=== PATIENT | male | born 1965 | race Caucasian/White ===

== ENCOUNTER 2017-03-18 15:31 | Emergency (ER) | payer SELFPAY ==
[~2017-03-18] VITALS: Ht 172.7 cm; Wt 121.4 kg
[~2017-03-18 15:31] MED LIST: ANSHCCR PR; ANSHCS PR; LRT5 PO; OXYC1TAB3 PO; PROM25TA PO
[2017-03-18 15:34] VITALS: TEMP 36.7; Ht 172.7 cm; Wt 121.4 kg
[2017-03-18] MEDS ORDERED: ACET-749 PO (16:34)
[2017-03-18] MEDS ORDERED: SULF800T23 PO (16:34)
[2017-03-18] MEDS ORDERED: CEPH500C PO (16:34)
[2017-03-18 16:46] VITALS: BP 161/99; PULSE 91; O2SAT 97
--- NOTE | 2017-03-18 16:59 | EMERGENCY ROOM VISIT NOTE ---
History First contact with patient: 15:39 Chief Complaint: PAIN (GENERALIZED) Stated Complaint: ULCERS, PAIN HARD History of Present Illness The patient is a 51 year old male who presents to the Emergency Room with complaints of a painful draining wound on his left leg. The patient reports that he has had this wound for quite some time. He has been treated at the [facility] as recently as this past summer. The patient reports that he is self-employed and has not been receiving an income since November, and could not have any further follow-ups because he did not have the money to do so. The patient has contacted [facility], and has an appointment with them next Friday. The patient reports that the wound is becoming more painful, and has had no relief with ibuprofen. He also reports chronic redness around the wound that has somewhat worsened over the past few weeks. He has also had increasing drainage from the wound. He has been applying Aquacel and dry dressings as was previously done at the wound clinic. The patient denies any fevers or chills, and rates his discomfort a 6 out of 10 on my exam. Tetanus immunization is up-to-date. Review of Systems 10 system review was performed and was negative except for pertinent positives and negatives as indicated in history of present illness Past Medical/Surgical History Medical Problems: (1) Calculus Of Ureter (2) Hemorrhoids Nos (3) Hyperlipidemia Nec/Nos (4) Nicotine Dependence, Unspecified, Uncomplicated (5) Pneumonia, Organism Nos (6) Venous Insufficiency (Chronic) (Peripheral) Surgical Problems: (1) History of cholecystectomy Family History FH: diabetes mellitus FH: hypertension Social History Smoking Status: Current Every Day Smoker Alcohol Use: occasionally Marital Status: single Housing Status: lives alone Occupation Status: unemployed Current/Historical Medications Scheduled Cephalexin Monohydrate (Keflex), 500 MG PO QID Sulfa/Trimethoprim (Bactrim Ds 800MG/160MG), 1 TAB PO BID Scheduled PRN Acetaminophen/Codeine (Tylenol W/Codeine #3), 1-2 TABS PO q4-6h PRN for Pain Physical Exam Vital Signs Date Time Temp Pulse Resp B/P (MAP) Pulse Ox O2 Delivery O2 Flow Rate FiO2 03/18/17 15:34 36.7 87 18 166/112 96 Room Air Physical Exam CONSTITUTIONAL: Healthy and well nourished. Alert and oriented X 3 with positive affect. Patient does not appear in any acute distress, nor does he appear acutely ill or toxic. HEENT: Normocephalic, atraumatic. Pupils equal, round and reactive. NECK: Full active range of motion without discomfort. RESPIRATORY: Clear to auscultation bilaterally with no wheezing, crackles, rhonchi or stridor. CARDIOVASCULAR: Regular rate and rhythm with no murmurs, rubs or gallops. MUSCULOSKELETAL: Examination of left lower extremity shows an ulcer with peripheral induration and erythema. The patient does have a photo on his phone from a few weeks ago that does show some mildly increasing erythema about the wound. The patient has no tenderness to palpation of the calf or knee region. Pedal pulses are intact. INTEGUMENTARY: No rash or other significant dermatologic conditions noted. NEUROLOGIC: No focal neurologic deficits noted. Medical Decision & Procedures Laboratory Results Wound cultures were collected and are pending. ED Course Patient history and physical exam were performed. Nurse's notes were reviewed. Vital signs were reviewed, showing an elevated blood pressure 166/112. The patient is afebrile, and does not appear in any acute distress on exam. The patient does complain increasing pain and worsening appearance of the wound. I did review prior wound cultures to select appropriate antibiotic therapy. The patient will be treated with amoxicillin 500 mg 3 times a day 10 days, and Bactrim DS twice a day 10 days. The patient was encouraged to continue taking ibuprofen for baseline pain relief, and was also provided a prescription for Tylenol with Codeine as needed for breakthrough pain. Large amount of time was also spent in patient education. I also discussed other issues with the patient, including the importance of follow-up with the wound clinic for further wound management. I also explained the pain management usually is provided by his PCP, or in this case [facility]. In order to facilitate prompt follow-up and continuity of care, I also involved our Deli Associate who called the wound clinic and was advised that they canceled several appointments, therefore would need another referral to the clinic. We did explain to the patient currently does not have insurance. A referral form was completed by me and signed by Dr. Mckoy, attending physician. The Deli Associate also called [facility] who advised us that the patient is currently not an established patient. I initially told the patient that he could take his prescriptions to [facility], however because he is not established at this point, his prescriptions were printed to be taken to another local pharmacy. In addition to discussing culture and sensitivity history with our clinical pharmacist, he also looked up prescription costs for his medications, and suggested [facility] as the lower cost option. Additional discount prescription cards were also provided to the patient. The patient was instructed to return to the emergency department for any significantly worsening pain, swelling, redness or fever. The patient voiced understanding of all discharge instructions at the conclusion of my exam, but actually left the emergency department before his paperwork and prescriptions could be provided to him. His nurse was able to contact him via his cell phone, and returned for his discharge paperwork and prescriptions. During my examination, I also advised the patient that his blood pressure was elevated today in the emergency department, and was instructed to follow-up with a PCP or [facility] for blood pressure recheck. Medical Decision Patient has a long-standing history of venous stasis ulcers. The patient denies history of diabetes. He does report increasing pain, redness and swelling, therefore I feel that empiric antibody treatment is warranted. Wound cultures were collected again. [place] Drug Monitoring Program Search Results: patient reviewed within database, no issues identified Medication Reconcilliation Current Medication List: was personally reviewed by me Blood Pressure Screening Patient's blood pressure: Elevated blood pressure Blood pressure disposition: Referred to PCP Impression Primary Impression: Venous stasis ulcer of left lower extremity Additional Impressions: Left leg cellulitis Elevated blood pressure reading Departure Information Dispostion Home / Self-Care Prescriptions Acetaminophen/Codeine (Tylenol W/Codeine #3) 300 Mg/30 Mg Tab 1-2 TABS PO q4-6h Y for Pain, #30 TAB For Initial Treatment Prov: Pablo Chu PA 03/18/17 Sulfa/Trimethoprim (Bactrim Ds 800MG/160MG) Tab 1 TAB PO BID for 10 Days, #20 TAB Prov: Pablo Chu PA 03/18/17 Cephalexin Monohydrate (Keflex) 500 Mg Cap 500 MG PO QID for 10 Days, #40 CAP Prov: Pablo Chu PA 03/18/17 Referrals [facility] Celso Lutz, DO Forms HOME CARE DOCUMENTATION FORM, IMPORTANT VISIT INFORMATION Patient Instructions My [facility] Additional Instructions Take amoxicillin and Bactrim DS antibiotics as prescribed. Ibuprofen 600 mg every 6 hours as needed for pain. Take Tylenol with Codeine as needed for worse pain. Remember this medication can make you drowsy and constipated. Follow-up with [facility] next Friday as scheduled. Call the [facility] (Dr. Lutz) to schedule an appointment for further wound reevaluation and management. The Emergency Department does not provide wound management services or ongoing prescription management. Problem Qualifiers
== END 2017-03-18 16:40 | disposition home or self-care (01) ==
LOC: C.EDB 15:32 → C.EDC 16:40
DX: I87.8 Other specified disorders of veins (principal); L03.116 Cellulitis of left lower limb; R03.0 Elevated blood-pressure reading, without diagnosis of hypertension; E78.5 Hyperlipidemia, unspecified; F17.200 Nicotine dependence, unspecified, uncomplicated; Z87.442 Personal history of urinary calculi; Z90.49 Acquired absence of other specified parts of digestive tract; Z83.3 Family history of diabetes mellitus; Z82.49 Family history of ischemic heart disease and other diseases of the circulatory system

== ENCOUNTER → 2017-04-11 | Outpatient (CLI) | payer OTHER ==
[~2017-04-11] MED LIST changes: +ACET-749 PO; -ANSHCCR PR; -ANSHCS PR; +ASPI81CH2 PO; +CIPR1TAB11 PO; -LRT5 PO; -OXYC1TAB3 PO; -PROM25TA PO
== END | disposition home or self-care (01) ==
LOC: C.CPL 15:04 → EDSTATUS 05-19 12:29
PROVIDERS: ATTEND Family Medicine
DX: I10 Essential (primary) hypertension (principal)

== ENCOUNTER 2018-04-19 10:11 | Observation (INO) ==
[2018-04-19] MEDS ORDERED: ASPIRIN CHEW 324 MG PO STA (10:28)
--- NOTE | 2018-04-19 10:59 | XRay Report ---
XR chest 1V portable CLINICAL HISTORY: Chest Pain COMPARISON STUDY: No previous studies for comparison. FINDINGS: Lung volumes are normal. There is no pneumothorax or pleural effusion. There is no consolid ation or evidence for pulmonary edema. Cardiac size is at the upper limits of normal. Mediastinal con tours are unremarkable. IMPRESSION: No acute cardiopulmonary findings. Electronically signed by: Sabas Choudhary M.D. 04/19/2018 10:58 AM
[2018-04-19 11:03] LABS: Basophils # (auto) 0.01 K/uL (0-0.2); Basophils % (auto) 0.2 %; Eosinophils # (auto) 0.23 K/uL (0-0.5); Eosinophils % (auto) 4.5 %; Hematocrit (blood only) 43.3 % (42-52); Hemoglobin 15.9 g/dL (14.0-18.0); Immature Granulocytes # (auto) 0.01 K/uL (0.00-0.02); Immature Granulocytes % (auto) 0.2 %; Lymphocytes # (auto) 1.89 K/uL (1.2-3.4); Lymphocytes % (auto) 37.4 %; Mean Corpuscular Hgb Conc 36.7 g/dL (32-36); Mean Corpuscular Volume 91.4 fL (80-100); Mean Platelet Volume 10.8 fL (7.4-10.4); Monocytes # (auto) 0.33 K/uL (0.11-0.59); Monocytes % (auto) 6.5 %; Neutrophils # (auto) 2.59 K/uL (1.4-6.5); Neutrophils % (auto) 51.2 %; Platelet Count 197 K/uL (130-400); RDW Coefficient of Variation 12.7 % (11.5-14.5); RDW Standard Deviation 42.3 fL (36.4-46.3); Red Blood Count 4.74 M/uL (4.7-6.1); White Blood Count 5.06 K/uL (4.8-10.8)
[2018-04-19 11:18] LABS: Partial Thromboplastin Time 26.4 Seconds (21.0-31.0); Prothrombin Time 9.7 Seconds (9.0-12.0)
[2018-04-19 11:22] LABS: Alanine Aminotransferase 82 U/L (12-78); Albumin Level 4.1 gm/dl (3.4-5.0); Aspartate Aminotransferase 38 U/L (15-37); BUN Creatinine Ratio 12.6 (10-20); Blood Urea Nitrogen 12 mg/dl (7-18); Calcium 8.9 mg/dl (8.5-10.1); Carbon Dioxide 26 mmol/L (21-32); Chloride 100 mmol/L (98-107); Creatinine Clr Calc Pharmacy 126.5 ml/min; Est GFR (African American) 111.2; Glucose 279 mg/dl (70-99); Potassium 3.9 mmol/L (3.5-5.1); Sodium 136 mmol/L (136-145)
[2018-04-19 11:26] LABS: Alkaline Phosphatase 122 U/L (45-117); Bilirubin,Total 0.6 mg/dl (0.1-1); Globulin 4.1 gm/dl (2.5-4.0); Total Protein 8.2 gm/dl (6.4-8.2); Troponin I < 0.015 ng/ml (0-0.045)
--- NOTE | 2018-04-19 14:37 | History & Physical Report ---
Date of Service April 19, 2018 Assessment & Plan (1) Chest pain: 52 y/o M Hx PAD, non-healing LLE ulcer, HTN, DVT. Presents with central/ L CP radiating into his neck and accompanied by SOB, nausea and lightheadedness. This has occurred twice in the past 2 days. He also states that this occurred once 4 months ago and was not addressed at the time. The pt was said to be taking Coumadin. Plavix and HTN-related meds, however, he states that he felt he was taking too many medications and had stopped them of his own accord a few months ago. It is unclear if he completed his intended course of Coumadin for a LLE DVT. On review of records, he did have a normal stress echo 04/2017. He had ablation of the L saphenous vein 12/2017 which preceded his DVT. Initial labs are notable for a glucose of 280, although he denies a history of DM. Initial EKG does not support acute ischemia. 1) Chest pain - high risk despite normal stress in 2018. Pt placed on ASA, Plavix, statin. Pending serial troponins, fasting lipid profile, cardiology consult. He may need a cath, however, medical noncompliance should be taken into consideration in terms of potential stent placement should a worthy lesion become evident. 2) recent DVT - may have terminated Coumadin prematurely - we will obtain a LE US - although PE is in the differential, pretest probability is low. Would not work up further unless a DVT is found. 3) LE ulcer - this appears to be clean, although there is no evidence that it is healing and it is at an advanced atage. He had been following in a wound clinic buit stopped doing so. Sirgey eval and wound care should be arranged prior to DC - can likely take place at an outpt setting. 4) Hyperglycemia - as his glucose is 280, it would come to reason that he is diabetic. He is placed on a SS - A1C is pending. 5) HTN - pressure has been at the 165/110 range while in the ER. I will place him on Norvasc and Lisinopril to start now and continue AM. His HR is 60 so he may not tolerate aa B gaston. Full code Heparin prophylaxis Total time for this admit including review of labs, meds, imaging, records - discussion with pt, daughter and ER attending 40 min Present on Admission?: Yes History of Present Illness Chief Complaint: Chest pain Primary Care Provider: NO PCP 52 y/o M Hx PAD, non-healing LLE ulcer, HTN, DVT. Presents with central/L CP radiating into his neck and accompanied by SOB, nausea and lightheadedness. This has occurred twice in the past 2 days. He also states that this occurred once 4 months ago and was not addressed at the time. The pt was said to be taking Coumadin. Plavix and HTN-related meds, however, he states that he felt he was taking too many medications and had stopped them of his own accord a few months ago. It is unclear if he completed his intended course of Coumadin for a LLE DVT. On review of records, he did have a normal stress echo 04/2017. He had ablation of the L saphenous vein 12/2017 which preceded his DVT. Initial labs are notable for a glucose of 280, although he denies a history of DM. PMH: 1) HTN 2) PAD 3) LLE DVT 4) Obese 5) Medical noncompliance 6) Nonhealing LLE ulcer Surgical: 1) Ablation of L saphenous vein due to reflux 12/2017 2) Cholecystectomy Social: Extensive smoking history - quit 3 months ago rarely drink alcohol Croatian speaking - limited Welsh skills 2 daughters are available for translation Family: States both parents are alive - denies history of CAD in family - possible DM Allergies Allergy/AdvReac Type Severity Reaction Status Date / Time No Known Allergies Allergy Unknown Verified 04/19/18 10:41 Home Medications Home Medications Medication Instructions Recorded Confirmed Type Aspirin Childrens 81 mg PO UD PRN 04/19/18 04/19/18 History acetaminophen [Tylenol] 0 mg PO Q6H PRN 04/19/18 04/19/18 History Past Med/Surg History Surgical History History of cholecystectomy (Chronic) Social History Current Living Situation: Alone Other Information That Helps Us Care for You: No Feels Safe at Home: Yes Safety Concerns: Feels Safe At This Time Smoking Status: Former smoker Tobacco Type: cigarettes Do You Dip or Chew Tobacco: No Smoking End Date: on and off quitting smoking, recently quit this year Second Hand Exposure: No Tobacco Cessation Education Requested by Patient: No Hx Alcohol Use: Yes Alcohol type: beer and wine Alcohol Intake Frequency: 0-2 drinks per day Hx Substance Use: No Beliefs That Will Affect Care: None Preferred Language: Croatian Communication Ability: Effective Technology Lab Teacher Required: No Review of Systems General: Denies fevers, night sweats, weight loss, weight gain ENT: Denies throat pain, nasal congestion Eyes: Denies acute visual impairment, eye pain Cardiovascular: CP w/SOB as above Respiratory: Denies SOB, productive cough, wheezing - SOB occured with CP GI: Denies nausea, vomiting, diarrhea, constipation, GI bleeding : Denies dysuria, hesitancy, frequency, hematuria Neuro: Denies headache, lightheadedness, syncope, unilateral weakness, acute loss of balance, memory loss Endocrine: Denies polydypsia, polyuria Heme: Denies unexplained bruising Skin: Denies acute rash or ulcers - there is a chronic ulcer on the anterior distal LLE Physical Exam 2 Vital Signs (Past 24 Hours): Last Vital Signs Temp 36.7 C 04/19/18 10:16 Pulse 68 04/19/18 13:22 Resp 18 04/19/18 13:22 BP 162/116 H 04/19/18 13:22 Pulse Ox 95 04/19/18 13:22 Physical Exam: General: Overweight, middle-aged male, AAO x 3, no distress ENT: No erythema or exudates, no thrush Eyes: DIEGO, EOMI Head and neck: Normocephalic, atraumatic, No JVD, neck is supple. Chest/heart: Nontender, S1,2, RRR, no murmurs, no gallops Lungs: CTAB, no wheezing or crackles Abdomen: Nontender, nondistended, BS+ Neuro: AAO x 3, speech is clear, no unilateral weakness or loss of sensation, coordination intact Musculoskeletal: No joint inflammation, muscle tenderness, FROM Skin: No acute rashes or ulcers Extremities: No clubbing, cyanosis, edema - there is a chronic ulcer on the anterior distal LLE - stage 3-4 - no does not appear acutely infected Results & Data Diagnostic Findings EKG: NSR 60BPM
--- NOTE | 2018-04-19 15:35 | Emergency Department Note ---
Entered by Geo Garrett acting as a scribe for Ramsey Gardner DO History of Present Illness General Chief complaint: Cardiac Assessment Stated complaint: SOB, LEFT ARM PAIN, CHEST TIGHTNESS Source: patient History of Present Illness Onset (ago): day(s) 2 Location: chest (left) Pain Consistency: + other (persistent) Quality: + other (tightness) Exacerbated By: + other (exertion) Associated symptoms: + shortness of breath and + other (nausea, dizziness) The patient is a 52 year old male who presents to the Emergency Room with complaints of persistent left-sided chest tightness beginning 2 days ago. The patient describes the sensation as �squeezing� and reports some radiation to the left arm. He states that today he became nauseated, dizzy and short of breath with his symptoms. He notes that his discomfort is somewhat improved currently. He states that his chest pain and shortness of breath are sometimes worsened with exertion. He notes that he had taken aspirin yesterday that seemed to improve his symptoms, but he did not take any today. He denies trouble walking. He states that 3 months ago he had a procedure for an artery. He denies history of heart attack. Home Medications Home Medications Medication Instructions Recorded Confirmed Type Aspirin Childrens 81 mg PO UD PRN 04/19/18 04/19/18 History acetaminophen [Tylenol] 0 mg PO Q6H PRN 04/19/18 04/19/18 History Allergies Allergy/AdvReac Type Severity Reaction Status Date / Time No Known Allergies Allergy Unknown Verified 04/19/18 10:41 Past Med/Surg History Surgical History History of cholecystectomy (Chronic) Social History Current Living Situation: Alone Other Information That Helps Us Care for You: No Feels Safe at Home: Yes Safety Concerns: Feels Safe At This Time Smoking Status: Former smoker Tobacco Type: cigarettes Do You Dip or Chew Tobacco: No Smoking End Date: on and off quitting smoking, recently quit this year Second Hand Exposure: No Tobacco Cessation Education Requested by Patient: No Hx Alcohol Use: Yes Alcohol type: beer and wine Alcohol Intake Frequency: 0-2 drinks per day Hx Substance Use: No Beliefs That Will Affect Care: None Preferred Language: [place] Islander Communication Ability: Effective Nursing Coordinator Required: No Review of Systems See HPI for pertinent positives & negatives. and A total of 10 systems reviewed and were otherwise negative Physical Exam Vital Signs Vital Signs - 24 hr 04/20/18 00:05 04/20/18 03:59 04/20/18 12:10 Temperature 36.9 C 36.8 C Temperature Source Oral Oral Pulse Rate [Finger] 58 L 60 61 Pulse Rhythm [Finger] Regular Pulse Strength [Finger] Normal Respiratory Rate 17 17 16 Respiratory Effort / Characteristics Non-Labored Respiratory Depth Normal Respiratory Pattern Regular Blood Pressure [Left Arm] 128/85 Blood Pressure [Right Arm] 114/66 128/79 Blood Pressure Mean [Left Arm] 99 Blood Pressure Mean [Right Arm] 82 95 Blood Pressure Position [Left Arm] Lying Blood Pressure Position [Right Arm] Lying Lying Pulse Oximetry 96 98 94 Oxygen Delivery Method Room Air Room Air Room Air 04/20/18 12:40 04/20/18 12:45 04/20/18 12:50 Temperature Temperature Source Pulse Rate [Finger] 66 64 61 Pulse Rhythm [Finger] Regular Regular Regular Pulse Strength [Finger] Normal Normal Normal Respiratory Rate 16 16 16 Respiratory Effort / Characteristics Non-Labored Non-Labored Non-Labored Respiratory Depth Normal Normal Normal Respiratory Pattern Regular Regular Regular Blood Pressure [Left Arm] Blood Pressure [Right Arm] 139/89 134/80 118/80 Blood Pressure Mean [Left Arm] Blood Pressure Mean [Right Arm] 105 98 92 Blood Pressure Position [Left Arm] Lying Lying Lying Blood Pressure Position [Right Arm] Lying Lying Lying Pulse Oximetry 94 94 94 Oxygen Delivery Method Room Air Room Air Room Air 04/20/18 12:55 04/20/18 13:00 04/20/18 13:08 Temperature Temperature Source Pulse Rate [Finger] 59 L 60 59 L Pulse Rhythm [Finger] Regular Regular Regular Pulse Strength [Finger] Normal Normal Respiratory Rate 16 16 16 Respiratory Effort / Characteristics Non-Labored Non-Labored Spontaneous Respiratory Depth Normal Normal Respiratory Pattern Regular Regular Regular Blood Pressure [Left Arm] 122/78 Blood Pressure [Right Arm] 115/76 114/73 Blood Pressure Mean [Left Arm] 92 Blood Pressure Mean [Right Arm] 89 86 Blood Pressure Position [Left Arm] Lying Lying Lying Blood Pressure Position [Right Arm] Lying Lying Pulse Oximetry 94 94 94 Oxygen Delivery Method Room Air Room Air Room Air 04/20/18 13:38 04/20/18 14:38 04/20/18 15:38 Temperature Temperature Source Pulse Rate [Finger] 59 L 68 68 Pulse Rhythm [Finger] Regular Regular Regular Pulse Strength [Finger] Respiratory Rate 16 16 16 Respiratory Effort / Characteristics Non-Labored Spontaneous Non-Labored Spontaneous Non-Labored Spontaneous Respiratory Depth Normal Normal Normal Respiratory Pattern Regular Blood Pressure [Left Arm] 116/82 153/101 H 115/57 L Blood Pressure [Right Arm] Blood Pressure Mean [Left Arm] 93 118 76 Blood Pressure Mean [Right Arm] Blood Pressure Position [Left Arm] Lying Lying Blood Pressure Position [Right Arm] Pulse Oximetry 92 96 95 Oxygen Delivery Method Room Air Room Air Room Air 04/20/18 20:05 Temperature 36.7 C Temperature Source Oral Pulse Rate [Finger] 65 Pulse Rhythm [Finger] Pulse Strength [Finger] Respiratory Rate 18 Respiratory Effort / Characteristics Respiratory Depth Respiratory Pattern Blood Pressure [Left Arm] 122/77 Blood Pressure [Right Arm] Blood Pressure Mean [Left Arm] 92 Blood Pressure Mean [Right Arm] Blood Pressure Position [Left Arm] Lying Blood Pressure Position [Right Arm] Pulse Oximetry 96 Oxygen Delivery Method Room Air GENERAL: Patient is awake, alert, and in no acute distress.Patient is resting comfortably and showing no signs of anxiety EYES: The conjunctivae are clear. The pupils are round and reactive. EARS, NOSE, MOUTH AND THROAT: The nose is without any evidence of any deformity. Mucous membranes are moist.Tongue is midline NECK: The neck is nontender and supple. RESPIRATORY: Normal respiratory effort is noted. There is no evidence of wheezing rhonchi or rales to auscultation. CARDIOVASCULAR: Regular rate and rhythm noted. There no murmurs rubs or gallops normal S1 normal S2 GASTROINTESTINAL: The abdomen is soft. Bowel sounds are present in all quadrants. Abdomen is nontender. MUSCULOSKELETAL/EXTREMITIES: There is no evidence of gross deformity. Full range of motion is noted in the hips and shoulders. SKIN: There is no obvious evidence of any rash. There are no petechiae, pallor or cyanosis noted. NEUROLOGIC: Patient is awake alert and oriented x3. Course 1027: Past medical records reviewed. The patient was evaluated in room C9, and a complete history and physical examination were performed. 1340: I consulted Dr. Overton � [facility] Hospitalist. He will evaluate the patient for hospitalization. Consultations Consultation #1: I consulted Dr. Overton � [facility] Hospitalist. He will evaluate the patient for hospitalization. Time: 13:40 Administered Medications Amlodipine Besylate (Norvasc) 5 mg PO QAM [facility] Stop: 05/20/18 08:59 Last Admin: 04/20/18 10:06 Dose: 5 mg Aspirin (Ecotrin) 81 mg PO DAILY [facility] Stop: 05/20/18 08:59 Last Admin: 04/20/18 10:06 Dose: 81 mg Atorvastatin Calcium (Lipitor) 40 mg PO HS [facility] Stop: 05/19/18 20:59 Last Admin: 04/20/18 20:58 Dose: 40 mg Admin: 04/19/18 20:01 Dose: 40 mg Heparin Sodium (Porcine) (Heparin Sodium (Porcine)) 5,000 units SQ Q8 [facility] Stop: 05/19/18 21:59 Last Admin: 04/20/18 20:58 Dose: 5,000 units Admin: 04/20/18 13:57 Dose: 5,000 units Admin: 04/20/18 05:53 Dose: 5,000 units Admin: 04/19/18 22:45 Dose: 5,000 units Sodium Chloride (Nss 1000ml) 1,000 mls @ 125 mls/hr IV .Q8H [facility] Stop: 05/20/18 12:59 Last Admin: 04/20/18 22:06 Dose: 125 mls/hr Infusion: 04/20/18 21:56 Dose: 125 mls/hr Admin: 04/20/18 13:56 Dose: 125 mls/hr Insulin Aspart (Novolog Flexpen) 0 units SC ACHS [facility] Stop: 05/19/18 17:14 Last Admin: 04/20/18 20:57 Dose: Not Given Admin: 04/20/18 17:48 Dose: 2 units Admin: 04/20/18 13:52 Dose: 2 units Admin: 04/20/18 10:11 Dose: 2 units Admin: 04/19/18 20:07 Dose: 2 units Admin: 04/19/18 18:01 Dose: Not Given Lisinopril (Zestril) 2.5 mg PO QAM [facility] Stop: 05/20/18 08:59 Last Admin: 04/20/18 10:06 Dose: 2.5 mg Admin: 04/19/18 18:20 Dose: 2.5 mg Discontinued Medications Amlodipine Besylate (Norvasc) 5 mg PO NOW ONE Stop: 04/19/18 15:46 Last Admin: 04/19/18 18:21 Dose: 5 mg Aspirin (Aspirin) 324 mg PO NOW STA Stop: 04/19/18 10:29 Last Admin: 04/19/18 10:47 Dose: 324 mg Clopidogrel Bisulfate (Plavix) 300 mg PO NOW STA Stop: 04/19/18 15:46 Last Admin: 04/19/18 18:22 Dose: 300 mg Clopidogrel Bisulfate (Plavix) Confirm Administered Dose 300 mg .ROUTE .STK-MED ONE Stop: 04/19/18 18:19 Last Admin: 04/19/18 18:20 Dose: Not Given Fentanyl Citrate (Fentanyl Citrate) Confirm Administered Dose 100 mcg .ROUTE .STK-MED ONE Stop: 04/20/18 11:08 Last Admin: 04/20/18 11:59 Dose: 50 mcg Heparin Sodium (Porcine) (Heparin Iv Bolus (Collar Closer Lockstitch Use Only)) Confirm Administered Dose 10,000 units .ROUTE .STK-MED ONE Stop: 04/20/18 11:08 Last Admin: 04/20/18 12:00 Dose: 10,000 units Heparin Sodium/Sodium Chloride (Heparin Sod/Nss 2 Units/Ml) Confirm Administered Dose 3,000 units IV .STK-MED ONE Stop: 04/20/18 11:08 Last Admin: 04/20/18 12:01 Dose: 3,000 units Lidocaine HCl (Xylocaine 1% (Local)) Confirm Administered Dose 20 ml .ROUTE .STK -MED ONE Stop: 04/20/18 10:38 Last Admin: 04/20/18 11:56 Dose: 20 ml Midazolam HCl (Versed) Confirm Administered Dose 2 mg .ROUTE .STK-MED ONE Stop: 04/20/18 11:08 Last Admin: 04/20/18 12:01 Dose: 2 mg Nicardipine HCl (Cardene) Confirm Administered Dose 25 mg .ROUTE .STK-MED ONE Stop: 04/20/18 11:08 Last Admin: 04/20/18 11:58 Dose: 25 mg Nitroglycerin/Dextrose (Nitroglycerin/D5w 100 Mcg/Ml 20ml Syringe) Confirm Administered Dose 2,000 mcg .ROUTE .STK-MED ONE Stop: 04/20/18 11:09 Last Admin: 04/20/18 12:01 Dose: 2,000 mcg Medical Decision Making Differential Diagnosis Differential diagnosis: Etiologies such as cardiac ischemia, aortic dissection, pulmonary embolism, pneumonia, pneumothorax, musculoskeletal, infections, pericarditis, myocarditis , esophageal rupture, gastrointestinal, as well as others were entertained. Medical Records Attestation: I reviewed the patient's medical records. Home Medications Current Medication List: was personally reviewed by me Laboratory Data Attestation: I reviewed the patient's lab results. Result diagrams: 04/20/18 05:48 04/20/18 05:48 Lab Results 04/19/18 04/19/18 04/19/18 Range/Units 10:52 10:52 10:52 WBC 5.06 (4.8-10.8) K/uL RBC 4.74 (4.7-6.1) M/uL Hgb 15.9 (14.0-18.0) g/dL Hct 43.3 (42-52) % MCV 91.4 (80-100) fL MCH 33.5 (25-34) pg MCHC 36.7 H (32-36) g/dL RDW Std Deviation 42.3 (36.4-46.3) fL RDW Coeff of Mirella 12.7 (11.5-14.5) % Plt Count 197 (130-400) K/uL MPV 10.8 H (7.4-10.4) fL Immature Gran % (Auto) 0.2 % Neut % (Auto) 51.2 % Lymph % (Auto) 37.4 % [place] % (Auto) 6.5 % Eos % (Auto) 4.5 % Baso % (Auto) 0.2 % Immature Gran # (Auto) 0.01 (0.00-0.02) K/uL Neut # (Auto) 2.59 (1.4-6.5) K/uL Lymph # (Auto) 1.89 (1.2-3.4) K/uL [place] # (Auto) 0.33 (0.11-0.59) K/uL Eos # (Auto) 0.23 (0-0.5) K/uL Baso # (Auto) 0.01 (0-0.2) K/uL PT 9.7 (9.0-12.0) Seconds INR 1.0 (0.9-1.1) APTT 26.4 (21.0-31.0) Seconds PTT Ratio 1.0 Activ Coag Time Kaolin (94-140) SECONDS Sodium 136 (136-145) mmol/L Potassium 3.9 (3.5-5.1) mmol/L Chloride 100 (98-107) mmol/L Carbon Dioxide 26 (21-32) mmol/L Anion Gap 10.0 (3-11) BUN 12 (7-18) mg/dl Creatinine 0.92 (0.6-1.4) mg/dl Est Cr Clr Drug Dosing 126.5 ml/min Est GFR ( Amer) 111.2 Est GFR (Non-Af Amer) 96.0 BUN/Creatinine Ratio 12.6 (10-20) Glucose 279 H (70-99) mg/dl POC Glucose (70-99) Estimat Average Glucose mg/dl Hemoglobin A1c (4.5-5.6) % Calcium 8.9 (8.5-10.1) mg/dl Magnesium (1.8-2.4) mg/dl Total Bilirubin 0.6 (0.1-1) mg/dl AST 38 H (15-37) U/L ALT 82 H (12-78) U/L Alkaline Phosphatase 122 H (45-117) U/L Troponin I < 0.015 (0-0.045) ng/ml Total Protein 8.2 (6.4-8.2) gm/dl Albumin 4.1 (3.4-5.0) gm/dl Globulin 4.1 H (2.5-4.0) gm/dl Albumin/Globulin Ratio 1.0 (0.9-2) Triglycerides (0-150) mg/dl Cholesterol (0-200) mg/dl LDL Cholesterol, Calc mg/dl VLDL Cholesterol, Calc mg/dl HDL Cholesterol mg/dl Cholesterol/HDL Ratio Lipase 325 (73-393) U/L 04/19/18 04/19/18 04/19/18 Range/Units 10:52 16:08 17:03 WBC (4.8-10.8) K/uL RBC (4.7-6.1) M/uL Hgb (14.0-18.0) g/dL Hct (42-52) % MCV (80-100) fL MCH (25-34) pg MCHC (32-36) g/dL RDW Std Deviation (36.4-46.3) fL RDW Coeff of Mirella (11.5-14.5) % Plt Count (130-400) K/uL MPV (7.4-10.4) fL Immature Gran % (Auto) % Neut % (Auto) % Lymph % (Auto) % [place] % (Auto) % Eos % (Auto) % Baso % (Auto) % Immature Gran # (Auto) (0.00-0.02) K/uL Neut # (Auto) (1.4-6.5) K/uL Lymph # (Auto) (1.2-3.4) K/uL [place] # (Auto) (0.11-0.59) K/uL Eos # (Auto) (0-0.5) K/uL Baso # (Auto) (0-0.2) K/uL PT (9.0-12.0) Seconds INR (0.9-1.1) APTT (21.0-31.0) Seconds PTT Ratio Activ Coag Time Kaolin (94-140) SECONDS Sodium (136-145) mmol/L Potassium (3.5-5.1) mmol/L Chloride (98-107) mmol/L Carbon Dioxide (21-32) mmol/L Anion Gap (3-11) BUN (7-18) mg/dl Creatinine (0.6-1.4) mg/dl Est Cr Clr Drug Dosing ml/min Est GFR ( Amer) Est GFR (Non-Af Amer) BUN/Creatinine Ratio (10-20) Glucose (70-99) mg/dl POC Glucose 178 H (70-99) Estimat Average Glucose 249 mg/dl Hemoglobin A1c 10.3 H (4.5-5.6) % Calcium (8.5-10.1) mg/dl Magnesium (1.8-2.4) mg/dl Total Bilirubin (0.1-1) mg/dl AST (15-37) U/L ALT (12-78) U/L Alkaline Phosphatase (45-117) U/L Troponin I < 0.015 (0-0.045) ng/ml Total Protein (6.4-8.2) gm/dl Albumin (3.4-5.0) gm/dl Globulin (2.5-4.0) gm/dl Albumin/Globulin Ratio (0.9-2) Triglycerides (0-150) mg/dl Cholesterol (0-200) mg/dl LDL Cholesterol, Calc mg/dl VLDL Cholesterol, Calc mg/dl HDL Cholesterol mg/dl Cholesterol/HDL Ratio Lipase (73-393) U/L 04/19/18 04/20/18 04/20/18 Range/Units 20:06 05:48 05:48 WBC 5.55 (4.8-10.8) K/uL RBC 4.36 L (4.7-6.1) M/uL Hgb 14.4 (14.0-18.0) g/dL Hct 40.4 L (42-52) % MCV 92.7 (80-100) fL MCH 33.0 (25-34) pg MCHC 35.6 (32-36) g/dL RDW Std Deviation 42.8 (36.4-46.3) fL RDW Coeff of Mirella 12.6 (11.5-14.5) % Plt Count 193 (130-400) K/uL MPV 10.5 H (7.4-10.4) fL Immature Gran % (Auto) 0.2 % Neut % (Auto) 38.9 % Lymph % (Auto) 47.6 % [place] % (Auto) 8.6 % Eos % (Auto) 4.5 % Baso % (Auto) 0.2 % Immature Gran # (Auto) 0.01 (0.00-0.02) K/uL Neut # (Auto) 2.16 (1.4-6.5) K/uL Lymph # (Auto) 2.64 (1.2-3.4) K/uL [place] # (Auto) 0.48 (0.11-0.59) K/uL Eos # (Auto) 0.25 (0-0.5) K/uL Baso # (Auto) 0.01 (0-0.2) K/uL PT (9.0-12.0) Seconds INR (0.9-1.1) APTT (21.0-31.0) Seconds PTT Ratio Activ Coag Time Kaolin (94-140) SECONDS Sodium 136 (136-145) mmol/L Potassium 4.3 (3.5-5.1) mmol/L Chloride 103 (98-107) mmol/L Carbon Dioxide 27 (21-32) mmol/L Anion Gap 5.0 (3-11) BUN 13 (7-18) mg/dl Creatinine 1.06 (0.6-1.4) mg/dl Est Cr Clr Drug Dosing 108.4 ml/min Est GFR ( Amer) 93.7 Est GFR (Non-Af Amer) 80.9 BUN/Creatinine Ratio 12.5 (10-20) Glucose 226 H (70-99) mg/dl POC Glucose 213 H (70-99) Estimat Average Glucose mg/dl Hemoglobin A1c (4.5-5.6) % Calcium 8.6 (8.5-10.1) mg/dl Magnesium 2.2 (1.8-2.4) mg/dl Total Bilirubin (0.1-1) mg/dl AST (15-37) U/L ALT (12-78) U/L Alkaline Phosphatase (45-117) U/L Troponin I (0-0.045) ng/ml Total Protein (6.4-8.2) gm/dl Albumin (3.4-5.0) gm/dl Globulin (2.5-4.0) gm/dl Albumin/Globulin Ratio (0.9-2) Triglycerides 303 H (0-150) mg/dl Cholesterol 230 H (0-200) mg/dl LDL Cholesterol, Calc 137 mg/dl VLDL Cholesterol, Calc 61 mg/dl HDL Cholesterol 32 mg/dl Cholesterol/HDL Ratio 7 Lipase (73-393) U/L 04/20/18 04/20/18 04/20/18 Range/Units 05:48 06:06 10:11 WBC (4.8-10.8) K/uL RBC (4.7-6.1) M/uL Hgb (14.0-18.0) g/dL Hct (42-52) % MCV (80-100) fL MCH (25-34) pg MCHC (32-36) g/dL RDW Std Deviation (36.4-46.3) fL RDW Coeff of Mirella (11.5-14.5) % Plt Count (130-400) K/uL MPV (7.4-10.4) fL Immature Gran % (Auto) % Neut % (Auto) % Lymph % (Auto) % [place] % (Auto) % Eos % (Auto) % Baso % (Auto) % Immature Gran # (Auto) (0.00-0.02) K/uL Neut # (Auto) (1.4-6.5) K/uL Lymph # (Auto) (1.2-3.4) K/uL [place] # (Auto) (0.11-0.59) K/uL Eos # (Auto) (0-0.5) K/uL Baso # (Auto) (0-0.2) K/uL PT (9.0-12.0) Seconds INR (0.9-1.1) APTT (21.0-31.0) Seconds PTT Ratio Activ Coag Time Kaolin (94-140) SECONDS Sodium (136-145) mmol/L Potassium (3.5-5.1) mmol/L Chloride (98-107) mmol/L Carbon Dioxide (21-32) mmol/L Anion Gap (3-11) BUN (7-18) mg/dl Creatinine (0.6-1.4) mg/dl Est Cr Clr Drug Dosing ml/min Est GFR ( Amer) Est GFR (Non-Af Amer) BUN/Creatinine Ratio (10-20) Glucose (70-99) mg/dl POC Glucose 204 H 219 H (70-99) Estimat Average Glucose mg/dl Hemoglobin A1c (4.5-5.6) % Calcium (8.5-10.1) mg/dl Magnesium (1.8-2.4) mg/dl Total Bilirubin (0.1-1) mg/dl AST (15-37) U/L ALT (12-78) U/L Alkaline Phosphatase (45-117) U/L Troponin I < 0.015 (0-0.045) ng/ml Total Protein (6.4-8.2) gm/dl Albumin (3.4-5.0) gm/dl Globulin (2.5-4.0) gm/dl Albumin/Globulin Ratio (0.9-2) Triglycerides (0-150) mg/dl Cholesterol (0-200) mg/dl LDL Cholesterol, Calc mg/dl VLDL Cholesterol, Calc mg/dl HDL Cholesterol mg/dl Cholesterol/HDL Ratio Lipase (73-393) U/L 04/20/18 04/20/18 04/20/18 Range/Units 11:54 12:32 16:34 WBC (4.8-10.8) K/uL RBC (4.7-6.1) M/uL Hgb (14.0-18.0) g/dL Hct (42-52) % MCV (80-100) fL MCH (25-34) pg MCHC (32-36) g/dL RDW Std Deviation (36.4-46.3) fL RDW Coeff of Mirella (11.5-14.5) % Plt Count (130-400) K/uL MPV (7.4-10.4) fL Immature Gran % (Auto) % Neut % (Auto) % Lymph % (Auto) % [place] % (Auto) % Eos % (Auto) % Baso % (Auto) % Immature Gran # (Auto) (0.00-0.02) K/uL Neut # (Auto) (1.4-6.5) K/uL Lymph # (Auto) (1.2-3.4) K/uL [place] # (Auto) (0.11-0.59) K/uL Eos # (Auto) (0-0.5) K/uL Baso # (Auto) (0-0.2) K/uL PT (9.0-12.0) Seconds INR (0.9-1.1) APTT (21.0-31.0) Seconds PTT Ratio Activ Coag Time Kaolin 180 H 158 H (94-140) SECONDS Sodium (136-145) mmol/L Potassium (3.5-5.1) mmol/L Chloride (98-107) mmol/L Carbon Dioxide (21-32) mmol/L Anion Gap (3-11) BUN (7-18) mg/dl Creatinine (0.6-1.4) mg/dl Est Cr Clr Drug Dosing ml/min Est GFR ( Amer) Est GFR (Non-Af Amer) BUN/Creatinine Ratio (10-20) Glucose (70-99) mg/dl POC Glucose 206 H (70-99) Estimat Average Glucose mg/dl Hemoglobin A1c (4.5-5.6) % Calcium (8.5-10.1) mg/dl Magnesium (1.8-2.4) mg/dl Total Bilirubin (0.1-1) mg/dl AST (15-37) U/L ALT (12-78) U/L Alkaline Phosphatase (45-117) U/L Troponin I (0-0.045) ng/ml Total Protein (6.4-8.2) gm/dl Albumin (3.4-5.0) gm/dl Globulin (2.5-4.0) gm/dl Albumin/Globulin Ratio (0.9-2) Triglycerides (0-150) mg/dl Cholesterol (0-200) mg/dl LDL Cholesterol, Calc mg/dl VLDL Cholesterol, Calc mg/dl HDL Cholesterol mg/dl Cholesterol/HDL Ratio Lipase (73-393) U/L 04/20/18 Range/Units 20:36 WBC (4.8-10.8) K/uL RBC (4.7-6.1) M/uL Hgb (14.0-18.0) g/dL Hct (42-52) % MCV (80-100) fL MCH (25-34) pg MCHC (32-36) g/dL RDW Std Deviation (36.4-46.3) fL RDW Coeff of Mirella (11.5-14.5) % Plt Count (130-400) K/uL MPV (7.4-10.4) fL Immature Gran % (Auto) % Neut % (Auto) % Lymph % (Auto) % [place] % (Auto) % Eos % (Auto) % Baso % (Auto) % Immature Gran # (Auto) (0.00-0.02) K/uL Neut # (Auto) (1.4-6.5) K/uL Lymph # (Auto) (1.2-3.4) K/uL [place] # (Auto) (0.11-0.59) K/uL Eos # (Auto) (0-0.5) K/uL Baso # (Auto) (0-0.2) K/uL PT (9.0-12.0) Seconds INR (0.9-1.1) APTT (21.0-31.0) Seconds PTT Ratio Activ Coag Time Kaolin (94-140) SECONDS Sodium (136-145) mmol/L Potassium (3.5-5.1) mmol/L Chloride (98-107) mmol/L Carbon Dioxide (21-32) mmol/L Anion Gap (3-11) BUN (7-18) mg/dl Creatinine (0.6-1.4) mg/dl Est Cr Clr Drug Dosing ml/min Est GFR ( Amer) Est GFR (Non-Af Amer) BUN/Creatinine Ratio (10-20) Glucose (70-99) mg/dl POC Glucose 148 H (70-99) Estimat Average Glucose mg/dl Hemoglobin A1c (4.5-5.6) % Calcium (8.5-10.1) mg/dl Magnesium (1.8-2.4) mg/dl Total Bilirubin (0.1-1) mg/dl AST (15-37) U/L ALT (12-78) U/L Alkaline Phosphatase (45-117) U/L Troponin I (0-0.045) ng/ml Total Protein (6.4-8.2) gm/dl Albumin (3.4-5.0) gm/dl Globulin (2.5-4.0) gm/dl Albumin/Globulin Ratio (0.9-2) Triglycerides (0-150) mg/dl Cholesterol (0-200) mg/dl LDL Cholesterol, Calc mg/dl VLDL Cholesterol, Calc mg/dl HDL Cholesterol mg/dl Cholesterol/HDL Ratio Lipase (73-393) U/L Imaging Data Radiologist's Impression: Radiology results as stated below per my review and the radiologist's interpretation: XR chest 1V portable CLINICAL HISTORY: Chest Pain COMPARISON STUDY: No previous studies for comparison. FINDINGS: Lung volumes are normal. There is no pneumothorax or pleural effusion. There is no consolidation or evidence for pulmonary edema. Cardiac size is at the upper limits of normal. Mediastinal contours are unremarkable. IMPRESSION: No acute cardiopulmonary findings. Electronically signed by: Sabas Choudhary M.D. 04/19/2018 10:58 AM ECG Data Attestation: I personally reviewed and interpreted this ECG as follows: Indication: chest pain Rate (beats per minute): 62 Rhythm: normal sinus Findings: no PAC, no PVC, no ST depression and no ST elevation Comparison ECG Date: from (04/11/17) Change: no significant change Blood Pressure Blood Pressure Findings: Elevated blood pressure Blood Pressure Disposition: further management by hospitalist CORDELIA Govea The patient is a 52-year-old male who presented to the emergency department for an evaluation of chest discomfort. The patient has a history of peripheral vascular disease. He does have significant risk factors for acute coronary syndrome. The patient presented to the emergency department with chest discomfort which he states was radiating to his neck as well as his arm. He states it also was associated with exertion. I discussed the patient's laboratory and radiographic studies with him. I also discussed the limitations of the emergency department workup for chest pain with him. Ultimately I feel the patient is very high risk and given his exertional chest pain I discussed his case with the on-call [facility] hospitalist. They have agreed to evaluate the patient in the emergency department for further management and disposition. Impression & Plan Exertional chest pain Discharge Plan Visit Data *Final* Discharge Date/Time: 04/19/18 14:59 Chief Complaint: Cardiac Assessment Stated Complaint: SOB, LEFT ARM PAIN, CHEST TIGHTNESS ED Provider: Ramsey Gardner Discharge Problem: Exertional chest pain Patient Disposition: Admitted As Inpatient Discharge Instructions Interventions: ED Discharge Assessment Last Done: 04/19/18 14:59 The scribe's documentation has been prepared under my direction and personally reviewed by me in its entirety. I confirm that the note above accurately reflects all work, treatment, procedures, and medical decision making performed by me.
[2018-04-19] MEDS ORDERED: NITROGLYCERIN SL 0.4 MG/TAB TAB SL PRN (15:41)
[2018-04-19] MEDS ORDERED: MoRPHine SULFATE 4 MG/ML 1 ML CARP\\VIAL IV PRN (15:41)
[2018-04-19] MEDS ORDERED: AMLODIPINE BESYLATE 5 MG TAB PO ONE (15:45)
[2018-04-19] MEDS ORDERED: CLOPIDOGREL BISULFATE 300 MG TAB PO STA (15:45)
[2018-04-19] MEDS ORDERED: GLUCOSE 10 TABS/TUBE PO PRN (16:21)
[2018-04-19] MEDS ORDERED: GLUCOSE 40% GEL 15 GM TUBE PO PRN (16:21)
[2018-04-19] MEDS ORDERED: CARBOHYDRATES FOR HYPOGLYCEMIA PO PRN (16:21)
[2018-04-19] MEDS ORDERED: GLUCAGON FOR INJ 1 MG VIAL SQ PRN (16:21)
[2018-04-19] MEDS ORDERED: DEXTROSE 50% 50 ML SYRINGE IV PRN (16:21)
--- NOTE | 2018-04-19 17:00 | Ultrasound Report ---
LEFT LOWER EXTREMITY VENOUS DOPPLER CLINICAL HISTORY: Left leg pain. COMPARISON STUDY: No previous studies for comparison. TECHNIQUE: Sonography of the deep venous system of the left lower extremity was performed. Compressi on and augmentation were evaluated. FINDINGS: The left common femoral, superficial femoral and popliteal veins were compressible. Augmen tation was normal. Flow was shown within the deep calf vessels. The left greater saphenous vein is th rombosed from the groin to distal calf. By report, the patient is status post greater saphenous vein radiofrequency ablation on January 19, 2018. No extension into the deep system is noted. IMPRESSION: 1. No evidence of deep venous thrombus within the left lower extremity. 2. Thrombosis of the left greater saphenous vein from the groin to distal calf. This finding may be r elated to previous venous ablation. No extension into the deep system. Electronically signed by: Sabas Choudhary M.D. 04/19/2018 4:59 PM
[2018-04-19] MEDS: INSULIN ASPART 100 UNITS/ML 3 ML PEN SC SCH ×2 (18:01→20:07)
[2018-04-19] MEDS ORDERED: CLOPIDOGREL BISULFATE 300 MG TAB ONE (18:18)
[2018-04-19] MEDS: LISINOPRIL 2.5 MG TAB PO SCH (18:20)
[2018-04-19] MEDS: ATORVASTATIN 40 MG TAB PO SCH (20:01)
[2018-04-19] MEDS: HEPARIN SOD 5,000 UNIT/0.5 ML VIAL SQ SCH (22:45)
[2018-04-20] MEDS: HEPARIN SOD 5,000 UNIT/0.5 ML VIAL SQ SCH ×3 (05:53→20:58)
[2018-04-20 05:59] LABS: Basophils # (auto) 0.01 K/uL (0-0.2); Basophils % (auto) 0.2 %; Eosinophils # (auto) 0.25 K/uL (0-0.5); Eosinophils % (auto) 4.5 %; Hematocrit (blood only) 40.4 % (42-52); Hemoglobin 14.4 g/dL (14.0-18.0); Immature Granulocytes # (auto) 0.01 K/uL (0.00-0.02); Immature Granulocytes % (auto) 0.2 %; Lymphocytes # (auto) 2.64 K/uL (1.2-3.4); Lymphocytes % (auto) 47.6 %; Mean Corpuscular Hgb Conc 35.6 g/dL (32-36); Mean Corpuscular Volume 92.7 fL (80-100); Mean Platelet Volume 10.5 fL (7.4-10.4); Monocytes # (auto) 0.48 K/uL (0.11-0.59); Monocytes % (auto) 8.6 %; Neutrophils # (auto) 2.16 K/uL (1.4-6.5); Neutrophils % (auto) 38.9 %; Platelet Count 193 K/uL (130-400); RDW Coefficient of Variation 12.6 % (11.5-14.5); RDW Standard Deviation 42.8 fL (36.4-46.3); Red Blood Count 4.36 M/uL (4.7-6.1); White Blood Count 5.55 K/uL (4.8-10.8)
[2018-04-20 06:07] LABS: Estimated Average Glucose 249 mg/dl
[2018-04-20 06:39] LABS: BUN Creatinine Ratio 12.5 (10-20); Calcium 8.6 mg/dl (8.5-10.1); Creatinine Clr Calc Pharmacy 108.4 ml/min; Est GFR (African American) 93.7; Est GFR (Non-African American) 80.9; Magnesium 2.2 mg/dl (1.8-2.4); Potassium 4.3 mmol/L (3.5-5.1)
[2018-04-20] MEDS ORDERED: LISINOPRIL 2.5 MG TAB PO SCH (09:00)
--- NOTE | 2018-04-20 09:30 | Cardiology Consultation ---
Addendum entered and electronically signed by Omar Patel MD 04/20/18 13:41: Addendum (Blank) Addendum April 20, 2018 13:37 Spoke with patient with his daughter at the bedside. Feels well post cath. Clarifies that he has had more severe episodes of shortness of breath the last 2 days. Prior to this has had intermittingly (~weekly) episodes of 5-10 minutes of shortness of breath like a 'weight hanigng on his chest' since January. The shortness of breath resolves completely between episodes. No fevers, chills, rash, headache, syncope, sweats. Original Note: Date of Consultation April 20, 2018 Assessment & Plan (1) Chest pain: Mr. Roman is a 52yo M with a history of former tobacco abuse, hypertension, DVT, and with an HgA1C= 10.3 who presents for evaluation of 2 episodes of chest pain with shortness of breath, lightheadness, and flushing initially suspicious for ACS vs angina vs PE. He is high risk for CAD with risk factors including tobacco use, a A1C consistent with uncontrolled diabetes, HLD, and HTN. His ECG showed no acute changes and troponins x3 were negative greatly decreasing suspicion for ACS but his presentation is still suspicious for angina. He has a history of DVT with ~ 7 week of warfarin treatment before loss to followup, but has an INR of 1.0 today. This increases his risk of PE, although his SpO2 is normal on room air, he is not having persistent shortness of breath/pleuritic pain, is not tachycardic, and he had no S1Q3T3 on ECG. Superficial thrombosis without extension into deep veins of the L leg were noted on ultrasound. Given his known DVT D-Dimer is not helpful here. - Cardiac catheterization today showed no major occlusive disease, no areas that required stenting/intervention. - Discontinue DAPT, recommend continuing ASA 81mg daily. - Recommend continuing blood pressure control. His HTN has improved and is well controlled with lisinopril 2.5mg daily and amlodipine 5mg. Given his new T2DM lisinopril is an excellent choice for him to continue halfway. - Can pursue a PE protocol CT tomorrow if suspicion for PE remains high, would be cautious of dye load and watch Cr which is normal today. - Optimal course for his post ablation thrombosis is ~12 weeks (3 months). Would not continue anticoagulation until after catheterization is complete. Would target therapeutic INR 2-3 after this with followup to Vascular Surgery; if CT-PE is pursued and is positive he would need at least another 3 months of therapy. - INR 1.0 today - ACC/AHA risk is 26.0% if he smokes intermittenly, 12.5% if he remains abstinent from tobacco abuse. Recommend continuing a high potency statin; atorvastatin 40mg daily is reasonable - Will need improved control of his formerly undiagnosed T2DM and close followup as outpt. Glucose 279-226 during admit, insulin naiive with no oral meds at home. Recommend goal 120-160mg/dL. Supervising Physician Co-Signing Physician Notes History of present illness: 52-year-old man with hypertension, dyslipidemia, previous smoker, and uncontrolled diabetes mellitus who presented with chest discomfort radiating to his neck associated with dyspnea occurring several times yesterday. He noted similar symptoms some months ago which subsequently resolved. ECG and cardiac enzymes were negative this admission. He did have a negative stress echocardiogram 11 months ago with no ischemia at good workload. Given his significant risk factors, concerning symptoms, and negative prior stress study, decision was made to proceed to cardiac catheterization to better risk stratify the degree of any underlying coronary artery disease. Fortunately, catheterization showed only nonocclusive coronary artery disease. Patient does have a history of deep vein thrombosis subsequent to saphenous vein graft ablation procedure several months ago.Venous Doppler study this admission showed no DVT, but did show thrombosis of the left greater saphenous vein from the groin to distal calf with no extension into the deep vein system. He did have a period of anticoagulation with warfarin after his DVT was first noted several months ago. At the time of our evaluation today, the patient was resting comfortably and denies any chest pain, dyspnea, palpitations, or other complaints. Past medical history and review of systems as per Dr. Cruz/Dr. Pool. Physical examination: No distress. Vitals: BP 128/85, pulse 68 and regular, normal respiratory rate. Skin: No unusual lesions or ecchymosis. HEENT: Unremarkable. Neck: Jugular venous pulse just above the clavicle at 90�, no carotid bruits. Lungs: Clear and equal breath sounds bilaterally. No wheezing or crackles. Cardiac: Regular rhythm with normal S1 and S 2. No murmur or gallop. Abdomen: Benign. Extremities: Nontender without edema. Intact peripheral pulses. Neurologic: Normal affect, nonfocal. Data: ECG showed sinusRhythm at 62 bpm and was completely unremarkable. Chest x-ray unremarkable. Creatinine 1.06. Troponin negative x3. Hemoglobin A1c 10.3. Cholesterol 230, HDL 32, LDL 137, ratio 7.0, triglycerides 303. Impression: 1. Chest pain - he does have nonocclusive coronary disease, but no evidence of occlusive disease at catheterization today and no evidence of acute coronary syndrome on enzymes or ECG. Since his blood pressure was as high as 183/126 mm Hg, he may have had anginal symptoms secondary to uncontrolled hypertension ( hypertensive urgency). Pulmonary embolism remains a possibility, but fairly unlikely given the episodic nature of his pain. Also, the absence of troponin elevation weighs against a significant pulmonary embolism, while the lack of remaining deep vein thrombosis suggests that he would not require further anticoagulation. 2. Vascular risk factors - certainly aggressive BP control and initiation of an oral hypoglycemic agent for his diabetes as well as a statin for his unfavorable lipid profile (although his LDL is not significantly elevated he has a low HDL and has diabetes). Lifestyle management advice would include weight loss, remaining abstinent of tobacco, and increased aerobic activity. 3. Saphenous vein thrombosis - per Dr. Cruz there is some evidence that aspirin would help prevent propagation of this superficial thrombus. More aggressive anticoagulation may not be warranted given the patient's history of noncompliance and his recent cardiac catheterization (which involved both wrist and groin access). 4. General medical care - the patient was previously followed by Dr. Tran ( who is no longer in the area), would highly recommend the patient re-establish with a local primary care physician. Thank you for the opportunity to participate in care of this patient. History of Present Illness Reason for Consultation: Evaluation of chest pain w/ SoB + lightheadedness in setting of recent DVT and HTN with medication noncompliance Requesting Physician: Jayy Martins Attending Physician: Oscar Pool DO History of Present Illness Mr. Roman is a 52yo M with a PMHx of peripheral artery disease, hypertension, DVT, and L saphenous ablation who presents with two episodes of chest pain radiating into the neck lasting ~15-20 minutes. His chest pain occured at rest, once while at [employer] yesterday morning and the morning before while eating breakfast. The pain is squeezing in quality and extends into his neck. It is associated with flushing, shortness of breath, and nausea. He had one similar episode several months ago. He was hypertensive on admission to 158/106 with a peak BP overnight of 183/126. He was started on aspirin+plaavix, atorvastatin 40mg, amlodipine 5mg PO daily, and lisinopril 2.5mg PO daily. He came in on oxymask with O2Sat>92% and was trasferred to room air and maintained SpO2>92%. Glucose on admission was elevated, A1C 10.3% with hypertriglyceridemia. History of tobacco abuse, reportedly quit this past year. He had radioablation of his L great saphenous vein 2/ vericosity on 01/19/2018. At his 5 day postop ultrasound a clot extending from the great saphenous vein extending into the proximal common femoral vein was appreciated. He was prescribed Eliquis at that time for DVT, but did not fill this prescription due to cost. At 02/02/2018 followup he was written for lovenox + coumadin, began treatment on 02/03 with followup to the anticoagulation clinic. He was followed and treated until 03/27, was subtherpeutic on 04/02, and missed his 04/13 followup. Appears to have completed 7-8 weeks of warfarin therapy. Denies shortness of breath, chest pain, lightheadedness, dizziness today. Last symptoms were yesterday/with medication administration in ED. Has not had anything to eat this morning. Allergies Allergy/AdvReac Type Severity Reaction Status Date / Time No Known Allergies Allergy Unknown Verified 04/19/18 10:41 Home Medications Home Medications Medication Instructions Recorded Confirmed Type Aspirin Childrens 81 mg PO UD PRN 04/19/18 04/19/18 History acetaminophen [Tylenol] 0 mg PO Q6H PRN 04/19/18 04/19/18 History Patient History Surgical History History of cholecystectomy (Chronic) Social History Current Living Situation: Alone Other Information That Helps Us Care for You: No Feels Safe at Home: Yes Safety Concerns: Feels Safe At This Time Smoking Status: Former smoker Tobacco Type: cigarettes Do You Dip or Chew Tobacco: No Smoking End Date: on and off quitting smoking, recently quit this year Second Hand Exposure: No Tobacco Cessation Education Requested by Patient: No Hx Alcohol Use: Yes Alcohol type: beer and wine Alcohol Intake Frequency: 0-2 drinks per day Hx Substance Use: No Beliefs That Will Affect Care: None Preferred Language: Cameroonian Communication Ability: Effective Outreach Analyst Required: No Review of Systems As noted in HPI. Physical Exam 2 Vital Signs (Past 24 Hours): Last Vital Signs Temp 36.8 C 04/20/18 03:59 Pulse 60 04/20/18 03:59 Resp 17 04/20/18 03:59 BP 128/79 04/20/18 03:59 Pulse Ox 98 04/20/18 03:59 Constitutional: well developed and well nourished; no acute distress Neck: trachea midline; no anterior neck swelling Respiratory: normal respiratory effort, lungs clear to auscultation Cardiovascular: RRR, no murmur, no edema Vessels: no JVD Extremities: normal capillary refill; no pedal edema and no edema Transient increase in JVP to below level of the clavicle on hepatojugular reflex testing; JVP/HJR normal. Skin: no rashes, warm and dry Distal LLE ulcer present, well dressed, dressing C/D/I Posterior tibial pulses intact, symmetrical Results & Data Laboratory Results 04/20/18 04/20/18 04/20/18 Range/Units 10:11 06:06 05:48 WBC (4.8-10.8) K/uL RBC (4.7-6.1) M/uL Hgb (14.0-18.0) g/dL Hct (42-52) % MCV (80-100) fL MCH (25-34) pg MCHC (32-36) g/dL RDW Std Deviation (36.4-46.3) fL RDW Coeff of Mirella (11.5-14.5) % Plt Count (130-400) K/uL MPV (7.4-10.4) fL Immature Gran % (Auto) % Neut % (Auto) % Lymph % (Auto) % Nash % (Auto) % Eos % (Auto) % Baso % (Auto) % Immature Gran # (Auto) (0.00-0.02) K/uL Neut # (Auto) (1.4-6.5) K/uL Lymph # (Auto) (1.2-3.4) K/uL Nash # (Auto) (0.11-0.59) K/uL Eos # (Auto) (0-0.5) K/uL Baso # (Auto) (0-0.2) K/uL PT (9.0-12.0) Seconds INR (0.9-1.1) APTT (21.0-31.0) Seconds PTT Ratio Sodium (136-145) mmol/L Potassium (3.5-5.1) mmol/L Chloride (98-107) mmol/L Carbon Dioxide (21-32) mmol/L Anion Gap (3-11) BUN (7-18) mg/dl Creatinine (0.6-1.4) mg/dl Est Cr Clr Drug Dosing ml/min Est GFR ( Amer) Est GFR (Non-Af Amer) BUN/Creatinine Ratio (10-20) Glucose (70-99) mg/dl POC Glucose 219 H 204 H (70-99) Estimat Average Glucose mg/dl Hemoglobin A1c (4.5-5.6) % Calcium (8.5-10.1) mg/dl Magnesium (1.8-2.4) mg/dl Total Bilirubin (0.1-1) mg/dl AST (15-37) U/L ALT (12-78) U/L Alkaline Phosphatase (45-117) U/L Troponin I < 0.015 (0-0.045) ng/ml Total Protein (6.4-8.2) gm/dl Albumin (3.4-5.0) gm/dl Globulin (2.5-4.0) gm/dl Albumin/Globulin Ratio (0.9-2) Triglycerides (0-150) mg/dl Cholesterol (0-200) mg/dl LDL Cholesterol, Calc mg/dl VLDL Cholesterol, Calc mg/dl HDL Cholesterol mg/dl Cholesterol/HDL Ratio Lipase (73-393) U/L 04/20/18 04/20/18 04/19/18 Range/Units 05:48 05:48 20:06 WBC 5.55 (4.8-10.8) K/uL RBC 4.36 L (4.7-6.1) M/uL Hgb 14.4 (14.0-18.0) g/dL Hct 40.4 L (42-52) % MCV 92.7 (80-100) fL MCH 33.0 (25-34) pg MCHC 35.6 (32-36) g/dL RDW Std Deviation 42.8 (36.4-46.3) fL RDW Coeff of Mirella 12.6 (11.5-14.5) % Plt Count 193 (130-400) K/uL MPV 10.5 H (7.4-10.4) fL Immature Gran % (Auto) 0.2 % Neut % (Auto) 38.9 % Lymph % (Auto) 47.6 % Nash % (Auto) 8.6 % Eos % (Auto) 4.5 % Baso % (Auto) 0.2 % Immature Gran # (Auto) 0.01 (0.00-0.02) K/uL Neut # (Auto) 2.16 (1.4-6.5) K/uL Lymph # (Auto) 2.64 (1.2-3.4) K/uL Nash # (Auto) 0.48 (0.11-0.59) K/uL Eos # (Auto) 0.25 (0-0.5) K/uL Baso # (Auto) 0.01 (0-0.2) K/uL PT (9.0-12.0) Seconds INR (0.9-1.1) APTT (21.0-31.0) Seconds PTT Ratio Sodium 136 (136-145) mmol/L Potassium 4.3 (3.5-5.1) mmol/L Chloride 103 (98-107) mmol/L Carbon Dioxide 27 (21-32) mmol/L Anion Gap 5.0 (3-11) BUN 13 (7-18) mg/dl Creatinine 1.06 (0.6-1.4) mg/dl Est Cr Clr Drug Dosing 108.4 ml/min Est GFR ( Amer) 93.7 Est GFR (Non-Af Amer) 80.9 BUN/Creatinine Ratio 12.5 (10-20) Glucose 226 H (70-99) mg/dl POC Glucose 213 H (70-99) Estimat Average Glucose mg/dl Hemoglobin A1c (4.5-5.6) % Calcium 8.6 (8.5-10.1) mg/dl Magnesium 2.2 (1.8-2.4) mg/dl Total Bilirubin (0.1-1) mg/dl AST (15-37) U/L ALT (12-78) U/L Alkaline Phosphatase (45-117) U/L Troponin I (0-0.045) ng/ml Total Protein (6.4-8.2) gm/dl Albumin (3.4-5.0) gm/dl Globulin (2.5-4.0) gm/dl Albumin/Globulin Ratio (0.9-2) Triglycerides 303 H (0-150) mg/dl Cholesterol 230 H (0-200) mg/dl LDL Cholesterol, Calc 137 mg/dl VLDL Cholesterol, Calc 61 mg/dl HDL Cholesterol 32 mg/dl Cholesterol/HDL Ratio 7 Lipase (73-393) U/L 04/19/18 04/19/18 04/19/18 Range/Units 17:03 16:08 10:52 WBC (4.8-10.8) K/uL RBC (4.7-6.1) M/uL Hgb (14.0-18.0) g/dL Hct (42-52) % MCV (80-100) fL MCH (25-34) pg MCHC (32-36) g/dL RDW Std Deviation (36.4-46.3) fL RDW Coeff of Mirella (11.5-14.5) % Plt Count (130-400) K/uL MPV (7.4-10.4) fL Immature Gran % (Auto) % Neut % (Auto) % Lymph % (Auto) % Nash % (Auto) % Eos % (Auto) % Baso % (Auto) % Immature Gran # (Auto) (0.00-0.02) K/uL Neut # (Auto) (1.4-6.5) K/uL Lymph # (Auto) (1.2-3.4) K/uL Nash # (Auto) (0.11-0.59) K/uL Eos # (Auto) (0-0.5) K/uL Baso # (Auto) (0-0.2) K/uL PT (9.0-12.0) Seconds INR (0.9-1.1) APTT (21.0-31.0) Seconds PTT Ratio Sodium (136-145) mmol/L Potassium (3.5-5.1) mmol/L Chloride (98-107) mmol/L Carbon Dioxide (21-32) mmol/L Anion Gap (3-11) BUN (7-18) mg/dl Creatinine (0.6-1.4) mg/dl Est Cr Clr Drug Dosing ml/min Est GFR ( Amer) Est GFR (Non-Af Amer) BUN/Creatinine Ratio (10-20) Glucose (70-99) mg/dl POC Glucose 178 H (70-99) Estimat Average Glucose 249 mg/dl Hemoglobin A1c 10.3 H (4.5-5.6) % Calcium (8.5-10.1) mg/dl Magnesium (1.8-2.4) mg/dl Total Bilirubin (0.1-1) mg/dl AST (15-37) U/L ALT (12-78) U/L Alkaline Phosphatase (45-117) U/L Troponin I < 0.015 (0-0.045) ng/ml Total Protein (6.4-8.2) gm/dl Albumin (3.4-5.0) gm/dl Globulin (2.5-4.0) gm/dl Albumin/Globulin Ratio (0.9-2) Triglycerides (0-150) mg/dl Cholesterol (0-200) mg/dl LDL Cholesterol, Calc mg/dl VLDL Cholesterol, Calc mg/dl HDL Cholesterol mg/dl Cholesterol/HDL Ratio Lipase (73-393) U/L 04/19/18 04/19/18 04/19/18 Range/Units 10:52 10:52 10:52 WBC 5.06 (4.8-10.8) K/uL RBC 4.74 (4.7-6.1) M/uL Hgb 15.9 (14.0-18.0) g/dL Hct 43.3 (42-52) % MCV 91.4 (80-100) fL MCH 33.5 (25-34) pg MCHC 36.7 H (32-36) g/dL RDW Std Deviation 42.3 (36.4-46.3) fL RDW Coeff of Mirella 12.7 (11.5-14.5) % Plt Count 197 (130-400) K/uL MPV 10.8 H (7.4-10.4) fL Immature Gran % (Auto) 0.2 % Neut % (Auto) 51.2 % Lymph % (Auto) 37.4 % Nash % (Auto) 6.5 % Eos % (Auto) 4.5 % Baso % (Auto) 0.2 % Immature Gran # (Auto) 0.01 (0.00-0.02) K/uL Neut # (Auto) 2.59 (1.4-6.5) K/uL Lymph # (Auto) 1.89 (1.2-3.4) K/uL Nash # (Auto) 0.33 (0.11-0.59) K/uL Eos # (Auto) 0.23 (0-0.5) K/uL Baso # (Auto) 0.01 (0-0.2) K/uL PT 9.7 (9.0-12.0) Seconds INR 1.0 (0.9-1.1) APTT 26.4 (21.0-31.0) Seconds PTT Ratio 1.0 Sodium 136 (136-145) mmol/L Potassium 3.9 (3.5-5.1) mmol/L Chloride 100 (98-107) mmol/L Carbon Dioxide 26 (21-32) mmol/L Anion Gap 10.0 (3-11) BUN 12 (7-18) mg/dl Creatinine 0.92 (0.6-1.4) mg/dl Est Cr Clr Drug Dosing 126.5 ml/min Est GFR ( Amer) 111.2 Est GFR (Non-Af Amer) 96.0 BUN/Creatinine Ratio 12.6 (10-20) Glucose 279 H (70-99) mg/dl POC Glucose (70-99) Estimat Average Glucose mg/dl Hemoglobin A1c (4.5-5.6) % Calcium 8.9 (8.5-10.1) mg/dl Magnesium (1.8-2.4) mg/dl Total Bilirubin 0.6 (0.1-1) mg/dl AST 38 H (15-37) U/L ALT 82 H (12-78) U/L Alkaline Phosphatase 122 H (45-117) U/L Troponin I < 0.015 (0-0.045) ng/ml Total Protein 8.2 (6.4-8.2) gm/dl Albumin 4.1 (3.4-5.0) gm/dl Globulin 4.1 H (2.5-4.0) gm/dl Albumin/Globulin Ratio 1.0 (0.9-2) Triglycerides (0-150) mg/dl Cholesterol (0-200) mg/dl LDL Cholesterol, Calc mg/dl VLDL Cholesterol, Calc mg/dl HDL Cholesterol mg/dl Cholesterol/HDL Ratio Lipase 325 (73-393) U/L Diagnostic Findings XR chest 1V portable CLINICAL HISTORY: Chest Pain COMPARISON STUDY: No previous studies for comparison. FINDINGS: Lung volumes are normal. There is no pneumothorax or pleural effusion. There is no consolidation or evidence for pulmonary edema. Cardiac size is at the upper limits of normal. Mediastinal contours are unremarkable. IMPRESSION: No acute cardiopulmonary findings. Electronically signed by: Sabas Choudhary M.D. 04/19/2018 10:58 AM Dictated: 04/19/18 1057 Transcribed: 04/19/18 105 LEFT LOWER EXTREMITY VENOUS DOPPLER CLINICAL HISTORY: Left leg pain. COMPARISON STUDY: No previous studies for comparison. TECHNIQUE: Sonography of the deep venous system of the left lower extremity was performed. Compression and augmentation were evaluated. FINDINGS: The left common femoral, superficial femoral and popliteal veins were compressible. Augmentation was normal. Flow was shown within the deep calf vessels. The left greater saphenous vein is thrombosed from the groin to distal calf. By report, the patient is status post greater saphenous vein radiofrequency ablation on January 19, 2018. No extension into the deep system is noted. IMPRESSION: 1. No evidence of deep venous thrombus within the left lower extremity. 2. Thrombosis of the left greater saphenous vein from the groin to distal calf. This finding may be related to previous venous ablation. No extension into the deep system. Electronically signed by: Sabas Choudhary M.D. 04/19/2018 4:59 PM Medications Administered Current Inpatient Medications Amlodipine Besylate (Norvasc) 5 mg PO QAM [facility] Stop: 05/20/18 08:59 Last Admin: 04/20/18 10:06 Dose: 5 mg Aspirin (Ecotrin) 81 mg PO DAILY [place] Stop: 05/20/18 08:59 Last Admin: 04/20/18 10:06 Dose: 81 mg Atorvastatin Calcium (Lipitor) 40 mg PO HS [facility] Stop: 05/19/18 20:59 Last Admin: 04/19/18 20:01 Dose: 40 mg Dextrose (Dextrose 50%) 25 - 50 ml IV UD PRN; Protocol PRN Reason: Hypoglycemia Protocol Stop: 05/19/18 16:20 Glucagon (Glucagen) 1 mg SQ UD PRN; Protocol PRN Reason: Hypoglycemia Protocol Stop: 05/19/18 16:20 Glucose (Glucose 40%) 15 - 30 gm PO UD PRN; Protocol PRN Reason: Hypoglycemia Protocol Stop: 05/19/18 16:20 Glucose (Dex4 Glucose) 4 - 8 tabs PO UD PRN; Protocol PRN Reason: Hypoglycemia Protocol Stop: 05/19/18 16:20 Heparin Sodium (Porcine) (Heparin Sodium (Porcine)) 5,000 units SQ Q8 [place] Stop: 05/19/18 21:59 Last Admin: 04/20/18 05:53 Dose: 5,000 units Insulin Aspart (Novolog Flexpen) 0 units SC ACHS [facility] Stop: 05/19/18 17:14 Last Admin: 04/20/18 10:11 Dose: 2 units Lisinopril (Zestril) 2.5 mg PO QAM [facility] Stop: 05/20/18 08:59 Last Admin: 04/20/18 10:06 Dose: 2.5 mg Miscellaneous (Carbohydrates For Hypoglycemia) 15 - 30 gm PO UD PRN PRN Reason: Hypoglycemia Treatment Stop: 05/19/18 16:20 Morphine Sulfate (Morphine Sulfate) 4 mg IV Q2H PRN PRN Reason: Chest Pain Stop: 05/03/18 15:40 Nitroglycerin (Nitrostat) 0.4 mg SL PRN PRN PRN Reason: Chest Pain Stop: 05/19/18 15:40 ECG Indication: chest pain Rate (beats per minute): 62 Rhythm: sinus rhythm Findings: no LBBB, no Q waves, no ST depression, no T-wave inversion, no ST elevation and no acute ischemic change Comparison ECG Date: from () Change: the following changes noted (inferior T wave changes in 2017 no longer appreciated)
[2018-04-20] MEDS: AMLODIPINE BESYLATE 5 MG TAB PO SCH (10:06)
[2018-04-20] MEDS: LISINOPRIL 2.5 MG TAB PO SCH (10:06)
[2018-04-20] MEDS: ASPIRIN 81 MG ECTAB PO SCH (10:06)
[2018-04-20] MEDS: INSULIN ASPART 100 UNITS/ML 3 ML PEN SC SCH ×4 (10:11→20:57)
[2018-04-20] MEDS ORDERED: LIDOCAINE HCL 1% 20 ML VIAL ONE (10:37)
--- NOTE | 2018-04-20 10:57 | Pre Anesthesia Assessment ---
Date of Service April 20, 2018 Pre Sedation Assessment Vital Signs Temp Pulse Pulse Resp BP BP BP 04/20/18 03:59 36.8 C 60 17 128/79 04/20/18 00:05 36.9 C 58 L 17 114/66 04/19/18 22:30 74 04/19/18 19:03 36.8 C 68 20 125/80 04/19/18 15:41 36.8 C 64 16 151/100 H 04/19/18 14:59 71 16 04/19/18 14:40 71 16 04/19/18 14:30 71 14 157/119 H 04/19/18 14:20 67 16 04/19/18 14:10 67 13 04/19/18 14:01 67 14 182/124 H 04/19/18 14:00 66 16 04/19/18 13:50 69 13 04/19/18 13:40 67 04/19/18 13:31 71 155/113 H 04/19/18 13:30 66 04/19/18 13:22 75 68 18 162/116 H 162/116 H 04/19/18 13:20 66 04/19/18 13:10 65 7 L 04/19/18 13:01 74 183/126 H 04/19/18 13:00 70 04/19/18 12:50 22 04/19/18 12:40 69 20 04/19/18 12:30 64 17 148/115 H 04/19/18 12:20 64 19 04/19/18 12:10 68 17 04/19/18 12:00 59 L 15 161/111 H 04/19/18 11:50 63 10 L 04/19/18 11:40 66 16 04/19/18 11:38 62 16 146/102 H 04/19/18 11:30 63 15 146/102 H 04/19/18 11:20 63 15 04/19/18 11:10 64 10 L 04/19/18 11:00 68 14 150/106 H Pulse Ox 04/20/18 03:59 98 04/20/18 00:05 96 04/19/18 22:30 04/19/18 19:03 95 04/19/18 15:41 96 04/19/18 14:59 95 04/19/18 14:40 95 04/19/18 14:30 94 04/19/18 14:20 96 04/19/18 14:10 96 04/19/18 14:01 94 04/19/18 14:00 95 04/19/18 13:50 96 04/19/18 13:40 96 04/19/18 13:31 96 04/19/18 13:30 95 04/19/18 13:22 96 04/19/18 13:20 96 04/19/18 13:10 95 04/19/18 13:01 97 04/19/18 13:00 96 04/19/18 12:50 98 04/19/18 12:40 96 04/19/18 12:30 96 04/19/18 12:20 96 04/19/18 12:10 97 04/19/18 12:00 95 04/19/18 11:50 95 04/19/18 11:40 94 04/19/18 11:38 97 04/19/18 11:30 94 04/19/18 11:20 94 04/19/18 11:10 94 04/19/18 11:00 94 Cardiovascular RRR, no murmur, no edema Respiratory normal respiratory effort, lungs clear to auscultation Pre-Sedation Airway Assessment Smoking Status: Former smoker Hx Sleep Apnea: No Mallampati Class: III ASA: ASA3 NPO Status Date of Last Intake of Fluids: 04/19/18 Time of Last Intake of Fluids: 22:00 Date of Last Intake of Solid Food: 04/19/18 Time of Last Intake of Solid Foods: 22:00 Procedure Planning Contraindications for Sedation: none Current Medications Reviewed: Yes Notes The planned sedation has been discussed with the patient. Informed Consent was obtained. I have identified the patient, determined the appropriateness of sedation and have assessed the patient immediately prior to the procedure. All medicine(s) and interventions are by my order.
[2018-04-20] MEDS ORDERED: fentaNYL citrate 100 MCG/2 ML VIAL ONE (11:07)
[2018-04-20] MEDS ORDERED: NiCARDipine HCL INJ 2.5 MG/ML 10 ML AMP ONE (11:07)
[2018-04-20] MEDS ORDERED: MIDAZOLAM HCL 1 MG/ML 2ML VIAL ONE (11:07)
[2018-04-20] MEDS ORDERED: HEPARIN (PORCINE) 1000 UNIT/ML 10 ML (CATH LAB USE ONLY) ONE (11:07)
[2018-04-20] MEDS ORDERED: NITROGLYCERIN/D5W 100MCG/ML 20ML SYR ONE (11:08)
--- NOTE | 2018-04-20 12:13 | Cardiac Catheterization ---
Cardiac Cath Procedure Full Procedure Date April 20, 2018 Pre-Procedure Diagnosis Pre-Procedure Diagnosis: Angina AUC Score AUC Score: 7 Post-Procedure Diagnosis Post-Procedure Diagnosis: Moderate CAD and Normal Intracardiac Pressures Procedure(s) Performed Procedure(s) Performed: Coronary Angiography and Left Heart Cath Schedule Hanger Kenrick Gibson MD Panel Wirer(s) Guerrero Marie Estimated Blood Loss Estimated Blood Loss: < 25 ml Medication(s) Medication(s): Fentanyl, Heparin, Lidocaine 1%, Nicardipine and Versed Summary of Findings Coronary angiography: 1. Left main coronary artery: Calcifications noted within the LMCA. Distal LM CA 20%. 2. Left anterior descending: The LAD is a large caliber vessel that extends to apex. Calcifications noted within the proximal LAD. Early mid LAD 40-50% diffusely, involving bifurcation of large D1. Mid LAD 30%. Apical LAD 40-50%. SHAAN 3 flow throughout the LAD. Large D1 proximal to mid 40% stenosis. 3. Circumflex: The circumflex in is a medium to large caliber vessel. Codominant system with small PDA originating from the circumflex. Luminal irregularities within the circumflex system. There is a small OM1, small OM2, and small circumflex PDA without significant CAD. 4. Right coronary artery: The RCA is large and codominant. There are calcifications noted within the proximal RCA. Proximal RCA 20%. Early mid RCA 40-50%. Mid RCA 30%. Distal RCA luminal irregularities. PL and PDA branches without significant CAD. 5. Ramus intermedius: The ramus vessel is a large caliber vessel with several lateral branches. No significant CAD within the ramus. Left heart catheterization: 1. Left ventriculography was not performed. 2. No aortic stenosis. Peak to peak gradient across the aortic valve was 0. 3. Normal LVEDP; 7mmHg. Sedation start time: 11:15 a.m. Sedation end time: 11:50 a.m. Procedural notes: 1. Coronary angiography was attempted via right radial artery. The right subclavian artery was quite tortuous, including the aortic arch. Catheters were unable to be manipulated within the aortic root given the tortuosity. Six [place] and 5 [place] JL 3.5 diagnostic catheters were attempted. 2. The decision was made to perform the procedure via the rightFemoral artery. 3. 5 [place] sheath with 5 [place] diagnostic JL 4 and JR4 catheters were used to successfully perform coronary angiography. Ultrasound guidance: 1. Ultrasound guidance was used to achieve arterial access of the right femoral artery, without known complication. Impression: 1. Nonobstructive CAD. 2. Normal LVEDP. 3. No aortic stenosis. Plan: 1. Risk factor modification 2. Optimize medical therapy for nonobstructive CAD. Hemodynamics Rest Ao:: 124/76 Final Ao: 120/68 LV: 132/0/7 Recommendations Recommendations: Medical Therapy and/or Counseling Specimens Specimens: None Radiation Exposure (mGy) 2427 mGy. Fluoro time 10.9 min. Contrast (mls) 50 ml Procedural Complication(s) None Disposition Disability Coordinator Holding/Recovery ACC Data: Disability Coordinator Cardiac Status Clinical evaluation leading to the procedure CAD Presenation: Stable angina Anginal Classification: CCS III Heart Failure: No Cardiogenic Shock within 24 Hours: No Cardiac Arrest within 24 Hours: No Imaging Studies Past 6 Months: No Stress Studies Past 6 Months: No Standard Exercise Test: No Stress Echocardiogram: No Stress Testing w/SPECT MPI: No Cardiac CTA: No Coronary Anatomy Dominant: Co-Dominant Left Main (% Stenosis): Distal (20%) LAD (% Stenosis): Mid (early mid LAD 40-50%. Mid LAD 30%.) and Distal (Apical LAD 40-50%) D1 (% Stenosis): Proximal (40%) Circumflex (% Stenosis): Proximal (Luminal irregularities.) RCA (% Stenosis): Proximal (20%), Mid (Early mid RCA 40-50%. Mid RCA 30%.) and Distal (Luminal irregularities.) Ramus (% Stenosis): Proximal (Luminal irregularities.) Left Ventricular Angiography EF (%): n/a Diagnostic Physicians Name: Kenrick Gibson MD Status: Elective Closure Device Percutaneous Entry Location: Femoral Closure Device: None-Manual Hold Recommendations: Medical Therapy and/or Counseling
[2018-04-20] MEDS ORDERED: SODIUM CHLORIDE 0.9% 500 ML IV PRN (12:22)
--- NOTE | 2018-04-20 12:23 | Post Anesthesia Assessment ---
Date of Service April 20, 2018 Post Sedation Assessment Vital Signs Temp Pulse Pulse Resp BP BP BP 04/20/18 12:10 61 16 128/85 04/20/18 03:59 36.8 C 60 17 128/79 04/20/18 00:05 36.9 C 58 L 17 114/66 04/19/18 22:30 74 04/19/18 19:03 36.8 C 68 20 125/80 04/19/18 15:41 36.8 C 64 16 151/100 H 04/19/18 14:59 71 16 04/19/18 14:40 71 16 04/19/18 14:30 71 14 157/119 H 04/19/18 14:20 67 16 04/19/18 14:10 67 13 04/19/18 14:01 67 14 182/124 H 04/19/18 14:00 66 16 04/19/18 13:50 69 13 04/19/18 13:40 67 04/19/18 13:31 71 155/113 H 04/19/18 13:30 66 04/19/18 13:22 75 68 18 162/116 H 162/116 H 04/19/18 13:20 66 04/19/18 13:10 65 7 L 04/19/18 13:01 74 183/126 H 04/19/18 13:00 70 04/19/18 12:50 22 04/19/18 12:40 69 20 04/19/18 12:30 64 17 148/115 H Pulse Ox 04/20/18 12:10 94 04/20/18 03:59 98 04/20/18 00:05 96 04/19/18 22:30 04/19/18 19:03 95 04/19/18 15:41 96 04/19/18 14:59 95 04/19/18 14:40 95 04/19/18 14:30 94 04/19/18 14:20 96 04/19/18 14:10 96 04/19/18 14:01 94 04/19/18 14:00 95 04/19/18 13:50 96 04/19/18 13:40 96 04/19/18 13:31 96 04/19/18 13:30 95 04/19/18 13:22 96 04/19/18 13:20 96 04/19/18 13:10 95 04/19/18 13:01 97 04/19/18 13:00 96 04/19/18 12:50 98 04/19/18 12:40 96 04/19/18 12:30 96 Recovery Score Activity: Moves 4 extremities Respiration: Deep Breath/Cough Circulation: +/-20% PreAnes Value Consciousness: Fully Awake Oxygen Saturation: > 92% On Room Air Post Anesthesia Score: 10 Post Sedation Plan On clinical assessment, the patient appears to have tolerated the sedation without complications. Patient is recovering as anticipated. Patient will continue to be monitored by nursing and may be discharged when sedation discharge criteria are met per below protocol. Upon Completions of procedure and additional 15 minutes continue every 5 minute vital signs and the P.A.R. score; then discharge to a Phase I or Fast Track to Phase II per the following guidelines: * Discharge Patient to appropriate Phase II area if PAR is 8 or greater or return to pre- procedure baseline. The post - procedure orders will be as directed. * If PAR score is less than 8 or not return to pre-procedure baseline then patient will follow Phase I monitoring till PAR is reached for Phase II. The Phase I may be done in procedure room or may call to secure a Phase I area. * �If naloxone or flumazenil are used for reversal, hold in Phase I for continued monitoring from when last reversal dose was given for a minimum of 60 minutes or longer pending the nurse and/or physician discretion of patient condition before discharge to Phase II.� Please call the Sedation Physician to re-evaluate and complete post-note for discharge to Phase II area. Do NOT discharge from procedure sedation or Phase 1 until post- sedation evaluation note is complete by procedure /sedation MD Sedation Discharge Instructions to be given to the patient at discharge to home.
[2018-04-20] MEDS: SODIUM CHLORIDE 0.9% 1000ML 1,000 ML IV SCH ×2 (13:56→22:06)
--- NOTE | 2018-04-20 15:44 | Hospitalist Progress Note ---
Date of Service April 20, 2018 Assessment & Plan (1) Chest pain: 52 y/o M Hx PAD, non-healing LLE ulcer, HTN, DVT. Presents with central/ L CP radiating into his neck and accompanied by SOB, nausea and lightheadedness. This has occurred twice in the past 2 days. He also states that this occurred once 4 months ago and was not addressed at the time. The pt was said to be taking Coumadin. Plavix and HTN-related meds, however, he states that he felt he was taking too many medications and had stopped them of his own accord a few months ago. It is unclear if he completed his intended course of Coumadin for a LLE DVT. On review of records, he did have a normal stress echo 04/2017. He had ablation of the L saphenous vein 12/2017 which preceded his DVT. Initial labs are notable for a glucose of 280, although he denies a history of DM. Initial EKG does not support acute ischemia. - non-occlusive coronary disease on catheterization today, no stents placed treat CAD with aspirin, Lipitor, metoprolol, lisinopril need to control diabetes can go home tomorrow from cardiology perspective (2) History of DVT (deep vein thrombosis): patient has had two separate DVT, one in each leg needs to be on life long anticoagulation he has medical assistance to [facility] probably not affordable would resume Coumadin on discharge, needs to have follow up with coagulation clinic doppler checked, has clot in saphenous vein but no extension into deep system (3) Diabetes type 2, uncontrolled: A1c is >10 patient does not follow with PCP discussed using oral agent such as Metformin and will certainly need additional oral agents discussed using Lantus, he says he would not give himself injection he had diabetes education, provided with glucometer would plan to start him on Metformin after discharge (allow for 2-3 days after IV dye from cath) will need to be established with PCP, work on lifestyle changes, weight loss, low carb diet etc could defer to PCP about what additional agents they would want to use (4) Dyslipidemia: started on Lipitor, continue on discharge has elevated LDL, total cholesterol and has low HDL (5) Hypertension: quite high on admission, was not previously on medications started on Norvasc 5mg and lisinopril 2.5mg daily good response follow up with PCP (6) Obesity: counseled on importance of weight loss with diabetes and dyslipidemia can be discharged to home tomorrow on discharge his new medications will be aspirin, Lipitor, Norvasc, Lisinopril, Metformin resume Coumadin request Kaylan Musa work with him to get established with PCP close follow up in one week Subjective patient feeling fine after heart catheterization no further chest pain long talk about high blood pressure, high cholesterol, diabetes discussed importance of follow up says he stopped his Coumadin 3 weeks ago he is concerned about cost of medications talked with his daughter Barbara, phone number [phone] updated her about going home tomorrow she requested someone call her when he is ready for discharge discussed the case with Dr. Cho with cardiology reviewed labs Review of Systems All systems reviewed & are unremarkable except as noted in HPI & below Physical Exam 2 Vital Signs (Past 24 Hours): Last Vital Signs Temp 36.8 C 04/20/18 03:59 Pulse 60 04/20/18 13:00 Resp 16 04/20/18 13:00 BP 114/73 04/20/18 13:00 Pulse Ox 94 04/20/18 13:00 Constitutional: WD/WN, vitals as above Eyes: PERRL, conjunctivae normal, anicteric sclerae ENMT: external ear and nose normal, oropharynx normal Neck: trachea midline, no thyromegaly Respiratory: normal respiratory effort, lungs clear to auscultation Cardiovascular: RRR, no murmur, no edema Gastrointestinal (Abdomen): normal bowel sounds, soft, nontender, no hepatosplenomegaly Musculoskeletal: no cyanosis or clubbing, extremities motor strength 5/5 Skin: no rashes, warm and dry Neurologic: patellar DTR's 2+ bilat, sensation intact and PERRL, EOMI, accommodation nl, no face palsy, no dysarthria Psychiatric: A+Ox3, euthymic affect Lymphatic: no cervical or axillary lymphadenopathy Results & Data Laboratory Results Laboratory Results - last 24 hr 04/19/18 04/19/18 04/19/18 10:52 16:08 17:03 WBC RBC Hgb Hct MCV MCH MCHC RDW Std Deviation RDW Coeff of Mirella Plt Count MPV Immature Gran % (Auto) Neut % (Auto) Lymph % (Auto) [place] % (Auto) Eos % (Auto) Baso % (Auto) Immature Gran # (Auto) Neut # (Auto) Lymph # (Auto) [place] # (Auto) Eos # (Auto) Baso # (Auto) Activ Coag Time Kaolin Sodium Potassium Chloride Carbon Dioxide Anion Gap BUN Creatinine Est Cr Clr Drug Dosing Est GFR ( Amer) Est GFR (Non-Af Amer) BUN/Creatinine Ratio Glucose POC Glucose 178 H Estimat Average Glucose 249 Hemoglobin A1c 10.3 H Calcium Magnesium Troponin I < 0.015 Triglycerides Cholesterol LDL Cholesterol, Calc VLDL Cholesterol, Calc HDL Cholesterol Cholesterol/HDL Ratio 04/19/18 04/20/18 04/20/18 20:06 05:48 05:48 WBC 5.55 RBC 4.36 L Hgb 14.4 Hct 40.4 L MCV 92.7 MCH 33.0 MCHC 35.6 RDW Std Deviation 42.8 RDW Coeff of Mirella 12.6 Plt Count 193 MPV 10.5 H Immature Gran % (Auto) 0.2 Neut % (Auto) 38.9 Lymph % (Auto) 47.6 [place] % (Auto) 8.6 Eos % (Auto) 4.5 Baso % (Auto) 0.2 Immature Gran # (Auto) 0.01 Neut # (Auto) 2.16 Lymph # (Auto) 2.64 [place] # (Auto) 0.48 Eos # (Auto) 0.25 Baso # (Auto) 0.01 Activ Coag Time Kaolin Sodium 136 Potassium 4.3 Chloride 103 Carbon Dioxide 27 Anion Gap 5.0 BUN 13 Creatinine 1.06 Est Cr Clr Drug Dosing 108.4 Est GFR ( Amer) 93.7 Est GFR (Non-Af Amer) 80.9 BUN/Creatinine Ratio 12.5 Glucose 226 H POC Glucose 213 H Estimat Average Glucose Hemoglobin A1c Calcium 8.6 Magnesium 2.2 Troponin I Triglycerides 303 H Cholesterol 230 H LDL Cholesterol, Calc 137 VLDL Cholesterol, Calc 61 HDL Cholesterol 32 Cholesterol/HDL Ratio 7 04/20/18 04/20/18 04/20/18 05:48 06:06 10:11 WBC RBC Hgb Hct MCV MCH MCHC RDW Std Deviation RDW Coeff of Mirella Plt Count MPV Immature Gran % (Auto) Neut % (Auto) Lymph % (Auto) [place] % (Auto) Eos % (Auto) Baso % (Auto) Immature Gran # (Auto) Neut # (Auto) Lymph # (Auto) [place] # (Auto) Eos # (Auto) Baso # (Auto) Activ Coag Time Kaolin Sodium Potassium Chloride Carbon Dioxide Anion Gap BUN Creatinine Est Cr Clr Drug Dosing Est GFR ( Amer) Est GFR (Non-Af Amer) BUN/Creatinine Ratio Glucose POC Glucose 204 H 219 H Estimat Average Glucose Hemoglobin A1c Calcium Magnesium Troponin I < 0.015 Triglycerides Cholesterol LDL Cholesterol, Calc VLDL Cholesterol, Calc HDL Cholesterol Cholesterol/HDL Ratio 04/20/18 04/20/18 11:54 12:32 WBC RBC Hgb Hct MCV MCH MCHC RDW Std Deviation RDW Coeff of Mirella Plt Count MPV Immature Gran % (Auto) Neut % (Auto) Lymph % (Auto) [place] % (Auto) Eos % (Auto) Baso % (Auto) Immature Gran # (Auto) Neut # (Auto) Lymph # (Auto) [place] # (Auto) Eos # (Auto) Baso # (Auto) Activ Coag Time Kaolin 180 H 158 H Sodium Potassium Chloride Carbon Dioxide Anion Gap BUN Creatinine Est Cr Clr Drug Dosing Est GFR ( Amer) Est GFR (Non-Af Amer) BUN/Creatinine Ratio Glucose POC Glucose Estimat Average Glucose Hemoglobin A1c Calcium Magnesium Troponin I Triglycerides Cholesterol LDL Cholesterol, Calc VLDL Cholesterol, Calc HDL Cholesterol Cholesterol/HDL Ratio Medications Administered Current Inpatient Medications Amlodipine Besylate (Norvasc) 5 mg PO QAM [facility] Stop: 05/20/18 08:59 Last Admin: 04/20/18 10:06 Dose: 5 mg Aspirin (Ecotrin) 81 mg PO DAILY [facility] Stop: 05/20/18 08:59 Last Admin: 04/20/18 10:06 Dose: 81 mg Atorvastatin Calcium (Lipitor) 40 mg PO HS [facility] Stop: 05/19/18 20:59 Last Admin: 04/19/18 20:01 Dose: 40 mg Dextrose (Dextrose 50%) 25 - 50 ml IV UD PRN; Protocol PRN Reason: Hypoglycemia Protocol Stop: 05/19/18 16:20 Glucagon (Glucagen) 1 mg SQ UD PRN; Protocol PRN Reason: Hypoglycemia Protocol Stop: 05/19/18 16:20 Glucose (Glucose 40%) 15 - 30 gm PO UD PRN; Protocol PRN Reason: Hypoglycemia Protocol Stop: 05/19/18 16:20 Glucose (Dex4 Glucose) 4 - 8 tabs PO UD PRN; Protocol PRN Reason: Hypoglycemia Protocol Stop: 05/19/18 16:20 Heparin Sodium (Porcine) (Heparin Sodium (Porcine)) 5,000 units SQ Q8 [facility] Stop: 05/19/18 21:59 Last Admin: 04/20/18 13:57 Dose: 5,000 units Sodium Chloride (Nss 1000ml) 1,000 mls @ 125 mls/hr IV .Q8H [facility] Stop: 05/20/18 12:59 Last Admin: 04/20/18 13:56 Dose: 125 mls/hr Sodium Chloride (Nss) 500 mls @ 999 mls/hr IV .Q31M PRN PRN Reason: IF SYS BP LESS THAN 90 Stop: 05/20/18 12:21 Insulin Aspart (Novolog Flexpen) 0 units SC ACHS [facility] Stop: 05/19/18 17:14 Last Admin: 04/20/18 13:52 Dose: 2 units Lisinopril (Zestril) 2.5 mg PO QAM [facility] Stop: 05/20/18 08:59 Last Admin: 04/20/18 10:06 Dose: 2.5 mg Miscellaneous (Carbohydrates For Hypoglycemia) 15 - 30 gm PO UD PRN PRN Reason: Hypoglycemia Treatment Stop: 05/19/18 16:20 Morphine Sulfate (Morphine Sulfate) 4 mg IV Q2H PRN PRN Reason: Chest Pain Stop: 05/03/18 15:40 Nitroglycerin (Nitrostat) 0.4 mg SL PRN PRN PRN Reason: Chest Pain Stop: 05/19/18 15:40
[2018-04-20] MEDS: ATORVASTATIN 40 MG TAB PO SCH (20:58)
[2018-04-21] MEDS: SODIUM CHLORIDE 0.9% 1000ML 1,000 ML IV SCH (06:04)
[2018-04-21] MEDS: HEPARIN SOD 5,000 UNIT/0.5 ML VIAL SQ SCH (06:16)
[2018-04-21] MEDS: AMLODIPINE BESYLATE 5 MG TAB PO SCH (07:47)
[2018-04-21] MEDS: INSULIN ASPART 100 UNITS/ML 3 ML PEN SC SCH (07:47)
[2018-04-21] MEDS: LISINOPRIL 2.5 MG TAB PO SCH (07:47)
[2018-04-21] MEDS: ASPIRIN 81 MG ECTAB PO SCH (07:48)
--- NOTE | 2018-04-21 10:02 | Discharge Summary ---
Date of Service April 21, 2018 Admission HPI Per Admitting Provider 52 y/o M Hx PAD, non-healing LLE ulcer, HTN, DVT. Presents with central/L CP radiating into his neck and accompanied by SOB, nausea and lightheadedness. This has occurred twice in the past 2 days. He also states that this occurred once 4 months ago and was not addressed at the time. The pt was said to be taking Coumadin. Plavix and HTN-related meds, however, he states that he felt he was taking too many medications and had stopped them of his own accord a few months ago. It is unclear if he completed his intended course of Coumadin for a LLE DVT. On review of records, he did have a normal stress echo 04/2017. He had ablation of the L saphenous vein 12/2017 which preceded his DVT. Initial labs are notable for a glucose of 280, although he denies a history of DM. PMH: 1) HTN 2) PAD 3) LLE DVT 4) Obese 5) Medical noncompliance 6) Nonhealing LLE ulcer Surgical: 1) Ablation of L saphenous vein due to reflux 12/2017 2) Cholecystectomy Social: Extensive smoking history - quit 3 months ago rarely drink alcohol Romanian speaking - limited German skills 2 daughters are available for translation Family: States both parents are alive - denies history of CAD in family - possible DM Principal Diagnosis Chest pain Discharge Exam Constitutional WD/WN, vitals as above Eyes PERRL, conjunctivae normal, anicteric sclerae ENMT external ear and nose normal, oropharynx normal Neck trachea midline, no thyromegaly Respiratory normal respiratory effort, lungs clear to auscultation Cardiovascular RRR, no murmur, no edema Gastrointestinal (Abdomen) normal bowel sounds, soft, nontender, no hepatosplenomegaly Musculoskeletal Extremities: extremities normal to inspection; no cyanosis and no clubbing Skin + wound (left anterior tibia with 1.5 x 1 cm open ulcer with granulation tissue , no surrounding erythema or drainage) and + nail abnormality (left great toe with partial avulsion of nail with scant bloody drainage medially, +TTP over great toe, no significant erythema, no flutuence or drainage) Neurologic moves all extremities and awake; no focal motor deficits Psychiatric A+Ox3, euthymic affect Discharge Data Allergies Allergy/AdvReac Type Severity Reaction Status Date / Time No Known Allergies Allergy Unknown Verified 04/19/18 10:41 Consultations Cardiology Procedures Performed Operation Date: 04/20/18 10:45 Actual Procedures p Cath, Left with Cors and Vent - Kenrick Gibson MD s Ultrasound Vascular Access - Kenrick Gibson MD s Cineradiography w/Routine Exam - Kenrick Gibson MD Ordered Studies 04/19/18 15:41 US venous doppler LE LT Stat 04/20/18 10:27 CL Cath Imgs for PACS use only Routine Chest x-ray Hospital Course (1) Chest pain: 52 y/o M Hx PAD, non-healing LLE ulcer, HTN, DVT. Presents with central/ L CP radiating into his neck and accompanied by SOB, nausea and lightheadedness. This has occurred twice in the past 2 days. He also states that this occurred once 4 months ago and was not addressed at the time. The pt was said to be taking Coumadin. Plavix and HTN-related meds, however, he states that he felt he was taking too many medications and had stopped them of his own accord a few months ago. It is unclear if he completed his intended course of Coumadin for a LLE DVT. On review of records, he did have a normal stress echo 04/2017. He had ablation of the L saphenous vein 12/2017 which preceded his DVT. Initial labs are notable for a glucose of 280, although he denies a history of DM. Initial EKG does not support acute ischemia. Given persistent chest pain and multiple cardiac risk factors, he was recommended to have cardiac catheterization. Troponin was negative x3. - non-occlusive coronary disease on catheterization performed here on 04/20, no stents placed treat CAD with aspirin, Lipitor, metoprolol, lisinopril need to control diabetes as below can go home from cardiology perspective He should have close follow-up with cardiology as an outpatient especially given his history of medical noncompliance for multiple number of social reasons (2) History of DVT (deep vein thrombosis): Patient has had two separate DVT, one in each leg, approximately 10 years apart He needs to be on life long anticoagulation, however he stopped Coumadin about 6 weeks after the last clot due to what sounds like variability in his schedule , his eating habits, and being on antibiotics for his venous ulcer. He got tired of having to get frequent blood work. He has medical assistance so NOAC probably not affordable -Would recommend resuming Coumadin, however after my discussion with hotel assistant manager and the patient today, it is best that he get established with a new primary care physician as he has not had one for several months prior to resuming Coumadin. There is no acute DVT on his venous Dopplers of lower extremities performed during this hospitalization. He does have a clot in saphenous vein but no extension into deep system -Patient recommended to follow-up with PCP and discuss whether he can either go on a NOAC at a cost affordable soriano which would be easier maintenance for him, versus restarting Coumadin with close observation for medical compliance (3) Diabetes type 2, uncontrolled: A1c is >10. This is a new diagnosis for him here patient does not follow with PCP discussed using oral agent such as Metformin and will certainly need additional oral agents discussed using Lantus, he says he would not give himself injection he had diabetes education, provided with glucometer The plan is to start him on Metformin after discharge at 500 mg p.o. twice daily will need to be established with PCP, work on lifestyle changes, weight loss, low carb diet etc could defer to PCP about what additional agents they would want to use moving forward (4) Dyslipidemia: started on Lipitor, continue on discharge has elevated LDL, total cholesterol and has low HDL (5) Hypertension: quite high on admission, was not previously on medications started on Norvasc 5mg and lisinopril 2.5mg daily good response follow up with PCP It is likely that the elevated blood pressures caused him to have some angina given the moderate CAD (6) Saphenous vein clot: As above, as per discussion about Coumadin (7) Non-occlusive coronary artery disease: Starting aspirin, statin, lisinopril, good blood pressure control Needs diabetes control Cardiac catheterization with no need for stent placement (8) Venous stasis ulcer: Continue routine follow-up with wound care center with daily dressing changes Not currently infected (9) Venous stasis: Chronic long-standing issue, now status post venous ablation in the left saphenous vein (10) Obesity: counseled on importance of weight loss with diabetes and dyslipidemia Disposition-can be discharged to home today Placed nurse navigator consultation to work with him to get established with PCP and for follow-up with cardiology after the holiday He will need to have very close follow-up in the outpatient setting and is at high risk for readmission Total Time Total Time Spent Total Time Spent (In Minutes): Greater than 30 minutes Total Time Includes: Examination of the Patient, Discharge Planning, Medication Reconciliation and Communication With Other Providers (Cardiology) Discharge Plan Discharge Items Patient Disposition: Home - Self-Care Reason For Visit: CHEST PAIN Discharge Diagnosis: Chest pain, High blood pressure Condition: Good Discharge Goals: Decrease discomfort, Diagnostic testing, Improve disease control and Therapeutic intervention Activity: Per 'Additional Instructions' section Bathing: Keep incision dry Exercise/Sports: Gradually increase as tolerated Driving/Machine Use: No limitations Non-emergency contact: Primary Care Provider and [facility] Call non-emergency contact if: you have any medication questions, your symptoms worsen, your pain is not controlled, your pain is worsening, your pain is unusual for you and your pain is concerning for you Follow-up/Referrals: Kenrick Gibson MD [[facility]] - (Follow up within 2 weeks. Our Nurse Navigator should be calling you with an appointment date and time.) Diet: Carb Consistent or DM2 and Heart Healthy Addtl Provider Instructions: You were admitted with chest pain and dizziness which may have been related to high blood pressure. You had a cardiac catheterization which showed that you have heart disease, but not severe enough to require any stents to be placed. You need to continue taking all the medications prescribed toyou here to controll your high blood pressure and prevent worsening heart disease. Also, you were diagnosed with diabetes while you were here. You should at least start taking metformin to control your sugar, but will likely need other medications in the future. We understand you are having a hard time with paying for medication and taking your medications. Getting established with a new primary care physician can be beneficiall in helping you get the best medical care that you need. For now, we recommend you NOT take the warfarin (Coumadin) until after you see your new primary care doctor-that doctor will need to follow your blood levels once you start taking warfarin if you decide to restart it to prevent future blood clots. Please follow up with the primary care doctor in 1-2 weeks--> our Nurse should be contacting you in the next 1-2 days to tell you when your appointment date and time will be. ACTIVITY RECOMMENDATIONS: Excess manipulation of the wrist should be avoided for the next 24-48 hours. * No lifting over 2 pounds (approximately a 1/2 gallon of milk) with the utilized arm for 24 hours. * No strenuous activity such as bowling or tennis for 3 days. * Keep the site of the procedure covered with a bandage for 24 hours. *You may shower the day after the procedure. Do not take a tub bath or submerge the puncture site in water for the next 3 days. *Do not operate any motorized equipment for 3 days. SPECIAL CARE INSTRUCTIONS: The site may be slightly bruised and sore following your procedure. Should any of the following occur, contact the Dr. who performed your procedure. 1. Redness/inflammation, swelling, chills, or fever, or colored drainage at procedure site within 3-7 days after your procedure. 2. Coldness, discoloration, ongoing numbness, severe pain, or swelling. Expect mild tingling of hand and tenderness at the puncture site for up to three days. If this persists beyond three days, or other symptoms develop, notify the Dr. who performed your procedure. BLEEDING: If the procedure site on your wrist begins to bleed, do not panic 1. Place 1 or 2 fingers firmly just slightly above the insertion site to stop the bleeding. You may be able to feel your pulse as you hold pressure. 2. Lift your finger after 5 minutes to see if the bleeding has stopped. 3. Once the bleeding has stopped, gently wipe the wrist area clean with a bandage. * If the bleeding from your wrist does not stop after 10 minutes, or if there is a large amount of bleeding or spurting, call 911 (do not drive yourself to the hospital). SKIN IRRITATION: * You may experience some redness and/or swelling in the area where radiation was administered. If any skin irritation occurs, please contact your family physician. FOLLOW UP VISIT: Keep any scheduled doctor appointments. ACTIVITY RECOMMENDATIONS: It is common to feel weak and fatigue for a few days. * Do not drive or operate any motorized equipment for the next three days. * Limit stair usage (2 or 3 trips a day only) for the next three days. * Do not lift anything heavier than 10 pounds for the next three days. * Do not engage in vigorous exercise or any sports for the next five days. * You may shower the day after your procedure, but do not immerse the area for three days. Cleanse the site gently with soap and water. SPECIAL CARE INSTRUCTIONS: * You may replace the pressure dressing or band-aid the morning after the procedure. * After your procedure, it is normal to have a small bruise or small lump at the site. Examine your site daily for any change in the bruise or lump, redness, swelling, drainage or numbness. Notify your doctor if any change. BLEEDING: * If there is a small amount of bleeding at the site, lie down and apply firm pressure with a clean cloth for ten minutes. When the bleeding stops, lie quietly keeping the procedure limb straight for six hours. Notify your doctor as soon as possible. * If the bleeding does not stop after ten minutes or if there is a large amount of bleeding or spurting, call 911 immediately. Continue to lie down and hold firm pressure until help arrives. SKIN IRRITATION: * You may experience some redness and/or swelling in the area where radiation was administered. If any skin irritation occurs, please contact your family physician. FOLLOW UP VISIT: Keep any scheduled doctor appointments. Prescriptions: New atorvastatin 40 mg Tablet 40 mg PO HS Qty: 30 RF: 0 amlodipine [Norvasc] 5 mg Tablet 5 mg PO QAM Qty: 30 RF: 0 nitroglycerin [Nitrostat] 0.4 mg Tablet, Sublingual 0.4 mg Sublingual PRN PRN (Reason: chest pain) Qty: 15 RF: 0 lisinopril 2.5 mg Tablet 2.5 mg PO QAM Qty: 30 RF: 0 aspirin [Ecotrin Low Strength] 81 mg Tablet,Delayed Release (Dr/Ec) 81 mg PO DAILY Qty: 30 RF: 0 metformin 500 mg tablet 500 mg PO BID Qty: 60 RF: 0 Continue acetaminophen [Tylenol] 325 mg Tablet PO Q6H PRN (Reason: Pain) RF: 0 Discontinued Aspirin Childrens 81 mg PO UD PRN (Reason: Pain) RF: 0 Stand-Alone Forms: Replaced By [facility] Discharge Orders: Discharge Order (Routine); Ordered 04/21/18 Ordered By: Danyelle Saha Admission Data Admit Date/Time: 04/19/18 14:15 Attending Provider: Danyelle Saha Admit Provider: Jayy Overton Primary Care Provider: PCP,NO Other Providers: Jayy Overton ; Kenrick Gibson Service: Telemetry Other Interventions: Discharge Summary Assessment (RN) Last Done: 04/21/18 10:26 Pending Studies at Discharge: No DC Date/Time DO NOT enter until pt leaves facility: 04/21/18 11:10
--- NOTE | 2018-04-21 14:43 | Cardiology Progress Note ---
Date of Service April 21, 2018 Assessment & Plan (1) Non-occlusive coronary artery disease: Aggressive management of risk factors including his diabetes, hypertension , dyslipidemia, obesity, and fairly sedentary lifestyle will be important. Discussed all these as well as medication management with the patient. (2) Chest pain: No clear-cut culprit lesion on cardiac catheterization. Suspect uncontrolled hypertension with supply/demand mismatch as etiology for his intermittent chest pain. (3) Hypertension: As noted, uncontrolled hypertension may have contributed to anginal symptoms in the context of extensive but nonocclusive coronary artery disease. Titrate vasoactive regimen as outpatient. (4) Saphenous vein clot: Unclear whether he should be anticoagulated long-term, since his recent DVT was provoked (status post ablation), but he has a history of a more remote DVT (circumstances uncertain). Since he currently has only a superficial thrombus and had a recent arterial puncture, as well as given uncertain compliance (he did not complete a course of anticoagulation earlier), would hold on warfarin until he shows up and establishes with a primary care doctor. Meanwhile, aspirin therapy will help reduce his risk of extending his current superficial thrombus. (5) Healthcare maintenance: Discussed the importance of establishing with a primary care physician, particularly given his newly complex medical regimen and the possibility of anticoagulation therapy. He was once followed by Dr. Omar Spear, would like to reestablish with him. I will speak with Dr. Spear and see if this can be accomplished. Subjective Uneventful night. No chest pain, dyspnea, or other complaints. No bleeding from right radial or right femoral access sites. Physical Exam 2 Vital Signs (Past 24 Hours): Last Vital Signs Temp 36.7 C 04/21/18 10:26 Pulse 65 04/21/18 10:26 Resp 18 04/21/18 10:26 BP 118/51 L 04/21/18 10:26 Pulse Ox 98 04/21/18 10:26 Physical Exam: No distress. Vitals as above. Skin: no ecchymoses or generalized lesions. HEENT: unremarkable. Neck: no JVD or carotid bruits. Lungs clear. Cardiac: regular rhythm and no murmur or gallop. Abdomen benign. Extremities: no edema, pulses brisk. Neurologic: normal affect, nonfocal. Results & Data Diagnostic Findings Cardiac cath results as noted: Calcified coronaries with extensive but nonocclusive stenoses.
== END 2018-04-21 11:10 | disposition home or self-care (01) ==
LOC: ED 10:11 → 2S 10:11 → SUATTDRO 14:15 → 2S 14:59

== ENCOUNTER 2020-10-20 10:39 | Inpatient (IN) ==
[2020-10-20] MEDS ORDERED: ASPIRIN CHEW 324 MG PO STA (12:23)
[2020-10-20] MEDS ORDERED: LABETALOL HCL IV 5 MG/ML 20ML IV STA (12:24)
[2020-10-20 13:04] LABS: Basophils # (auto) 0.02 K/uL (0-0.2); Basophils % (auto) 0.4 %; Eosinophils # (auto) 0.19 K/uL (0-0.5); Eosinophils % (auto) 3.9 %; Hematocrit (blood only) 45.4 % (42-52); Hemoglobin 16.3 g/dL (14.0-18.0); Immature Granulocytes # (auto) 0.01 K/uL (0.00-0.02); Immature Granulocytes % (auto) 0.2 %; Lymphocytes # (auto) 1.92 K/uL (1.2-3.4); Lymphocytes % (auto) 39.4 %; Mean Corpuscular Hemoglobin 33.8 pg (25-34); Mean Corpuscular Hgb Conc 35.9 g/dL (32-36); Mean Corpuscular Volume 94.2 fL (80-100); Monocytes # (auto) 0.39 K/uL (0.11-0.59); Neutrophils # (auto) 2.34 K/uL (1.4-6.5); Neutrophils % (auto) 48.1 %; Platelet Count 189 K/uL (130-400); RDW Coefficient of Variation 12.1 % (11.5-14.5); RDW Standard Deviation 40.8 fL (36.4-46.3); Red Blood Count 4.82 M/uL (4.7-6.1); White Blood Count 4.87 K/uL (4.8-10.8)
--- NOTE | 2020-10-20 13:07 | XRay Report ---
XR chest 1V portable CLINICAL HISTORY: Atypical chest pain COMPARISON STUDY: 04/19/2018 FINDINGS: The heart is the upper limits of normal in size. There is no failure. There is no focal pul monary consolidation. There are no pleural effusions. There is a 13 mm left suprahilar density statis tically representing a summation with the left first costochondral junction. Apical lordotic view cou ld be obtained in follow-up to confirm this impression.[ IMPRESSION: 1. 13 mm left suprahilar density statistically representing a summation with the left first costochon dral junction. Apical lordotic view could be obtained in follow-up to confirm this impression 2. No evidence of focal pulmonary consolidation ACT 112: Negative or not required by law. Electronically signed by: Eze Fam M.D. 10/20/2020 1:05 PM
[2020-10-20 13:13] LABS: Partial Thromboplastin Ratio 0.9; Partial Thromboplastin Time 24.5 Seconds (21.0-31.0)
[2020-10-20 13:26] LABS: Alanine Aminotransferase 88 U/L (12-78); Aspartate Aminotransferase 41 U/L (15-37); BUN Creatinine Ratio 16.4 (10-20); Blood Urea Nitrogen 17 mg/dl (7-18); Calcium 9.5 mg/dl (8.5-10.1); Carbon Dioxide 26 mmol/L (21-32); Chloride 101 mmol/L (98-107); Est GFR (African American) 97.3 ml/min; Est GFR (Non-African American) 83.9 ml/min; Glucose 340 mg/dl (70-99); Lipase 226 U/L (73-393); Potassium 4.2 mmol/L (3.5-5.1); Sodium 133 mmol/L (136-145)
[2020-10-20 13:32] LABS: Alkaline Phosphatase 112 U/L (45-117); Bilirubin,Total 0.6 mg/dl (0.2-1); Globulin 3.9 gm/dl (2.5-4.0); Total Protein 7.9 gm/dl (6.4-8.2); Troponin I < 0.015 ng/ml (0-0.045)
[2020-10-20] MEDS ORDERED: NovoLIN-R INSULIN PER UNIT CHARGE SC STA (14:07)
[2020-10-20] MEDS ORDERED: amLODIPine BESYLATE 5 MG TAB PO ONE (14:39)
--- NOTE | 2020-10-20 14:46 | Electrocardiogram Report ---
Test Reason : Blood Pressure : / mmHG Vent. Rate : 065 BPM Atrial Rate : 065 BPM P-R Int : 176 ms QRS Dur : 100 ms QT Int : 420 ms P-R-T Axes : 039 -09 032 degrees QTc Int : 436 ms Normal sinus rhythm Normal ECG When compared with ECG of 19-APR-2018 10:20, No significant change was found Confirmed by Ramsey Avila ([id number]) on 10/20/2020 2:46:00 PM Referred By: REFERRED SELF Confirmed By:Ramsey Avila
[2020-10-20] MEDS ORDERED: OPTIRAY 320 125ml IV ONE (15:01)
--- NOTE | 2020-10-20 15:18 | CT Scan Report ---
CT ANGIOGRAM OF THE CHEST COMBO CLINICAL HISTORY: Chest and back pain. Hypertension. COMPARISON STUDY: None TECHNIQUE: Before and following the IV administration of cc of Optiray, CT angiogram of the chest was performed from the thoracic inlet to the upper abdomen utilizing the dissection protocol. Images are reviewed in the axial, sagittal, and coronal planes. 3-D MIPS images are created and assessed. IV co ntrast was administered without complication. A dose lowering technique was utilized adhering to the principles of ALARA. CT DOSE: 1793.86 mGy.cm FINDINGS: There is adequate characterization of the pulmonary vasculature. No evidence of pulmonary embolus is seen. Focal area of decreased opacification within left upper lobe pulmonary artery most likely repre senting flow artifact. There is no pulmonary artery dilatation is seen. No right heart strain demonstrated. Heart is normal in size without evidence of pericardial effusion. Severe coronary artery calcifications are seen, too prominent for patient's age group. There is no axillary, supra clavicle or internal mammary lymphadenopathy seen. Mediastinal lymph node s are not enlarged. Thyroid: Imaged portions of the thyroid gland are normal in size and attenuation. Minimal hiatal hernia is seen. Thoracic aorta: The thoracic aorta is normal in caliber and demonstrates standard 3-vessel arch anato my. No dissection is seen. Lungs and pleural spaces: Tracheobronchial tree is patent. No infiltrates or consolidative lesions are seen. Mild atelectasis is seen at dependent portions of b ilateral lower lobes. No pleural effusion demonstrated. -Punctate calcified granuloma is seen adjustment to the right major fissure act () Upper abdomen: Partially visualized upper abdominal viscera is within normal limits. Skeletal structures: Degenerative changes of the spine. IMPRESSION: 1. No acute pulmonary embolus is seen. No right heart strain or main pulmonary artery dilatation see n. 2. No infiltrates or consolidative lesions. 3. Severe coronary calcifications, too prominent for patient's age group. 4. Minimal hiatal hernia. ACT 112: Negative or not required by law. The above report was generated using voice recognition software. It may contain grammatical, syntax o r spelling errors. Electronically signed by: Vale Sung DO 10/20/2020 3:17 PM
[2020-10-20] MEDS ORDERED: ACETAMINOPHEN 500 MG TAB PO STA (15:25)
--- NOTE | 2020-10-20 15:58 | Emergency Department Note ---
History of Present Illness General Chief complaint: Pain (Generalized) Stated complaint: PAIN IN UPPER BACK,CHEST,NECK,HANDS Source: patient and RN notes reviewed Mode of arrival: ambulatory Limitations: language barrier (Thai as a second language) History of Present Illness Provider complaint: Neck, chest and upper back pain for several days intermittently. Maximum Pain Intensity: 5 This patient is a 55-year-old male who presents to the emergency department with complaints of chest, shoulder and neck discomfort intermittently for the last 2 days. 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 The patient needed to leave work due to the severity of symptoms. He did become nauseated. Patient has a history of cardiac catheterization several years ago and was found to have nonocclusive coronary disease. He admits to being diabetic but has been noncompliant with his medications including diabetes treatment. He denies any recent fevers, chills, vomiting, diarrhea, abdominal pain. Home Medications Medication Instructions Recorded Confirmed Type aspirin 81 mg PO QAM #30 tab 10/21/20 Rx lisinopril 20 mg PO QAM #30 tab 10/21/20 Rx atorvastatin 40 mg PO QAM 30 Days #30 tab 10/24/20 Rx blood sugar diagnostic [OneTouch #100 ea 10/24/20 Rx Verio test strips] clopidogrel 75 mg PO QAM 30 Days #30 tab 10/24/20 Rx insulin admin supplies #1 ea 10/24/20 Rx insulin aspart U-100 [Novolog 10 unit SUBCUT TID 30 Days #15 ml 10/24/20 Rx Flexpen U-100 Insulin] insulin glargine [Lantus Solostar 30 unit SUBCUT QAM #15 ml 10/24/20 Rx U-100 Insulin] lancets [OneTouch Delica Lancets] #100 ea 10/24/20 Rx metformin 500 mg PO DAILY #30 tab 10/24/20 Rx metoprolol tartrate 12.5 mg PO QAM 30 Days #15 tab 10/24/20 Rx vitamin M23-[id number] acid 1 tab PO DAILY #30 tab 10/24/20 Rx blood-glucose meter [OneTouch #1 ea 10/25/20 Rx Verio Meter] Allergies Allergy/AdvReac Type Severity Reaction Status Date / Time No Known Allergies Allergy Unknown Verified 10/20/20 14:20 Past Med/Surg History Medical History Diabetes type 2, uncontrolled Dyslipidemia Hypertension Non-occlusive coronary artery disease Venous insufficiency of both lower extremities Venous stasis ulcer Surgical History History of cholecystectomy Family History Father Diabetes Social History Smoking Status: Former smoker Second Hand Exposure: No; Hx Alcohol Use: Yes Alcohol type: hard liquor Hx Substance Use: No Preferred Language: Namibian Communication Ability: Effective Core Rescuer Required: No Beliefs That Will Affect Care: None Current Living Situation: Spouse and Family Feels Safe at Home: Yes Assistive Devices: None Review of Systems See HPI for pertinent positives & negatives. and A total of 10 systems reviewed and were otherwise negative Physical Exam Vital Signs Vital Signs - 24 hr 10/20/20 10:54 10/20/20 12:09 10/20/20 12:51 Temperature 36.6 C Temperature Source Temporal Artery Scan Pulse Rate 82 64 62 Pulse Rate [Apical] Pulse Rate from SpO2 Sensor 63 63 Pulse Rhythm Regular Pulse Rhythm [Apical] Pulse Strength [Apical] Respiratory Rate 18 13 14 Respiratory Effort / Characteristics Non-Labored Spontaneous Respiratory Depth Normal Blood Pressure 187/113 H 182/129 H 161/106 H Blood Pressure Mean 137 146 124 Pulse Oximetry 96 94 94 Oxygen Delivery Method Room Air Sepsis Recent Fever Within 48 Hours No Sepsis New/Unexplained Change in Mental Status No Sepsis Action Taken by Nursing No Action Required 10/20/20 13:00 10/20/20 13:01 10/20/20 13:02 Temperature Temperature Source Pulse Rate 68 75 Pulse Rate [Apical] Pulse Rate from SpO2 Sensor 68 73 Pulse Rhythm Pulse Rhythm [Apical] Pulse Strength [Apical] Respiratory Rate 27 H 13 Respiratory Effort / Characteristics Respiratory Depth Blood Pressure 153/108 H Blood Pressure Mean 123 Pulse Oximetry 95 94 96 Oxygen Delivery Method Room Air Sepsis Recent Fever Within 48 Hours Sepsis New/Unexplained Change in Mental Status Sepsis Action Taken by Nursing 10/20/20 13:30 10/20/20 14:00 10/20/20 14:30 Temperature Temperature Source Pulse Rate 63 65 60 Pulse Rate [Apical] Pulse Rate from SpO2 Sensor 62 66 61 Pulse Rhythm Pulse Rhythm [Apical] Pulse Strength [Apical] Respiratory Rate 16 16 18 Respiratory Effort / Characteristics Respiratory Depth Blood Pressure 135/92 164/104 H 141/100 H Blood Pressure Mean 106 124 113 Pulse Oximetry 94 97 95 Oxygen Delivery Method Sepsis Recent Fever Within 48 Hours Sepsis New/Unexplained Change in Mental Status Sepsis Action Taken by Nursing 10/20/20 15:20 Temperature Temperature Source Pulse Rate Pulse Rate [Apical] 60 Pulse Rate from SpO2 Sensor Pulse Rhythm Pulse Rhythm [Apical] Regular Pulse Strength [Apical] Normal Respiratory Rate 16 Respiratory Effort / Characteristics Non-Labored Spontaneous Respiratory Depth Normal Blood Pressure Blood Pressure Mean Pulse Oximetry 98 Oxygen Delivery Method Room Air Sepsis Recent Fever Within 48 Hours Sepsis New/Unexplained Change in Mental Status Sepsis Action Taken by Nursing Vital signs reviewed. General: Well-appearing 55 yo male, in no significant distress. HEENT: No scleral icterus, PERRLA, neck supple. Atraumatic. Cardiovascular: Regular rate and rhythm, no extra sounds. Pulmonary: Clear to auscultation bilaterally, normal work of breathing. Abdomen: Soft, nontender, nondistended, positive bowel sounds. Musculoskeletal: Atraumatic, no peripheral edema. Neurologic: Patient awake alert and oriented x 3 Skin: Warm, dry, no rash Course Administered Medications Discontinued Medications Acetaminophen (Acetaminophen 500 Mg Tab) 1,000 mg PO NOW STA Stop: 10/20/20 15:26 Last Admin: 10/20/20 15:38 Dose: 1,000 mg Documented by: [id number] Acetaminophen (Acetaminophen 325 Mg Tab) 650 mg PO Q4H PRN PRN Reason: Pain or Fever Stop: 11/19/20 18:58 Last Admin: 10/24/20 20:25 Dose: 650 mg Documented by: [id number] Admin: 10/24/20 11:22 Dose: 650 mg Documented by: [id number] Admin: 10/23/20 16:12 Dose: 650 mg Documented by: [id number] Amlodipine Besylate (Amlodipine Besylate 5 Mg Tab) 5 mg PO NOW ONE Stop: 10/20/20 14:40 Last Admin: 10/20/20 15:18 Dose: 5 mg Documented by: [id number] Aspirin (Aspirin Chew 324 Mg) 324 mg PO NOW STA Stop: 10/20/20 12:24 Last Admin: 10/20/20 12:58 Dose: 324 mg Documented by: [id number] Aspirin (Aspirin 81 Mg Ectab) 81 mg PO [facility] Stop: 11/19/20 19:14 Last Admin: 10/25/20 08:17 Dose: 81 mg Documented by: [id number] Admin: 10/24/20 08:25 Dose: 81 mg Documented by: [id number] Admin: 10/23/20 09:28 Dose: 81 mg Documented by: [id number] Admin: 10/22/20 07:40 Dose: 81 mg Documented by: [id number] Admin: 10/21/20 07:26 Dose: 81 mg Documented by: [id number] Admin: 10/20/20 19:55 Dose: 81 mg Documented by: [id number] Atorvastatin Calcium (Atorvastatin 40 Mg Tab) 40 mg PO [facility] Stop: 11/23/20 08:59 Last Admin: 10/25/20 08:18 Dose: 40 mg Documented by: [id number] Admin: 10/24/20 08:26 Dose: 40 mg Documented by: [id number] Clopidogrel Bisulfate (Clopidogrel Bisulfate 300 Mg Tab) Confirm Administered Dose 600 mg .ROUTE .STK-MED ONE Stop: 10/23/20 14:05 Last Admin: 10/23/20 14:08 Dose: 600 mg Documented by: [id number] Clopidogrel Bisulfate (Clopidogrel Bisulfate 75 Mg Tab) 75 mg PO [facility] Stop: 11/23/20 08:59 Last Admin: 10/25/20 08:17 Dose: 75 mg Documented by: [id number] Admin: 10/24/20 08:26 Dose: 75 mg Documented by: [id number] Fentanyl Citrate (Fentanyl Citrate 100 Mcg/2 Ml Vial) Confirm Administered Dose 100 mcg .ROUTE .STK-MED ONE Stop: 10/23/20 11:34 Last Admin: 10/23/20 14:05 Dose: 100 mcg Documented by: [id number] Fentanyl Citrate (Fentanyl Citrate 100 Mcg/2 Ml Vial) Confirm Administered Dose 100 mcg .ROUTE .STK-MED ONE Stop: 10/23/20 13:30 Last Admin: 10/23/20 14:07 Dose: 50 mcg Documented by: [id number] Heparin Sodium (Porcine) (Heparin Sod 5,000 Unit/0.5 Ml Vial) 5,000 units SQ Q8 [facility] Stop: 11/19/20 21:59 Last Admin: 10/25/20 06:03 Dose: 5,000 units Documented by: [id number] Admin: 10/24/20 20:28 Dose: 5,000 units Documented by: [id number] Admin: 10/24/20 14:12 Dose: 5,000 units Documented by: [id number] Admin: 10/24/20 05:11 Dose: 5,000 units Documented by: [id number] Admin: 10/23/20 21:12 Dose: 5,000 units Documented by: [id number] Admin: 10/23/20 15:09 Dose: Not Given Documented by: [id number] Admin: 10/23/20 05:31 Dose: 5,000 units Documented by: [id number] Admin: 10/22/20 20:41 Dose: 5,000 units Documented by: [id number] Admin: 10/22/20 14:59 Dose: 5,000 units Documented by: [id number] Admin: 10/22/20 06:00 Dose: 5,000 units Documented by: [id number] Admin: 10/21/20 21:18 Dose: 5,000 units Documented by: [id number] Admin: 10/21/20 13:44 Dose: 5,000 units Documented by: [id number] Admin: 10/21/20 06:26 Dose: Not Given Documented by: [id number] Admin: 10/20/20 22:43 Dose: 5,000 units Documented by: [id number] Heparin Sodium (Porcine) (Heparin (Porcine) 1000 Unit/Ml 10 Ml ([employer] Use Only)) Confirm Administered Dose 10,000 units .ROUTE .STK-MED ONE Stop: 10/23/20 11:34 Last Admin: 10/23/20 14:06 Dose: 10,000 units Documented by: [id number] Heparin Sodium (Porcine) (Heparin (Porcine) 1000 Unit/Ml 10 Ml ([employer] Use Only)) Confirm Administered Dose 10,000 units .ROUTE .STK-MED ONE Stop: 10/23/20 13:31 Last Admin: 10/23/20 14:07 Dose: 4,000 units Documented by: [id number] Heparin Sodium/Sodium Chloride (Heparin In Nss Infusion 1000 Unit/500 Ml (2 U/Ml) Bag) Confirm Administered Dose 3,000 units IV .STK-MED ONE Stop: 10/23/20 11:35 Last Admin: 10/23/20 14:08 Dose: 3,000 units Documented by: [id number] Sodium Chloride (Nss 1000ml) 1,000 mls @ 100 mls/hr IV .Q10H [place] Stop: 10/23/20 15:37 Last Infusion: 10/23/20 17:46 Dose: 0 mls/hr Documented by: [id number] Admin: 10/23/20 09:30 Dose: 110 mls/hr Documented by: [id number] Infusion: 10/23/20 09:30 Dose: 110 mls/hr Documented by: [id number] Admin: 10/23/20 00:41 Dose: 110 mls/hr Documented by: [id number] Insulin Aspart (Insulin Aspart 100 Units/Ml 3 Ml Pen) 0 units SC ACHS [place] Stop: 11/19/20 19:29 Last Admin: 10/25/20 12:06 Dose: 7 units Documented by: [id number] Cosigned by: [id number] Admin: 10/25/20 08:16 Dose: 20 units Documented by: [id number] Cosigned by: [id number] Admin: 10/24/20 20:27 Dose: 5 units Documented by: [id number] Cosigned by: [id number] Admin: 10/24/20 16:57 Dose: 11 units Documented by: [id number] Cosigned by: [id number] Admin: 10/24/20 12:22 Dose: 15 units Documented by: [id number] Cosigned by: [id number] Admin: 10/24/20 08:27 Dose: 12 units Documented by: [id number] Cosigned by: [id number] Admin: 10/23/20 21:09 Dose: 16 units Documented by: [id number] Cosigned by: [id number] Admin: 10/23/20 17:25 Dose: 2 units Documented by: [id number] Cosigned by: [id number] Admin: 10/23/20 15:09 Dose: Not Given Documented by: [id number] Admin: 10/23/20 09:23 Dose: 3 units Documented by: [id number] Cosigned by: [id number] Admin: 10/22/20 20:42 Dose: 3 units Documented by: [id number] Cosigned by: [id number] Admin: 10/22/20 16:57 Dose: 13 units Documented by: [id number] Cosigned by: [id number] Admin: 10/22/20 12:01 Dose: 9 units Documented by: [id number] Cosigned by: [id number] Admin: 10/22/20 09:42 Dose: 5 units Documented by: [id number] Cosigned by: [id number] Admin: 10/21/20 21:15 Dose: 2 units Documented by: [id number] Cosigned by: [id number] Admin: 10/21/20 16:39 Dose: 20 units Documented by: [id number] Cosigned by: [id number] Admin: 10/21/20 12:15 Dose: 7 units Documented by: [id number] Cosigned by: [id number] Admin: 10/21/20 08:14 Dose: 3 units Documented by: [id number] Cosigned by: [id number] Admin: 10/20/20 21:13 Dose: Not Given Documented by: [id number] Cosigned by: [id number] Admin: 10/20/20 19:56 Dose: 10 units Documented by: [id number] Cosigned by: [id number] Insulin Aspart (Insulin Aspart 100 Units/Ml 3 Ml Pen) 0 units SC TODAY@0000,0400 [facility] Stop: 10/21/20 04:01 Last Admin: 10/21/20 04:22 Dose: 3 units Documented by: [id number] Cosigned by: [id number] Admin: 10/21/20 00:08 Dose: 6 units Documented by: [id number] Cosigned by: [id number] Insulin Glargine (Insulin Glargine Solostar 100 Units/Ml 3 Ml Pen) 25 units SC NOW ONE Stop: 10/20/20 19:23 Last Admin: 10/20/20 19:55 Dose: 25 units Documented by: [id number] Cosigned by: [id number] Insulin Glargine (Insulin Glargine Solostar 100 Units/Ml 3 Ml Pen) 10 units SC DAILY [facility] Stop: 10/21/20 09:01 Last Admin: 10/21/20 10:08 Dose: 10 units Documented by: [id number] Cosigned by: [id number] Insulin Glargine (Insulin Glargine Solostar 100 Units/Ml 3 Ml Pen) 0 units SC [facility]; Protocol Stop: 11/20/20 20:59 Last Admin: 10/21/20 21:14 Dose: 15 units Documented by: [id number] Cosigned by: [id number] Insulin Glargine (Insulin Glargine Solostar 100 Units/Ml 3 Ml Pen) 15 units SC DAILY [facility] Stop: 10/22/20 09:01 Last Admin: 10/22/20 09:43 Dose: 15 units Documented by: [id number] Cosigned by: [id number] Insulin Glargine (Insulin Glargine Solostar 100 Units/Ml 3 Ml Pen) 15 units SC BID [place]; Protocol Stop: 11/21/20 20:59 Last Admin: 10/23/20 21:10 Dose: 15 units Documented by: [id number] Cosigned by: [id number] Admin: 10/23/20 09:27 Dose: 15 units Documented by: [id number] Cosigned by: [id number] Admin: 10/22/20 20:41 Dose: 15 units Documented by: [id number] Cosigned by: [id number] Insulin Glargine (Insulin Glargine Solostar 100 Units/Ml 3 Ml Pen) 20 units SC BID [place]; Protocol Stop: 11/21/20 20:59 Last Admin: 10/24/20 20:26 Dose: 20 units Documented by: [id number] Cosigned by: [id number] Admin: 10/24/20 08:26 Dose: 20 units Documented by: [id number] Cosigned by: [id number] Insulin Glargine (Insulin Glargine Solostar 100 Units/Ml 3 Ml Pen) 35 units SC DAILY [place]; Protocol Stop: 11/24/20 08:59 Last Admin: 10/25/20 08:17 Dose: 35 units Documented by: [id number] Cosigned by: [id number] Insulin Human Regular (Novolin-R Insulin Per Unit Charge) 10 units SC NOW STA Stop: 10/20/20 14:08 Last Admin: 10/20/20 14:22 Dose: 10 units Documented by: [id number] Cosigned by: [id number] Ioversol (Optiray 320 125ml) 120 ml IV ONCE ONE Stop: 10/20/20 15:02 Last Admin: 10/20/20 15:01 Dose: 120 ml Documented by: [id number] Labetalol HCl (Labetalol Hcl Iv 5 Mg/Ml 20ml) 10 mg IV NOW STA Stop: 10/20/20 12:25 Last Admin: 10/20/20 12:58 Dose: 10 mg Documented by: [id number] Cosigned by: [id number] Lidocaine (Lidocaine 5% 1 Patch) 1 patch TD QAM PRN PRN Reason: Pain Stop: 11/19/20 19:09 Last Admin: 10/21/20 07:29 Dose: 1 patch Documented by: [id number] Lisinopril (Lisinopril 20 Mg Tab) 20 mg PO QAM [place] Stop: 11/20/20 08:59 Last Admin: 10/25/20 08:18 Dose: 20 mg Documented by: [id number] Admin: 10/24/20 08:25 Dose: 20 mg Documented by: [id number] Admin: 10/23/20 09:29 Dose: 20 mg Documented by: [id number] Admin: 10/22/20 07:40 Dose: 20 mg Documented by: [id number] Admin: 10/21/20 07:26 Dose: 20 mg Documented by: [id number] Metoprolol Tartrate (Metoprolol Tartrate 25 Mg Tab) 12.5 mg PO [facility] Stop: 11/20/20 08:59 Last Admin: 10/25/20 08:17 Dose: 12.5 mg Documented by: [id number] Admin: 10/24/20 08:26 Dose: 12.5 mg Documented by: [id number] Admin: 10/23/20 09:28 Dose: 12.5 mg Documented by: [id number] Admin: 10/22/20 07:41 Dose: 12.5 mg Documented by: [id number] Admin: 10/21/20 07:27 Dose: 12.5 mg Documented by: [id number] Midazolam HCl (Midazolam Hcl 1 Mg/Ml 2ml Vial) Confirm Administered Dose 2 mg .ROUTE .STK-MED ONE Stop: 10/23/20 11:34 Last Admin: 10/23/20 14:06 Dose: 2 mg Documented by: [id number] Midazolam HCl (Midazolam Hcl 1 Mg/Ml 2ml Vial) Confirm Administered Dose 2 mg .ROUTE .STK-MED ONE Stop: 10/23/20 13:02 Last Admin: 10/23/20 14:06 Dose: 2 mg Documented by: [id number] Midazolam HCl (Midazolam Hcl 1 Mg/Ml 2ml Vial) Confirm Administered Dose 2 mg .ROUTE .STK-MED ONE Stop: 10/23/20 13:30 Last Admin: 10/23/20 14:07 Dose: 2 mg Documented by: [id number] Miscellaneous (Remove Lidoderm Patch) 1 ea N/A DAILY@2100 [facility] Stop: 11/19/20 20:59 Last Admin: 10/24/20 20:26 Dose: Not Given Documented by: [id number] Admin: 10/23/20 21:15 Dose: Not Given Documented by: [id number] Admin: 10/22/20 20:40 Dose: Not Given Documented by: [id number] Admin: 10/21/20 21:13 Dose: Not Given Documented by: [id number] Admin: 10/20/20 19:57 Dose: Not Given Documented by: [id number] Morphine Sulfate (Morphine Sulfate 2 Mg/Ml Carp) 1 mg IV Q4 PRN PRN Reason: Pain Stop: 11/06/20 16:21 Last Admin: 10/23/20 16:38 Dose: 1 mg Documented by: [id number] Morphine Sulfate (Morphine Sulfate 2 Mg/Ml Carp) 1 mg IV Q8 PRN PRN Reason: Pain Stop: 11/06/20 16:21 Last Admin: 10/24/20 03:32 Dose: 1 mg Documented by: [id number] Nicardipine HCl (Nicardipine Hcl Inj 2.5 Mg/Ml 10 Ml Amp) Confirm Administered Dose 25 mg .ROUTE .STK-MED ONE Stop: 10/23/20 11:34 Last Admin: 10/23/20 14:07 Dose: 25 mg Documented by: [id number] Nitroglycerin (Nitroglycerin 2% Ointment 30gm Tube) 0.5 inch EXT Q6 [place] Stop: 11/23/20 03:59 Last Admin: 10/25/20 12:06 Dose: 0.5 inch Documented by: [id number] Admin: 10/25/20 06:03 Dose: 0.5 inch Documented by: [id number] Admin: 10/24/20 23:42 Dose: 0.5 inch Documented by: [id number] Admin: 10/24/20 17:26 Dose: 0.5 inch Documented by: [id number] Admin: 10/24/20 12:22 Dose: 0.5 inch Documented by: [id number] Admin: 10/24/20 04:02 Dose: 0.5 inch Documented by: [id number] Nitroglycerin/Dextrose (Nitroglycerin/D5w 100mcg/Ml 20ml Syr) Confirm Administered Dose 2,000 mcg .ROUTE .STK-MED ONE Stop: 10/23/20 11:35 Last Admin: 10/23/20 14:08 Dose: 2,000 mcg Documented by: [id number] Oxycodone/Acetaminophen (Oxycodone/Acetaminophen 5mg/325mg Tab) 1 tab PO Q4H PRN PRN Reason: Pain rating 1-5 Stop: 11/06/20 17:34 Last Admin: 10/23/20 19:25 Dose: 1 tab Documented by: [id number] Potassium Chloride (Potassium Chloride Crtab 20 Meq Tabcr) 20 meq PO NOW STA Stop: 10/21/20 11:26 Last Admin: 10/21/20 12:12 Dose: 20 meq Documented by: [id number] Medical Decision Making Differential Diagnosis Cardiac ischemia, aortic dissection, pulmonary embolism, pneumothorax, pneumonia, pericarditis, myocarditis, esophageal rupture, GERD, cholecystitis, pancreatitis, musculoskeletal, as well as other pathologies. Medical Records Attestation: I reviewed the patient's medical records. Home Medications Current Medication List: was personally reviewed by me Laboratory Data Attestation: I reviewed the patient's lab results. Result diagrams: 10/24/20 04:15 10/24/20 04:15 Lab Results 10/20/20 10/20/20 10/20/20 Range/Units 12:50 12:50 12:50 WBC 4.87 (4.8-10.8) K/uL RBC 4.82 (4.7-6.1) M/uL Hgb 16.3 (14.0-18.0) g/dL Hct 45.4 (42-52) % MCV 94.2 (80-100) fL MCH 33.8 (25-34) pg MCHC 35.9 (32-36) g/dL RDW Std Deviation 40.8 (36.4-46.3) fL RDW Coeff of Mirella 12.1 (11.5-14.5) % Plt Count 189 (130-400) K/uL MPV 11.0 H (7.4-10.4) fL Immature Gran % (Auto) 0.2 % Neut % (Auto) 48.1 % Lymph % (Auto) 39.4 % [place] % (Auto) 8.0 % Eos % (Auto) 3.9 % Baso % (Auto) 0.4 % Neut # (Auto) 2.34 (1.4-6.5) K/uL Lymph # (Auto) 1.92 (1.2-3.4) K/uL [place] # (Auto) 0.39 (0.11-0.59) K/uL Eos # (Auto) 0.19 (0-0.5) K/uL Baso # (Auto) 0.02 (0-0.2) K/uL Immature Gran # (Auto) 0.01 (0.00-0.02) K/uL APTT 24.5 (21.0-31.0) Seconds PTT Ratio 0.9 Sodium 133 L (136-145) mmol/L Potassium 4.2 (3.5-5.1) mmol/L Chloride 101 (98-107) mmol/L Carbon Dioxide 26 (21-32) mmol/L Anion Gap 6.0 (3-11) BUN 17 (7-18) mg/dl Creatinine 1.01 (0.6-1.4) mg/dl Est Cr Clr Drug Dosing Not Reportable Est GFR ( Amer) 97.3 ml/min Est GFR (Non-Af Amer) 83.9 ml/min BUN/Creatinine Ratio 16.4 (10-20) Glucose 340 H* (70-99) mg/dl POC Glucose (70-99) mg/dl Estimat Average Glucose mg/dl Hemoglobin A1c (4.5-5.6) % Calcium 9.5 (8.5-10.1) mg/dl Total Bilirubin 0.6 (0.2-1) mg/dl AST 41 H (15-37) U/L ALT 88 H (12-78) U/L Alkaline Phosphatase 112 (45-117) U/L Troponin I < 0.015 (0-0.045) ng/ml Total Protein 7.9 (6.4-8.2) gm/dl Albumin 4.0 (3.4-5.0) gm/dl Globulin 3.9 (2.5-4.0) gm/dl Albumin/Globulin Ratio 1.0 (0.9-2) Triglycerides (0-150) mg/dl Cholesterol (0-200) mg/dl LDL Cholesterol, Calc mg/dl VLDL Cholesterol, Calc mg/dl HDL Cholesterol mg/dl Cholesterol/HDL Ratio Lipase 226 (73-393) U/L Beta-Hydroxybutyric Acd TNP TSH (0.300-4.500) uIu/ml COVID-19 Eval Order SARS-CoV-2 (PCR) (Negative) 10/20/20 10/20/20 10/20/20 Range/Units 12:50 15:18 15:18 WBC (4.8-10.8) K/uL RBC (4.7-6.1) M/uL Hgb (14.0-18.0) g/dL Hct (42-52) % MCV (80-100) fL MCH (25-34) pg MCHC (32-36) g/dL RDW Std Deviation (36.4-46.3) fL RDW Coeff of Mirella (11.5-14.5) % Plt Count (130-400) K/uL MPV (7.4-10.4) fL Immature Gran % (Auto) % Neut % (Auto) % Lymph % (Auto) % [place] % (Auto) % Eos % (Auto) % Baso % (Auto) % Neut # (Auto) (1.4-6.5) K/uL Lymph # (Auto) (1.2-3.4) K/uL [place] # (Auto) (0.11-0.59) K/uL Eos # (Auto) (0-0.5) K/uL Baso # (Auto) (0-0.2) K/uL Immature Gran # (Auto) (0.00-0.02) K/uL APTT (21.0-31.0) Seconds PTT Ratio Sodium (136-145) mmol/L Potassium (3.5-5.1) mmol/L Chloride (98-107) mmol/L Carbon Dioxide (21-32) mmol/L Anion Gap (3-11) BUN (7-18) mg/dl Creatinine (0.6-1.4) mg/dl Est Cr Clr Drug Dosing Est GFR ( Amer) ml/min Est GFR (Non-Af Amer) ml/min BUN/Creatinine Ratio (10-20) Glucose (70-99) mg/dl POC Glucose (70-99) mg/dl Estimat Average Glucose 301 mg/dl Hemoglobin A1c 12.1 H (4.5-5.6) % Calcium (8.5-10.1) mg/dl Total Bilirubin (0.2-1) mg/dl AST (15-37) U/L ALT (12-78) U/L Alkaline Phosphatase (45-117) U/L Troponin I (0-0.045) ng/ml Total Protein (6.4-8.2) gm/dl Albumin (3.4-5.0) gm/dl Globulin (2.5-4.0) gm/dl Albumin/Globulin Ratio (0.9-2) Triglycerides (0-150) mg/dl Cholesterol (0-200) mg/dl LDL Cholesterol, Calc mg/dl VLDL Cholesterol, Calc mg/dl HDL Cholesterol mg/dl Cholesterol/HDL Ratio Lipase (73-393) U/L Beta-Hydroxybutyric Acd TSH (0.300-4.500) uIu/ml COVID-19 Eval Order Covid19 at [facility] SARS-CoV-2 (PCR) NEGATIVE (Negative) 10/20/20 10/20/20 10/20/20 Range/Units 15:37 18:47 19:16 WBC (4.8-10.8) K/uL RBC (4.7-6.1) M/uL Hgb (14.0-18.0) g/dL Hct (42-52) % MCV (80-100) fL MCH (25-34) pg MCHC (32-36) g/dL RDW Std Deviation (36.4-46.3) fL RDW Coeff of Mirella (11.5-14.5) % Plt Count (130-400) K/uL MPV (7.4-10.4) fL Immature Gran % (Auto) % Neut % (Auto) % Lymph % (Auto) % [place] % (Auto) % Eos % (Auto) % Baso % (Auto) % Neut # (Auto) (1.4-6.5) K/uL Lymph # (Auto) (1.2-3.4) K/uL [place] # (Auto) (0.11-0.59) K/uL Eos # (Auto) (0-0.5) K/uL Baso # (Auto) (0-0.2) K/uL Immature Gran # (Auto) (0.00-0.02) K/uL APTT (21.0-31.0) Seconds PTT Ratio Sodium (136-145) mmol/L Potassium (3.5-5.1) mmol/L Chloride (98-107) mmol/L Carbon Dioxide (21-32) mmol/L Anion Gap (3-11) BUN (7-18) mg/dl Creatinine (0.6-1.4) mg/dl Est Cr Clr Drug Dosing Est GFR ( Amer) ml/min Est GFR (Non-Af Amer) ml/min BUN/Creatinine Ratio (10-20) Glucose (70-99) mg/dl POC Glucose 237 H 343 H* (70-99) mg/dl Estimat Average Glucose mg/dl Hemoglobin A1c (4.5-5.6) % Calcium (8.5-10.1) mg/dl Total Bilirubin (0.2-1) mg/dl AST (15-37) U/L ALT (12-78) U/L Alkaline Phosphatase (45-117) U/L Troponin I 0.015 (0-0.045) ng/ml Total Protein (6.4-8.2) gm/dl Albumin (3.4-5.0) gm/dl Globulin (2.5-4.0) gm/dl Albumin/Globulin Ratio (0.9-2) Triglycerides (0-150) mg/dl Cholesterol (0-200) mg/dl LDL Cholesterol, Calc mg/dl VLDL Cholesterol, Calc mg/dl HDL Cholesterol mg/dl Cholesterol/HDL Ratio Lipase (73-393) U/L Beta-Hydroxybutyric Acd TSH 2.600 (0.300-4.500) uIu/ml COVID-19 Eval Order SARS-CoV-2 (PCR) (Negative) 10/20/20 10/21/20 10/21/20 Range/Units 23:46 01:07 03:50 WBC (4.8-10.8) K/uL RBC (4.7-6.1) M/uL Hgb (14.0-18.0) g/dL Hct (42-52) % MCV (80-100) fL MCH (25-34) pg MCHC (32-36) g/dL RDW Std Deviation (36.4-46.3) fL RDW Coeff of Mirella (11.5-14.5) % Plt Count (130-400) K/uL MPV (7.4-10.4) fL Immature Gran % (Auto) % Neut % (Auto) % Lymph % (Auto) % [place] % (Auto) % Eos % (Auto) % Baso % (Auto) % Neut # (Auto) (1.4-6.5) K/uL Lymph # (Auto) (1.2-3.4) K/uL [place] # (Auto) (0.11-0.59) K/uL Eos # (Auto) (0-0.5) K/uL Baso # (Auto) (0-0.2) K/uL Immature Gran # (Auto) (0.00-0.02) K/uL APTT (21.0-31.0) Seconds PTT Ratio Sodium (136-145) mmol/L Potassium (3.5-5.1) mmol/L Chloride (98-107) mmol/L Carbon Dioxide (21-32) mmol/L Anion Gap (3-11) BUN (7-18) mg/dl Creatinine (0.6-1.4) mg/dl Est Cr Clr Drug Dosing Est GFR ( Amer) ml/min Est GFR (Non-Af Amer) ml/min BUN/Creatinine Ratio (10-20) Glucose (70-99) mg/dl POC Glucose 278 H 209 H (70-99) mg/dl Estimat Average Glucose mg/dl Hemoglobin A1c (4.5-5.6) % Calcium (8.5-10.1) mg/dl Total Bilirubin (0.2-1) mg/dl AST (15-37) U/L ALT (12-78) U/L Alkaline Phosphatase (45-117) U/L Troponin I 0.016 (0-0.045) ng/ml Total Protein (6.4-8.2) gm/dl Albumin (3.4-5.0) gm/dl Globulin (2.5-4.0) gm/dl Albumin/Globulin Ratio (0.9-2) Triglycerides (0-150) mg/dl Cholesterol (0-200) mg/dl LDL Cholesterol, Calc mg/dl VLDL Cholesterol, Calc mg/dl HDL Cholesterol mg/dl Cholesterol/HDL Ratio Lipase (73-393) U/L Beta-Hydroxybutyric Acd TSH (0.300-4.500) uIu/ml COVID-19 Eval Order SARS-CoV-2 (PCR) (Negative) 10/21/20 10/21/20 10/21/20 Range/Units 05:45 07:35 11:22 WBC (4.8-10.8) K/uL RBC (4.7-6.1) M/uL Hgb (14.0-18.0) g/dL Hct (42-52) % MCV (80-100) fL MCH (25-34) pg MCHC (32-36) g/dL RDW Std Deviation (36.4-46.3) fL RDW Coeff of Mirella (11.5-14.5) % Plt Count (130-400) K/uL MPV (7.4-10.4) fL Immature Gran % (Auto) % Neut % (Auto) % Lymph % (Auto) % [place] % (Auto) % Eos % (Auto) % Baso % (Auto) % Neut # (Auto) (1.4-6.5) K/uL Lymph # (Auto) (1.2-3.4) K/uL [place] # (Auto) (0.11-0.59) K/uL Eos # (Auto) (0-0.5) K/uL Baso # (Auto) (0-0.2) K/uL Immature Gran # (Auto) (0.00-0.02) K/uL APTT (21.0-31.0) Seconds PTT Ratio Sodium 136 (136-145) mmol/L Potassium 3.4 L D (3.5-5.1) mmol/L Chloride 105 (98-107) mmol/L Carbon Dioxide 28 (21-32) mmol/L Anion Gap 3.0 (3-11) BUN 14 (7-18) mg/dl Creatinine 0.72 (0.6-1.4) mg/dl Est Cr Clr Drug Dosing 152.2 Est GFR ( Amer) 122.6 ml/min Est GFR (Non-Af Amer) 105.8 ml/min BUN/Creatinine Ratio 19.1 (10-20) Glucose 199 H (70-99) mg/dl POC Glucose 214 H 242 H (70-99) mg/dl Estimat Average Glucose mg/dl Hemoglobin A1c (4.5-5.6) % Calcium 8.6 (8.5-10.1) mg/dl Total Bilirubin (0.2-1) mg/dl AST (15-37) U/L ALT (12-78) U/L Alkaline Phosphatase (45-117) U/L Troponin I (0-0.045) ng/ml Total Protein (6.4-8.2) gm/dl Albumin (3.4-5.0) gm/dl Globulin (2.5-4.0) gm/dl Albumin/Globulin Ratio (0.9-2) Triglycerides 394 H (0-150) mg/dl Cholesterol 297 H (0-200) mg/dl LDL Cholesterol, Calc 174 mg/dl VLDL Cholesterol, Calc 79 mg/dl HDL Cholesterol 44 mg/dl Cholesterol/HDL Ratio 7 Lipase (73-393) U/L Beta-Hydroxybutyric Acd TSH (0.300-4.500) uIu/ml COVID-19 Eval Order SARS-CoV-2 (PCR) (Negative) 10/21/20 10/21/20 10/22/20 Range/Units 16:09 20:19 05:40 WBC (4.8-10.8) K/uL RBC (4.7-6.1) M/uL Hgb (14.0-18.0) g/dL Hct (42-52) % MCV (80-100) fL MCH (25-34) pg MCHC (32-36) g/dL RDW Std Deviation (36.4-46.3) fL RDW Coeff of Mirella (11.5-14.5) % Plt Count (130-400) K/uL MPV (7.4-10.4) fL Immature Gran % (Auto) % Neut % (Auto) % Lymph % (Auto) % [place] % (Auto) % Eos % (Auto) % Baso % (Auto) % Neut # (Auto) (1.4-6.5) K/uL Lymph # (Auto) (1.2-3.4) K/uL [place] # (Auto) (0.11-0.59) K/uL Eos # (Auto) (0-0.5) K/uL Baso # (Auto) (0-0.2) K/uL Immature Gran # (Auto) (0.00-0.02) K/uL APTT (21.0-31.0) Seconds PTT Ratio Sodium 134 L (136-145) mmol/L Potassium 3.9 (3.5-5.1) mmol/L Chloride 103 (98-107) mmol/L Carbon Dioxide 29 (21-32) mmol/L Anion Gap 2.0 L (3-11) BUN 14 (7-18) mg/dl Creatinine 0.89 (0.6-1.4) mg/dl Est Cr Clr Drug Dosing 121.6 Est GFR ( Amer) 112.3 ml/min Est GFR (Non-Af Amer) 96.9 ml/min BUN/Creatinine Ratio 15.4 (10-20) Glucose 185 H (70-99) mg/dl POC Glucose 214 H 133 H (70-99) mg/dl Estimat Average Glucose mg/dl Hemoglobin A1c (4.5-5.6) % Calcium 8.7 (8.5-10.1) mg/dl Total Bilirubin 0.7 (0.2-1) mg/dl AST 62 H (15-37) U/L ALT 112 H (12-78) U/L Alkaline Phosphatase 87 (45-117) U/L Troponin I (0-0.045) ng/ml Total Protein 7.1 (6.4-8.2) gm/dl Albumin 3.5 (3.4-5.0) gm/dl Globulin 3.6 (2.5-4.0) gm/dl Albumin/Globulin Ratio 1.0 (0.9-2) Triglycerides (0-150) mg/dl Cholesterol (0-200) mg/dl LDL Cholesterol, Calc mg/dl VLDL Cholesterol, Calc mg/dl HDL Cholesterol mg/dl Cholesterol/HDL Ratio Lipase (73-393) U/L Beta-Hydroxybutyric Acd TSH (0.300-4.500) uIu/ml COVID-19 Eval Order SARS-CoV-2 (PCR) (Negative) 10/22/20 10/22/20 10/22/20 Range/Units 07:26 11:13 16:11 WBC (4.8-10.8) K/uL RBC (4.7-6.1) M/uL Hgb (14.0-18.0) g/dL Hct (42-52) % MCV (80-100) fL MCH (25-34) pg MCHC (32-36) g/dL RDW Std Deviation (36.4-46.3) fL RDW Coeff of Mirella (11.5-14.5) % Plt Count (130-400) K/uL MPV (7.4-10.4) fL Immature Gran % (Auto) % Neut % (Auto) % Lymph % (Auto) % [place] % (Auto) % Eos % (Auto) % Baso % (Auto) % Neut # (Auto) (1.4-6.5) K/uL Lymph # (Auto) (1.2-3.4) K/uL [place] # (Auto) (0.11-0.59) K/uL Eos # (Auto) (0-0.5) K/uL Baso # (Auto) (0-0.2) K/uL Immature Gran # (Auto) (0.00-0.02) K/uL APTT (21.0-31.0) Seconds PTT Ratio Sodium (136-145) mmol/L Potassium (3.5-5.1) mmol/L Chloride (98-107) mmol/L Carbon Dioxide (21-32) mmol/L Anion Gap (3-11) BUN (7-18) mg/dl Creatinine (0.6-1.4) mg/dl Est Cr Clr Drug Dosing Est GFR ( Amer) ml/min Est GFR (Non-Af Amer) ml/min BUN/Creatinine Ratio (10-20) Glucose (70-99) mg/dl POC Glucose 206 H 199 H 199 H (70-99) mg/dl Estimat Average Glucose mg/dl Hemoglobin A1c (4.5-5.6) % Calcium (8.5-10.1) mg/dl Total Bilirubin (0.2-1) mg/dl AST (15-37) U/L ALT (12-78) U/L Alkaline Phosphatase (45-117) U/L Troponin I (0-0.045) ng/ml Total Protein (6.4-8.2) gm/dl Albumin (3.4-5.0) gm/dl Globulin (2.5-4.0) gm/dl Albumin/Globulin Ratio (0.9-2) Triglycerides (0-150) mg/dl Cholesterol (0-200) mg/dl LDL Cholesterol, Calc mg/dl VLDL Cholesterol, Calc mg/dl HDL Cholesterol mg/dl Cholesterol/HDL Ratio Lipase (73-393) U/L Beta-Hydroxybutyric Acd TSH (0.300-4.500) uIu/ml COVID-19 Eval Order SARS-CoV-2 (PCR) (Negative) 10/22/20 Range/Units 20:25 WBC (4.8-10.8) K/uL RBC (4.7-6.1) M/uL Hgb (14.0-18.0) g/dL Hct (42-52) % MCV (80-100) fL MCH (25-34) pg MCHC (32-36) g/dL RDW Std Deviation (36.4-46.3) fL RDW Coeff of Mirella (11.5-14.5) % Plt Count (130-400) K/uL MPV (7.4-10.4) fL Immature Gran % (Auto) % Neut % (Auto) % Lymph % (Auto) % [place] % (Auto) % Eos % (Auto) % Baso % (Auto) % Neut # (Auto) (1.4-6.5) K/uL Lymph # (Auto) (1.2-3.4) K/uL [place] # (Auto) (0.11-0.59) K/uL Eos # (Auto) (0-0.5) K/uL Baso # (Auto) (0-0.2) K/uL Immature Gran # (Auto) (0.00-0.02) K/uL APTT (21.0-31.0) Seconds PTT Ratio Sodium (136-145) mmol/L Potassium (3.5-5.1) mmol/L Chloride (98-107) mmol/L Carbon Dioxide (21-32) mmol/L Anion Gap (3-11) BUN (7-18) mg/dl Creatinine (0.6-1.4) mg/dl Est Cr Clr Drug Dosing Est GFR ( Amer) ml/min Est GFR (Non-Af Amer) ml/min BUN/Creatinine Ratio (10-20) Glucose (70-99) mg/dl POC Glucose 173 H (70-99) mg/dl Estimat Average Glucose mg/dl Hemoglobin A1c (4.5-5.6) % Calcium (8.5-10.1) mg/dl Total Bilirubin (0.2-1) mg/dl AST (15-37) U/L ALT (12-78) U/L Alkaline Phosphatase (45-117) U/L Troponin I (0-0.045) ng/ml Total Protein (6.4-8.2) gm/dl Albumin (3.4-5.0) gm/dl Globulin (2.5-4.0) gm/dl Albumin/Globulin Ratio (0.9-2) Triglycerides (0-150) mg/dl Cholesterol (0-200) mg/dl LDL Cholesterol, Calc mg/dl VLDL Cholesterol, Calc mg/dl HDL Cholesterol mg/dl Cholesterol/HDL Ratio Lipase (73-393) U/L Beta-Hydroxybutyric Acd TSH (0.300-4.500) uIu/ml COVID-19 Eval Order SARS-CoV-2 (PCR) (Negative) Imaging Data Radiologist's Impression: Chest X-Ray 10/20/20 12:23 XR chest 1V portable CLINICAL HISTORY: Atypical chest pain COMPARISON STUDY: 04/19/2018 FINDINGS: The heart is the upper limits of normal in size. There is no failure. There is no focal pulmonary consolidation. There are no pleural effusions. There is a 13 mm left suprahilar density statistically representing a summation with the left first costochondral junction. Apical lordotic view could be obtained in follow-up to confirm this impression.[ IMPRESSION: 1. 13 mm left suprahilar density statistically representing a summation with the left first costochondral junction. Apical lordotic view could be obtained in follow-up to confirm this impression 2. No evidence of focal pulmonary consolidation ACT 112: Negative or not required by law. Electronically signed by: Eze Fam M.D. 10/20/2020 1:05 PM Chest CTA 10/20/20 14:40 CT ANGIOGRAM OF THE CHEST COMBO CLINICAL HISTORY: Chest and back pain. Hypertension. COMPARISON STUDY: None TECHNIQUE: Before and following the IV administration of cc of Optiray, CT angiogram of the chest was performed from the thoracic inlet to the upper abdomen utilizing the dissection protocol. Images are reviewed in the axial, sagittal, and coronal planes. 3-D MIPS images are created and assessed. IV contrast was administered without complication. A dose lowering technique was utilized adhering to the principles of ALARA. CT DOSE: 1793.86 mGy.cm FINDINGS: There is adequate characterization of the pulmonary vasculature. No evidence of pulmonary embolus is seen. Focal area of decreased opacification within left upper lobe pulmonary artery most likely representing flow artifact. There is no pulmonary artery dilatation is seen. No right heart strain demonstrated. Heart is normal in size without evidence of pericardial effusion. Severe coronary artery calcifications are seen, too prominent for patient's age group. There is no axillary, supra clavicle or internal mammary lymphadenopathy seen. Mediastinal lymph nodes are not enlarged. Thyroid: Imaged portions of the thyroid gland are normal in size and attenuation. Minimal hiatal hernia is seen. Thoracic aorta: The thoracic aorta is normal in caliber and demonstrates standard 3-vessel arch anatomy. No dissection is seen. Lungs and pleural spaces: Tracheobronchial tree is patent. No infiltrates or consolidative lesions are seen. Mild atelectasis is seen at dependent portions of bilateral lower lobes. No pleural effusion demonstrated. -Punctate calcified granuloma is seen adjustment to the right major fissure act () Upper abdomen: Partially visualized upper abdominal viscera is within normal limits. Skeletal structures: Degenerative changes of the spine. IMPRESSION: 1. No acute pulmonary embolus is seen. No right heart strain or main pulmonary artery dilatation seen. 2. No infiltrates or consolidative lesions. 3. Severe coronary calcifications, too prominent for patient's age group. 4. Minimal hiatal hernia. ACT 112: Negative or not required by law. The above report was generated using voice recognition software. It may contain grammatical, syntax or spelling errors. Electronically signed by: Vale Sung DO 10/20/2020 3:17 PM ECG Data Attestation: I personally reviewed and interpreted this ECG as follows: Indication: + chest pain Rate (beats per minute): 65 Rhythm: + normal sinus ECG Intervals/blocks: + Normal QRS and + Normal QT-c ECG [place]: + Normal ECG ST segments: + Normal ST segments ECG Findings: + Other (no PVC, no PAC) Blood Pressure Blood Pressure Findings: Elevated blood pressure Blood Pressure Disposition: further management by hospitalist [facility] Narrative This patient was evaluated and appeared to be in no significant distress. IV access was obtained and laboratory work was drawn. An order for cardiac monitoring was placed and the patient is noted to be in a normal sinus rhythm at 62 bpm. Patient was medicated with aspirin 325 mg. His blood sugar is noted to be elevated at 340 and the patient was given 10 units of subcutaneous regular insulin. Patient x-ray was obtained and reveals no evidence of acute abnormality. Given the hypertension, chest and upper back pain, CT angiogram was performed and reveals no acute aortic pathology. There does seem to be advanced atherosclerosis for the patient's age. Laboratory work reveals negative troponin. Patient was given IV labetalol 10 mg, p.o. amlodipine and p.o. Tylenol for CASIANO. Given pt's history and recent lack of medical care/noncompliance, the hospitalist was consulted for further management. Pt was aware of the plan and agreed. Impression & Plan Unstable angina, Diabetes mellitus type II, uncontrolled, Hypertensive urgency Discharge Plan Visit Data Chief Complaint: Pain (Generalized) Stated Complaint: PAIN IN UPPER BACK,CHEST,NECK,HANDS ED Provider: Dana Cordova Discharge Problem: Unstable angina, Diabetes mellitus type II, uncontrolled, Hypertensive urgency Patient Disposition: Admitted As Inpatient Discharge Instructions Interventions: ED Discharge Assessment Last Done: 10/20/20 18:38 Discharge Problem: Diabetes mellitus type II, uncontrolled Qualifiers: Glycemic state: with hyperglycemia Qualified Code(s): E11.65 - Type 2 diabetes mellitus with hyperglycemia
--- NOTE | 2020-10-20 17:11 | History & Physical Report ---
Date of Service October 20, 2020 Assessment & Plan (1) Chest pain: History Nonobstructive CAD seen on cardiac cath in 2018 Pt is 55-year-old male with PMH HTN, DVT, PAD, DM II, nonobstructive CAD seen on 2018 cath, medication noncompliance presented to ER with complaints of chest pain and back pain for past several weeks. Patient is Fijian-speaking and history obtained from patient and patient's daughter acting as event specialist food demonstrator. Denies event specialist food demonstrator service while in ER and wants daughter to translate. Reports intermittent episodes of pain to upper mid back that radiates to chest and up the neck occurs with exertion In ER patient afebrile, P: 82, R: 18, BP 187/113, 96% on room air. Initial troponin negative, EKG without acute ST elevation CTA chest: No acute pulmonary embolus. No infiltrates or consolidative lesions. Severe coronary calcifications, too prominent for patient's age group. In ER given aspirin 324mg R/O ACS. Risk factors: HTN, hyperlipidemia, DM, obesity -Monitor Vitals -Repeat EKG in am -Will trend troponin -Echo -lipid panel in am, anticipate starting statin -aspirin, metoprolol tartrate -Nitro prn CP and repeat EKG for CP -Cardiology consult (2) Neck pain: DDX: spinal stenosis, degenerative disc disease -Obtain CT C-spine -Lidocaine patch. (3) Diabetes type 2, uncontrolled: Known history DM II. Noncompliant with medications. A1c: 10 in 2018 In ER given insulin R 10 units -NovoLog sliding scale, Lantus per protocol -A1c in a.m. (4) Hypertension: Hypertensive in ER. In ER given labetalol 10 mg IV, amlodipine 5 mg p.o. -Start lisinopril, metoprolol tartrate -Hydralazine as needed (5) Dyslipidemia: -Obtain lipid profile in a.m. -Anticipate will need to start statin (6) Venous stasis: Left Lower Leg ulcer -Wound nurse consult DVT Prophylaxis -Heparin SQ Full Code as per discussion with pt Does not follow with PCP for routine care. In past seen by [facility] and [facility], but did not follow up Pt was seen and care coordinated with Dr Barraza. See addendum History of Present Illness Chief Complaint: Chest pain Primary Care Provider: NO PCP Pt is 55-year-old male with PMH HTN, DVT, PAD, DM II, nonobstructive CAD seen on 2017 cath, medication noncompliance presented to ER with complaints of chest pain and back pain for past several weeks. Patient is Fijian-speaking and history obtained from patient and patient's daughter acting as event specialist food demonstrator. Denies event specialist food demonstrator service while in ER and wants daughter to translate. Reports intermittent episodes of pain to upper mid back that radiates to chest and up the neck. Reports these episodes typically occur with exertion. Also complains of tingling sensation to bilateral forearms. 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 Denies recent injury or trauma. Will take aspirin or OTC NSAID which sometimes helps relieve back pain, neck pain and sometimes does not. States will sometimes have associated dizziness with symptoms. Denies associated shortness of breath, palpitations, syncope. Patient states has not follow-up with PCP. In 2019 had seen provider at [facility] however did not follow back up. He has stopped taking all medications as reports he is afraid the medications will hurt him more than underlying disease process. Patient's daughter reports she feels her father's noncompliance is from cultural influences. Denies fever/chills, diaphoresis, N/V/D/C, vision changes, orthopnea, palpitations, cough, sore throat, choking, otalgia, rhinorrhea, abdominal pain, extremity weakness, extremity edema, rashes, urinary symptoms. Allergies Allergy/AdvReac Type Severity Reaction Status Date / Time No Known Allergies Allergy Unknown Verified 10/20/20 14:20 Home Medications Medication Instructions Recorded Confirmed Type aspirin 81 mg PO QAM #30 tab 10/21/20 Rx lisinopril 20 mg PO QAM #30 tab 10/21/20 Rx Past Med/Surg History Medical History Diabetes type 2, uncontrolled Dyslipidemia Hypertension Non-occlusive coronary artery disease Venous insufficiency of both lower extremities Venous stasis ulcer Surgical History History of cholecystectomy Family History Father Diabetes Social History Smoking Status: Former smoker Second Hand Exposure: No; Do You Dip or Chew Tobacco: No; Hx Alcohol Use: Yes Alcohol type: beer, wine and hard liquor Hx Substance Use: No Preferred Language: Fijian Communication Ability: Effective Employment Program Representative Required: No Beliefs That Will Affect Care: None Current Living Situation: Alone Other Information That Helps Us Care for You: No Feels Safe at Home: Yes Safety Concerns: Feels Safe At This Time Assistive Devices: None Review of Systems Review of Systems: All systems reviewed & are unremarkable except as noted in HPI & below Physical Exam Physical Exam: General: no distress, overweight Head: normocephalic, atraumatic Eyes: conjunctiva non-injected, anicteric ENT: normal inspection external ears, nose, mucous membranes moist Neck: supple, trachea midline, non-tender to palpation, ROM intact with tenderness with rotation Lungs: clear, no respiratory distress, no wheezing/rhonchi/rales CV: RRR, no murmur, no pretibial edema Abd: normal BS, soft, non-tender Back: no spinous process tenderness to palpation, +tenderness to palpation left medial scapula, no rashes or discoloration noted Ext: +brown skin discoloration bilateral lower extremities, left lower leg with approx 1 cm wound without surrounding erythema, no calf tenderness; ROM bilateral upper extremities intact, roller bearing inspector strength equal bilaterally Neuro: A&O x 3, no focal deficits noted, normal affect Skin: warm, dry Results & Data Results & Data ([facility]) Vital Signs (Past 12 Hours) Vital Signs Temp Pulse Pulse Resp BP Pulse Ox 10/20/20 15:20 60 16 98 10/20/20 14:30 60 18 141/100 H 95 10/20/20 14:00 65 16 164/104 H 97 10/20/20 13:30 63 16 135/92 94 10/20/20 13:02 96 10/20/20 13:01 75 13 94 10/20/20 13:00 68 27 H 153/108 H 95 10/20/20 12:51 62 14 161/106 H 94 10/20/20 12:09 64 13 182/129 H 94 10/20/20 10:54 36.6 C 82 18 187/113 H 96 Laboratory Results Short CBC 06/25/21 Range/Units 12:50 WBC 4.87 (4.8-10.8) K/uL Hgb 16.3 (14.0-18.0) g/dL Hct 45.4 (42-52) % Plt Count 189 (130-400) K/uL BMP 10/20/20 12:50 Sodium 133 L Potassium 4.2 Chloride 101 Carbon Dioxide 26 BUN 17 Creatinine 1.01 Glucose 340 H* Calcium 9.5 Cardiac Enzymes 10/20/20 10/20/20 Range/Units 12:50 19:16 Troponin I < 0.015 0.015 (0-0.045) ng/ml Liver Function 10/20/20 Range/Units 12:50 Total Bilirubin 0.6 (0.2-1) mg/dl AST 41 H (15-37) U/L ALT 88 H (12-78) U/L Alkaline Phosphatase 112 (45-117) U/L Albumin 4.0 (3.4-5.0) gm/dl Diagnostic Findings Chest X-Ray 10/20/20 12:23 XR chest 1V portable CLINICAL HISTORY: Atypical chest pain COMPARISON STUDY: 04/19/2018 FINDINGS: The heart is the upper limits of normal in size. There is no failure. There is no focal pulmonary consolidation. There are no pleural effusions. There is a 13 mm left suprahilar density statistically representing a summation with the left first costochondral junction. Apical lordotic view could be obtained in follow-up to confirm this impression.[ IMPRESSION: 1. 13 mm left suprahilar density statistically representing a summation with the left first costochondral junction. Apical lordotic view could be obtained in follow-up to confirm this impression 2. No evidence of focal pulmonary consolidation ACT 112: Negative or not required by law. Electronically signed by: Eze Fam M.D. 10/20/2020 1:05 PM Chest CTA 10/20/20 14:40 CT ANGIOGRAM OF THE CHEST COMBO CLINICAL HISTORY: Chest and back pain. Hypertension. COMPARISON STUDY: None TECHNIQUE: Before and following the IV administration of cc of Optiray, CT angiogram of the chest was performed from the thoracic inlet to the upper abdomen utilizing the dissection protocol. Images are reviewed in the axial, sagittal, and coronal planes. 3-D MIPS images are created and assessed. IV contrast was administered without complication. A dose lowering technique was utilized adhering to the principles of ALARA. CT DOSE: 1793.86 mGy.cm FINDINGS: There is adequate characterization of the pulmonary vasculature. No evidence of pulmonary embolus is seen. Focal area of decreased opacification within left upper lobe pulmonary artery most likely representing flow artifact. There is no pulmonary artery dilatation is seen. No right heart strain demonstrated. Heart is normal in size without evidence of pericardial effusion. Severe coronary artery calcifications are seen, too prominent for patient's age group. There is no axillary, supra clavicle or internal mammary lymphadenopathy seen. Mediastinal lymph nodes are not enlarged. Thyroid: Imaged portions of the thyroid gland are normal in size and attenuation. Minimal hiatal hernia is seen. Thoracic aorta: The thoracic aorta is normal in caliber and demonstrates standard 3-vessel arch anatomy. No dissection is seen. Lungs and pleural spaces: Tracheobronchial tree is patent. No infiltrates or consolidative lesions are seen. Mild atelectasis is seen at dependent portions of bilateral lower lobes. No pleural effusion demonstrated. -Punctate calcified granuloma is seen adjustment to the right major fissure act () Upper abdomen: Partially visualized upper abdominal viscera is within normal limits. Skeletal structures: Degenerative changes of the spine. IMPRESSION: 1. No acute pulmonary embolus is seen. No right heart strain or main pulmonary artery dilatation seen. 2. No infiltrates or consolidative lesions. 3. Severe coronary calcifications, too prominent for patient's age group. 4. Minimal hiatal hernia. ACT 112: Negative or not required by law. The above report was generated using voice recognition software. It may contain grammatical, syntax or spelling errors. Electronically signed by: Vale Sung DO 10/20/2020 3:[address] 10/20/20 16:43 CT SCAN OF THE CERVICAL SPINE CLINICAL HISTORY: Neck pain. Radiculopathy. COMPARISON STUDY: No priors. TECHNIQUE: CT scan of the cervical spine is performed from the skull base to the upper thoracic spine. Images are reviewed in the axial, sagittal, and coronal planes. IV contrast was not administered for this examination. A dose lowering technique was utilized adhering to the principles of ALARA. CT DOSE: 303.49 mGy.cm FINDINGS: Skeletal structures: The skeletal structures are well mineralized. There is no evidence of fracture or subluxation involving the cervical spine. Vertebral body height and alignment are maintained. There is mild straightening of the cervical lordosis. Small anterior osteophytes are noted in the lower cervical region. The odontoid process and lateral masses are intact. The atlantoaxial articulation is preserved noting mild productive degenerative change. The spinous processes appear intact. There is minimal facet arthropathy. Intervertebral discs: There is minimal multilevel degenerative disc space narrowing. Central canal: Small posterior disc osteophyte complexes at C4-C5, C5-C6, and C6-C7 may contribute to minimal acquired compromise of the central canal. Soft tissues: The prevertebral and paraspinous soft tissues are within normal limits. There is mild atherosclerotic calcification of the carotid bulbs. Calvarium: The visualized calvarium at the skull base appears intact. Brain parenchyma: Partially visualized brain parenchyma at the skull base is within normal limits. Sinuses and mastoids: Mucosal thickening is noted in the sphenoid sinuses. The mastoid air cells are well pneumatized. Lung apices: Clear as visualized. IMPRESSION: No acute bony abnormality is seen involving the cervical spine. ACT 112: Negative or not required by law. Electronically signed by: Paramjit Ramos M.D. 10/20/2020 6:46 PM Code Status & VTE Plan VTE Prophylaxis Plan VTE Prophylaxis will be ordered: Yes Supervising Physician Co-Signing Physician Notes ATTENDING ADDENDUM : pt seen and examined , care -co ordinated with Keely Gillis PA-C 55 yo M with hx of CAD , type 2 DM , hypertension , does not follow with any family physician has not been taking any medications presents with 2 weeks hx of subternal chest pain ,radiation to both arm pt is chest pain free in ER EKG shows no acute change , ist set of troponin negative Chest pain needs eval for possible angina : given hx of CAD , not taking any meds observation in tele serial troponin resting ECHO [facility] cardiology consulted -was seen by Dr Davis in last admission in 2018 pt started on Aspirin , low dose beta gaston , ACEI ordered for fasting lipid panel in AM Type 2 DM : last hbA1c in 2018 was 10 pt has not been taking any diabetic meds presents with Hyperglycemia , BSG > 300 insulin sliding scale repeat 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
--- NOTE | 2020-10-20 18:47 | CT Scan Report ---
CT SCAN OF THE CERVICAL SPINE CLINICAL HISTORY: Neck pain. Radiculopathy. COMPARISON STUDY: No priors. TECHNIQUE: CT scan of the cervical spine is performed from the skull base to the upper thoracic spine . Images are reviewed in the axial, sagittal, and coronal planes. IV contrast was not administered fo r this examination. A dose lowering technique was utilized adhering to the principles of ALARA. CT DOSE: 303.49 mGy.cm FINDINGS: Skeletal structures: The skeletal structures are well mineralized. There is no evidence of fracture o r subluxation involving the cervical spine. Vertebral body height and alignment are maintained. There is mild straightening of the cervical lordosis. Small anterior osteophytes are noted in the lower ce rvical region. The odontoid process and lateral masses are intact. The atlantoaxial articulation is p reserved noting mild productive degenerative change. The spinous processes appear intact. There is mi nimal facet arthropathy. Intervertebral discs: There is minimal multilevel degenerative disc space narrowing. Central canal: Small posterior disc osteophyte complexes at C4-C5, C5-C6, and C6-C7 may contribute to minimal acquired compromise of the central canal. Soft tissues: The prevertebral and paraspinous soft tissues are within normal limits. There is mild a therosclerotic calcification of the carotid bulbs. Calvarium: The visualized calvarium at the skull base appears intact. Brain parenchyma: Partially visualized brain parenchyma at the skull base is within normal limits. Sinuses and mastoids: Mucosal thickening is noted in the sphenoid sinuses. The mastoid air cells are well pneumatized. Lung apices: Clear as visualized. IMPRESSION: No acute bony abnormality is seen involving the cervical spine. ACT 112: Negative or not required by law. Electronically signed by: Paramjit Ramos M.D. 10/20/2020 6:46 PM
[2020-10-20] MEDS ORDERED: ALUMINUM/MAGNESIUM SUSP 30 ML UDC PO PRN (18:59)
[2020-10-20] MEDS ORDERED: GLUCOSE 40% GEL 15 GM TUBE PO PRN (18:59)
[2020-10-20] MEDS ORDERED: GLUCOSE 10 TABS/TUBE PO PRN (18:59)
[2020-10-20] MEDS ORDERED: DEXTROSE 50% 50 ML SYRINGE IV PRN (18:59)
[2020-10-20] MEDS ORDERED: ONDANSETRON INJ 2 MG/ML 2 ML VIAL IV PRN (18:59)
[2020-10-20] MEDS ORDERED: NITROGLYCERIN SL 0.4 MG/TAB TAB SL PRN (18:59)
[2020-10-20] MEDS ORDERED: POLYETHYLENE (MIRALAX) 17 GM PACK PO PRN (18:59)
[2020-10-20] MEDS ORDERED: GLUCAGON FOR INJ 1 MG VIAL SQ PRN (18:59)
[2020-10-20] MEDS ORDERED: CARBOHYDRATES FOR HYPOGLYCEMIA PO PRN (18:59)
[2020-10-20] MEDS ORDERED: MAGNESIUM HYDROXIDE SUSP 30 ML UDC PO PRN (18:59)
[2020-10-20] MEDS ORDERED: hydrALAZINE HCL 20 MG/ML VIAL IV PRN (18:59)
[2020-10-20] MEDS ORDERED: LIDOCAINE 5% 1 PATCH TD PRN (19:10)
[2020-10-20] MEDS ORDERED: PHARMACY GLYCEMIC MGMT CONSULT PRN (19:16)
[2020-10-20] MEDS ORDERED: INSULIN GLARGINE SOLOSTAR 100 UNITS/ML 3 ML PEN SC ONE (19:22)
--- NOTE | 2020-10-20 19:49 | Pharmacy Report ---
Pharmacy Glycemic Short Note 2 - Date of Service October 20, 2020 - Glycemic Short BSG Results (Last 24 hours): 10/20/20 10/20/20 10/20/20 12:50 15:37 18:47 Glucose 340 H* POC Glucose 237 H 343 H* OUTPATIENT ANTIDIABETIC REGIMEN: * n/A * a1c pending ASSESSMENT: * Patient is admitted with chest pain, hyperglycemic upon presentation trended down with 10 units of IV regular insulin in the ED but rebounded back into the 300s on admission. Patient currently has diet ordered but will be NPO after midnight. * Upon review of chart patient does not have a current diagnosis of diabetes listed and is not currently on any medications, however blood sugars were elevated on a previous admission in 2018. * Will start weight based basal/bolus regimen, with novolog weight based stress of 2 and conservative 1x dose of lantus 25 units (while likely need increased), will add overnight checks for further management PLAN FOR INPATIENT GLYCEMIC CONTROL: * Hold outpatient oral diabetes medications * Basal insulin * Lantus 25 units x1, further doses to be decided * Bolus insulin * NovoLog per scale ACHS or Q6hrs while NPO * Goal Range: Low 120 mg/dL - High 160 mg/dL * Correction Factor: 20 mg/dL/unit * Nutritional / Prandial insulin per carb ratio of 1 unit per 7 grams CHO consumed
[2020-10-20] MEDS: ASPIRIN 81 MG ECTAB PO SCH (19:55)
[2020-10-20] MEDS: INSULIN ASPART 100 UNITS/ML 3 ML PEN SC SCH ×2 (19:56→21:13)
[2020-10-20 20:03] LABS: Thyroid Stimulating Hormone 2.6 uIu/ml (0.300-4.500); Troponin I 0.015 ng/ml (0-0.045)
[2020-10-20] MEDS: HEPARIN SOD 5,000 UNIT/0.5 ML VIAL SQ SCH (22:43)
[2020-10-21] MEDS: INSULIN ASPART 100 UNITS/ML 3 ML PEN SC SCH ×6 (00:08→21:15)
[2020-10-21 05:56] LABS: Estimated Average Glucose 301 mg/dl; Hemoglobin A1C 12.1 % (4.5-5.6)
[2020-10-21] MEDS: HEPARIN SOD 5,000 UNIT/0.5 ML VIAL SQ SCH ×3 (06:26→21:18)
[2020-10-21 06:44] LABS: BUN Creatinine Ratio 19.1 (10-20); Calcium 8.6 mg/dl (8.5-10.1); Creatinine Clr Calc Pharmacy 152.2 ml/min; Est GFR (African American) 122.6 ml/min; Est GFR (Non-African American) 105.8 ml/min; Potassium 3.4 mmol/L (3.5-5.1)
[2020-10-21] MEDS: lisinopril 20 MG TAB PO SCH (07:26)
[2020-10-21] MEDS: ASPIRIN 81 MG ECTAB PO SCH (07:26)
[2020-10-21] MEDS: METOPROLOL TARTRATE 25 MG TAB PO SCH (07:27)
[2020-10-21] MEDS ORDERED: INSULIN GLARGINE SOLOSTAR 100 UNITS/ML 3 ML PEN SC SCH ×2 (09:00→21:00)
--- NOTE | 2020-10-21 10:20 | Cardiology Consultation ---
Date of Consultation October 21, 2020 Assessment & Plan (1) Chest pain: His presentation with chest discomfort is worrisome however 3 years ago he presented with similar symptoms and did not have obstructive disease and this was felt to be noncardiac. Still he has significant risk factors which he has not controlled and he could certainly have progression. It is possible this represents angina. (2) Non-occlusive coronary artery disease: He has known coronary artery disease based on his catheterization 3 years ago, it was nonobstructive then but with multiple risk factors and no treatment for his risk factors he could certainly have progression. Still without anything objective (no electrocardiographic findings and no enzyme abnormalities) I am reluctant to proceed directly to catheterization. I would favor a stress test. I will try to arrange that for her today. (3) Dyslipidemia: He has hyperlipidemia and coronary disease and should certainly be treated. He has been noncompliant with his medications. (4) Hypertension: He has a history of hypertension which should be treated, he has been noncompliant with his medications. History of Present Illness Reason for Consultation: Chest pain Attending Physician: Coretta Cloud MD History of Present Illness This is a 55-year-old male with a history of tobacco abuse, hypertension, DVT, diabetes mellitus who presented with chest discomfort associated with shortness of breath in March 2018. Cardiac catheterization was performed on April 20, 2018 which demonstrated medical grade LAD disease, medical grade right cor onary artery disease and no circumflex disease. He was therefore treated medically with atorvastatin, amlodipine, lisinopril and aspirin. He now presents with chest and back discomfort occurring for several weeks. This patient speaks Cymro and interpretation had been performed by the daughter in the emergency room. I was able to communicate adequately with him however I believe. Initial evaluation includes electrocardiography showing sinus rhythm and is normal. Echocardiography done at 8 AM on October 21, 2020 shows normal left ventricular size and function with no wall motion abnormalities and mild concentric left ventricular hypertrophy. Laboratory studies include troponin x3 which are essentially undetectable. His cholesterol is markedly elevated at 297 with an LDL of 174. He evidently is taking no medications. He evidently does not follow with physicians on a regular basis. 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 He does however tell me that it lasts about half an hour and then resolves when he rests. He is getting it on a daily basis. Allergies Allergy/AdvReac Type Severity Reaction Status Date / Time No Known Allergies Allergy Unknown Verified 10/20/20 14:20 Home Medications Medication Instructions Recorded Confirmed Type No Known Home Medications 10/20/20 10/20/20 History Patient History Medical History Diabetes type 2, uncontrolled Dyslipidemia Hypertension Non-occlusive coronary artery disease Venous insufficiency of both lower extremities Venous stasis ulcer Surgical History History of cholecystectomy Family History Father Diabetes Social History Smoking Status: Former smoker Second Hand Exposure: No; Do You Dip or Chew Tobacco: No; Hx Alcohol Use: Yes Alcohol type: beer, wine and hard liquor Hx Substance Use: No Preferred Language: Cymro Communication Ability: Effective Slag Skimmer Required: No Beliefs That Will Affect Care: None Current Living Situation: Alone Other Information That Helps Us Care for You: No Feels Safe at Home: Yes Safety Concerns: Feels Safe At This Time Assistive Devices: None Review of Systems Review of Systems: All systems reviewed & are unremarkable except as noted in HPI & below There may be some language barrier however he does understand and speak Vietnamese relatively well. Physical Exam Physical Exam: Constitutional: Alert, cooperative and in no distress. HEENT: Unremarkable Neck: No jugular venous distention, carotid pulses are normal and equal bilaterally without bruits. Pulmonary: Clear to auscultation bilaterally. Cardiac: Regular rhythm with no murmur, gallop or rub. Abdomen: Soft, nontender with normal bowel sounds. Extremities: No edema. Distal pulses intact. Neurologic: No focal findings. Gait is steady. Skin: No rash, ecchymoses or petechiae. Results & Data ([facility]) Vital Signs (Past 12 Hours) Vital Signs Temp Pulse Pulse Resp BP Pulse Ox 10/21/20 08:00 68 10/21/20 07:39 36.7 C 58 L 19 134/87 95 10/21/20 03:52 36.5 C 58 L 20 126/82 97 10/20/20 23:49 36.6 C 63 18 138/83 96 Laboratory Results Cardiac Enzymes 10/20/20 10/20/20 10/21/20 Range/Units 12:50 19:16 01:07 AST 41 H (15-37) U/L Troponin I < 0.015 0.015 0.016 (0-0.045) ng/ml Coagulation 10/20/20 Range/Units 12:50 APTT 24.5 (21.0-31.0) Seconds Lipids 10/21/20 Range/Units 05:45 Triglycerides 394 H (0-150) mg/dl Cholesterol 297 H (0-200) mg/dl HDL Cholesterol 44 mg/dl Cholesterol/HDL Ratio 7 CBC 10/20/20 Range/Units 12:50 WBC 4.87 (4.8-10.8) K/uL RBC 4.82 (4.7-6.1) M/uL Hgb 16.3 (14.0-18.0) g/dL Hct 45.4 (42-52) % Plt Count 189 (130-400) K/uL Neut # (Auto) 2.34 (1.4-6.5) K/uL Lymph # (Auto) 1.92 (1.2-3.4) K/uL Cass # (Auto) 0.39 (0.11-0.59) K/uL Eos # (Auto) 0.19 (0-0.5) K/uL Baso # (Auto) 0.02 (0-0.2) K/uL Comprehensive Metabolic Panel 10/20/20 10/21/20 Range/Units 12:50 05:45 Sodium 133 L 136 (136-145) mmol/L Potassium 4.2 3.4 L D (3.5-5.1) mmol/L Chloride 101 105 (98-107) mmol/L Carbon Dioxide 26 28 (21-32) mmol/L BUN 17 14 (7-18) mg/dl Creatinine 1.01 0.72 (0.6-1.4) mg/dl Glucose 340 H* 199 H (70-99) mg/dl Calcium 9.5 8.6 (8.5-10.1) mg/dl AST 41 H (15-37) U/L ALT 88 H (12-78) U/L Alkaline Phosphatase 112 (45-117) U/L Total Protein 7.9 (6.4-8.2) gm/dl Albumin 4.0 (3.4-5.0) gm/dl Intake and Output 10/20/20 10/21/20 10/21/20 22:59 06:59 14:59 Intake Total 200 / 200 Balance 200 / 200 Intake: Oral 200 / 200 Other: Other Intake Source NPO Weight 113 kg 113 kg Weight Measurement Method Built in [facility] Standing Scale Diagnostic Findings Telemetry: Sinus rhythm and sinus bradycardia, no significant arrhythmia PG Care Time/CCT Total # of Minutes Spent Total Time Spent with Patient: Total time spent is greater than 50% in coordination of care (as documented) at patient's floor/unit and/or counseling patient: Coding Level of Care Code 94169 Office/OBS Consult Lvl 4 Diagnoses Chest pain R07.9 Chest pain type: unspecified Non-occlusive coronary artery disease I25.10 Dyslipidemia E78.5 Hypertension I10 Hypertension type: essential hypertension (1) Chest pain Chest pain type: unspecified Qualified Code(s): R07.9 - Chest pain, unspecified (2) Hypertension Hypertension type: essential hypertension Qualified Code(s): I10 - Essential (primary) hypertension
[2020-10-21] MEDS ORDERED: POTASSIUM CHLORIDE CRTAB 20 MEQ TABCR PO STA (11:25)
--- NOTE | 2020-10-21 15:16 | Pharmacy Report ---
Pharmacy Glycemic Short Note 2 - Date of Service October 21, 2020 - Glycemic Short BSG Results (Last 24 hours): 10/20/20 10/20/20 10/20/20 15:37 18:47 23:46 Glucose POC Glucose 237 H 343 H* 278 H 10/21/20 10/21/20 10/21/20 03:50 05:45 07:35 Glucose 199 H POC Glucose 209 H 214 H 10/21/20 11:22 Glucose POC Glucose 242 H OUTPATIENT ANTIDIABETIC REGIMEN: * n/A * a1c pending ASSESSMENT: 10/21 * Patient received total of 45 units of insulin yesterday, of which 25 units were basal insulin * Fasting BSG elevated at 214 mg/dL - patient NPO, will give 10 units Lantus x 1 now and have scale for evening Lantus based upon BSG value * Tighten CF/CR to stress of 3 dosing 10/20 * Patient is admitted with chest pain, hyperglycemic upon presentation trended down with 10 units of IV regular insulin in the ED but rebounded back into the 300s on admission. Patient currently has diet ordered but will be NPO after midnight. * Upon review of chart patient does not have a current diagnosis of diabetes listed and is not currently on any medications, however blood sugars were elevated on a previous admission in 2018. * Will start weight based basal/bolus regimen, with novolog weight based stress of 2 and conservative 1x dose of lantus 25 units (while likely need increased), will add overnight checks for further management PLAN FOR INPATIENT GLYCEMIC CONTROL: * Hold outpatient oral diabetes medications * Basal insulin * Lantus 10 x 1 * Lantus HS 15-25 units based upon BSG value * Bolus insulin * NovoLog per scale ACHS or Q6hrs while NPO * Goal Range: Low 110 mg/dL - High 140 mg/dL * Correction Factor: 15 mg/dL/unit * Nutritional / Prandial insulin per carb ratio of 1 unit per 5 grams CHO consumed
--- NOTE | 2020-10-21 16:38 | Hospitalist Progress Note ---
Date of Service October 21, 2020 Assessment & Plan (1) Chest pain: History Nonobstructive CAD seen on cardiac cath in 2018 Pt is 55-year-old male with PMH HTN, DVT, PAD, DM II, nonobstructive CAD seen on 2018 cath, medication noncompliance presented to ER with complaints of chest pain and back pain for past several weeks. Patient is [place]-speaking and history obtained from patient and patient's daughter acting as chassis wirer. Denies chassis wirer service while in ER and wants daughter to translate. Reports intermittent episodes of pain to upper mid back that radiates to chest and up the neck occurs with exertion CTA chest: No acute pulmonary embolus. No infiltrates or consolidative lesions. Severe coronary calcifications, too prominent for patient's age group. appreciate input from Cardiology resting ECHO shows no wall motion abnormality normal EF serial cardiac makers been negative currently symptom free scheduled for cardiac stress test in AM - (2) Neck pain: CT of cervical spine shows minimal DJD with no significant cervical spinal stenosis PT/OT pain control no intervention needed out patient Ortho eval if symptoms progressively worsens in future (3) Diabetes type 2, uncontrolled: Known history DM II. not on diabetic meds . A1c: 10 in 2018 presented with hyperglycemia BSG > 300 HB A1 c 12 appreciate input from Pharmacy for glycemic management at present on Lantus 25 U daily , insulin sliding scale will need to be on insulin on discharge (4) Hypertension: BP improved after starting on Lisinopril 20 mg and low dose Lopressor ( baseline bradycardia ) - (5) Dyslipidemia: -elevated cholesterol and TG LDL 174 given multiple risk factors goal LDL < 70 mild elevation of LFT 's noted repeat labs in am will need to be started on statin once LFT's are wnl (6) Venous stasis: Left Lower Leg ulcer -Wound nurse consult DVT Prophylaxis -Heparin SQ Full Code Disposition : expected to be discharged to home with medically stable will need to establish care with a family physician /cardiology and diabetic clinic Admission and Anticipated Discharge Date Admission Date: October 20, 2020 Subjective Follow up visit for chest pain /neck pain : no recurrence of chest pain offers no new complain no fever or chills Review of Systems Review of Systems: limited due to language barrier ( pt speaks minimum [place]i ) Physical Exam Physical Exam: Physical exam: General: No acute distress, alert awake oriented x3 HEENT: PERRLA, EOMI, Heart: Regular S1-S2, no carotid bruit, no JVD, no lower extremity edema Lungs: Clear to auscultate, no wheeze or rales Abdomen: Soft nontender, no organomegaly Extremity: No cyanosis, no deformity, normal strength 5 out of 5 with upper and lower Neuro: No focal neurological deficit normal speech, normal visual field, Motor strength : normal both upper and lower extremity, sensation intact Psych: Alert awake oriented x3, normal affect Results & Data Results & [facility] Vital Signs (Past 12 Hours) Vital Signs Temp Pulse Pulse Resp BP Pulse Ox 10/21/20 15:38 36.9 C 69 19 134/78 94 10/21/20 11:23 36.4 C L 59 L 19 130/82 96 10/21/20 08:00 68 10/21/20 07:39 36.7 C 58 L 19 134/87 95 (1) Chest pain Chest pain type: unspecified Qualified Code(s): R07.9 - Chest pain, unspecified (2) Hypertension Hypertension type: essential hypertension Qualified Code(s): I10 - Essential (primary) hypertension
[2020-10-22] MEDS: HEPARIN SOD 5,000 UNIT/0.5 ML VIAL SQ SCH ×3 (06:00→20:41)
[2020-10-22 06:29] LABS: Albumin Level 3.5 gm/dl (3.4-5.0); BUN Creatinine Ratio 15.4 (10-20); Calcium 8.7 mg/dl (8.5-10.1); Creatinine Clr Calc Pharmacy 121.6 ml/min; Est GFR (African American) 112.3 ml/min; Est GFR (Non-African American) 96.9 ml/min; Potassium 3.9 mmol/L (3.5-5.1)
[2020-10-22 06:31] LABS: Bilirubin,Total 0.7 mg/dl (0.2-1); Globulin 3.6 gm/dl (2.5-4.0); Total Protein 7.1 gm/dl (6.4-8.2)
[2020-10-22] MEDS: ASPIRIN 81 MG ECTAB PO SCH (07:40)
[2020-10-22] MEDS: lisinopril 20 MG TAB PO SCH (07:40)
[2020-10-22] MEDS: METOPROLOL TARTRATE 25 MG TAB PO SCH (07:41)
--- NOTE | 2020-10-22 08:42 | Ultrasound Report ---
ULTRASOUND RIGHT UPPER QUADRANT ABDOMEN CLINICAL HISTORY: Elevated hepatic transaminases. COMPARISON STUDY: Abdominal CT dated 05/13/2006. TECHNIQUE: Real-time, grayscale, and color flow sonography of the right upper quadrant of the abdomen was performed. Images are reviewed in the transverse and longitudinal planes. FINDINGS: Liver: The liver is normal in mildly enlarged and demonstrates heterogeneously increased echotexture consistent with hepatic steatosis. Fatty sparing is seen adjacent to the modesto hepatis. There is no i ntrahepatic biliary ductal dilatation. The main portal vein is patent. Gallbladder: The gallbladder is surgically absent. The common bile duct measures up to 0.5 cm in diam eter. Pancreas: Visualized portions of the pancreatic head and body are normal in appearance. Right kidney: Survey images of the right kidney demonstrate normal size and echotexture. There is no hydronephrosis. Ascites: None. IMPRESSION: 1. Hepatomegaly and hepatic steatosis. 2. Status post cholecystectomy ACT 112: Negative or not required by law. Electronically signed by: Paramjit Ramos M.D. 10/22/2020 8:41 AM
[2020-10-22] MEDS ORDERED: INSULIN GLARGINE SOLOSTAR 100 UNITS/ML 3 ML PEN SC SCH (09:00)
[2020-10-22] MEDS: INSULIN ASPART 100 UNITS/ML 3 ML PEN SC SCH ×4 (09:42→20:42)
--- NOTE | 2020-10-22 10:24 | Cardiology Progress Note ---
Date of Service October 22, 2020 Assessment & Plan (1) Chest pain: His presentation with chest discomfort is worrisome however 3 years ago he presented with similar symptoms and did not have obstructive disease and this was felt to be noncardiac. Still he has significant risk factors which he has not controlled and he could certainly have progression. He developed his typical symptoms on a very submaximal stress test today, it is worrisome that this represents ischemia. I think we should move on to catheterization to define his anatomy. He is agreeable to stay for that and I will schedule it for tomorrow. (2) Non-occlusive coronary artery disease: He has known coronary artery disease based on his catheterization 3 years ago, it was nonobstructive then but with multiple risk factors and no treatment for his risk factors he could certainly have progression. Still without anything objective (no electrocardiographic findings and no enzyme abnormalities on initial presentation) I was reluctant to proceed directly to catheterization. I am concerned about the stress test however since it did reproduce his symptoms which then resolved during recovery, he had abnormal ST elevation even though it was a very submaximal stress test. (3) Dyslipidemia: He has hyperlipidemia and coronary disease and should certainly be treated. He has been noncompliant with his medications. (4) Hypertension: He has a history of hypertension which should be treated, he has been noncompliant with his medications. Admission and Anticipated Discharge Date Admission Date: October 20, 2020 Subjective He was feeling well today with no discomfort, however during the treadmill exercise test today he developed his typical chest back and shoulder discomfort. He also had an abnormal ECG response with inferior and lateral ST elevation. He was quite short of breath and his heart rate did not come up very much, despite being only on 12.5 mg of metoprolol tartrate. We kept him for some time in recovery and his chest symptoms resolved. Physical Exam Physical Exam: Constitutional: Alert, cooperative and in no distress. HEENT: Unremarkable Neck: No jugular venous distention, carotid pulses are normal and equal bilaterally without bruits. Pulmonary: Clear to auscultation bilaterally. Cardiac: Regular rhythm with no murmur, gallop or rub. Abdomen: Soft, nontender with normal bowel sounds. Extremities: No edema. Distal pulses intact. Neurologic: No focal findings. Gait is steady. Skin: No rash, ecchymoses or petechiae. Results & Data ([facility]) Vital Signs (Past 12 Hours) Vital Signs Temp Pulse Pulse Resp BP Pulse Ox Pulse Ox 10/22/20 08:10 36.4 C L 58 L 17 116/80 95 10/22/20 08:00 61 95 10/22/20 03:18 36.5 C 59 L 18 121/79 95 10/21/20 23:10 36.7 C 62 18 128/85 95 Laboratory Results Cardiac Enzymes 10/22/20 Range/Units 05:40 AST 62 H (15-37) U/L Comprehensive Metabolic Panel 10/22/20 Range/Units 05:40 Sodium 134 L (136-145) mmol/L Potassium 3.9 (3.5-5.1) mmol/L Chloride 103 (98-107) mmol/L Carbon Dioxide 29 (21-32) mmol/L BUN 14 (7-18) mg/dl Creatinine 0.89 (0.6-1.4) mg/dl Glucose 185 H (70-99) mg/dl Calcium 8.7 (8.5-10.1) mg/dl AST 62 H (15-37) U/L ALT 112 H (12-78) U/L Alkaline Phosphatase 87 (45-117) U/L Total Protein 7.1 (6.4-8.2) gm/dl Albumin 3.5 (3.4-5.0) gm/dl Intake and Output 10/21/20 10/22/20 10/22/20 22:59 06:59 14:59 Intake Total 240 / 440 Balance 240 / 440 Intake: Oral 240 / 440 Other: Other Intake Source NPO # Unmeasured Voids 1 1 Weight 110.1 kg Weight Measurement Method Built in [facility] Diagnostic Findings Stress echo: Very submaximal heart rate despite minimal beta-blockade, ST elevation inferior and lateral leads, reproduction of his chest, arm and back discomfort with resolution during recovery. Probably abnormal echo images with exercise although with minimal heart rate response it is not surprising they were not dramatic. PG Care Time/CCT Total # of Minutes Spent Total Time Spent with Patient: Total time spent is greater than 50% in coordina tion of care (as documented) at patient's floor/unit and/or counseling patient: Coding Level of Care Code 52325 Subseq Hosp Care Lvl 3 Diagnoses Chest pain R07.9 Chest pain type: unspecified Non-occlusive coronary artery disease I25.10 Dyslipidemia E78.5 Hypertension I10 Hypertension type: essential hypertension (1) Chest pain Chest pain type: unspecified Qualified Code(s): R07.9 - Chest pain, unspecified (2) Hypertension Hypertension type: essential hypertension Qualified Code(s): I10 - Essential (primary) hypertension
--- NOTE | 2020-10-22 10:59 | XCELERA ---
[id number]
--- NOTE | 2020-10-22 13:30 | Pharmacy Report ---
Pharmacy Glycemic Short Note 2 - Date of Service October 22, 2020 - Glycemic Short BSG Results (Last 24 hours): 10/21/20 10/21/20 10/22/20 16:09 20:19 05:40 Glucose 185 H POC Glucose 214 H 133 H 10/22/20 10/22/20 07:26 11:13 Glucose POC Glucose 206 H 199 H OUTPATIENT ANTIDIABETIC REGIMEN: * n/A * A1c - 12.1% ASSESSMENT: 10/22 * Patient received total of 60 units of insulin yesterday, of which 25 units were basal insulin * Fasting BSG 185 mg/dL - plan to increase basal today ~20% - continues NPO status this AM for stress test * Continue same CF/CR for now 10/21 * Patient received total of 45 units of insulin yesterday, of which 25 units were basal insulin * Fasting BSG elevated at 214 mg/dL - patient NPO, will give 10 units Lantus x 1 now and have scale for evening Lantus based upon BSG value * Tighten CF/CR to stress of 3 dosing 10/20 * Patient is admitted with chest pain, hyperglycemic upon presentation trended down with 10 units of IV regular insulin in the ED but rebounded back into the 300s on admission. Patient currently has diet ordered but will be NPO after midnight. * Upon review of chart patient does not have a current diagnosis of diabetes listed and is not currently on any medications, however blood sugars were elevated on a previous admission in 2018. * Will start weight based basal/bolus regimen, with novolog weight based stress of 2 and conservative 1x dose of lantus 25 units (while likely need increased), will add overnight checks for further management PLAN FOR INPATIENT GLYCEMIC CONTROL: * Hold outpatient oral diabetes medications * Basal insulin - increase * Lantus 15 units BID * Bolus insulin * NovoLog per scale ACHS or Q6hrs while NPO * Goal Range: Low 110 mg/dL - High 140 mg/dL * Correction Factor: 15 mg/dL/unit * Nutritional / Prandial insulin per carb ratio of 1 unit per 5 grams CHO consumed
--- NOTE | 2020-10-22 16:40 | Hospitalist Progress Note ---
Date of Service October 22, 2020 Assessment & Plan (1) Chest pain: History Nonobstructive CAD seen on cardiac cath in 2018 Pt is 55-year-old male with PMH HTN, DVT, PAD, DM II, nonobstructive CAD seen on 2018 cath, medication noncompliance presented to ER with complaints of chest pain and back pain for past several weeks. Patient is [place] Citizen-speaking and history obtained from patient and patient's daughter acting as park interpreter. Denies park interpreter service while in ER and wants daughter to translate. Reports intermittent episodes of pain to upper mid back that radiates to chest and up the neck occurs with exertion CTA chest: No acute pulmonary embolus. No infiltrates or consolidative lesions. Severe coronary calcifications, too prominent for patient's age group. appreciate input from Cardiology resting ECHO shows no wall motion abnormality normal EF serial cardiac makers been negative currently symptom free Abnormal cardiac stress test today, scheduled for cardiac cath tomorrow - (2) Neck pain: Neck pain has improved CT of cervical spine shows minimal DJD with no significant cervical spinal stenosis (3) Diabetes type 2, uncontrolled: Known history DM II. not on diabetic meds . A1c: 10 in 2018 presented with hyperglycemia BSG > 300 HB A1 c 12 appreciate input from Pharmacy for glycemic management at present on Lantus 25 U daily , insulin sliding scale will need to be on insulin on discharge certified breastfeeding educator consulted (4) Hypertension: BP improved after starting on Lisinopril 20 mg and low dose Lopressor ( baseline bradycardia ) - (5) Dyslipidemia: -elevated cholesterol and TG LDL 174 given multiple risk factors goal LDL < 70 mild elevation of LFT 's noted repeat labs in am will need to be started on statin once LFT's are wnl (6) Venous stasis: Left Lower Leg ulcer -Wound nurse consult DVT Prophylaxis -Heparin SQ Full Code Disposition : expected to be discharged to home with medically stable will need to establish care with a family physician /cardiology and diabetic clinic Admission and Anticipated Discharge Date Admission Date: October 20, 2020 Subjective No complaint of chest pain, shortness of breath Stress test could not be finished as patient developed symptoms after few minutes, scheduled for cardiac cath tomorrow No fever or chills, no cough offers no new complaints Review of Systems Review of Systems: All systems reviewed & are unremarkable except as noted in HPI & below Physical Exam Physical Exam: Physical exam: General: No acute distress, alert awake oriented x3 HEENT: PERRLA, EOMI, Heart: Regular S1-S2, no carotid bruit, no JVD, no lower extremity edema Lungs: Clear to auscultate, no wheeze or rales Abdomen: Soft nontender, no organomegaly Extremity: No cyanosis, no deformity, normal strength 5 out of 5 with upper and lower Neuro: No focal neurological deficit normal speech, normal visual field, Motor strength : normal both upper and lower extremity, sensation intact Psych: Alert awake oriented x3, normal affect Results & Data Results & Data ([facility]) Vital Signs (Past 12 Hours) Vital Signs Temp Pulse Pulse Pulse Resp BP Pulse Ox 10/22/20 15:47 36.6 C 82 16 116/80 95 10/22/20 11:47 36.3 C L 81 17 123/83 95 10/22/20 08:10 36.4 C L 58 L 17 116/80 95 10/22/20 08:00 61 Pulse Ox 10/22/20 15:47 10/22/20 11:47 10/22/20 08:10 10/22/20 08:00 95 (1) Chest pain Chest pain type: unspecified Qualified Code(s): R07.9 - Chest pain, unspecified (2) Hypertension Hypertension type: essential hypertension Qualified Code(s): I10 - Essential (primary) hypertension
[2020-10-22] MEDS: INSULIN GLARGINE SOLOSTAR 100 UNITS/ML 3 ML PEN SC SCH (20:41)
[2020-10-23] MEDS: SODIUM CHLORIDE 0.9% 1000ML 1,000 ML IV SCH ×2 (00:41→09:30)
[2020-10-23] MEDS: HEPARIN SOD 5,000 UNIT/0.5 ML VIAL SQ SCH ×3 (05:31→21:12)
[2020-10-23] MEDS: INSULIN ASPART 100 UNITS/ML 3 ML PEN SC SCH ×4 (09:23→21:09)
[2020-10-23] MEDS: INSULIN GLARGINE SOLOSTAR 100 UNITS/ML 3 ML PEN SC SCH ×2 (09:27→21:10)
[2020-10-23] MEDS: METOPROLOL TARTRATE 25 MG TAB PO SCH (09:28)
[2020-10-23] MEDS: ASPIRIN 81 MG ECTAB PO SCH (09:28)
[2020-10-23] MEDS: lisinopril 20 MG TAB PO SCH (09:29)
[2020-10-23] MEDS ORDERED: niCARdipine HCL INJ 2.5 MG/ML 10 ML AMP ONE (11:33)
[2020-10-23] MEDS ORDERED: HEPARIN (PORCINE) 1000 UNIT/ML 10 ML (CATH LAB USE ONLY) ONE ×2 (11:33→13:30)
[2020-10-23] MEDS ORDERED: fentaNYL citrate 100 MCG/2 ML VIAL ONE ×2 (11:33→13:29)
[2020-10-23] MEDS ORDERED: MIDAZOLAM HCL 1 MG/ML 2ML VIAL ONE ×3 (11:33→13:29)
[2020-10-23] MEDS ORDERED: NITROGLYCERIN/D5W 100MCG/ML 20ML SYR ONE (11:34)
--- NOTE | 2020-10-23 11:56 | Pre Anesthesia Assessment ---
Date of Service October 23, 2020 Pre Sedation Assessment Vital Signs Temp Pulse Pulse Pulse Resp BP Pulse Ox 10/23/20 11:00 62 18 134/86 93 10/23/20 08:00 62 10/23/20 07:40 98.1 F 61 20 126/85 97 10/23/20 03:00 98.1 F 62 20 116/77 94 10/22/20 22:57 97.9 F 62 20 136/85 95 10/22/20 19:00 98.4 F 98 H 20 116/78 98 10/22/20 15:47 97.9 F 82 16 116/80 95 Cardiovascular RRR, no murmur, no edema Respiratory normal respiratory effort, lungs clear to auscultation Pre-Sedation Airway Assessment Smoking Status: Former smoker Hx Sleep Apnea: No Hx Difficult Intubation: No Short, Thick Neck: No Thyromental Distance: > or= 3.5 Finger Breadths Oral Cavity: + WNL Mallampati Class: III ASA: ASA2 NPO Status Date of Last Intake of Fluids: 10/23/20 Time of Last Intake of Fluids: 07:00 Date of Last Intake of Solid Food: 10/22/20 Time of Last Intake of Solid Foods: 22:00 Procedure Planning Contraindications for Sedation: none Current Medications Reviewed: Yes Notes The planned sedation has been discussed with the patient. Informed Consent was obtained. I have identified the patient, determined the appropriateness of sedation and have assessed the patient immediately prior to the procedure. All medicine(s) and interventions are by my order.
--- NOTE | 2020-10-23 13:10 | Electrocardiogram Report ---
Test Reason : Blood Pressure : / mmHG Vent. Rate : 057 BPM Atrial Rate : 057 BPM P-R Int : 192 ms QRS Dur : 106 ms QT Int : 454 ms P-R-T Axes : 046 -01 012 degrees QTc Int : 441 ms Sinus bradycardia Otherwise normal ECG When compared with ECG of 20-OCT-2020 12:13, No significant change was found Confirmed by Nilesh Isbell ([id number]) on 10/23/2020 1:10:23 PM Referred By: REFERRED SELF Confirmed By:Nilesh Isbell
[2020-10-23] MEDS ORDERED: CLOPIDOGREL BISULFATE 300 MG TAB ONE (14:04)
--- NOTE | 2020-10-23 14:06 | Electrocardiogram Report ---
Test Reason : Blood Pressure : / mmHG Vent. Rate : 061 BPM Atrial Rate : 061 BPM P-R Int : 194 ms QRS Dur : 098 ms QT Int : 440 ms P-R-T Axes : 057 002 032 degrees QTc Int : 442 ms Normal sinus rhythm Inferior infarct , age undetermined Abnormal ECG When compared with ECG of 21-OCT-2020 06:23, (unconfirmed) No significant change Confirmed by Nilesh Isbell ([id number]) on 10/23/2020 2:06:28 PM Referred By: REFERRED SELF Confirmed By:Nilesh Isbell
--- NOTE | 2020-10-23 15:34 | Post Anesthesia Assessment ---
Date of Service October 23, 2020 Post Sedation Assessment Vital Signs Temp Pulse Pulse Pulse Pulse Resp BP 10/23/20 14:53 63 166/107 H 10/23/20 14:45 68 171/104 H 10/23/20 14:28 71 15 161/94 H 10/23/20 14:17 72 15 148/107 H 10/23/20 11:00 62 18 10/23/20 08:00 62 10/23/20 07:40 98.1 F 61 20 10/23/20 03:00 98.1 F 62 20 10/22/20 22:57 97.9 F 62 20 10/22/20 19:00 98.4 F 98 H 20 10/22/20 15:47 97.9 F 82 16 BP Pulse Ox 10/23/20 14:53 10/23/20 14:45 10/23/20 14:28 96 10/23/20 14:17 96 10/23/20 11:00 134/86 93 10/23/20 08:00 10/23/20 07:40 126/85 97 10/23/20 03:00 116/77 94 10/22/20 22:57 136/85 95 10/22/20 19:00 116/78 98 10/22/20 15:47 116/80 95 Recovery Score Activity: Moves 4 extremities Respiration: Deep Breath/Cough Circulation: +/-20% PreAnes Value Consciousness: Fully Awake Oxygen Saturation: > 92% On Room Air Post Anesthesia Score: 10 Discharge Sedation Level of Care: Fast Track Phase II Post Sedation Plan On clinical assessment, the patient appears to have tolerated the sedation without complications. Patient is recovering as anticipated. Patient will continue to be monitored by nursing and may be discharged when sedation discharge criteria are met per below protocol. Upon Completions of procedure up to 15 minutes continue every 5 minute vital signs and the P.A.R. score; then discharge to a Phase I or Fast Track to Phase II per the following guidelines: * Discharge Patient to appropriate Phase II area if PAR is 8 or greater or return to pre- procedure baseline. The post - procedure orders will be as directed. * If PAR score is less than 8 or not return to pre-procedure baseline then pa tient will follow Phase I monitoring till PAR is reached for Phase II. The Phase I may be done in procedure room or may call to secure a Phase I area. * If naloxone or flumazenil are used for reversal, hold in Phase I for continued monitoring from when last reversal dose was given for a minimum of 60 minutes or longer pending the nurse and/or physician discretion of patient condition before discharge to Phase II. Please call the Sedation Physician to re-evaluate and complete post-note for discharge to Phase II area. Do NOT discharge from procedure sedation or Phase 1 until post- sedation evaluation note is complete by procedure /sedation MD Sedation Discharge Instructions to be given to the patient at discharge to home.
--- NOTE | 2020-10-23 15:42 | Cardiac Catheterization ---
[facility] Data: Tea Room Manager Cardiac Status Clinical evaluation leading to the procedure CAD Presenation: Positive Stress Test and Unstable angina Anginal Classification: CCS IV Heart Failure: No Cardiogenic Shock within 24 Hours: No Cardiac Arrest within 24 Hours: No Imaging Studies Past 6 Months: Yes Stress Studies Past 6 Months: Yes Stress Echocardiogram: Yes - Positive and Risk/Extent of Ischemia (High) Diagnostic Physicians Name: Clark Henson MD Status: Elective Closure Device Percutaneous Entry Location: Radial Closure Device: Radial Band Recommendations: PCI without planned CABG PCI Indication: + Stress Test and Unstable Angina Lesion Segment Name: Mid RCA Culprit Artery: Yes Stenosis Prior to Rx (%): 90 Chronic Total Occlusion: No IVUS: No FFR: No Pre-Procedure SHAAN Flow: 3 Previously Treated Lesion: No Lesion Complexity: High/C Lesion Length (mm): 40 Thrombus Present: Yes Bifurcation Lesion: No Guidewire Across Lesion: Stenosis Post-Procedure (%): 0 Post-Procedure SHAAN Flow: 3 Devices(s) Deployed: Yes Yes Intraprocedure Events Significant Disection: No Perforation: No Cardiac Cath Procedure Full Procedure Date October 23, 2020 Pre-Procedure Diagnosis Pre-Procedure Diagnosis: Angina and Positive Stress Test AUC Score AUC Score: 7 Post-Procedure Diagnosis Post-Procedure Diagnosis: Moderate CAD and Normal Intracardiac Pressures Procedure(s) Performed Procedure(s) Performed: Coronary Angiography and Left Heart Cath Soa Architect Clark Henson MD Estimated Blood Loss Estimated Blood Loss: 15 Summary of Findings Indication: Unstable angina, abnormal stress test Access: 6Fr right radial artery Catheters: Speer, JL 3.5, JR4 guide Findings: LM -normal caliber, luminal irregularities LAD -medium caliber, calcified, 30 to 40% proximal to mid disease, 40 to 50% latemid stenosis. Apical vessel with luminal regularities and provides epicardial collaterals to PDA. D1 medium caliber with 30% proximal stenosis. Circumflex -medium caliber. Gives off high OM1 without significant disease. Mid circumflex 40% stenosis. RCA -large caliber vessel, dominant, heavily calcified, 40% proximal, 90% mid segment stenosis with questionable thrombus. Small right PDA with 95% ostial stenosis. Right PLB 1 with 80% mid stenosis. Medium caliber right PLB 2 with 95% mid stenosis. Left to right epicardial collaterals from LAD to PDA. LVEDP -8 -- PCI -- Antithrombotic therapy: Heparin, clopidogrel Procedure: RCA cannulated with JR4 guide Whisper wire passed across lesion into distal vessel Mid RCA heavily calcified and difficult to pass balloon across Eventually able to dilate with multiple inflations of 1.5, 2.0, 2.5, 3.0 and 3.25 balloons With the aid of a guide liner support catheter able to deliver 3.5 x 15 mm Comfort GALLO to mid segment Second GALLO (3.5 x 26 mm Comfort) overlapped with proximal aspect of initial stent extending back into proximal segment Stents post-dilated with 4.0 noncompliant balloon IC vasodilators administered for spasm Post procedure SHAAN 3 flow, stent well expanded with minimal residual stenosis and no apparent cardiac complications. Arterial Closure: TR band Summary: 1. Multivessel coronary artery disease -90% heavily calcified mid RCA with thrombus Right PDA 95% ostial, RPLB1 80% mid, RPLB2 95% mid. PDA fills retrograde via bifx-ho-krorr collaterals from LAD. 40 to 50% mid LAD 40% mid circumflex 2. Normal intracardiac filling pressure 3. Successful PCI of proximal to mid RCA with 2 overlapping drug-eluting stents (3.5 x 26, 3.5 x 15 mm [place]j; postdilated with 4.0 NC). Recommendations: To PCU for continued monitoring Loaded with clopidogrel 600 mg in Tea Room Manager Continue dual-antiplatelet therapy for at least 1 year Consult cardiac Rehab Recommend medical management of residual PDA/PLB disease. If recurrent exertional symptoms PCI to PDA/PLB 2 could be considered. Hemodynamics Rest Ao:: 101/67/83 Final Ao: 163/92/126 LV: 99/8 Recommendations Recommendations: PCI without planned CABG Specimens Specimens: None Radiation Exposure (mGy) 7023 Contrast (mls) 110 Drains Drains: None Anesthesia Moderate ([id number]) Procedural Complication(s) None Disposition PCU I attest to the content of the Intraoperative Record and any orders documented therein. Any exceptions are noted below. I and love and youG Card Cath Procedure Codes Cardiac Catheterization Procedure 1: Cardiovascular Cath Procedures: 40460 Coronaries and LHC (+/-LV) Moderate Sedation Procedure 1: Sedation/Anesthesia: 28534 Mod Sedation by the same physician;Init15 Min Child Age 5 & Up Procedure 2: Sedation/Anesthesia: 37194 Mod Sedation by the same physician; Ea [id number] Minutes Stenting Procedure 1: Cardiovascular Stent Procedures: 96989 Perc transcatheter placement of intracoronary stent(s), with ang PG Care Time/CCT Total # of Minutes Spent Total Time Spent with Patient: Total time spent is greater than 50% in coordination of care (as documented) at patient's floor/unit and/or counseling patient:
[2020-10-23] MEDS: ACETAMINOPHEN 325 MG TAB PO PRN (16:12)
[2020-10-23] MEDS ORDERED: MoRPHine SULFATE 2 MG/ML CARP IV PRN ×2 (16:22→17:36)
--- NOTE | 2020-10-23 16:41 | Hospitalist Progress Note ---
Date of Service October 23, 2020 Assessment & Plan (1) Chest pain: History Nonobstructive CAD seen on cardiac cath in 2018 Pt is 55-year-old male with PMH HTN, DVT, PAD, DM II, nonobstructive CAD seen on 2018 cath, medication noncompliance presented to ER with complaints of chest pain and back pain for past several weeks. Patient is [place]er-speaking and history obtained from patient and patient's daughter acting as derrick barge operator. Denies derrick barge operator service while in ER and wants daughter to translate. Reports intermittent episodes of pain to upper mid back that radiates to chest and up the neck occurs with exertion CTA chest: No acute pulmonary embolus. No infiltrates or consolidative lesions. Severe coronary calcifications, too prominent for patient's age group. appreciate input from Cardiology resting ECHO shows no wall motion abnormality normal EF Status post cardiac cath today: 1. Multivessel coronary artery disease -90% heavily calcified mid RCA with thrombus Right PDA 95% ostial, RPLB1 80% mid, RPLB2 95% mid. PDA fills retrograde via hite-dy-lmlpp collaterals from LAD. 40 to 50% mid LAD 40% mid circumflex 2. Normal intracardiac filling pressure 3. Successful PCI of proximal to mid RCA with 2 overlapping drug-eluting stents (3.5 x 26, 3.5 x 15 mm [place]j; postdilated with 4.0 NC). Patient will need dual antiplatelets for at least 12 months uninterrupted Is to follow-up with cardiology in clinic (2) Neck pain: Neck pain has improved CT of cervical spine shows minimal DJD with no significant cervical spinal stenosis (3) Diabetes type 2, uncontrolled: Known history DM II. not on diabetic meds . A1c: 10 in 2018 presented with hyperglycemia BSG > 300 HB A1 c 12 appreciate input from Pharmacy for glycemic management at present on Lantus 25 U daily , insulin sliding scale will need to be on insulin on discharge inclusion paraeducator consulted-appreciate input Patient will need to establish with family physician and follow-up with diabetic clinic (4) Hypertension: BP improved after starting on Lisinopril 20 mg and low dose Lopressor ( baseline bradycardia ) - (5) Dyslipidemia: -elevated cholesterol and TG LDL 174 given multiple risk factors goal LDL < 70 Started on statin. (6) Venous stasis: Left Lower Leg ulcer -Wound nurse consult DVT Prophylaxis -Heparin SQ Full Code Disposition : expected to be discharged to home with medically stable will need to establish care with a family physician /cardiology and diabetic clinic Admission and Anticipated Discharge Date Admission Date: October 23, 2020 Subjective No complaint of chest pain, shortness of breath Patient had cardiac cath earlier today, complains of pain and discomfort on back and neck Mostly musculoskeletal. No complaint of chest pain shortness of breath, Review of Systems Review of Systems: All systems reviewed & are unremarkable except as noted in Subjective Physical Exam Physical Exam: Physical exam: General: No acute distress, alert awake oriented x3 HEENT: PERRLA, EOMI, Heart: Regular S1-S2, no carotid bruit, no JVD, no lower extremity edema Lungs: Clear to auscultate, no wheeze or rales Abdomen: Soft nontender, no organomegaly Extremity: Right wrist catheter site intact, no swelling, Neuro: No focal neurological deficit normal speech, normal visual field, Motor strength : normal both upper and lower extremity, sensation intact Psych: Alert awake oriented x3, normal affect Results & Data Results & Data ([facility]) Vital Signs (Past 12 Hours) Vital Signs Temp Pulse Pulse Pulse Pulse Resp BP 10/23/20 15:51 70 70 144/89 H 10/23/20 15:36 69 158/102 H 10/23/20 14:53 63 166/107 H 10/23/20 14:45 68 171/104 H 10/23/20 14:40 66 10/23/20 14:28 71 15 161/94 H 10/23/20 14:17 72 15 148/107 H 10/23/20 11:00 62 18 10/23/20 08:00 62 10/23/20 07:40 36.7 C 61 20 BP Pulse Ox 10/23/20 15:51 10/23/20 15:36 10/23/20 14:53 10/23/20 14:45 10/23/20 14:40 10/23/20 14:28 96 10/23/20 14:17 96 10/23/20 11:00 134/86 93 10/23/20 08:00 10/23/20 07:40 126/85 97 (1) Chest pain Chest pain type: unspecified Qualified Code(s): R07.9 - Chest pain, unspecified (2) Hypertension Hypertension type: essential hypertension Qualified Code(s): I10 - Essential (primary) hypertension
[2020-10-23] MEDS ORDERED: Nursing to Pharmacy Communication SCH (17:30)
[2020-10-23] MEDS ORDERED: oxyCODONE/ACETAMINOPHEN 5mg/325mg TAB PO PRN ×2 (17:35)
[2020-10-24] MEDS: NITROGLYCERIN 2% OINTMENT 30GM TUBE EXT SCH ×4 (04:02→23:42)
[2020-10-24 04:49] LABS: Basophils # (auto) 0.01 K/uL (0-0.2); Basophils % (auto) 0.2 %; Eosinophils # (auto) 0.16 K/uL (0-0.5); Eosinophils % (auto) 3.3 %; Hematocrit (blood only) 41.7 % (42-52); Hemoglobin 14.6 g/dL (14.0-18.0); Lymphocytes # (auto) 1.84 K/uL (1.2-3.4); Lymphocytes % (auto) 38.4 %; Mean Corpuscular Hemoglobin 33.5 pg (25-34); Mean Corpuscular Volume 95.6 fL (80-100); Mean Platelet Volume 10.8 fL (7.4-10.4); Monocytes # (auto) 0.47 K/uL (0.11-0.59); Monocytes % (auto) 9.8 %; Neutrophils # (auto) 2.31 K/uL (1.4-6.5); Neutrophils % (auto) 48.3 %; Platelet Count 184 K/uL (130-400); RDW Coefficient of Variation 12.3 % (11.5-14.5); RDW Standard Deviation 42.5 fL (36.4-46.3); Red Blood Count 4.36 M/uL (4.7-6.1); White Blood Count 4.79 K/uL (4.8-10.8)
[2020-10-24 05:07] LABS: BUN Creatinine Ratio 15.7 (10-20); Calcium 8.5 mg/dl (8.5-10.1); Creatinine Clr Calc Pharmacy 133.8 ml/min; Est GFR (African American) 116.8 ml/min; Est GFR (Non-African American) 100.8 ml/min; Magnesium 2.2 mg/dl (1.8-2.4); Potassium 3.7 mmol/L (3.5-5.1)
[2020-10-24] MEDS: HEPARIN SOD 5,000 UNIT/0.5 ML VIAL SQ SCH ×3 (05:11→20:28)
[2020-10-24] MEDS: lisinopril 20 MG TAB PO SCH (08:25)
[2020-10-24] MEDS: ASPIRIN 81 MG ECTAB PO SCH (08:25)
[2020-10-24] MEDS: METOPROLOL TARTRATE 25 MG TAB PO SCH (08:26)
[2020-10-24] MEDS: INSULIN GLARGINE SOLOSTAR 100 UNITS/ML 3 ML PEN SC SCH ×2 (08:26→20:26)
[2020-10-24] MEDS: CLOPIDOGREL BISULFATE 75 MG TAB PO SCH (08:26)
[2020-10-24] MEDS: ATORVASTATIN 40 MG TAB PO SCH (08:26)
[2020-10-24] MEDS: INSULIN ASPART 100 UNITS/ML 3 ML PEN SC SCH ×4 (08:27→20:27)
--- NOTE | 2020-10-24 08:34 | Pharmacy Report ---
Pharmacy Glycemic Short Note 2 - Date of Service October 24, 2020 - Glycemic Short BSG Results (Last 24 hours): 10/23/20 10/23/20 10/23/20 09:21 16:04 20:23 Glucose POC Glucose 179 H 161 H 244 H 10/24/20 10/24/20 04:15 07:00 Glucose 139 H POC Glucose 157 H OUTPATIENT ANTIDIABETIC REGIMEN: * n/A * A1c - 12.1% (10/20/20) ASSESSMENT: 10/24 * BSGs yesterday of 179, 161, and 244 mg/dL * Received 51 units of insulin (30 units of which were basal) * Fasting BSG of 152 mg/dL this morning, improved from days prior * Will plan to increase Lantus today * POD #1 cardiac catheterization * Lunch BSG of 204 mg/dL today - will tighten carb ratio 10/22 * Patient received total of 60 units of insulin yesterday, of which 25 units were basal insulin * Fasting BSG 185 mg/dL - plan to increase basal today ~20% - continues NPO status this AM for stress test * Continue same CF/CR for now 10/21 * Patient received total of 45 units of insulin yesterday, of which 25 units were basal insulin * Fasting BSG elevated at 214 mg/dL - patient NPO, will give 10 units Lantus x 1 now and have scale for evening Lantus based upon BSG value * Tighten CF/CR to stress of 3 dosing 10/20 * Patient is admitted with chest pain, hyperglycemic upon presentation trended down with 10 units of IV regular insulin in the ED but rebounded back into the 300s on admission. Patient currently has diet ordered but will be NPO after midnight. * Upon review of chart patient does not have a current diagnosis of diabetes listed and is not currently on any medications, however blood sugars were elevated on a previous admission in 2018. * Will start weight based basal/bolus regimen, with novolog weight based stress of 2 and conservative 1x dose of lantus 25 units (while likely need increased), will add overnight checks for further management PLAN FOR INPATIENT GLYCEMIC CONTROL: * Basal insulin - increase * Lantus 20 units SC BID * Bolus insulin * NovoLog per scale ACHS or Q6hrs while NPO * Goal Range: Low 110 mg/dL - High 140 mg/dL * Correction Factor: 15 mg/dL/unit * Nutritional / Prandial insulin per carb ratio of 1 unit per 4 grams CHO consumed PLAN FOR DISCHARGE: A1c of 12.1% is greater than 10%, consider triple therapy with metformin + basal insulin + (GLP1-RA OR prandial insulin). May need to continue additional antidiabetic agent based on patient specific factors (efficacy, hypo risk, weight gain/loss, side effects, cost) * Metformin XR 500mg PO daily with evening meal. Typically the XR formulation of metformin is better tolerated than the immediate release formulation. Continue to titrate metformin dosing upwards as recommended. Dosage increases should be made in increments of 500 mg weekly, up to 2,000 mg/day PO, given in divided doses. * B12 supplementation may be necessary with prison metformin * Basal insulin: Glargine/Detemir/Degludec 30 units SQ daily is reasonable at this time * Formulation dependent on insurance preference * GPL1RA: This will be based off of insurance coverage and patient preference of weekly vs daily injection * OR * Prandial insulin: Novolog/Humalog/Regular etc insulin 10 units SQ TIDM is reasonable at this time
[2020-10-24] MEDS: ACETAMINOPHEN 325 MG TAB PO PRN ×2 (11:22→20:25)
--- NOTE | 2020-10-24 15:41 | Hospitalist Progress Note ---
Date of Service October 24, 2020 Assessment & Plan (1) Chest pain: History Nonobstructive CAD seen on cardiac cath in 2018 Pt is 55-year-old male with PMH HTN, DVT, PAD, DM II, nonobstructive CAD seen on 2018 cath, medication noncompliance presented to ER with complaints of chest pain and back pain for past several weeks. Patient is [place]-speaking and history obtained from patient and patient's daughter acting as educational interpreter. Denies educational interpreter service while in ER and wants daughter to translate. Reports intermittent episodes of pain to upper mid back that radiates to chest and up the neck occurs with exertion CTA chest: No acute pulmonary embolus. No infiltrates or consolidative lesions. Severe coronary calcifications, too prominent for patient's age group. appreciate input from Cardiology resting ECHO shows no wall motion abnormality normal EF Status post cardiac cath 1. Multivessel coronary artery disease -90% heavily calcified mid RCA with thrombus Right PDA 95% ostial, RPLB1 80% mid, RPLB2 95% mid. PDA fills retrograde via qdyv-za-sywde collaterals from LAD. 40 to 50% mid LAD 40% mid circumflex 2. Normal intracardiac filling pressure 3. Successful PCI of proximal to mid RCA with 2 overlapping drug-eluting stents (3.5 x 26, 3.5 x 15 mm [place]; postdilated with 4.0 NC). Patient will need dual antiplatelets Aspirn and Plavix for at least 12 months uninterrupted follow-up with cardiology in clinic (2) Neck pain: Neck pain has improved CT of cervical spine shows minimal DJD with no significant cervical spinal stenosis (3) Diabetes type 2, uncontrolled: Known history DM II. not on diabetic meds . A1c: 10 in 2018 presented with hyperglycemia BSG > 300 HB A1 c 12 appreciate input from Pharmacy for glycemic management at present on Lantus 25 U daily , insulin sliding scale will need to be on insulin on discharge : discharged on Lantus 30 U daily and pre meal Novolog Metformin XR 500 mg daily , needed to be titrated to 2000mg /daily at divided d ose will need referral to MTM /Diabetic clinic clinical trial educator consulted-appreciate input Hospital follow up scheduled with [facility] clinic (4) Hypertension: BP improved after starting on Lisinopril 20 mg and low dose Lopressor ( baseline bradycardia ) - will be discharged on Lisinopril 20 mg daily and Lopressor 12.5 mg daily (5) Dyslipidemia: -elevated cholesterol and TG LDL 174 given multiple risk factors goal LDL < 70 Started on statin. (6) Venous stasis: Left Lower Leg ulcer -Wound nurse consult DVT Prophylaxis -Heparin SQ Full Code Disposition : plan to discharge home tomorrow will be followed up at [facility] for hospital follow up Cardiology follow up with [facility] Admission and Anticipated Discharge Date Admission Date: October 23, 2020 Subjective doing well , no complain of chest pain , no shortness of breath denies of any neck pain no fever or chills or cough eager to be discharged home today Review of Systems Review of Systems: All systems reviewed & are unremarkable except as noted in Subjective Physical Exam Physical Exam: Physical exam: General: No acute distress, alert awake oriented x3 HEENT: PERRLA, EOMI, Heart: Regular S1-S2, no carotid bruit, no JVD, no lower extremity edema Lungs: Clear to auscultate, no wheeze or rales Abdomen: Soft nontender, no organomegaly Extremity: Right wrist catheter site intact, no swelling, Neuro: No focal neurological deficit normal speech, normal visual field, Motor strength : normal both upper and lower extremity, sensation intact Psych: Alert awake oriented x3, normal affect Results & Data Results & Data ([facility]) Vital Signs (Past 12 Hours) Vital Signs Temp Pulse Pulse Resp BP Pulse Ox 10/24/20 15:20 36.7 C 60 18 120/75 95 10/24/20 11:48 36.6 C 63 19 120/73 95 10/24/20 08:00 71 10/24/20 07:04 36.5 C 66 17 122/74 95 10/24/20 06:03 70 104/52 L 10/24/20 04:30 151/91 H 10/24/20 04:04 61 16 130/82 (1) Chest pain Chest pain type: unspecified Qualified Code(s): R07.9 - Chest pain, unspecified (2) Hypertension Hypertension type: essential hypertension Qualified Code(s): I10 - Essential (primary) hypertension
--- NOTE | 2020-10-24 16:06 | Electrocardiogram Report ---
Test Reason : Blood Pressure : / mmHG Vent. Rate : 059 BPM Atrial Rate : 059 BPM P-R Int : 200 ms QRS Dur : 106 ms QT Int : 424 ms P-R-T Axes : 051 012 050 degrees QTc Int : 419 ms Sinus bradycardia Nonspecific ST elevation Abnormal ECG When compared with ECG of 22-OCT-2020 05:34, ST elevation now present in Inferior leads and Anterorlateral leads Confirmed by Nilesh Isbell ([id number]) on 10/24/2020 4:05:47 PM Referred By: REFERRED SELF Confirmed By:Nilesh Isbell
[2020-10-25] MEDS: HEPARIN SOD 5,000 UNIT/0.5 ML VIAL SQ SCH (06:03)
[2020-10-25] MEDS: NITROGLYCERIN 2% OINTMENT 30GM TUBE EXT SCH ×2 (06:03→12:06)
[2020-10-25] MEDS: INSULIN ASPART 100 UNITS/ML 3 ML PEN SC SCH ×2 (08:16→12:06)
[2020-10-25] MEDS: METOPROLOL TARTRATE 25 MG TAB PO SCH (08:17)
[2020-10-25] MEDS: CLOPIDOGREL BISULFATE 75 MG TAB PO SCH (08:17)
[2020-10-25] MEDS: ASPIRIN 81 MG ECTAB PO SCH (08:17)
[2020-10-25] MEDS: lisinopril 20 MG TAB PO SCH (08:18)
[2020-10-25] MEDS: ATORVASTATIN 40 MG TAB PO SCH (08:18)
[2020-10-25] MEDS ORDERED: INSULIN GLARGINE SOLOSTAR 100 UNITS/ML 3 ML PEN SC SCH (09:00)
--- NOTE | 2020-10-25 12:31 | Electrocardiogram Report ---
Test Reason : Blood Pressure : / mmHG Vent. Rate : 070 BPM Atrial Rate : 070 BPM P-R Int : 188 ms QRS Dur : 102 ms QT Int : 396 ms P-R-T Axes : 056 -04 008 degrees QTc Int : 427 ms Normal sinus rhythm Normal ECG When compared with ECG of 23-OCT-2020 15:02, (unconfirmed) No significant change was found Confirmed by Nilesh Isbell ([id number]) on 10/25/2020 12:31:40 PM Referred By: REFERRED SELF Confirmed By:Nilesh Isbell
--- NOTE | 2020-10-25 12:46 | Electrocardiogram Report ---
Test Reason : Blood Pressure : / mmHG Vent. Rate : 061 BPM Atrial Rate : 061 BPM P-R Int : 192 ms QRS Dur : 104 ms QT Int : 436 ms P-R-T Axes : 058 -05 008 degrees QTc Int : 438 ms Normal sinus rhythm Inferior infarct (cited on or before 24-OCT-2020) Abnormal ECG When compared with ECG of 24-OCT-2020 03:41, (unconfirmed) No significant change was found Confirmed by Nilesh Isbell ([id number]) on 10/25/2020 12:46:10 PM Referred By: REFERRED SELF Confirmed By:Nilesh Isbell
--- NOTE | 2020-10-25 12:46 | Electrocardiogram Report ---
Test Reason : Blood Pressure : / mmHG Vent. Rate : 060 BPM Atrial Rate : 060 BPM P-R Int : 192 ms QRS Dur : 104 ms QT Int : 426 ms P-R-T Axes : 053 -05 024 degrees QTc Int : 426 ms Poor data quality, interpretation may be adversely affected Normal sinus rhythm Inferior infarct , age undetermined Abnormal ECG When compared with ECG of 23-OCT-2020 19:36, (unconfirmed) No significant change was found Confirmed by Nilesh Isbell ([id number]) on 10/25/2020 12:46:04 PM Referred By: REFERRED SELF Confirmed By:Nilesh Isbell
--- NOTE | 2020-10-25 13:44 | Hospitalist Progress Note ---
Date of Service October 25, 2020 Assessment & Plan (1) Chest pain: Unstable angina -CTA chest: No acute pulmonary embolus. No infiltrates or consolidative lesions. Severe coronary calcifications, too prominent for patient's age group. -Abnormal stress test -S/P Cardiac cath: Multivessel coronary artery disease. 90% heavily calcified mid RCA with thrombus. Right PDA 95% ostial, RPLB1 80% mid, RPLB2 95% mid. PDA fills retrograde via jygd-kh-rbjtv collaterals from LAD. 40 to 50% mid LAD. 40% mid circumflex. Normal intracardiac filling pressure. Successful PCI of proximal to mid RCA with 2 overlapping drug-eluting stents (3.5 x 26, 3.5 x 15 mm Iraj; postdilated with 4.0 NC). -ECHO: Mild concentric LVH. Basal septum is thickened and angulated consistent with sigmoid septum. Left ventricle wall motion is normal. EF 50 to 55%. No significant valvular disease. -Appreciate cardiology input Continue aspirin, Plavix, Lipitor, metoprolol, lisinopril Needs follow-up with cardiology upon discharge (2) Neck pain: CT of cervical spine shows minimal DJD with no significant cervical spinal stenosis Resolved (3) Diabetes type 2, uncontrolled: Uncontrolled HbA1c: 12.1 Continue insulin therapy Appreciate Pharmacy for glycemic management life skills educator consulted-appreciate input (4) Hypertension: Continue lisinopril, metoprolol (5) Dyslipidemia: Continue statin (6) Venous stasis: Left Lower Leg ulcer Wound nurse consult Advised to follow up with Wound Clinic upon discharge DVT Px Heparin SQ Code Status Full Code Admission and Anticipated Discharge Date Admission Date: October 23, 2020 Subjective Patient is seen and examined at bedside Doing well today Offers no complaints Denies chest pain, dyspnea, dizziness, nausea, abdominal pain Eager to get discharged Review of Systems Review of Systems: All systems reviewed & are unremarkable except as noted in HPI & below Physical Exam Physical Exam: Physical Exam: Vitals signs as noted above General Appearance:Moderately built and nourished, no apparent distress Head: normocephalic, Atraumatic Eyes: normal inspection, EOMI Neck: supple, Trachea midline Respiratory/Chest: Normal breath sounds, CTA Cardiovascular: S1, S2, No murmur Abdomen/GI:Soft, Non tender, Bowel sounds present Extremities/Musculoskeletal:normal inspection, no edema, RLE wound in dressing Neurologic/Psych:AAOX3, grossly no focal neurological deficits Skin: normal color, warm Results & Data Results & Data ([facility]) Vital Signs (Past 12 Hours) Vital Signs Temp Pulse Resp BP Pulse Ox 10/25/20 11:46 36.7 C 66 18 118/69 93 10/25/20 07:55 36.9 C 68 17 110/66 96 10/25/20 06:02 139/88 10/25/20 04:13 36.9 C 68 18 121/73 96 (1) Chest pain Chest pain type: unspecified Qualified Code(s): R07.9 - Chest pain, unspecified (2) Hypertension Hypertension type: essential hypertension Qualified Code(s): I10 - Essential (primary) hypertension
--- NOTE | 2020-10-25 14:26 | Discharge Summary ---
Date of Service October 25, 2020 Admission HPI Per Admitting Provider Pt is 55-year-old male with PMH HTN, DVT, PAD, DM II, nonobstructive CAD seen on 2017 cath, medication noncompliance presented to ER with complaints of chest pain and back pain for past several weeks. Patient is French-speaking and history obtained from patient and patient's daughter acting as dental manager. Denies dental manager service while in ER and wants daughter to translate. Reports intermittent episodes of pain to upper mid back that radiates to chest and up the neck. Reports these episodes typically occur with exertion. Also complains of tingling sensation to bilateral forearms. 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 Denies recent injury or trauma. Will take aspirin or OTC NSAID which sometimes helps relieve back pain, neck pain and sometimes does not. States will sometimes have associated dizziness with symptoms. Denies associated shortness of breath, palpitations, syncope. Patient states has not follow-up with PCP. In [address] [facility] however did not follow back up. He has stopped taking all medications as reports he is afraid the medications will hurt him more than underlying disease process. Patient's daughter reports she feels her father's noncompliance is from cultural influences. Denies fever/chills, diaphoresis, N/V/D/C, vision changes, orthopnea, palpitations, cough, sore throat, choking, otalgia, rhinorrhea, abdominal pain, extremity weakness, extremity edema, rashes, urinary symptoms. Principal Diagnosis Coronary artery disease status post cardiac stent placement. Type 2 diabetes needs insulin Hyperlipidemia Hypertension Discharge Data Allergies Allergy/AdvReac Type Severity Reaction Status Date / Time No Known Allergies Allergy Unknown Verified 10/20/20 14:20 Consultations 10/20/20 15:30 ED Decision to Admit Stat 10/20/20 18:59 Consult Cardiology Routine 10/23/20 15:37 Consult Cardiac Rehabilitation Routine Procedures Performed Operation Date: 10/23/20 12:30 Actual Procedures p Cath, Left with Cors and Vent - Shashank Henson MD s Drug Eluting Stent SGl Vessel - Shashank Henson MD s Cineradiography w/Routine Exam - Shashank Henson MD -CTA chest: No acute pulmonary embolus. No infiltrates or consolidative lesions. Severe coronary calcifications, too prominent for patient's age group. -S/P Cardiac cath: Multivessel coronary artery disease. 90% heavily calcified mid RCA with thrombus. Right PDA 95% ostial, RPLB1 80% mid, RPLB2 95% mid. PDA fills retrograde via canx-rx-satiy collaterals from LAD. 40 to 50% mid LAD. 40% mid circumflex. Normal intracardiac filling pressure. Successful PCI of proximal to mid RCA with 2 overlapping drug-eluting stents (3.5 x 26, 3.5 x 15 mm Iraj; postdilated with 4.0 NC). -ECHO: Mild concentric LVH. Basal septum is thickened and angulated consistent with sigmoid septum. Left ventricle wall motion is normal. EF 50 to 55%. No significant valvular disease. Ordered Studies 10/20/20 14:40 CT angio chest dissec wo/w con Stat 10/20/20 16:43 CT cervical spine wo con Stat 10/22/20 07:00 US liver Routine 10/23/20 11:52 CL Cath Imgs for PACS use only Routine Diabetes Follow up Diabetes Follow-up Needed for HgbA1c >9% Hospital Course (1) Chest pain: Unstable angina -CTA chest: No acute pulmonary embolus. No infiltrates or consolidative lesions. Severe coronary calcifications, too prominent for patient's age group. -Abnormal stress test -S/P Cardiac cath: Multivessel coronary artery disease. 90% heavily calcified mid RCA with thrombus. Right PDA 95% ostial, RPLB1 80% mid, RPLB2 95% mid. PDA fills retrograde via idat-wk-shugl collaterals from LAD. 40 to 50% mid LAD. 40% mid circumflex. Normal intracardiac filling pressure. Successful PCI of proximal to mid RCA with 2 overlapping drug-eluting stents (3.5 x 26, 3.5 x 15 mm Iraj; postdilated with 4.0 NC). -ECHO: Mild concentric LVH. Basal septum is thickened and angulated consistent with sigmoid septum. Left ventricle wall motion is normal. EF 50 to 55%. No significant valvular disease. -Appreciate cardiology input Continue aspirin, Plavix, Lipitor, metoprolol, lisinopril Needs follow-up with cardiology upon discharge (2) Neck pain: CT of cervical spine shows minimal DJD with no significant cervical spinal stenosis Resolved (3) Diabetes type 2, uncontrolled: Uncontrolled HbA1c: 12.1 Continue insulin therapy Appreciate Pharmacy for glycemic management clinical educator consulted-appreciate input (4) Hypertension: Continue lisinopril, metoprolol (5) Dyslipidemia: Continue statin (6) Venous stasis: Left Lower Leg ulcer Wound nurse consult Advised to follow up with Wound Clinic upon discharge DVT Px Heparin SQ Code Status Full Code Total Time Total Time Spent Total Time Spent (In Minutes): 44 minutes Total Time Includes: Examination of the Patient, Discharge Planning, Medication Reconciliation, Communication With Other Providers and Other Discharge Plan Discharge Items Patient Disposition: Home - Self-Care Reason For Visit: CHEST PAIN, DIZZY SPELL, SOB Discharge Diagnosis: Coronary artery disease status post cardiac stent placement. Type 2 diabetes needs insulin Hyperlipidemia Hypertension Activity: As commented below Activity Comment: as tolerated Exercise/Sports: Wait until after follow-up appointment Non-emergency contact: Primary Care Provider and Staff Midwife Call non-emergency contact if: you have any medication questions, your symptoms worsen, your pain is concerning for you and you have a fever Follow-up/Referrals: [facility] for Wound Care [Other] - 10/30/20 1:00 pm Torsten Cho MD [Physician] - (Cardiology follow up in 2-3 weeks ) Ankit Tavarez DO [Outside Practitioners] - (Date & Time 10/31/2020 12:00 PM Provider Ankit Tavarez DO Department Family [facility] ) Diet: Carb Consistent or DM2 and Heart Healthy Addtl Attending Provider Instructions: Please take all medications as instructed on discharge list below. It is recommended that you follow-up with your primary care physician within 1-2 weeks of hospital discharge to ensure you are still doing well. Please call if you have any questions or problems. You can reach a 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 3.) Lantus Solostar Pen 30 Units SQ daily in the morning before breakfast 4.) Pen Carey 32 gauge x 5/32. 5.) Metformin XR 500mg PO daily with evening meal. Continue to titrate metformin dosing upwards as recommended. Dosage increases should be made in increments of 500 mg weekly, up to 2,000 mg/day PO, given in divided doses. referral for diabetic /MTM clinic 6) B12 supplementation with custodial metformin 7) Novolog insulin 10 units SQ 3 times daily before each meal Pending Studies at Discharge: No Stand-Alone Forms: [facility], Work/School Release, Smoking Cessation Medications and DC Order Prescriptions: New lisinopril 20 mg Tablet 20 mg PO QAM Qty: 30 RF: 3 aspirin 81 mg Tablet,Delayed Release (Dr/Ec) 81 mg PO QAM Qty: 30 RF: 3 atorvastatin 40 mg Tablet 40 mg PO QAM 30 Days Qty: 30 RF: 3 clopidogrel 75 mg Tablet 75 mg PO QAM 30 Days Qty: 30 RF: 3 metoprolol tartrate 25 mg Tablet 12.5 mg PO QAM 30 Days Qty: 15 RF: 3 Lantus Solostar U-100 Insulin 100 unit/mL (3 mL) insulin pen 30 unit subcut QAM Qty: 15 RF: 3 insulin aspart U-100 [Novolog Flexpen U-100 Insulin] 100 unit/mL (3 mL) insulin pen 10 unit subcut TID 30 Days Qty: 15 RF: 3 metformin 500 mg tablet extended release 24 hr 500 mg PO DAILY Qty: 30 RF: 3 vitamin L78-lswdl acid 500-400 mcg tablet 1 tab PO DAILY Qty: 30 RF: 0 (DME) lancets [OneTouch Delica Lancets] [facility] See Rx Instructions .ROUTE .MEDSUPPLY Qty: 100 RF: 3 (DME) OneTouch Verio test strips Strip See Rx Instructions .ROUTE .MEDSUPPLY Qty: 100 RF: 3 (DME) insulin admin supplies Insulin Pen See Rx Instructions .ROUTE .MEDSUPPLY Qty: 1 RF: 3 (DME) blood-glucose meter [OneTouch Verio Meter] [facility] [place] .ROUTE .MEDSUPPLY Qty: 1 RF: 0 Discharge Orders: Discharge Order (Routine); Ordered 10/25/20 Ordered By: Vinnie Lares/Other Patient Handouts: High Blood Sugar (Hyperglycemia), Hypoglycemia (Low Blood Sugar), Managing Type 2 Diabetes, 5 Steps for Eating Healthier, A1C Admission Data Admit Date/Time: 10/23/20 06:58 Attending Provider: Vinnie Callejas Admit Provider: Coretta Cloud Primary Care Provider: PCP,NO Other Providers: Danyelle Saha ; Danny Mcnamara ; Torsten Cho ; Ramsey Avila ; Yuri Gan ; Nilesh Isbell ; Smith Monroy Jr ; Kenrick Gibson ; Mara Infante ; Deepa Nino ; Shashank Henson ; Shashank Lawson ; Miguel Delvalle ; Abel Cody ; Kristy Martinez ; Talib Bella ; Moises Mcelroy ; Von Toney Other Interventions: Discharge Summary Assessment (RN) Last Done: 10/25/20 13:51
--- NOTE | 2020-10-30 17:06 | Electrocardiogram Report ---
Test Reason : Blood Pressure : / mmHG Vent. Rate : 065 BPM Atrial Rate : 065 BPM P-R Int : 194 ms QRS Dur : 100 ms QT Int : 404 ms P-R-T Axes : 033 -23 020 degrees QTc Int : 420 ms Normal sinus rhythm Normal ECG When compared with ECG of 22-OCT-2020 05:34, No significant change was found Confirmed by Kenrick Gibson ([id number]) on 10/30/2020 5:06:46 PM Referred By: REFERRED SELF Confirmed By:Kenrick Gibson
== END 2020-10-25 14:10 | disposition home or self-care (01) | DRG 247 ==
LOC: ED 10:39 → 2S 10:39 → SUATTDRO 10-23 06:58 → 2W 10-24 15:39

== ENCOUNTER 2023-04-08 07:18 | Inpatient (IN) ==
[2023-04-08] MEDS ORDERED: SODIUM CHLORIDE 0.9% 1,000 ML IV ONE (07:37)
--- NOTE | 2023-04-08 07:41 | Emergency Department Note ---
Impression & Plan Non-pressure chronic ulcer of left calf with fat layer exposed, Venous stasis ulcer, Venous insufficiency of both lower extremities, Diabetes type 2, uncontrolled, Hypertension ED Provider Note CHIEF COMPLAINT: Left leg pain HISTORY OF PRESENT ILLNESS: This 57-year-old male patient presents to the emergency department via private vehicle for evaluation of left leg pain. The patient reports he has had ulcers and wounds on the left leg for approximately 30 years. The patient states that for the past 3 months, he has been trying to care for open wounds on the left leg which have been draining yellowish fluid. The patient states he has been using Neosporin and cutting down a brown type of bandage from the wound kit to place into the wound. Over the past 2 nights, he has had increasing pain and difficulty sleeping due to the pain. He denies any fever, chills, nausea, vomiting, body aches, or other systemic symptoms. He states the wounds appear somewhat more red, but the discharge has not changed. Pt. has not been taking any pain medication. He states he is currently uninsured, which is why he has not had professional care sooner. REVIEW OF SYSTEMS: A 10 system review of systems was performed with positives and pertinent negatives listed in the history of present illness. All other systems were reviewed and are negative. ALLERGIES: NKDA PHYSICAL EXAM: VITALS: Vitals are noted on the nurse's note and reviewed by myself. Patient hypertensive, but afebrile. GENERAL: This is a 57 year old male, in no acute distress, nondiaphoretic, well- developed well-nourished. SKIN: Erythema on the anterior middle aspect of the left garza. This is not circumferential. There are 2 ulcerated wounds noted which extend deeper into the tissue within the center of the erythematous area. There is no purulent discharge, but there is discharge of serosanguineous fluid. The skin was otherwise without rashes, erythema, edema, or bruising. There is no tenting of the skin. Capillary refill less than 2 seconds. HEAD: Normocephalic atraumatic. EYES: Conjunctivae without injection, sclerae without icterus. NECK: Supple without nuchal rigidity. No lymphadenopathy. No JVD. HEART: Regular rate and rhythm without murmurs gallops or rubs. LUNGS: Clear to auscultation bilaterally without wheezes, rales or rhonchi. No retractions or accessory muscle use. MUSCULOSKELETAL: No muscle atrophy, erythema, or edema noted. Full range of motion without joint tenderness in all extremities. No tenderness to palpation. Normal gait. Strength 5/5 throughout. NEURO: Patient was alert and oriented to person place and time. Normal sensation to light and sharp touch. No focal neurological deficits. An order was placed for continuous rn cardiac. The monitor showed a normal sinus rhythm at a ventricular rate of 72 bpm, per my interpretation. EMERGENCY DEPARTMENT COURSE: The patient was seen and evaluated as above. Patient presents with chronic wound on the left leg with acute pain and redness over the past 2 to 3 days. The patient has uncontrolled diabetes. He discontinued all of his medications 5 months ago due to lack of insurance coverage. The patient states that the wounds seem to have progressed and worsened over the past day or 2 and he has been unable to sleep due to the pain. IV access was obtained, labs were drawn. Per my interpretation, no leukocytosis, anemia, thrombocytopenia. Renal function and electrolytes without significant abnormality. Blood glucose is elevated at 296. Transaminases elevated with an AST of 94, ALT of 179. Alkaline phosphatase is mildly elevated 107. C-reactive protein elevated 0.67, and ESR mildly elevated at 22. Lactic acid 1.3. I did discuss the case with the working manager. Given the patient's lack of outpatient care, medications, uncontrolled diabetes, chronic wounds, and difficulty with obtaining follow-up and medications, we did agree that admission to the hospital would be the most appropriate way to get the patient established with all of the care that he needs. I discussed the case with Dr. Baxter who did agree to see and evaluate the patient. She was agreeable to admission. The patient will be admitted to the [facility] service. Please see hospitalist dictation regarding ongoing management and care. Differential diagnosis includes Cellulitis, abscess, MRSA infection, DVT, necrotizing fasciitis, dermatitis, drug eruption, allergic reaction, as well as other pathologies. I attest that I have personally reviewed the patient's current medication list. Patient was found to have an elevated blood pressure and was referred to their primary doctor for recheck and further treatment. The chart was completed utilizing [employer] voice recognition software. Grammatical errors, random word insertions, pronoun errors, and incomplete sentences are an occasional consequence of this system due to software limitations, ambient noise, and hardware issues. Any formal questions or concerns about the content, text, or information contained within the body of this dictation should be directly addressed to the provider for clarification. Past Med/Surg History Medical History Non-occlusive coronary artery disease Dyslipidemia Diabetes type 2, uncontrolled Venous stasis ulcer Hypertension Venous insufficiency of both lower extremities Surgical History History of cholecystectomy Family History Father Diabetes Social History Smoking Status: Former smoker Second Hand Exposure: No; Do You Dip or Chew Tobacco: No; Hx Alcohol Use: Yes Alcohol type: wine and hard liquor Alcohol Intake Frequency: 2-3 x/Week Hx Substance Use: No Preferred Language: Singaporean Communication Ability: Effective Communication Ability Comment: Speak slowly Circulation Analyst Required: Yes and Video Beliefs That Will Affect Care: None Current Living Situation: Alone Current Living Situation Comment: patient independent with dressing changes current occupational status: other other: patient entering into SSI Feels Safe at Home: Yes Diet: diabetic Assistive Devices: None Allergies Allergies Allergy/AdvReac Type Severity Reaction Status Date / Time No Known Allergies Allergy Unknown Verified 01/09/22 10:25 Home Meds Home Medications Medication Instructions Recorded Confirmed atorvastatin 40 mg tablet 40 mg PO QAM 02/05/22 02/05/22 empagliflozin 10 mg tablet 10 mg PO DAILY 02/05/22 02/05/22 (Jardiance) Previous Rx's Medication Instructions Recorded aspirin 81 mg tablet,delayed 81 mg PO QAM #30 tabs 10/21/20 release blood sugar diagnostic (The GlassboxTouch #100 ea 10/24/20 Verio test strips) clopidogrel 75 mg tablet 75 mg PO QAM 30 days #30 tabs 10/24/20 insulin admin supplies #1 ea 10/24/20 insulin glargine 100 unit/mL (3 30 unit (0.3 mL) subcut QAM #15 mL 10/24/20 mL) subcutaneous pen (Lantus Solostar U-100 Insulin) lancets 33 gauge (The GlassboxTouch Delica #100 ea 10/24/20 Lancets) metformin 500 mg tablet,extended 500 mg PO DAILY #30 tabs 10/24/20 release 24 hr metoprolol tartrate 25 mg tablet 12.5 mg (1/2 x 25 mg) PO QAM 30 10/24/20 days #15 tabs vitamin B12 500 mcg-folic acid 400 1 tab PO DAILY #30 tabs 10/24/20 mcg tablet blood-glucose meter (MadisonTouch #1 ea 10/25/20 Verio Meter) Results & Data (ED) Vital Signs Vital Signs - 24 hr 04/08/23 07:21 04/08/23 07:44 04/08/23 07:45 Temperature 36.2 C L Temperature Source Temporal Artery Scan Pulse Rate 79 74 Pulse Rate [Apical] 69 Pulse Rate from SpO2 Sensor 74 Respiratory Rate 18 18 Respiratory Effort / Characteristics Non-Labored Spontaneous Respiratory Depth Normal Respiratory Pattern Regular Blood Pressure 183/109 H Blood Pressure [Right Arm] 170/107 H Blood Pressure Mean 133 Blood Pressure Mean [Right Arm] 128 Pulse Oximetry 97 96 96 Oxygen Delivery Method Room Air Room Air Sepsis Recent Fever Within 48 Hours No Sepsis New/Unexplained Change in Mental Status No Sepsis Action Taken by Nursing No Action Required 04/08/23 07:47 04/08/23 08:00 04/08/23 09:03 Temperature Temperature Source Pulse Rate 72 70 70 Pulse Rate [Apical] Pulse Rate from SpO2 Sensor 70 Respiratory Rate 20 Respiratory Effort / Characteristics Respiratory Depth Respiratory Pattern Blood Pressure 170/107 H Blood Pressure [Right Arm] Blood Pressure Mean 128 Blood Pressure Mean [Right Arm] Pulse Oximetry 96 Oxygen Delivery Method Room Air Sepsis Recent Fever Within 48 Hours Sepsis New/Unexplained Change in Mental Status Sepsis Action Taken by Nursing 04/08/23 09:30 04/08/23 09:47 04/08/23 10:00 Temperature Temperature Source Pulse Rate 70 70 72 Pulse Rate [Apical] Pulse Rate from SpO2 Sensor 71 70 67 Respiratory Rate 16 16 16 Respiratory Effort / Characteristics Respiratory Depth Respiratory Pattern Blood Pressure 177/110 H 176/122 H Blood Pressure [Right Arm] Blood Pressure Mean 132 140 Blood Pressure Mean [Right Arm] Pulse Oximetry 98 99 98 Oxygen Delivery Method Room Air Room Air Sepsis Recent Fever Within 48 Hours Sepsis New/Unexplained Change in Mental Status Sepsis Action Taken by Nursing Laboratory Data 04/08/23 07:45 04/08/23 07:45 Lab Results 04/08/23 Range/Units 07:45 WBC 4.28 L (4.8-10.8) K/ul RBC 4.71 (4.70-6.10) M/uL Hgb 16.2 (14.0-18.0) g/dl Hct 45.0 (42.0-52.0) % MCV 95.5 (80.0-100.0) fL MCH 34.4 H (25.0-34.0) pg MCHC 36.0 (32.0-36.0) g/dL RDW Std Deviation 40.6 (36.4-46.3) fL RDW Coeff of Mirella 11.5 (11.5-14.5) % Plt Count 186 (130-400) K/uL MPV 10.8 (9.4-12.4) fL Immature Gran % (Auto) 0.2 % Neut % (Auto) 57.1 % Lymph % (Auto) 28.0 % Barton % (Auto) 9.3 % Eos % (Auto) 4.7 % Baso % (Auto) 0.7 % Neut # (Auto) 2.44 (1.40-6.50) K/uL Lymph # (Auto) 1.20 (1.20-3.40) K/uL Barton # (Auto) 0.40 (0.11-0.59) K/uL Eos # (Auto) 0.20 (0.00-0.50) K/uL Baso # (Auto) 0.03 (0.00-0.20) K/uL Immature Gran # (Auto) 0.01 (0.01-0.20) K/uL ESR 22 H (0-20) mm/hr Sodium 135 L (136-145) mmol/L Potassium 4.1 (3.5-5.1) mmol/L Chloride 103 (98-107) mmol/L Carbon Dioxide 23 (21-32) mmol/L Anion Gap 9 (3-11) BUN 14 (6-23) mg/dl Creatinine 0.70 (0.6-1.4) mg/dl Est Cr Clr Drug Dosing 151.5 ml/min Est GFR ( Amer) 122.3 ml/min Est GFR (Non-Af Amer) 105.5 ml/min BUN/Creatinine Ratio 20.0 (10-20) Glucose 296 H (70-99(Fasting)) mg/dl Lactate 1.3 (0.4-2.0) mmol/L Calcium 9.5 (8.6-10.3) mg/dl Total Bilirubin 0.7 (0.2-1.0) mg/dl AST 94 H (13-39) U/L ALT 179 H (7-52) U/L Alkaline Phosphatase 107 H (34-104) U/L C-Reactive Protein 0.67 H (0-0.5) mg/dl Total Protein 7.5 (6.0-8.3) gm/dl Albumin 4.5 (3.4-5.0) gm/dl Globulin 3.0 (2.5-4.0) gm/dl Albumin/Globulin Ratio 1.5 (0.9-2) Administered Medications Rosuvastatin Calcium (Rosuvastatin Calcium 20 Mg Tab) 40 mg PO QAM [place] Stop: 05/08/23 11:29 Last Admin: 04/08/23 12:00 Dose: 40 mg Documented By: GORDON Discontinued Medications Acetaminophen (Acetaminophen 500 Mg Tab) 1,000 mg PO NOW STA Stop: 04/08/23 09:16 Last Admin: 04/08/23 09:47 Dose: 1,000 mg Documented By: KARTHIK Aspirin (Aspirin 81 Mg Ectab) 81 mg PO NOW STA Stop: 04/08/23 11:02 Last Admin: 04/08/23 11:59 Dose: 81 mg Documented By: GORDON Clopidogrel Bisulfate (Clopidogrel Bisulfate 75 Mg Tab) 75 mg PO NOW ONE Stop: 04/08/23 11:02 Last Admin: 04/08/23 11:59 Dose: 75 mg Documented By: GORDON Sodium Chloride (Nss) 1,000 mls @ 999 mls/hr IV .Q1H1M ONE Stop: 04/08/23 08:37 Last Infusion: 04/08/23 09:10 Dose: Infused Documented By: Admin: 04/08/23 07:53 Dose: 999 mls/hr Documented By: BANG Ceftriaxone Sodium (Rocephin) 2,000 mg in 50 mls @ 100 mls/hr IV NOW STA Stop: 04/08/23 09:45 Last Infusion: 04/08/23 10:19 Dose: Infused Documented By: Admin: 04/08/23 09:47 Dose: 100 mls/hr Documented By: KARTHIK [place]inopril (L[facility]opril 10 Mg Tab) [facility] [place] [facility] [place]: 05/08/23 11:14 Last Admin: 04/08/23 11:59 Dose: 10 mg Documented By: ANG Imaging Data Radiologist's Impression: Venous Doppler Study 04/08/23 07:37 LEFT LOWER EXTREMITY VENOUS DOPPLER HISTORY: Acute pain and swelling of the left lower extremity pain, redness, swelling, open wounds COMPARISON STUDY: 04/19/2018 FINDINGS: There is normal compressibility, flow, and augmentation within the left lower extremity deep venous system. Left inguinal chain lymph nodes measuring up to 3.2 x 2.3 x 1.1 cm are likely reactive. IMPRESSION: No DVT within the left lower extremity. ACT 112: Negative or not required by law. Electronically signed by: Mauricio Bowman M.D. 04/08/2023 8:45 AM Discharge Plan Visit Data Chief Complaint: Wound Stated Complaint: LEFT LEG OPEN WOUND PAIN,CAN'T SLEEP ED Provider: [facility] ED Midlevel Provider: Soumya Gurrola Discharge Problem: Non-pressure chronic ulcer of left calf with fat layer exposed, Venous stasis ulcer, Venous insufficiency of both lower extremities, Diabetes type 2, uncontrolled, Hypertension Patient Disposition: Admitted As Inpatient Discharge Instructions Interventions: ED Discharge Assessment Last Done: 04/08/23 12:53
[2023-04-08 08:17] LABS: Basophils # (auto) 0.03 K/uL (0.00-0.20); Basophils % (auto) 0.7 %; Eosinophils % (auto) 4.7 %; Hemoglobin 16.2 g/dl (14.0-18.0); Immature Granulocytes # (auto) 0.01 K/uL (0.01-0.20); Immature Granulocytes % (auto) 0.2 %; Mean Corpuscular Hemoglobin 34.4 pg (25.0-34.0); Mean Corpuscular Volume 95.5 fL (80.0-100.0); Mean Platelet Volume 10.8 fL (9.4-12.4); Monocytes % (auto) 9.3 %; Neutrophils # (auto) 2.44 K/uL (1.40-6.50); Neutrophils % (auto) 57.1 %; Platelet Count 186 K/uL (130-400); RDW Coefficient of Variation 11.5 % (11.5-14.5); RDW Standard Deviation 40.6 fL (36.4-46.3); Red Blood Count 4.71 M/uL (4.70-6.10); White Blood Count 4.28 K/ul (4.8-10.8)
--- NOTE | 2023-04-08 08:47 | Ultrasound Report ---
LEFT LOWER EXTREMITY VENOUS DOPPLER HISTORY: Acute pain and swelling of the left lower extremity pain, redness, swelling, open wounds COMPARISON STUDY: 04/19/2018 FINDINGS: There is normal compressibility, flow, and augmentation within the left lower extremity rupa p venous system. Left inguinal chain lymph nodes measuring up to 3.2 x 2.3 x 1.1 cm are likely reacti ve. IMPRESSION: No DVT within the left lower extremity. ACT 112: Negative or not required by law. Electronically signed by: Mauricio Bowman M.D. 04/08/2023 8:45 AM
[2023-04-08 08:49] LABS: Albumin Globulin Ratio 1.5 (0.9-2); Albumin Level 4.5 gm/dl (3.4-5.0); Bilirubin,Total 0.7 mg/dl (0.2-1.0); C Reactive Protein 0.67 mg/dl (0-0.5); Calcium 9.5 mg/dl (8.6-10.3); Creatinine Clr Calc Pharmacy 151.5 ml/min; Est GFR (African American) 122.3 ml/min; Est GFR (Non-African American) 105.5 ml/min; Potassium 4.1 mmol/L (3.5-5.1); Total Protein 7.5 gm/dl (6.0-8.3)
[2023-04-08] MEDS ORDERED: ACETAMINOPHEN 500 MG TAB PO STA (09:15)
[2023-04-08] MEDS ORDERED: cefTRIAXone SODIUM 2,000 MG/50 ML BAG IV STA (09:16)
--- NOTE | 2023-04-08 10:34 | History & Physical Report ---
Date of Service April 08, 2023 Assessment & Plan (1) Cellulitis of lower leg: (2) Open leg wound: (3) Diabetes mellitus type II, uncontrolled: (4) Dyslipidemia: (5) CAD, multiple vessel: (6) Hypertension: Plan Pt is a 57yoM with PMhx significant for DMII, Hx of multivessel CAD with stent placement in 2020, HLD, HTN and chronic left lower extremity wound admitted with concerning progression of wound. Pt states that he stopped taking ALL of his medications about 5 months ago after losing his insurance. Cellulitis Left lower extremity wound, open, chronic Pt states that LLE wound has been more painful and red for the past few days Previously followed with wound care but [facility] chart review showed that he missed appointments in August Notes episodes of fevers and chills at home, currently afebrile WBC currently decreased, no signs of sepsis at this time Wound Cx and Blood Cx x2 pending Venous Doppler ordered by the ED with no signs of acute DVT MRI LLE ordered and pending to r/o osteomyelitis Received a dose of Rocephin in the ED Continue with Cefepime (to cover for pseudomonas in a diabetic) and Vanc Narrow abx based on Cx results Wound care consult placed CM consult placed to assist with continuity of care after discharge DMII Glucose level of 296 [facility] chart review notes recent hgba1c of 8.6 in August 2022 Repeat hgba1c with AM labs pending Pt states he has not been taking his medications since August Was previously prescribed Jardiance 25mg and Trulicity Basal/bolus insulin regimen while admitted CM consult to assist with meds/continuity of care after discharge Multivessel CAD s/p stent placement in RCA Atypical chest pain Pt with multivessel CAD s/p stent placement in RCA in 2020 Pt previously prescribed Imdur 30mg, metoprolol succ 50mg qAM, plavix 75mg daily and aspirin 81mg Followed with [facility] cardiology, [facility] chart review notes last appt in Jan 2022 Has not been taking any medications since August 2022 Re-started on plavix 75mg daily and aspirin 81mg given Hx of stent placement Cardiology consult placed for further cardiac med management/recs for alternatives if possible in the setting of no insurance. Appreciate cardiology recs for further cardiac management inpatient and upon discharge CM consult to assist with meds/continuity of care after discharge as well HTN Previously prescribed lisinopril 10mg and metoprolol as noted above Re-started on lisinopril 10mg For further control, consider titrating dose and/or resuming metoprolol as noted above based on cardiology recs HLD Previously prescribed rosuvastatin 40mg Re-started in setting of DMII and known CAD AM Lipid profile pending CODE STATUS: Full code DVT prophylaxis: Lovenox SQ Diet: DMII, HH Dispo: Med/Surg with tele History of Present Illness Chief Complaint: Wound Primary Care Provider: [facility]J PCP Pt is a 57yoM with PMhx significant for DMII, Hx of multivessel CAD with stent placement in 2020, HLD, HTN and chronic left lower extremity wound admitted with concerning progression of wound. Pt states that he stopped taking ALL of his medications about 5 months ago after losing his insurance. Hx obtained from pt and [facility] outpatient records. States that he has had this wound which originally began in the 1980s. Has been receiving care for it since then. Wound has progressed and was following with the wound care clinic but states that he lost his insurance and has not been following there anymore. Has also stopped taking all his medications including his diabetic and cardiac medications. States that for the past 3-5 days has been having chills and sweats, felt feverish but no documented fever. Notes increased pain in the lower extremity. Followed with [facility] last pcp note in Dec 2022 noted that pt had informed office that he no longer had insurance and was referred to [facility] for further care. Allergies Allergy/AdvReac Type Severity Reaction Status Date / Time No Known Allergies Allergy Unknown Verified 01/09/22 10:25 Past Med/Surg History Medical History Non-occlusive coronary artery disease Dyslipidemia Diabetes type 2, uncontrolled Venous stasis ulcer Hypertension Venous insufficiency of both lower extremities Surgical History History of cholecystectomy Family History Father Diabetes Social History Smoking Status: Former smoker Second Hand Exposure: No; Do You Dip or Chew Tobacco: No; Hx Alcohol Use: Yes Alcohol type: wine and hard liquor Alcohol Intake Frequency: 2-3 x/Week Hx Substance Use: No Preferred Language: Panamanian Communication Ability: Effective Communication Ability Comment: Speak slowly Allopathic Doctor Required: Yes and Video Beliefs That Will Affect Care: None Current Living Situation: Alone Current Living Situation Comment: patient independent with dressing changes current occupational status: other other: patient entering into SSI Feels Safe at Home: Yes Diet: diabetic Assistive Devices: None Review of Systems Review of Systems: All systems reviewed & are unremarkable except as noted in HPI & below Physical Exam Physical Exam: General: Alert, oriented. No acute distress Skin: LLE with open wound and surrounding erythema Psych: Appropriate mood and affect Neuro: No gross deficits while laying in bed HEENT: NC/AT Chest: Nontender to palpation. CV: RRR Resp: Breath sounds clear bilaterally, no increased effort of breathing. Abdomen: Soft, nontender, nondistended. Extremities: LLE with open wound and surrounding erythema Results & Data Results & Data Vital Signs (Past 12 Hours) Vital Signs Temp Pulse Pulse Resp BP BP Pulse Ox 04/08/23 10:00 72 16 176/122 H 98 04/08/23 09:47 70 16 177/110 H 99 04/08/23 09:30 70 16 98 04/08/23 09:03 70 04/08/23 08:00 70 20 170/107 H 96 04/08/23 07:47 72 04/08/23 07:45 69 18 170/107 H 96 04/08/23 07:44 74 96 04/08/23 07:21 36.2 C L 79 18 183/109 H 97 O2 Del Method 04/08/23 10:00 Room Air 04/08/23 09:47 Room Air 04/08/23 09:30 04/08/23 09:03 04/08/23 08:00 Room Air 04/08/23 07:47 04/08/23 07:45 Room Air 04/08/23 07:44 04/08/23 07:21 Room Air Diagnostic Findings Venous Doppler Study 04/08/23 07:37 LEFT LOWER EXTREMITY VENOUS DOPPLER HISTORY: Acute pain and swelling of the left lower extremity pain, redness, swelling, open wounds COMPARISON STUDY: 04/19/2018 FINDINGS: There is normal compressibility, flow, and augmentation within the left lower extremity deep venous system. Left inguinal chain lymph nodes measuring up to 3.2 x 2.3 x 1.1 cm are likely reactive. IMPRESSION: No DVT within the left lower extremity. ACT 112: Negative or not required by law. Electronically signed by: Mauricio Bowman M.D. 04/08/2023 8:45 AM (3) Diabetes mellitus type II, uncontrolled Glycemic state: with hyperglycemia Qualified Code(s): E11.65 - Type 2 diabetes mellitus with hyperglycemia (6) Hypertension Hypertension type: essential hypertension Qualified Code(s): I10 - Essential (primary) hypertension
[2023-04-08] MEDS ORDERED: ASPIRIN 81 MG ECTAB PO STA (11:01)
[2023-04-08] MEDS ORDERED: CLOPIDOGREL BISULFATE 75 MG TAB PO ONE (11:01)
[2023-04-08] MEDS ORDERED: lisinopril 10 MG TAB PO SCH (11:15)
[2023-04-08] MEDS: ROSUVASTATIN CALCIUM 20 MG TAB PO SCH (12:00)
[2023-04-08] MEDS ORDERED: CARBOHYDRATES FOR HYPOGLYCEMIA PO PRN (12:53)
[2023-04-08] MEDS ORDERED: VANCOMYCIN HCL 1,750 MG in SODIUM CHLORIDE 0.9% 500 ML IV SCH (12:53)
[2023-04-08] MEDS ORDERED: DEXTROSE 50% 50 ML SYRINGE IV PRN (12:53)
[2023-04-08] MEDS ORDERED: GLUCOSE 40% GEL 15 GM TUBE PO PRN (12:53)
[2023-04-08] MEDS ORDERED: VANCOMYCIN HCL 2,750 MG in SODIUM CHLORIDE 0.9% 500 ML IV ONE (12:53)
[2023-04-08] MEDS ORDERED: GLUCAGON FOR INJ 1 MG VIAL SQ PRN (12:53)
[2023-04-08] MEDS ORDERED: GLUCOSE 10 TAB/TUBE PO PRN (12:53)
[2023-04-08] MEDS ORDERED: VANCOMYCIN CONSULT ACTIVE PRN (12:53)
--- NOTE | 2023-04-08 13:16 | Cardiology Consultation ---
Date of Consultation April 08, 2023 Assessment & Plan (1) Cellulitis of lower leg: (2) CAD, multiple vessel: (3) Hypertensive urgency: Plan IMPRESSION: Medically complex 57-year-old male who initially presented to [facility] emergency department due to left lower extremity cellulitis. Patient markedly hypertensive on presentation likely due to medication noncompliance. Asymptomatic without chest pain or shortness of breath. Occasional headaches--possibly due to hypertension. PLAN: Multivessel CAD: Agree with restarting dual antiplatelet therapy with aspirin 81 mg daily and Plavix 75 mg daily. Echocardiogram pending--assess LV systolic function and valvular status. Hypertension: Elevated blood pressures due to medication noncompliance. Agree with restarting lisinopril, will increase to 20 mg daily Start metoprolol succinate 25 mg daily. Future considerations of adding Imdur pending clinical course. Lower extremity cellulitis/nonhealing wound: Agree with blood cultures and lower extremity MRI to rule out osteomyelitis. Antibiotic treatment per primary team Encourage improved blood blood sugar control. A1c pending a.m. labs. Previously on Jardiance. Consider restarting. Case discussed with Dr. Anne, further recommendations pending his clinical assessment. Supervising Physician Co-Signing Physician Notes Attending Staff: Pt seen and evaluated with [facility] staff. 57 yo man presenting with Left Lower Extremity Ulcer/Wounds Consult - known CAD - off cardiac meds Cardiac hx: * Known Multivessel CAD * S/P GALLO to RCA (2020) * Cath 01/2022 - diffuse, nonobstrutive disease; severe distal LAD disease; RCA occluded at stented site w/ collateral vessels * Cardiometabolic syndrome * Hyperlipidemia * DM - poorly controlled * HTN * ETOH (about 5 drinks per day) Presentation: * Worsening Left LE ulceration * Painful * Question of underlying osteomyelitis * No chest pain * No dyspnea with exertion * Occasional CASIANO * No palpitations * No pre or rommel syncope * No major LE swelling * No PND/Orthopnea * Medication nonadherence Plans: * + CAD * Restart ASA 81 mg po per day * Restart Plavix 75 mg po per day * May consider single antiplatelet agent on discharge given RCA PCI is occluded * EKG - ordered * ECHO - ordered * Significant BP elevation + CASIANO - HTNsive urgency * Creat 0.7, K+ 4 * Restart Lisinopril 20 mg po per day * Restart Toprol XL 25 mg po per day * Current Goal SBP 130-140 mmHg * Not markedly volume overloaded -no diuretics at present * Check UA for Proteinuria * Check HBA1C * Check Fasting Lipid Panel * Goal LDL <55 * Non-Smoker * MVI + thiamine + Folate * Check TSH * Outpatient Study Study * Vascular to evaluate Left Lower Extremity Elder Anne History of Present Illness Reason for Consultation: Hypertensive urgency Requesting Physician: [facility] hospitalist Attending Physician: Vianca Baxter MD History of Present Illness 57-year-old male who presented to [facility] emergency department due to a left lower extremity wound and fever/chills. Lower extremity duplex negative for DVT MRI of the lower extremity ordered and pending. Blood cultures pending Started on IV antibiotics. Has had issues with insurance and stopped all of his medications approximately in September or October--from a cardiac standpoint he was on: Jardiance 25 mg daily Imdur 30 mg daily Metoprolol succinate 50 mg daily Lisinopril 10 mg daily Rosuvastatin 40 mg daily Aspirin 81 mg daily Clopidogrel 75 mg daily Upon entrance into the room patient resting comfortably in bed. Main concern is regarding left leg pain. Ulcer has been present for 2 months. Denies any chest pain or shortness of breath. Has had intermittent headaches recently. No palpitations. No lightheadedness or dizziness. No orthopnea or PND. No lower extremity edema. Primary outpatient animal impersonator: Dr. Melissa Past medical history: 1. Multivessel CAD, history of abnormal stress testing undergoing cardiac [facility].5[facility] 26[facility] and 3.5mm x15mm), 2020. Right radial approach taken. a. Abnormal DANAY 09/2021, medically managed due to financial concerns b. Repeat cath- Diffuse nonobstructive CAD of the LAD and LCx, however, in the very distal portion of the LAD there is an 80 to 90% concentric stenoses. The RCA is occluded at the stented site proximally and fills with a generous flow of left to right collaterals distally, 02/05/2022 at [facility] with Dr. Melissa 2. Cardiometabolic syndrome 3. Type 2 diabetes, uncontrolled. 4. Hyperlipidemia 5. Medication Noncompliance Allergies Allergy/AdvReac Type Severity Reaction Status Date / Time No Known Allergies Allergy Unknown Verified 01/09/22 10:25 Patient History Medical History Non-occlusive coronary artery disease Dyslipidemia Diabetes type 2, uncontrolled Venous stasis ulcer Hypertension Venous insufficiency of both lower extremities Surgical History History of cholecystectomy Family History Father Diabetes Social History Smoking Status: Former smoker Second Hand Exposure: No; Do You Dip or Chew Tobacco: No; Hx Alcohol Use: Yes Alcohol type: wine and hard liquor Alcohol Intake Frequency: 2-3 x/Week Hx Substance Use: No Preferred Language: Serbian Communication Ability: Effective Communication Ability Comment: Speak slowly Nuclear Medicine Technologist Required: Yes and Video Beliefs That Will Affect Care: None Current Living Situation: Alone Current Living Situation Comment: patient independent with dressing changes current occupational status: other other: patient entering into SSI Feels Safe at Home: Yes Diet: diabetic Assistive Devices: None Review of Systems Review of Systems: All systems reviewed & are unremarkable except as noted in HPI & below Physical Exam Physical Exam: Obese No elevation in JVP [id number] Soft 2/6 systolic murmur CTA B + Left LE ulceration -dressed Chronic Venous Changes Constitutional: WD/WN, vitals as above no acute distress Neck: normal visual inspection and trachea midline Respiratory: normal respiratory effort, lungs clear to auscultation Cardiovascular: RRR, no murmur, no edema Heart Sounds: normal S1 and normal S2; no murmur Vessels: no JVD Extremities: no edema Gastrointestinal (Abdomen): normal bowel sounds, soft, nontender, no hepa tosplenomegaly Skin: + ulcer (Left lower extremity ) Psychiatric: Orientation: alert and oriented x 3 Results & Data Vital Signs (Past 12 Hours) Vital Signs Temp Pulse Pulse Resp BP BP Pulse Ox 04/08/23 10:00 72 16 176/122 H 98 04/08/23 09:47 70 16 177/110 H 99 04/08/23 09:30 70 16 98 04/08/23 09:03 70 04/08/23 08:00 70 20 170/107 H 96 04/08/23 07:47 72 04/08/23 07:45 69 18 170/107 H 96 04/08/23 07:44 74 96 04/08/23 07:21 36.2 C L 79 18 183/109 H 97 O2 Del Method 04/08/23 10:00 Room Air 04/08/23 09:47 Room Air 04/08/23 09:30 04/08/23 09:03 04/08/23 08:00 Room Air 04/08/23 07:47 04/08/23 07:45 Room Air 04/08/23 07:44 04/08/23 07:21 Room Air Laboratory Results Cardiac Enzymes 04/08/23 Range/Units 07:45 AST 94 H (13-39) U/L CBC 04/08/23 Range/Units 07:45 WBC 4.28 L (4.8-10.8) K/ul RBC 4.71 (4.70-6.10) M/uL Hgb 16.2 (14.0-18.0) g/dl Hct 45.0 (42.0-52.0) % Plt Count 186 (130-400) K/uL Neut # (Auto) 2.44 (1.40-6.50) K/uL Lymph # (Auto) 1.20 (1.20-3.40) K/uL [place] # (Auto) 0.40 (0.11-0.59) K/uL Eos # (Auto) 0.20 (0.00-0.50) K/uL Baso # (Auto) 0.03 (0.00-0.20) K/uL Comprehensive Metabolic Panel 04/08/23 Range/Units 07:45 Sodium 135 L (136-145) mmol/L Potassium 4.1 (3.5-5.1) mmol/L Chloride 103 (98-107) mmol/L Carbon Dioxide 23 (21-32) mmol/L BUN 14 (6-23) mg/dl Creatinine 0.70 (0.6-1.4) mg/dl Glucose 296 H (70-99(Fasting)) mg/dl Calcium 9.5 (8.6-10.3) mg/dl AST 94 H (13-39) U/L ALT 179 H (7-52) U/L Alkaline Phosphatase 107 H (34-104) U/L Total Protein 7.5 (6.0-8.3) gm/dl Albumin 4.5 (3.4-5.0) gm/dl Intake and Output 04/07/23 04/08/23 04/08/23 22:59 06:59 14:59 Intake Total 1050 / 1050 Balance 1050 / 1050 Intake: IV 1050 / 1050 Sodium Chloride 0.9% 1,000 ml @ 1000 / 1000 999 mls/hr IV .Q1H1M ONE Rx#: [id number] cefTRIAXone SODIUM 2,000 mg In 50 / 50 50 ml @ 100 mls/hr IV NOW STA Rx#:[id number] Other: Weight 110.9 kg Weight Measurement Method Chair Scale Patient Weight 04/09/23 06:59 Weight 110.9 kg
[2023-04-08] MEDS ORDERED: VANCOMYCIN HCL 2,500 MG in SODIUM CHLORIDE 0.9% 500 ML IV ONE (13:30)
[2023-04-08] MEDS ORDERED: lisinopril 10 MG TAB PO STA (13:33)
[2023-04-08] MEDS ORDERED: METOPROLOL SUCC 25MG EXT REL TAB PO SCH (13:45)
[2023-04-08] MEDS: ENOXAPARIN INJ 40 MG/0.4 ML SYR SQ SCH (14:32)
[2023-04-08] MEDS: CEFEPIME 2,000 MG in SYRINGE 0 ML IV SCH (14:32)
--- NOTE | 2023-04-08 14:45 | Pharmacy Report ---
Pharmacy PK ABX Note - Date of Service April 08, 2023 - Assessment and Plan Assessment 57 year old M receiving vancomycin and cefepime for treatment of cellulitis. Blood and surface leg culture pending. Renal function stable. Day #1 of antimicrobial therapy. Plan Vancomycin * Loading dose: 2500 mg IV x 1 * Maintenance dose: 1750 mg IV every 12 hours * Regimen is predicted to achieve target AUC/CURTIS of 400-600 mg/L.hr * Will obtain a level around steady state if vancomycin continued. Pharmacy will continue to follow and will adjust dose/frequency as necessary. Thank you. Pharmacy has transitioned to AUC monitoring for vancomycin. AUC/CURTIS is the preferred PK/PD target and is associated with decreased risk of nephrotoxicity compared to traditional trough targets.
[2023-04-08] MEDS ORDERED: POLYETHYLENE (MIRALAX) 17 GM PACK PO PRN (15:16)
[2023-04-08] MEDS ORDERED: KETOROLAC TROMETHAMINE 15 MG/ML VIAL IV PRN (15:16)
[2023-04-08] MEDS ORDERED: ALUMINUM/MAGNESIUM SUSP 30 ML UDC PO PRN (15:16)
[2023-04-08] MEDS ORDERED: ONDANSETRON INJ 2 MG/ML 2 ML VIAL IV PRN (15:16)
[2023-04-08] MEDS ORDERED: GABAPENTIN 1200MG ALCOHOL WITHDRAWAL LOAD PO STA (15:25)
[2023-04-08] MEDS ORDERED: LORazepam 2 MG in SYRINGE 1 ML IV PRN (15:25)
[2023-04-08] MEDS ORDERED: LORazepam 3 MG in SYRINGE 1.5 ML IV PRN (15:25)
[2023-04-08] MEDS ORDERED: LORazepam 1 MG in SYRINGE 0.5 ML IV PRN (15:25)
[2023-04-08] MEDS ORDERED: Ativan IV Alcohol Withdrawal--Active Protocol IV PRN (15:25)
--- NOTE | 2023-04-08 15:29 | Communication Note ---
Date of Service: April 08, 2023 Pt notes that he drinks about 4 glasses of wine daily. Has done that for some time. Started on AWSS active protocol with gabapentin and IV Ativan. Monitor for signs of active withdrawal.
[2023-04-08] MEDS ORDERED: GABAPENTIN 600 MG TAB PO STA (15:32)
--- NOTE | 2023-04-08 16:36 | Ultrasound Report ---
US liver CLINICAL HISTORY: transaminitis COMPARISON STUDY: CT of the abdomen May 13, 2006. Right upper quadrant ultrasound October 22, 2020. FINDINGS: Hepatic echogenicity is increased. No hepatic lesions are identified. There is no biliary d uctal dilatation status post cholecystectomy. The common bile duct measures 4 mm in caliber. Pancreat ic body is normal. Head and tail are obscured. There is no right hydronephrosis. IMPRESSION: 1. Hepatic steatosis. 2. No biliary ductal dilatation status post cholecystectomy. ACT 112: Negative or not required by law. Electronically signed by: Sabas Choudhary M.D. 04/08/2023 4:35 PM
[2023-04-08] MEDS: INSULIN ASPART PER UNIT CHARGE SC SCH ×3 (16:48→20:40)
[2023-04-08 17:52] LABS: Thyroid Stimulating Hormone 4.627 uIu/ml (0.300-4.500)
[2023-04-08 18:27] LABS: T4 Free Thyroxine 0.7 ng/dl (0.61-1.60)
[2023-04-08] MEDS ORDERED: GADOBUTROL 65ML VIAL IV ONE (19:15)
[2023-04-08] MEDS: LANTUS PER UNIT CHARGE SQ SCH (20:40)
--- NOTE | 2023-04-08 20:41 | Magnetic Resonance Report ---
Exam(s): MRI EXTREMITY W/WO Contrast IV Amt: 11cc gadavist EXAM: MR Left Lower Extremity Without and With Intravenous Contrast, Tibia and Fibula CLINICAL HISTORY: Reason for exam: r/o osteomyelitis. TECHNIQUE: Multiplanar magnetic resonance images of the left tibia and fibula without and with intravenous contrast. CONTRAST: Patient received 11cc gadavist of IV contrast COMPARISON: No relevant prior studies available. FINDINGS: Bones/joints: Unremarkable. No acute fracture. No dislocation. Soft tissues: Unremarkable. No abnormal contrast enhancement. No signal abnormalities suggest osteomyelitis.. Incidentally noted are a number of varices within the medial aspect of the left foot. Soft tissue inflammatory changes present to suggest cellulitis. IMPRESSION: Findings consistent with cellulitis. No evidence of osteomyelitis Electronically signed by: Virgilio Menezes MD 04/08/23 20:41 PM
[2023-04-08] MEDS: GABAPENTIN 600 MG TAB PO SCH (20:42)
[2023-04-08] MEDS: VANCOMYCIN HCL 1,750 MG in SODIUM CHLORIDE 0.9% 500 ML IV SCH (23:52)
[2023-04-09] MEDS: CEFEPIME 2,000 MG in SYRINGE 0 ML IV SCH ×2 (01:37→11:54)
[2023-04-09] MEDS: GABAPENTIN 600 MG TAB PO SCH ×3 (05:34→20:57)
[2023-04-09 05:43] LABS: Appearance Urine Clear (Clear); Bilirubin Urine Negative (Negative); Blood Urine Negative (Negative); Color Urine Yellow; Glucose Urine UA 3+ (Negative); Ketones Urine Negative (Negative); Leukocyte Esterase Urine Negative (Negative); Nitrite Urine Negative (Negative); Protein Urine Negative (Negative); Urobilinogen Urine Negative (Negative)
[2023-04-09 06:32] LABS: Basophils # (auto) 0.03 K/uL (0.00-0.20); Basophils % (auto) 0.7 %; Eosinophils # (auto) 0.21 K/uL (0.00-0.50); Eosinophils % (auto) 4.6 %; Immature Granulocytes # (auto) 0.01 K/uL (0.01-0.20); Immature Granulocytes % (auto) 0.2 %; Lymphocytes # (auto) 1.57 K/uL (1.20-3.40); Lymphocytes % (auto) 34.7 %; Mean Corpuscular Hemoglobin 34.3 pg (25.0-34.0); Mean Corpuscular Hgb Conc 35.7 g/dL (32.0-36.0); Mean Corpuscular Volume 96.1 fL (80.0-100.0); Mean Platelet Volume 10.8 fL (9.4-12.4); Monocytes # (auto) 0.54 K/uL (0.11-0.59); Monocytes % (auto) 11.9 %; Neutrophils # (auto) 2.17 K/uL (1.40-6.50); Neutrophils % (auto) 47.9 %; Platelet Count 163 K/uL (130-400); RDW Coefficient of Variation 11.6 % (11.5-14.5); RDW Standard Deviation 41.3 fL (36.4-46.3); Red Blood Count 4.37 M/uL (4.70-6.10); White Blood Count 4.53 K/ul (4.8-10.8)
[2023-04-09 06:52] LABS: Albumin Globulin Ratio 1.5 (0.9-2); Albumin Level 3.8 gm/dl (3.4-5.0); BUN Creatinine Ratio 21.6 (10-20); Bilirubin,Total 0.6 mg/dl (0.2-1.0); Calcium 8.9 mg/dl (8.6-10.3); Chol HDL Ratio 5.4 (0-5); Creatinine Clr Calc Pharmacy 143.3 ml/min; Est GFR (African American) 119.5 ml/min; Est GFR (Non-African American) 103.1 ml/min; Globulin 2.6 gm/dl (2.5-4.0); Magnesium 1.9 mg/dl (1.7-2.4); Phosphorus 3.5 mg/dl (2.5-4.9); Potassium 3.8 mmol/L (3.5-5.1); Total Protein 6.4 gm/dl (6.0-8.3)
--- NOTE | 2023-04-09 07:13 | Cardiology Progress Note ---
Date of Service April 09, 2023 Assessment & Plan (1) Cellulitis of lower leg: (2) CAD, multiple vessel: (3) Hypertensive urgency: Plan IMPRESSION: Medically complex 57-year-old male who initially presented to [facility] emergency department due to left lower extremity cellulitis. Patient markedly hypertensive on presentation likely due to medication noncompliance. Asymptomatic without chest pain or shortness of breath. Occasional headaches--possibly due to hypertension. PLAN: Multivessel CAD: -Multivessel CAD, history of abnormal stress testing undergoing cardiac catheterization receiving x2 GALLO to the mRCA ([place] 3.5mm x 26mm and 3.5mm x15mm), 2020. Right radial approach taken. -Repeat cath: Diffuse nonobstructive CAD of the LAD and LCx, however, in the very distal portion of the LAD there is an 80 to 90% concentric stenoses. The RCA is occluded at the stented site proximally and fills with a generous flow of left to right collaterals distally, 02/05/2022 at [facility] with Dr. Melissa -Echocardiogram with preserved LV systolic function and no wall motion abnormalities. No valvular disease. -LDL significantly uncontrolled, 149. AST and ALT elevated. Liver ultrasound this admission showing hepatic steatosis. Hypertension: Initially elevated due to medication noncompliance x 6 months. Improvement with lisinopril and metoprolol over the last 24 hours. Lower extremity cellulitis/nonhealing wound: Lower extremity MRI imaging consistent with cellulitis, no evidence of osteomyelitis. Lower extremity venous duplex without evidence of DVT Blood cultures pending. Antibiotic treatment per primary team Encourage improved blood blood sugar control. A1c uncontrolled, 11%. Previously on Jardiance. Consider restarting. Case discussed with Dr. Anne, please see physician attestation for further plan of care. Admission and Anticipated Discharge Date Admission Date: April 08, 2023 Supervising Physician Co-Signing Physician Notes Attending Staff: Pt seen and evaluated with [facility] staff. 57 yo man presenting with Left Lower Extremity Ulcer/Wounds Consult - known CAD - off cardiac meds Cardiac hx: * Known Multivessel CAD * S/P GALLO to RCA (2020) * Cath 01/2022 - diffuse, nonobstrutive disease; severe distal LAD disease; RCA occluded at stented site w/ collateral vessels * Cardiometabolic syndrome * Hyperlipidemia * DM - poorly controlled * HTN * ETOH (about 5 drinks per day) Plans: * + CAD * Continue ASA 81 mg po per day * Continue Plavix 75 mg po per day * May consider single antiplatelet agent on discharge given RCA PCI is occluded * EKG - Pending * ECHO - LVEF F60-65%; no major valvular disease * Significant BP elevation + CASIANO - HTNsive urgency * Creat 0.7, K+ 4 * Increase Lisinopril to 40 mg po per day- (04/09) * Continue Toprol XL 25 mg po per day * Current Goal SBP 130 mmHg * Not markedly volume overloaded -no diuretics at present * UA for Proteinuria - Negative * HBA1C - 11 * LDL 149, AST and ALT are elevated (reviewed literature) * Trial of High potency statin * Start Crestor 40 mg po per day * Start Zetia 10 mg po per day * May need [id number] as an outpt * Goal LDL <55 * Non-Smoker * MVI + thiamine + Folate * TSH - 4.6 * Outpatient Study Study * Left Lower Extremity - ABX [place] Anne Subjective 57-year-old male with past medical history of multivessel coronary disease initially presented to [facility] emergency department yesterday due to worsening left lower extremity pain and a nonhealing ulceration. Blood pressure is markedly hypertensive due to noncompliance with medications over the last 6 months or so. 04/08/2023: Patient was restarted on dual antiplatelet therapy with aspirin and Plavix. Lisinopril was restarted and increased to 20 mg daily. Metoprolol succinate was restarted at 25 mg daily. Echocardiogram revealed a normal LVEF of 60 to 65% without wall motion abnormalities. No significant valvular pathology. Lower extremity MRI imaging consistent with cellulitis, no evidence of osteomyelitis. 04/09/2023: Improvement in blood pressures over the last 24 hours. Systolics averaging in the 140s. Diastolics averaging in the 80-90s. Renal function remained stable on blood work. Electrolytes within normal limits. A1c 11%. LDL uncontrolled, 149. AST and ALT abnormal--56/129, liver ultrasound showing hepatic steatosis Review of Systems Review of Systems: All systems reviewed & are unremarkable except as noted in HPI & below Physical Exam Physical Exam: Obese No elevation in JVP [id number] Soft 2/6 systolic murmur CTA B + Left LE ulceration -dressed Chronic Venous Changes Constitutional: WD/WN, vitals as above no acute distress Neck: normal visual inspection and trachea midline Respiratory: normal respiratory effort, lungs clear to auscultation Cardiovascular: RRR, no murmur, no edema Heart Sounds: normal S1 and normal S2; no murmur Vessels: no JVD Extremities: no edema Gastrointestinal (Abdomen): normal bowel sounds, soft, nontender, no hepatosplenomegaly Skin: + ulcer (Left lower extremity ) Psychiatric: Orientation: alert and oriented x 3 Results & Data Vital Signs (Past 12 Hours) Vital Signs Temp Pulse Pulse Resp BP Pulse Ox O2 Del Method 04/09/23 03:57 36.7 C 63 20 144/89 H 97 Room Air 04/08/23 23:19 36.6 C 77 20 119/73 94 Room Air 04/08/23 22:43 60 04/08/23 19:54 36.8 C 79 20 146/87 H 96 Room Air Laboratory Results Cardiac Enzymes 04/08/23 04/09/23 Range/Units 07:45 05:31 AST 94 H 56 H (13-39) U/L Lipids 04/09/23 Range/Units 05:31 Triglycerides 250 H (0-150) mg/dl Cholesterol 244 H (0-200) mg/dl HDL Cholesterol 45 mg/dl Cholesterol/HDL Ratio 5.4 H (0-5) CBC 04/09/23 Range/Units 05:31 WBC 4.53 L (4.8-10.8) K/ul RBC 4.37 L (4.70-6.10) M/uL Hgb 15.0 (14.0-18.0) g/dl Hct 42.0 (42.0-52.0) % Plt Count 163 (130-400) K/uL Neut # (Auto) 2.17 (1.40-6.50) K/uL Lymph # (Auto) 1.57 (1.20-3.40) K/uL [place] # (Auto) 0.54 (0.11-0.59) K/uL Eos # (Auto) 0.21 (0.00-0.50) K/uL Baso # (Auto) 0.03 (0.00-0.20) K/uL Comprehensive Metabolic Panel 04/08/23 04/09/23 Range/Units 07:45 05:31 Sodium 135 L 136 (136-145) mmol/L Potassium 4.1 3.8 (3.5-5.1) mmol/L Chloride 103 106 (98-107) mmol/L Carbon Dioxide 23 24 (21-32) mmol/L BUN 14 16 (6-23) mg/dl Creatinine 0.70 0.74 (0.6-1.4) mg/dl Glucose 296 H 202 H (70-99(Fasting)) mg/dl Calcium 9.5 8.9 (8.6-10.3) mg/dl AST 94 H 56 H (13-39) U/L ALT 179 H 129 H (7-52) U/L Alkaline Phosphatase 107 H 77 (34-104) U/L Total Protein 7.5 6.4 (6.0-8.3) gm/dl Albumin 4.5 3.8 (3.4-5.0) gm/dl Intake and Output 04/08/23 04/09/23 04/09/23 22:59 06:59 14:59 Intake Total 670 / 2635 915 / 2635 Output Total 450 / 450 Balance 670 / 2185 465 / 2185 Intake: IV 550 / 2135 535 / 2135 Vancomycin HCl 1,750 mg In 550 / 1085 535 / 1085 Sodium Chloride 0.9% 500 ml @ 200 mls/hr IV Q12H [facility] Rx#: [id number] Oral 120 / 500 380 / 500 Output: Urine 450 / 450 Other: Weight 110.9 kg Weight Measurement Method Standing Scale Medications Administered Current Inpatient Medications Al Hydrox/Mg Hydrox/Simethicone (Aluminum/Magnesium Susp 30 Ml Udc) 15 ml PO Q6H PRN PRN Reason: Heartburn Stop: 05/08/23 15:15 Aspirin (Aspirin 81 Mg Ectab) 81 mg PO QAM [facility] Stop: 05/09/23 08:59 Clopidogrel Bisulfate (Clopidogrel Bisulfate 75 Mg Tab) 75 mg PO QAM [facility] Stop: 05/09/23 08:59 Dextrose (Dextrose 50% 50 Ml Syringe) 25 - 50 ml IV UD PRN; Protocol PRN Reason: Hypoglycemia Protocol Stop: 05/08/23 12:52 Enoxaparin Sodium (Enoxaparin Inj 40 Mg/0.4 Ml Syr) 40 mg SQ Q24H [place] Stop: 05/08/23 12:59 Last Admin: 04/08/23 14:32 Dose: 40 mg Folic Acid (Folic Acid 1 Mg Tab) 1 mg PO QAM [facility] Stop: 05/09/23 08:59 Gabapentin (Gabapentin 600 Mg Tab) 600 mg PO Q12H [facility] Stop: 04/11/23 06:01 Gabapentin (Gabapentin 600 Mg Tab) 600 mg PO Q24H [facility] Stop: 04/12/23 06:01 Gabapentin (Gabapentin 600 Mg Tab) 600 mg PO Q8H [facility] Stop: 04/10/23 06:01 Glucagon (Glucagon For Inj 1 Mg Vial) 1 mg SQ UD PRN; Protocol PRN Reason: Hypoglycemia Protocol Stop: 05/08/23 12:52 Glucose (Glucose 10 Tab/Tube) 4 - 8 tab PO UD PRN; Protocol PRN Reason: Hypoglycemia Treatment Stop: 05/08/23 12:52 Glucose (Glucose 40% Gel 15 Gm Tube) 15 - 30 gm PO UD PRN; Protocol PRN Reason: Hypoglycemia Protocol Stop: 05/08/23 12:52 Cefepime HCl 2,000 mg/ Syringe 20 mls @ 5 mls/min IV Q12H [place]; Protocol Stop: 04/15/23 12:59 Last Admin: 04/09/23 01:37 Dose: 5 mls/min Vancomycin HCl 1,750 mg/ (Sodium Chloride) 535 mls @ 200 mls/hr IV Q12H [facility] Stop: 04/16/23 00:00 Last Infusion: 04/09/23 02:36 Dose: Infused Lorazepam 1 mg/ Syringe 1 mls @ 2 mls/min IV UD PRN; Protocol PRN Reason: EtOH Withdrawal AWSS Score 6,7 Stop: 05/08/23 15:24 Lorazepam 2 mg/ Syringe 2 mls @ 2 mls/min IV UD PRN; Protocol PRN Reason: EtOH Withdrawal AWSS Score 8,9 Stop: 05/08/23 15:24 Lorazepam 3 mg/ Syringe 3 mls @ 2 mls/min IV ONCE PRN; Protocol PRN Reason: EtOH Withdrawal AWSS Score 10+ Insulin Aspart (Insulin Aspart Per Unit Charge) 0 units SC ACHS [facility] Stop: 05/08/23 12:52 Last Admin: 04/08/23 20:40 Dose: 6 units Insulin Glargine (Lantus Per Unit Charge) 10 units SQ BID [facility] Stop: 05/08/23 20:59 Last Admin: 04/08/23 20:40 Dose: 10 units Ketorolac Tromethamine (Ketorolac Tromethamine 15 Mg/Ml Vial) 15 mg IV Q6H PRN PRN Reason: Pain Stop: 04/13/23 15:15 Lisinopril (Lisinopril 40 Mg Tab) 40 mg PO [facility] Stop: 05/09/23 08:59 Metoprolol Succinate (Metoprolol Succ 25mg Ext Rel Tab) 25 mg PO [facility] Stop: 05/09/23 08:59 Miscellaneous (Carbohydrates For Hypoglycemia ) 15 - 30 gm PO UD PRN PRN Reason: Hypoglycemia Protocol Stop: 05/08/23 12:52 Miscellaneous Information (Vancomycin Consult Active) 1 each N/A UD PRN PRN Reason: Consult Stop: 05/08/23 12:52 Multivitamins (Multivitamin Tab) 1 tab PO [facility] Stop: 05/09/23 08:59 Ondansetron HCl (Ondansetron Inj 2 Mg/Ml 2 Ml Vial) 4 mg IV Q6H PRN PRN Reason: Nausea And Vomiting Stop: 05/08/23 15:15 Polyethylene Glycol (Polyethylene (Miralax) 17 Gm Pack) 17 gm PO DAILY PRN PRN Reason: Constipation Stop: 05/08/23 15:15 Rosuvastatin Calcium (Rosuvastatin Calcium 20 Mg Tab) 40 mg PO [facility] Stop: 05/08/23 11:29 Last Admin: 04/08/23 12:00 Dose: 40 mg Thiamine HCl (Thiamine Hcl 100 Mg Tab) 100 mg PO [facility] Stop: 05/09/23 08:59
[2023-04-09 07:48] LABS: Estimated Average Glucose 269 mg/dl
[2023-04-09] MEDS ORDERED: lisinopril 20 MG TAB PO SCH (09:00)
[2023-04-09] MEDS: LANTUS PER UNIT CHARGE SQ SCH ×2 (09:19→20:56)
[2023-04-09] MEDS: INSULIN ASPART PER UNIT CHARGE SC SCH ×4 (09:19→20:17)
[2023-04-09] MEDS: CLOPIDOGREL BISULFATE 75 MG TAB PO SCH (09:20)
[2023-04-09] MEDS: METOPROLOL SUCC 25MG EXT REL TAB PO SCH (09:20)
[2023-04-09] MEDS: THIAMINE HCL 100 MG TAB PO SCH (09:20)
[2023-04-09] MEDS: lisinopril 40 MG TAB PO SCH (09:20)
[2023-04-09] MEDS: ROSUVASTATIN CALCIUM 20 MG TAB PO SCH (09:20)
[2023-04-09] MEDS: MULTIVITAMIN TAB PO SCH (09:20)
[2023-04-09] MEDS: FOLIC ACID 1 MG TAB PO SCH (09:20)
[2023-04-09] MEDS: ASPIRIN 81 MG ECTAB PO SCH (09:21)
[2023-04-09] MEDS: VANCOMYCIN HCL 1,750 MG in SODIUM CHLORIDE 0.9% 500 ML IV SCH ×2 (11:54→23:05)
[2023-04-09] MEDS: EZETIMIBE 10 MG TAB PO SCH (11:54)
[2023-04-09] MEDS: EMPAGLIFLOZIN 10 MG TAB PO SCH (11:54)
[2023-04-09] MEDS: ENOXAPARIN INJ 40 MG/0.4 ML SYR SQ SCH (12:50)
--- NOTE | 2023-04-09 15:29 | Hospitalist Progress Note ---
Date of Service April 09, 2023 Assessment & Plan (1) Cellulitis of lower leg: (2) Open leg wound: (3) Diabetes mellitus type II, uncontrolled: (4) Dyslipidemia: (5) CAD, multiple vessel: (6) Hypertension: Plan Pt is a 57yoM with PMhx significant for DMII, Hx of multivessel CAD with stent placement in 2020, HLD, HTN and chronic left lower extremity wound admitted with concerning progression of wound. Pt states that he stopped taking ALL of his medications about 5 months ago after losing his insurance. Cellulitis Left lower extremity wound, open, chronic On admission, pt stated that LLE wound has been more painful and red for the few days prior to admission Previously followed with wound care but EPIC chart review showed that he missed appointments in August Noted episodes of fevers and chills at home, was afebrile on admission WBC was decreased, no signs of sepsis at that time Wound Cx growing Group B strep and Blood Cx x2 with NGTD Venous Doppler ordered by the ED with no signs of acute DVT MRI LLE showing cellulitis and no concerns for osteomyelitis Received a dose of Rocephin in the ED Continue with Cefepime (to cover for pseudomonas in a diabetic) and Vanc Narrow abx based on Cx results- currently awaiting sensitivities Wound care consult placed- appreciate recs CM consult placed to assist with continuity of care after discharge -Pt scheduled to follow up with [facility] in April, appt cannot be moved up per CM -However, once he follows up should be able to get medications from there/covered DMII Glucose level of 296 on admission EPIC chart review notes recent hgba1c of 8.6 in August 2022 Repeat hgba1c this admission of 11 Pt states he has not been taking his medications since August Was previously prescribed Jardiance 25mg and Trulicity -Jardiance re-started by cardiology Basal/bolus insulin regimen as well while admitted CM consult to assist with meds/continuity of care after discharge -Pt scheduled to follow up with [facility] in April, appt cannot be moved up per CM -However, once he follows up should be able to get medications from there/covered Multivessel CAD s/p stent placement in RCA Atypical chest pain Pt with multivessel CAD s/p stent placement in RCA in 2020 Pt previously prescribed Imdur 30mg, metoprolol succ 50mg qAM, plavix 75mg daily and aspirin 81mg Followed with [facility] cardiology, EPIC chart review notes last appt in Jan 2022 Has not been taking any medications since August 2022 Cardiology consult placed for further cardiac med management/recs for alternatives if possible in the setting of no insurance. -Re-started on plavix 75mg daily, aspirin 81mg, metoprolol, lisinopril (dose increased), crestor -Zetia added CM consult to assist with meds/continuity of care after discharge as well Pt scheduled to follow up with [facility] in April, appt cannot be moved up per CM -However, once he follows up should be able to get medications from there/covered HTN Previously prescribed lisinopril 10mg and metoprolol as noted above Currently on increased lisinopril dose and metoprolol per Cardiology Continue to monitor HLD Previously prescribed rosuvastatin 40mg Re-started in setting of DMII and known CAD Elevated lipids on panel Continue crestor, zetia added by cardiology CODE STATUS: Full code DVT prophylaxis: Lovenox SQ Diet: DMII, HH Dispo: Med/Surg with tele Admission and Anticipated Discharge Date Admission Date: April 08, 2023 Subjective Pt had no acute concerns when seen. Stated that he felt better. Stated that presenting symptoms had resolved. Was inquiring about discharge. Review of Systems Review of Systems: All systems reviewed & are unremarkable except as noted in Subjective Physical Exam Physical Exam: General: Alert, oriented. No acute distress Skin: LLE with bandaged wound Psych: Appropriate mood and affect Neuro: No gross deficits while laying in bed HEENT: NC/AT Chest: Nontender to palpation. CV: RRR Resp: Breath sounds clear bilaterally, no increased effort of breathing. Abdomen: Soft, nontender, nondistended. Extremities: LLE with bandaged wound Results & Data Results & Data Vital Signs (Past 12 Hours) Vital Signs Temp Pulse Pulse Resp BP Pulse Ox O2 Del Method 04/09/23 15:21 37.2 C 77 18 154/88 H 95 Room Air 04/09/23 15:00 61 04/09/23 11:21 36.8 C 59 L 18 142/83 H 95 Room Air 04/09/23 09:39 60 04/09/23 07:39 36.5 C 59 L 18 146/83 H 97 Room Air 04/09/23 03:57 36.7 C 63 20 144/89 H 97 Room Air
[2023-04-10] MEDS: CEFEPIME 2,000 MG in SYRINGE 0 ML IV SCH ×2 (01:36→13:14)
[2023-04-10] MEDS: GABAPENTIN 600 MG TAB PO SCH ×2 (05:43→18:04)
[2023-04-10 06:07] LABS: Basophils # (auto) 0.04 K/uL (0.00-0.20); Basophils % (auto) 0.8 %; Eosinophils % (auto) 4.1 %; Hemoglobin 16.3 g/dl (14.0-18.0); Immature Granulocytes # (auto) 0.01 K/uL (0.01-0.20); Immature Granulocytes % (auto) 0.2 %; Lymphocytes # (auto) 1.82 K/uL (1.20-3.40); Lymphocytes % (auto) 37.8 %; Mean Corpuscular Hemoglobin 34.2 pg (25.0-34.0); Mean Corpuscular Hgb Conc 35.4 g/dL (32.0-36.0); Mean Corpuscular Volume 96.6 fL (80.0-100.0); Monocytes # (auto) 0.45 K/uL (0.11-0.59); Monocytes % (auto) 9.3 %; Neutrophils % (auto) 47.8 %; Platelet Count 168 K/uL (130-400); RDW Coefficient of Variation 11.7 % (11.5-14.5); RDW Standard Deviation 41.4 fL (36.4-46.3); Red Blood Count 4.76 M/uL (4.70-6.10); White Blood Count 4.82 K/ul (4.8-10.8)
[2023-04-10 06:13] LABS: Albumin Globulin Ratio 1.4 (0.9-2); Albumin Level 3.9 gm/dl (3.4-5.0); BUN Creatinine Ratio 23.6 (10-20); Bilirubin,Total 0.8 mg/dl (0.2-1.0); Calcium 9.3 mg/dl (8.6-10.3); Creatinine Clr Calc Pharmacy 147.3 ml/min; Est GFR (African American) 120.9 ml/min; Est GFR (Non-African American) 104.3 ml/min; Globulin 2.7 gm/dl (2.5-4.0); Phosphorus 4.7 mg/dl (2.5-4.9); Potassium 4.1 mmol/L (3.5-5.1); Total Protein 6.6 gm/dl (6.0-8.3)
--- NOTE | 2023-04-10 07:10 | Cardiology Progress Note ---
Date of Service April 10, 2023 Assessment & Plan (1) Cellulitis of lower leg: (2) CAD, multiple vessel: (3) Hypertensive urgency: Plan IMPRESSION: Medically complex 57-year-old male who initially presented to [facility] emergency department due to left lower extremity cellulitis. Patient markedly hypertensive on presentation likely due to medication noncompliance. Asymptomatic without chest pain or shortness of breath. Occasional headaches--possibly due to hypertension. PLAN: Multivessel CAD: -Multivessel CAD, history of abnormal stress testing undergoing cardiac catheterization receiving x2 GALLO to the mRCA (Hammond 3.5mm x 26mm and 3.5mm x15mm), 2020. Right radial approach taken. -Repeat cath: Diffuse nonobstructive CAD of the LAD and LCx, however, in the very distal portion of the LAD there is an 80 to 90% concentric stenoses. The RCA is occluded at the stented site proximally and fills with a generous flow of left to right collaterals distally, 02/05/2022 at [facility] with Dr. Melissa -Echocardiogram with preserved LV systolic function and no wall motion abnormalities. No valvular disease. -LDL significantly uncontrolled, 149. AST and ALT elevated. Liver ultrasound this admission showing hepatic steatosis. Hypertension: Initially elevated due to medication noncompliance x 6 months. Improvement with lisinopril and metoprolol over the last 24 hours. Lower extremity cellulitis/nonhealing wound: Lower extremity MRI imaging consistent with cellulitis, no evidence of osteomyelitis. Lower extremity venous duplex without evidence of DVT Blood cultures--preliminary no growth Wound culture growing group B beta strep Antibiotic treatment per primary team Encourage improved blood blood sugar control. A1c uncontrolled, 11%. Previously on Jardiance. Case discussed with Dr. Anne, please see physician attestation for further plan of care. Admission and Anticipated Discharge Date Admission Date: April 08, 2023 Supervising Physician Co-Signing Physician Notes Attending Staff: Pt seen and evaluated with [facility] staff. 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 Single antiplatelet to simplify regimen for enhanced compliance * EKG - No active ischemic changes * ECHO - LVEF 60-65%; no major valvular disease * Significant BP elevation + CASIANO - HTNsive urgency - improved * Creat 0.7, K+ 4.1 * Continue Lisinopril to 40 mg po per day- (04/09) * Continue Toprol XL 25 mg po per day * Current Goal SBP 130 mmHg - at Goal * Not markedly volume overloaded -no diuretics at present * UA for Proteinuria - Negative * HBA1C - 11% - outpatient Endocrine evaluation * LDL 149, AST and ALT are elevated (reviewed literature) * Will recheck LFTs as an outpt to make certain they are not increasing significantly * Trial of High potency statin * Continue Crestor 40 mg po per day * Continue Zetia 10 mg po per day * May need [id number] as an outpt * Goal LDL <55 (known premature CAD) * Non-Smoker * MVI + thiamine + Folate * TSH - 4.6 * Outpatient Sleep Study * Left Lower Extremity - ABX * Will set up with [facility] for outpatient management * Please call back with any additional questions Elder Anne Subjective 57-year-old male with past medical history of multivessel coronary disease initially presented to [facility] emergency department yesterday due to worsening left lower extremity pain and a nonhealing ulceration. Blood pressure is markedly hypertensive due to noncompliance with medications over the last 6 months or so. 04/08/2023: Patient was restarted on dual antiplatelet therapy with aspirin and Plavix. Lisinopril was restarted and increased to 20 mg daily. Metoprolol succinate was restarted at 25 mg daily. Echocardiogram revealed a normal LVEF of 60 to 65% without wall motion abnormalities. No significant valvular pathology. Lower extremity MRI imaging consistent with cellulitis, no evidence of osteomyelitis. 04/09/2023: Lisinopril increased to 40 mg daily Heart rate stable, continue metoprolol succinate 25 mg daily A1c elevated, 11%Jardiance 10 mg daily added LDL uncontrolled, 149. AST and ALT abnormal--56/129, liver ultrasound showing hepatic steatosis. Rosuvastatin and Zetia continue 04/10/2023: Ongoing improvement with blood pressures this a.m. Telemetry - apc's / pvcs Review of Systems Review of Systems: All systems reviewed & are unremarkable except as noted in HPI & below Physical Exam Physical Exam: Obese No elevation in JVP [id number] Soft 2/6 systolic murmur CTA B + Left LE ulceration -dressed Chronic Venous Changes Constitutional: WD/WN, vitals as above no acute distress Neck: normal visual inspection and trachea midline Respiratory: normal respiratory effort, lungs clear to auscultation Cardiovascular: RRR, no murmur, no edema Heart Sounds: normal S1 and normal S2; no murmur Vessels: no JVD Extremities: no edema Gastrointestinal (Abdomen): normal bowel sounds, soft, nontender, no hepatosplenomegaly Skin: + ulcer (Left lower extremity ) Psychiatric: Orientation: alert and oriented x 3 Results & Data Vital Signs (Past 12 Hours) Vital Signs Temp Pulse Pulse Resp BP Pulse Ox O2 Del Method 04/10/23 04:10 36.6 C 66 18 123/78 94 Room Air 04/10/23 00:21 36.4 C L 58 L 18 109/71 95 Room Air 04/09/23 22:00 60 04/09/23 19:52 36.9 C 65 18 155/94 H 95 Room Air Laboratory Results Cardiac Enzymes 04/10/23 Range/Units 05:33 AST 95 H (13-39) U/L CBC 04/10/23 Range/Units 05:33 WBC 4.82 (4.8-10.8) K/ul RBC 4.76 (4.70-6.10) M/uL Hgb 16.3 (14.0-18.0) g/dl Hct 46.0 (42.0-52.0) % Plt Count 168 (130-400) K/uL Neut # (Auto) 2.30 (1.40-6.50) K/uL Lymph # (Auto) 1.82 (1.20-3.40) K/uL [place] # (Auto) 0.45 (0.11-0.59) K/uL Eos # (Auto) 0.20 (0.00-0.50) K/uL Baso # (Auto) 0.04 (0.00-0.20) K/uL Comprehensive Metabolic Panel 04/10/23 Range/Units 05:33 Sodium 138 (136-145) mmol/L Potassium 4.1 (3.5-5.1) mmol/L Chloride 108 H (98-107) mmol/L Carbon Dioxide 20 L (21-32) mmol/L BUN 17 (6-23) mg/dl Creatinine 0.72 (0.6-1.4) mg/dl Glucose 122 H (70-99(Fasting)) mg/dl Calcium 9.3 (8.6-10.3) mg/dl AST 95 H (13-39) U/L ALT 163 H (7-52) U/L Alkaline Phosphatase 69 (34-104) U/L Total Protein 6.6 (6.0-8.3) gm/dl Albumin 3.9 (3.4-5.0) gm/dl Intake and Output 04/09/23 04/10/23 04/10/23 22:59 06:59 14:59 Intake Total 240 / 2090 835 / 2090 Balance 240 / 2090 835 / 2090 Intake: IV 535 / 1070 Vancomycin HCl 1,750 mg In 535 / 1070 Sodium Chloride 0.9% 500 ml @ 200 mls/hr IV Q12H [facility] Rx#: [id number] Oral 240 / 1020 300 / 1020 Other: Weight 109.5 kg Weight Measurement Method Built in [facility] Medications Administered Current Inpatient Medications Al Hydrox/Mg Hydrox/Simethicone (Aluminum/Magnesium Susp 30 Ml Udc) 15 ml PO Q6H PRN PRN Reason: Heartburn Stop: 05/08/23 15:15 Aspirin (Aspirin 81 Mg Ectab) [facility] [place] Stop: 05/09/23 08:59 Last Admin: 04/09/23 09:21 Dose: 81 mg Clopidogrel Bisulfate (Clopidogrel Bisulfate 75 Mg Tab) [facility] [place] Stop: 05/09/23 08:59 Last Admin: 04/09/23 09:20 Dose: 75 mg Dextrose (Dextrose 50% 50 Ml Syringe) 25 - 50 ml IV UD PRN; Protocol PRN Reason: Hypoglycemia Protocol Stop: 05/08/23 12:52 Ezetimibe (Ezetimibe 10 Mg Tab) 10 mg PO [facility] Stop: 05/09/23 08:59 Last Admin: 04/09/23 11:54 Dose: 10 mg Empagliflozin (Empagliflozin 10 Mg Tab) 10 mg PO DAILY [facility] Stop: 05/09/23 08:59 Last Admin: 04/09/23 11:54 Dose: 10 mg Enoxaparin Sodium (Enoxaparin Inj 40 Mg/0.4 Ml Syr) 40 mg SQ Q24H [place] Stop: 05/08/23 12:59 Last Admin: 04/09/23 12:50 Dose: 40 mg Folic Acid (Folic Acid 1 Mg Tab) 1 mg PO QAM [facility] Stop: 05/09/23 08:59 Last Admin: 04/09/23 09:20 Dose: 1 mg Gabapentin (Gabapentin 600 Mg Tab) 600 mg PO Q12H [facility] Stop: 04/11/23 06:01 Gabapentin (Gabapentin 600 Mg Tab) 600 mg PO Q24H [facility] Stop: 04/12/23 06:01 Glucagon (Glucagon For Inj 1 Mg Vial) 1 mg SQ UD PRN; Protocol PRN Reason: Hypoglycemia Protocol Stop: 05/08/23 12:52 Glucose (Glucose 10 Tab/Tube) 4 - 8 tab PO UD PRN; Protocol PRN Reason: Hypoglycemia Treatment Stop: 05/08/23 12:52 Glucose (Glucose 40% Gel 15 Gm Tube) 15 - 30 gm PO UD PRN; Protocol PRN Reason: Hypoglycemia Protocol Stop: 05/08/23 12:52 Cefepime HCl 2,000 mg/ Syringe 20 mls @ 5 mls/min IV Q12H [facility]; Protocol Stop: 04/15/23 12:59 Last Admin: 04/10/23 01:36 Dose: 5 mls/min Vancomycin HCl 1,750 mg/ (Sodium Chloride) 535 mls @ 200 mls/hr IV Q12H [facility] Stop: 04/16/23 00:00 Last Infusion: 04/10/23 01:51 Dose: Infused Lorazepam 1 mg/ Syringe 1 mls @ 2 mls/min IV UD PRN; Protocol PRN Reason: EtOH Withdrawal AWSS Score 6,7 Stop: 05/08/23 15:24 Lorazepam 2 mg/ Syringe 2 mls @ 2 mls/min IV UD PRN; Protocol PRN Reason: EtOH Withdrawal AWSS Score 8,9 Stop: 05/08/23 15:24 Lorazepam 3 mg/ Syringe 3 mls @ 2 mls/min IV ONCE PRN; Protocol PRN Reason: EtOH Withdrawal AWSS Score 10+ Insulin Aspart (Insulin Aspart Per Unit Charge) 0 units SC ACHS [facility] Stop: 05/08/23 12:52 Last Admin: 04/09/23 20:17 Dose: Not Given Insulin Glargine (Lantus Per Unit Charge) 10 units SQ BID [facility] Stop: 05/08/23 20:59 Last Admin: 04/09/23 20:56 Dose: 10 units Ketorolac Tromethamine (Ketorolac Tromethamine 15 Mg/Ml Vial) 15 mg IV Q6H PRN PRN Reason: Pain Stop: 04/13/23 15:15 Lisinopril (Lisinopril 40 Mg Tab) 40 mg PO [facility] Stop: 05/09/23 08:59 Last Admin: 04/09/23 09:20 Dose: 40 mg Metoprolol Succinate (Metoprolol Succ 25mg Ext Rel Tab) 25 mg PO [facility] Stop: 05/09/23 08:59 Last Admin: 04/09/23 09:20 Dose: 25 mg Miscellaneous (Carbohydrates For Hypoglycemia ) 15 - 30 gm PO UD PRN PRN Reason: Hypoglycemia Protocol Stop: 05/08/23 12:52 Miscellaneous Information (Vancomycin Consult Active) 1 each N/A UD PRN PRN Reason: Consult Stop: 05/08/23 12:52 Multivitamins (Multivitamin Tab) 1 tab PO [facility] Stop: 05/09/23 08:59 Last Admin: 04/09/23 09:20 Dose: 1 tab Ondansetron HCl (Ondansetron Inj 2 Mg/Ml 2 Ml Vial) 4 mg IV Q6H PRN PRN Reason: Nausea And Vomiting Stop: 05/08/23 15:15 Polyethylene Glycol (Polyethylene (Miralax) 17 Gm Pack) 17 gm PO DAILY PRN PRN Reason: Constipation Stop: 05/08/23 15:15 Rosuvastatin Calcium (Rosuvastatin Calcium 20 Mg Tab) 40 mg PO [facility] Stop: 05/08/23 11:29 Last Admin: 04/09/23 09:20 Dose: 40 mg Thiamine HCl (Thiamine Hcl 100 Mg Tab) 100 mg PO [facility] Stop: 05/09/23 08:59 Last Admin: 04/09/23 09:20 Dose: 100 mg
--- NOTE | 2023-04-10 08:22 | Electrocardiogram Report ---
Test Reason : Blood Pressure : / mmHG Vent. Rate : 065 BPM Atrial Rate : 065 BPM P-R Int : 200 ms QRS Dur : 094 ms QT Int : 402 ms P-R-T Axes : 045 -25 056 degrees QTc Int : 418 ms Normal sinus rhythm Poor R wave progression, consider anterior MD vs. lead placement vs. LVH Nonspecific T wave abnormality Lateral leads Abnormal ECG When compared with ECG of 24-OCT-2020 04:41, Criteria for Inferior infarct are no longer Present Confirmed by Torsten Cho ([id number] on 04/10/2023 8:21:42 AM Referred By: REFERRED SELF Confirmed By:Torsten Cho
[2023-04-10] MEDS: METOPROLOL SUCC 25MG EXT REL TAB PO SCH (08:43)
[2023-04-10] MEDS: EMPAGLIFLOZIN 10 MG TAB PO SCH (08:44)
[2023-04-10] MEDS: MULTIVITAMIN TAB PO SCH (08:44)
[2023-04-10] MEDS: THIAMINE HCL 100 MG TAB PO SCH (08:44)
[2023-04-10] MEDS: lisinopril 40 MG TAB PO SCH (08:44)
[2023-04-10] MEDS: EZETIMIBE 10 MG TAB PO SCH (08:44)
[2023-04-10] MEDS: FOLIC ACID 1 MG TAB PO SCH (08:45)
[2023-04-10] MEDS: ROSUVASTATIN CALCIUM 20 MG TAB PO SCH (08:45)
[2023-04-10] MEDS: LANTUS PER UNIT CHARGE SQ SCH ×2 (08:45→21:00)
[2023-04-10] MEDS: ASPIRIN 81 MG ECTAB PO SCH (08:45)
[2023-04-10] MEDS: CLOPIDOGREL BISULFATE 75 MG TAB PO SCH (08:45)
[2023-04-10] MEDS: INSULIN ASPART PER UNIT CHARGE SC SCH ×4 (08:46→21:00)
[2023-04-10 10:39] LABS: Creatinine Clr Calc Pharmacy 131.8 ml/min; Est GFR (African American) 115.7 ml/min; Est GFR (Non-African American) 99.9 ml/min
--- NOTE | 2023-04-10 12:31 | Hospitalist Progress Note ---
Date of Service April 10, 2023 Assessment & Plan (1) Cellulitis of lower leg: (2) Open leg wound: (3) Diabetes mellitus type II, uncontrolled: (4) Dyslipidemia: (5) CAD, multiple vessel: (6) Hypertension: Plan Pt is a 57yoM with PMhx significant for DMII, Hx of multivessel CAD with stent placement in 2020, HLD, HTN and chronic left lower extremity wound admitted with concerning progression of wound. Pt states that he stopped taking ALL of his medications about 5 months ago after losing his insurance. Cellulitis Left lower extremity wound, open, chronic On admission, pt stated that LLE wound has been more painful and red for the few days prior to admission Previously followed with wound care but EPIC chart review showed that he missed appointments in August Noted episodes of fevers and chills at home, was afebrile on admission WBC was decreased, no signs of sepsis at that time Wound Cx growing Group B strep, staph and fabiola at this time and Blood Cx x2 with NGTD Venous Doppler ordered by the ED with no signs of acute DVT MRI LLE showing cellulitis and no concerns for osteomyelitis Received a dose of Rocephin in the ED Continue with Cefepime (to cover for pseudomonas in a diabetic) and Vanc Narrow abx based on Cx results- currently awaiting sensitivities for po meds and d/c Wound care consult placed- appreciate recs CM consult placed to assist with continuity of care after discharge -Pt scheduled to follow up with [facility] in April, appt cannot be moved up per CM -However, once he follows up should be able to get medications from there/covered -Pt concerned about cost of stay- CM to help with medicaid application DMII Glucose level of 296 on admission EPIC chart review notes recent hgba1c of 8.6 in August 2022 Repeat hgba1c this admission of 11 Pt states he has not been taking his medications since August Was previously prescribed Jardiance 25mg and Trulicity -Jardiance re-started by cardiology Basal/bolus insulin regimen as well while admitted CM consult to assist with meds/continuity of care after discharge -Pt scheduled to follow up with [facility] in April, appt cannot be moved up per CM -However, once he follows up should be able to get medications from there/covered -Pt concerned about cost of stay- CM to help with medicaid application Multivessel CAD s/p stent placement in RCA Atypical chest pain Pt with multivessel CAD s/p stent placement in RCA in 2020 Pt previously prescribed Imdur 30mg, metoprolol succ 50mg qAM, plavix 75mg daily and aspirin 81mg Followed with [facility] cardiology, EPIC chart review notes last appt in Jan 2022 Has not been taking any medications since August 2022 Cardiology consult placed for further cardiac med management/recs for alternatives if possible in the setting of no insurance. -Re-started on plavix 75mg daily, aspirin 81mg, metoprolol, lisinopril (dose increased), crestor -Zetia added CM consult to assist with meds/continuity of care after discharge as well -Pt scheduled to follow up with [facility] in April, appt cannot be moved up per CM -However, once he follows up should be able to get medications from there/covered -Pt concerned about cost of stay- CM to help with medicaid application HTN Previously prescribed lisinopril 10mg and metoprolol as noted above Currently on increased lisinopril dose and metoprolol per Cardiology Continue to monitor HLD Previously prescribed rosuvastatin 40mg Re-started in setting of DMII and known CAD Elevated lipids on panel Continue crestor, zetia added by cardiology CODE STATUS: Full code DVT prophylaxis: Lovenox SQ Diet: DMII, HH Dispo: Med/Surg with tele Admission and Anticipated Discharge Date Admission Date: April 08, 2023 Subjective Stated that he felt better. Stated that presenting symptoms had resolved. Concerned today about the increasing cost of his stay as he does not have insurance. Asking about being discharged. Review of Systems Review of Systems: All systems reviewed & are unremarkable except as noted in Subjective Physical Exam Physical Exam: General: Alert, oriented. No acute distress Skin: LLE with bandaged wound Psych: Appropriate mood and affect Neuro: No gross deficits while laying in bed HEENT: NC/AT Chest: Nontender to palpation. CV: RRR Resp: Breath sounds clear bilaterally, no increased effort of breathing. Abdomen: Soft, nontender, nondistended. Extremities: LLE with bandaged wound Results & Data Results & Data Vital Signs (Past 12 Hours) Vital Signs Temp Pulse Pulse Pulse Resp BP Pulse Ox 04/10/23 12:06 36.6 C 67 18 116/74 95 04/10/23 08:08 36.6 C 56 L 18 111/74 96 04/10/23 07:25 63 04/10/23 04:10 36.6 C 66 18 123/78 94 O2 Del Method 04/10/23 12:06 Room Air 04/10/23 08:08 Room Air 04/10/23 07:25 04/10/23 04:10 Room Air
[2023-04-10] MEDS: ENOXAPARIN INJ 40 MG/0.4 ML SYR SQ SCH (13:14)
[2023-04-10] MEDS ORDERED: VANCOMYCIN CONSULT ACTIVE PRN (17:11)
--- NOTE | 2023-04-10 17:59 | Pharmacy Report ---
Pharmacy PK ABX Note - Date of Service April 10, 2023 - Assessment and Plan Assessment 57 year old M receiving vancomycin and cefepime for treatment of cellulitis. Blood culture NGTD. Leg culture with Group B Beta Strep and staph species. Renal function stable. Day #3 of antimicrobial therapy. Plan Vancomycin * Patient previous on vancomycin 1750 mg IV q12 (@00,12) with random level indicating this could provide subtherapeutic levels. Vancomycin d/c today but then restarted later today. Patient missed noon dose. * Loading dose: 2000 mg IV x 1 (~20 mg/kg) * Maintenance dose: 1250 mg IV every 8 hours * Regimen is predicted to achieve target AUC/CURTIS of 400-600 mg/L.hr * Will obtain a level around steady state if vancomycin continued. Pharmacy will continue to follow and will adjust dose/frequency as necessary. Thank you. Pharmacy has transitioned to AUC monitoring for vancomycin. AUC/CURTIS is the preferred PK/PD target and is associated with decreased risk of nephrotoxicity compared to traditional trough targets.
[2023-04-10] MEDS ORDERED: VANCOMYCIN HCL 2,000 MG in SODIUM CHLORIDE 0.9% 500 ML IV ONE (18:00)
[2023-04-11] MEDS: CEFEPIME 2,000 MG in SYRINGE 0 ML IV SCH ×2 (02:12→13:35)
[2023-04-11] MEDS: VANCOMYCIN HCL 1,250 MG in SODIUM CHLORIDE 0.9% 250 ML IV SCH ×2 (02:13→09:52)
[2023-04-11] MEDS: GABAPENTIN 600 MG TAB PO SCH (05:27)
[2023-04-11 06:21] LABS: Basophils # (auto) 0.04 K/uL (0.00-0.20); Basophils % (auto) 0.8 %; Eosinophils # (auto) 0.22 K/uL (0.00-0.50); Eosinophils % (auto) 4.6 %; Hematocrit (blood only) 43.3 % (42.0-52.0); Hemoglobin 15.5 g/dl (14.0-18.0); Lymphocytes % (auto) 39.7 %; Mean Corpuscular Hemoglobin 34.6 pg (25.0-34.0); Mean Corpuscular Hgb Conc 35.8 g/dL (32.0-36.0); Mean Corpuscular Volume 96.7 fL (80.0-100.0); Mean Platelet Volume 10.9 fL (9.4-12.4); Monocytes # (auto) 0.54 K/uL (0.11-0.59); Monocytes % (auto) 11.3 %; Neutrophils # (auto) 2.09 K/uL (1.40-6.50); Neutrophils % (auto) 43.6 %; Platelet Count 182 K/uL (130-400); RDW Coefficient of Variation 11.6 % (11.5-14.5); RDW Standard Deviation 41.6 fL (36.4-46.3); Red Blood Count 4.48 M/uL (4.70-6.10); White Blood Count 4.79 K/ul (4.8-10.8)
[2023-04-11 06:42] LABS: Albumin Globulin Ratio 1.5 (0.9-2); Albumin Level 3.8 gm/dl (3.4-5.0); BUN Creatinine Ratio 21.3 (10-20); Bilirubin,Total 0.7 mg/dl (0.2-1.0); Creatinine Clr Calc Pharmacy 116.9 ml/min; Est GFR (African American) 110.8 ml/min; Est GFR (Non-African American) 95.6 ml/min; Globulin 2.5 gm/dl (2.5-4.0); Phosphorus 4.2 mg/dl (2.5-4.9); Potassium 3.9 mmol/L (3.5-5.1); Total Protein 6.3 gm/dl (6.0-8.3)
[2023-04-11] MEDS: EZETIMIBE 10 MG TAB PO SCH (09:43)
[2023-04-11] MEDS: MULTIVITAMIN TAB PO SCH (09:43)
[2023-04-11] MEDS: ASPIRIN 81 MG ECTAB PO SCH (09:44)
[2023-04-11] MEDS: CLOPIDOGREL BISULFATE 75 MG TAB PO SCH (09:44)
[2023-04-11] MEDS: ROSUVASTATIN CALCIUM 20 MG TAB PO SCH (09:44)
[2023-04-11] MEDS: METOPROLOL SUCC 25MG EXT REL TAB PO SCH (09:44)
[2023-04-11] MEDS: THIAMINE HCL 100 MG TAB PO SCH (09:44)
[2023-04-11] MEDS: lisinopril 40 MG TAB PO SCH (09:44)
[2023-04-11] MEDS: EMPAGLIFLOZIN 10 MG TAB PO SCH (09:44)
[2023-04-11] MEDS: FOLIC ACID 1 MG TAB PO SCH (09:44)
[2023-04-11] MEDS: INSULIN ASPART PER UNIT CHARGE SC SCH ×2 (09:45→13:35)
[2023-04-11] MEDS: LANTUS PER UNIT CHARGE SQ SCH (09:45)
--- NOTE | 2023-04-11 10:22 | Hospitalist Progress Note ---
Date of Service April 11, 2023 Assessment & Plan (1) Cellulitis of lower leg: (2) Open leg wound: (3) Diabetes mellitus type II, uncontrolled: (4) Dyslipidemia: (5) CAD, multiple vessel: (6) Hypertension: Plan Pt is a 57yoM with PMhx significant for DMII, Hx of multivessel CAD with stent placement in 2020, HLD, HTN and chronic left lower extremity wound admitted with concerning progression of wound. Pt states that he stopped taking ALL of his medications about 5 months ago after losing his insurance. Cellulitis Left lower extremity wound, open, chronic On admission, pt stated that LLE wound has been more painful and red for the few days prior to admission Previously followed with wound care but EPIC chart review showed that he missed appointments in August Noted episodes of fevers and chills at home, was afebrile on admission WBC was decreased, no signs of sepsis at that time Wound Cx growing Group B strep, staph and fabiola at this time and Blood Cx x2 with NGTD Venous Doppler ordered by the ED with no signs of acute DVT MRI LLE showing cellulitis and no concerns for osteomyelitis Received a dose of Rocephin in the ED Continue with Cefepime (to cover for pseudomonas in a diabetic) and Vanc Narrow abx based on Cx results- currently awaiting sensitivities for po meds and d/c Wound care consult placed- appreciate recs CM consult placed to assist with continuity of care after discharge -Pt scheduled to follow up with [facility] in April, appt cannot be moved up per CM -However, once he follows up should be able to get medications from there/covered -Pt concerned about cost of stay- CM to help with medicaid application DMII Glucose level of 296 on admission EPIC chart review notes recent hgba1c of 8.6 in August 2022 Repeat hgba1c this admission of 11 Pt states he has not been taking his medications since August Was previously prescribed Jardiance 25mg and Trulicity -Jardiance re-started by cardiology Basal/bolus insulin regimen as well while admitted CM consult to assist with meds/continuity of care after discharge -Pt scheduled to follow up with [facility] in April, appt cannot be moved up per CM -However, once he follows up should be able to get medications from there/covered -Pt concerned about cost of stay- CM to help with medicaid application Multivessel CAD s/p stent placement in RCA Atypical chest pain Pt with multivessel CAD s/p stent placement in RCA in 2020 Pt previously prescribed Imdur 30mg, metoprolol succ 50mg qAM, plavix 75mg daily and aspirin 81mg Followed with [facility] cardiology, EPIC chart review notes last appt in Jan 2022 Has not been taking any medications since August 2022 Cardiology consult placed for further cardiac med management/recs for alternatives if possible in the setting of no insurance. -Re-started on plavix 75mg daily, aspirin 81mg, metoprolol, lisinopril (dose increased), crestor -Zetia added CM consult to assist with meds/continuity of care after discharge as well -Pt scheduled to follow up with [facility] in April, appt cannot be moved up per CM -However, once he follows up should be able to get medications from there/covered -Pt concerned about cost of stay- CM to help with medicaid application HTN Previously prescribed lisinopril 10mg and metoprolol as noted above Currently on increased lisinopril dose and metoprolol per Cardiology Continue to monitor HLD Previously prescribed rosuvastatin 40mg Re-started in setting of DMII and known CAD Elevated lipids on panel Continue crestor, zetia added by cardiology CODE STATUS: Full code DVT prophylaxis: Lovenox SQ Diet: DMII, HH Dispo: Med/Surg with tele Admission and Anticipated Discharge Date Admission Date: April 08, 2023 Physical Exam Physical Exam: General: Alert, oriented. No acute distress Skin: LLE with bandaged wound Psych: Appropriate mood and affect Neuro: No gross deficits while laying in bed HEENT: NC/AT Chest: Nontender to palpation. CV: RRR Resp: Breath sounds clear bilaterally, no increased effort of breathing. Abdomen: Soft, nontender, nondistended. Extremities: LLE with bandaged wound Results & Data Results & Data Vital Signs (Past 12 Hours) Vital Signs Temp Pulse Pulse Pulse Resp BP Pulse Ox 04/11/23 07:42 36.6 C 65 13 128/74 95 04/11/23 07:19 56 L 04/11/23 02:59 36.6 C 59 L 16 114/74 97 04/10/23 22:49 36.3 C L 57 L 18 113/70 98 O2 Del Method 04/11/23 07:42 Room Air 04/11/23 07:19 04/11/23 02:59 Room Air 04/10/23 22:49 Room Air
--- NOTE | 2023-04-11 13:21 | Discharge Summary ---
Discharge Summary Date of Service April 11, 2023 Notes For Next Care Provider Please assist with ensuring medication compliance, pt lost medical insurance. Please encourage consistent wound care follow up. Please encourage abstinence from alcohol use especially while on metformin Medication Changes From Visit Started on the following once more: Crestor 40mg daily Aspirin 81mg daily Plavix 75mg daily Metoprolol succinate 25mg daily Lisinopril 40mg daily Jardiance 10mg daily Newly started on: Zetia 10mg daily Metformin 1000mg BID (titration up to that dose) Prescribed for cellulitis/LLE wound, total 14 day treatment Cefdinir 300mg BID x 10 more days Admission HPI Per Admitting Provider Pt is a 57yoM with PMhx significant for DMII, Hx of multivessel CAD with stent placement in 2020, HLD, HTN and chronic left lower extremity wound admitted with concerning progression of wound. Pt states that he stopped taking ALL of his medications about 5 months ago after losing his insurance. Hx obtained from pt and [facility] outpatient records. States that he has had this wound which originally began in the 1980s. Has been receiving care for it since then. Wound has progressed and was following with the wound care clinic but states that he lost his insurance and has not been following there anymore. Has also stopped taking all his medications including his diabetic and cardiac medications. States that for the past 3-5 days has been having chills and sweats, felt feverish but no documented fever. Notes increased pain in the lower extremity. Followed with [facility], last pcp note in Dec 2022 noted that pt had informed office that he no longer had insurance and was referred to [facility] for further care. Admission Exam Per Admitting Provider General: Alert, oriented. No acute distress Skin: LLE with open wound and surrounding erythema Psych: Appropriate mood and affect Neuro: No gross deficits while laying in bed HEENT: NC/AT Chest: Nontender to palpation. CV: RRR Resp: Breath sounds clear bilaterally, no increased effort of breathing. Abdomen: Soft, nontender, nondistended. Extremities: LLE with open wound and surrounding erythema Principal Dx & Hospital Course #1 = Principal Diagnosis (1) Cellulitis of lower leg: (2) Open leg wound: (3) Diabetes mellitus type II, uncontrolled: (4) Dyslipidemia: (5) CAD, multiple vessel: (6) Hypertension: Plan Pt is a 57yoM with PMhx significant for DMII, Hx of multivessel CAD with stent placement in 2020, HLD, HTN and chronic left lower extremity wound admitted with concerning progression of wound. Pt states that he stopped taking ALL of his medications about 5 months ago after losing his insurance. Cellulitis Left lower extremity wound, open, chronic On admission, pt stated that LLE wound has been more painful and red for the few days prior to admission Previously followed with wound care but EPIC chart review showed that he missed appointments in August Noted episodes of fevers and chills at home, was afebrile on admission WBC was decreased, no signs of sepsis at that time Wound Cx growing Group B strep, MSSA and fabiola at this time and Blood Cx x2 with no growth to date Venous Doppler ordered by the ED with no signs of acute DVT MRI LLE showing cellulitis and no concerns for osteomyelitis Received a dose of Rocephin in the ED Treated with empiric Cefepime and Vancomycin for about 4 days and discharged with an additional 10 days of PO cefdinir. Fabiola thought to be a contaminant. Pt was seen by wound care and has scheduled wound care followup on 04/16/23 after discharge. Case Management consult was placed to assist with continuity of care after discharge -Pt scheduled to follow up with [facility] in April, appt cannot be moved up per -However, once he follows up with [facility] should be able to get medications from there/covered -Pt concerned about cost of stay- to help with medicaid application [facility] and wound care follow up after discharge for continued care/assistance with medications DMII Glucose level of 296 on admission EPIC chart review notes recent hgba1c of 8.6 in August 2022 Repeat hgba1c this admission of 11 Pt states he has not been taking his medications since August Was previously prescribed Jardiance 25mg and Trulicity -Jardiance 25mg daily re-started by cardiology, continue Basal/bolus insulin regimen while admitted Also re-started his statin, rosuvastatin 40mg Discharged on Jardiance 25mg and metformin 1000mg BID with titration up to that dose as tolerated. Anticipate significant decrease in glucose levels/hgba1c over 3 months with above regimen. However, if glucose levels still elevated at that time, consider addition of insulin regimen based on cost and affordability. [facility] follow up after discharge. Multivessel CAD s/p stent placement in RCA Atypical chest pain Pt with multivessel CAD s/p stent placement in RCA in 2020 Pt previously prescribed Imdur 30mg, metoprolol succ 50mg qAM, plavix 75mg daily and aspirin 81mg Followed with [facility] cardiology, [facility] chart review notes last appt in Jan 2022 Has not been taking any medications since August 2022 Cardiology consult placed for further cardiac med management/recs for alternatives if possible in the setting of no insurance. -Re-started on plavix 75mg daily, aspirin 81mg, metoprolol succinate 25mg, lisinopril 40mg and crestor 40mg -Zetia added for further cholesterol control [facility] and [facility]ology follow up after discharge. HTN Previously prescribed lisinopril and metoprolol as noted above Discharged on lisinopril 40mg and metoprolol succinate 40mg BP controlled on d/c, continue [facility] and cardiology follow up after discharge. HLD Previously prescribed rosuvastatin 40mg Re-started in setting of DMII and known CAD Elevated lipids on panel Continue crestor 40mg and zetia 10mg [facility] and cardiology follow up after discharge. Chronic Alcohol Use Pt notes that he drinks about 4 glasses of wine daily. States that he has done that for some time. Was on AWSS active protocol with gabapentin and IV Ativan while hospitalized Thiamine and folate while hospitalized, consider continuing after discharge Did not have active withdrawal while hospitalized Please encourage abstinence from alcohol use especially while on metformin [facility] follow up Discharge Exam General: Alert, oriented. No acute distress Skin: LLE with bandaged wound Psych: Appropriate mood and affect Neuro: No gross deficits while laying in bed HEENT: NC/AT Chest: Nontender to palpation. CV: RRR Resp: Breath sounds clear bilaterally, no increased effort of breathing. Abdomen: Soft, nontender, nondistended. Extremities: LLE with bandaged wound Updated Medication List Medication Instructions Recorded Confirmed Type aspirin 81 mg tablet,delayed 81 mg PO QAM #30 tabs 04/11/23 Rx release cefdinir 300 mg capsule 300 mg PO BID #20 caps 04/11/23 Rx clopidogrel 75 mg tablet 75 mg PO QAM #30 tabs 04/11/23 Rx empagliflozin 10 mg tablet 10 mg PO DAILY #30 tabs 04/11/23 Rx (Jardiance) ezetimibe 10 mg tablet 10 mg PO QAM #30 tabs 04/11/23 Rx lisinopril 40 mg tablet (Zestril) 40 mg PO QAM #30 tabs 04/11/23 Rx metformin 500 mg tablet 1,000 mg (2 x 500 mg) PO BID #120 04/11/23 Rx tabs metoprolol succinate 25 mg 25 mg PO QAM #30 tabs 04/11/23 Rx tablet,extended release 24 hr rosuvastatin 40 mg tablet 40 mg PO DAILY #30 tabs 04/11/23 Rx Hospital Stay Data Consultations 04/08/23 10:18 ED Decision to Admit Stat 04/08/23 12:53 Consult Cardiology Routine Diagnostic Imagining Performed 04/08/23 07:37 US venous doppler LE LT Stat 04/08/23 10:56 MRI Lower Leg [MR lower leg LT wo/w con] Urgent 04/08/23 15:15 US RUQ [US liver] Urgent Venous Doppler Study 04/08/23 07:37 LEFT LOWER EXTREMITY VENOUS DOPPLER HISTORY: Acute pain and swelling of the left lower extremity pain, redness, swelling, open wounds COMPARISON STUDY: 04/19/2018 FINDINGS: There is normal compressibility, flow, and augmentation within the left lower extremity deep venous system. Left inguinal chain lymph nodes measuring up to 3.2 x 2.3 x 1.1 cm are likely reactive. IMPRESSION: No DVT within the left lower extremity. ACT 112: Negative or not required by law. Electronically signed by: Mauricio Bowman M.D. 04/08/2023 8:45 AM Lower Extremity MRI 04/08/23 10:56 Exam(s): MRI EXTREMITY W/WO Contrast IV Amt: 11cc gadavist EXAM: MR Left Lower Extremity Without and With Intravenous Contrast, Tibia and Fibula CLINICAL HISTORY: Reason for exam: r/o osteomyelitis. TECHNIQUE: Multiplanar magnetic resonance images of the left tibia and fibula without and with intravenous contrast. CONTRAST: Patient received 11cc gadavist of IV contrast COMPARISON: No relevant prior studies available. FINDINGS: Bones/joints: Unremarkable. No acute fracture. No dislocation. Soft tissues: Unremarkable. No abnormal contrast enhancement. No signal abnormalities suggest osteomyelitis.. Incidentally noted are a number of varices within the medial aspect of the left foot. Soft tissue inflammatory changes present to suggest cellulitis. IMPRESSION: Findings consistent with cellulitis. No evidence of osteomyelitis Electronically signed by: Virgilio Menezes MD 04/08/23 20:41 PM Liver Ultrasound 04/08/23 15:15 US liver CLINICAL HISTORY: transaminitis COMPARISON STUDY: CT of the abdomen May 13, 2006. Right upper quadrant ultrasound October 22, 2020. FINDINGS: Hepatic echogenicity is increased. No hepatic lesions are identified. There is no biliary ductal dilatation status post cholecystectomy. The common bile duct measures 4 mm in caliber. Pancreatic body is normal. Head and tail are obscured. There is no right hydronephrosis. IMPRESSION: 1. Hepatic steatosis. 2. No biliary ductal dilatation status post cholecystectomy. ACT 112: Negative or not required by law. Electronically signed by: Sabas Choudhary M.D. 04/08/2023 4:35 PM Discharge Instructions Given to Patient (Per Discharging Provider) Mr. Roman, We admitted you with an infected wound and we are discharging you with 10 more days of antibiotics to treat it. We also re-started your heart, cholesterol and diabetes medications. Those are listed below. Please take them as prescribed as best you can. It is very important that you stay on your medications. You will be following up with [facility] in a few weeks. Please keep that appointment as they will help you with getting or refilling your medications as needed. We wish you the best. It was truly a pleasure taking care of you while you were here. Total Time Total Time Spent Total Time Spent (In Minutes): > 30 minutes
[2023-04-11] MEDS: ENOXAPARIN INJ 40 MG/0.4 ML SYR SQ SCH (13:36)
[2023-04-12] MEDS ORDERED: GABAPENTIN 600 MG TAB PO SCH (06:00)
--- NOTE | 2023-04-15 17:33 | Coding Query ---
CODING QUERY To promote full compliance with coding requirements relating to patient care, provider participation is requested in all cases of bank teller uncertainty. Please assist us with the question(s) below: Coding Question(s): Pt admitted with left leg cellulitis Group B strep, nonhealing leg ulcer. The Emergency Room record documented Venous Insufficiency leg ulcer. Please document, if known or suspected the etiology of the nonhealing leg ulcer. Patient stated that the wound(s) have been present since . Thanks for your help. Jd Baker [facility] Physician's Response(s): Unknown Principal Diagnosis: "that condition established after study, to be chiefly responsible for occasioning the admission of the patient to the hospital for care." Co-Existing Principal Diagnosis: "when two or more diagnoses equally meet the criteria for principal diagnosis as determined by the circumstances of admission, diagnostic work up, and/or therapy provided, and the Alphabetic Index, Tabular List, or another coding guideline does not provide sequencing direction, any one of the diagnoses may be sequenced first." "When the physician has documented what appears to be a current diagnosis in the body of the record, but has not included the diagnosis in the final diagnostic statement, the physician should be asked whether the diagnosis should be added." (Source Coding Clinic 2 QTR90. p3-4) DAVIDD
== END 2023-04-11 15:12 | disposition home or self-care (01) | DRG 603 ==
LOC: ED 07:18 → EDINP 10:26 → 2N 12:53

== ENCOUNTER 2023-11-14 16:19 | Inpatient (IN) ==
[2023-11-14] MEDS ORDERED: NITROGLYCERIN SL 0.4 MG/TAB TAB SL PRN (16:49)
--- NOTE | 2023-11-14 17:05 | Emergency Department Note ---
Impression & Plan Chest pain, Elevated troponin ED Provider Note NAME: GLADIS CARRANZA AGE: 58 SEX: M : 1965 ARRIVES VIA: Ambulance INFORMANT: Patient ED PROVIDER(S): Virgilio Macario DO CHIEF COMPLAINT: chest pain HPI: Patient is a 58-year-old male with a past medical history of CAD with multivessel disease, previous stents, diabetes, venous ulcers, hyperlipidemia and hypertension who presents to the ER for chest pain. 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 This lasted until he received nitro via EMS and has completely resolved. He denies any arm or jaw pain. No belly pain, nausea, vomiting, or diarrhea. No dysuria, urgency, or frequency. No other exacerbating or remitting factors. Received aspirin and nitro prior to arrival. ADDITIONAL HISTORY OBTAINED: Per HPI Chronic Medical/Social Conditions Affecting Care: Per HPI PAST MEDICAL HISTORY:See Below PAST SURGICAL HISTORY:See Below FAMILY HISTORY:See Below SOCIAL HISTORY:See Below HOME MEDICATIONS:See Below ALLERGIES:See Below VITALS:See Below PHYSICAL EXAMINATION: GENERAL: Sitting up in bed, alert, well appearing, well nourished, no distress, non-toxic EYE EXAM: normal conjunctiva. PERRL and EOM's grossly intact. OROPHARYNX:mucous membranes are moist NECK: supple, no nuchal rigidity, no adenopathy, non-tender LUNGS: Clear to auscultation. Normal chest wall mechanics HEART: no murmurs, S1 normal and S2 normal ABDOMEN: abdomen soft, non-tender, normo-active bowel sounds, no masses, no rebound or guarding. BACK: Back is symmetrical on inspection and there is no deformity, no midline tenderness, no CVA tenderness. SKIN: no rashes and no bruising UPPER EXTREMITIES: upper extremities are grossly normal. LOWER EXTREMITIES: Venous stasis ulcer/chronic wounds left garza NEURO EXAM: Normal sensorium, cranial nerves II-XII grossly intact, normal speech, no gross weakness of arms, no gross weakness of legs. MEDICAL DECISION MAKING: Patient is a 58-year-old male who presents ER for the above-stated complaint. IV was established blood work is obtained. Extensive history of multivessel disease/CAD with stents. Labs show no significant leukocytosis or anemia. BMP is fairly unremarkable. T. bili was normal. Mild transaminitis. Troponin was slightly up at 24. Lipase is unremarkable. EKG was nondiagnostic. Currently pain-free following nitro and he was given aspirin. Chest x-ray was unremarkable. Patient was updated bedside and discussed with the hospitalist for further evaluation management treatment. Consults/Care Managements Discussions: Per [facility] Triage Nursing notes reviewed. Limited review of prior medical records performed Vital Signs: reviewed and remarkable for no significant abnormalities Differential diagnosis: Cardiac ischemia, aortic dissection, pulmonary embolism, pneumothorax, pneumonia, pericarditis, myocarditis, esophageal rupture, GERD, cholecystitis, pancreatitis, musculoskeletal, as well as other pathologies. ER treatment provided: See below Diagnostics interpreted by me include EKG and cardiac monitoring as listed below: -Cardiac Monitoring: An order was placed for continuous cardiac monitoring. The monitor shows a rate of 70 with sinus rhythm. -ECG: Sinus tachycardia rate of 68 Normal axis T wave flattening in the inferior leads QTc 444 -Laboratory studies:Interpreted by me as stated above in MDM and shown below. Imaging studies: Xrays: As interpreted by me: Portable AP upright 1 view of the chest shows no focal infiltrate CTs show: none Procedures:none Critical Care: None Past Med/Surg History Problem List (Updated 11/14/23 @ 22:31 by Virgilio Macario DO) Elevated troponin (Acute) Elevated LFTs Ulcer of left lower leg CAD, multiple vessel Cellulitis of lower leg Open leg wound Abnormal ankle brachial index Unstable angina (Acute) Diabetes mellitus type II, uncontrolled (Acute) Hypertensive urgency (Acute) Neck pain Chest pain (Acute) Venous insufficiency of both lower extremities (Chronic) Non-occlusive coronary artery disease Dyslipidemia Diabetes type 2, uncontrolled Saphenous vein clot Obesity Venous stasis ulcer (Acute) Venous stasis (Chronic) 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) Hypertension (Acute) Medical History Venous stasis ulcer Surgical History History of cholecystectomy Family History Father Diabetes Social History Smoking Status: Former smoker Tobacco Type: Cigarettes Second Hand Exposure: No; Do You Dip or Chew Tobacco: No; Hx Alcohol Use: Yes Alcohol type: beer, wine and hard liquor Alcohol Intake Frequency: 2-3 x/Week Hx Substance Use: No Preferred Language: [place] Communication Ability: Effective Communication Ability Comment: Speak slowly Carpentry Specialist Required: No Beliefs That Will Affect Care: None Current Living Situation: Alone Current Living Situation Comment: patient independent with dressing changes current occupational status: other other: patient entering into SSI Feels Safe at Home: Yes Diet: diabetic Assistive Devices: None Allergies Allergies Allergy/AdvReac Type Severity Reaction Status Date / Time No Known Allergies Allergy Unknown Verified 01/09/22 10:25 Home Meds Previous Rx's Medication Instructions Recorded aspirin 81 mg tablet,delayed 81 mg PO QAM #30 tabs 04/11/23 release clopidogrel 75 mg tablet 75 mg PO QAM #30 tabs 04/11/23 empagliflozin 10 mg tablet 10 mg PO DAILY #30 tabs 04/11/23 (Jardiance) lisinopril 40 mg tablet (Zestril) 40 mg PO QAM #30 tabs 04/11/23 metoprolol succinate 25 mg 25 mg PO QAM #30 tabs 04/11/23 tablet,extended release 24 hr rosuvastatin 40 mg tablet 40 mg PO DAILY #30 tabs 04/11/23 Results & Data (ED) Vital Signs Vital Signs - 24 hr 11/14/23 16:35 11/14/23 16:35 11/14/23 16:36 Temperature 36.6 C Temperature Source Oral Pulse Rate 67 69 Pulse Rate from SpO2 Sensor Respiratory Rate 18 Blood Pressure 161/100 H Blood Pressure Mean 120 Pulse Oximetry 95 Oxygen Delivery Method Room Air Room Air Sepsis Recent Fever Within 48 Hours No Sepsis New/Unexplained Change in Mental Status No Sepsis Action Taken by Nursing No Action Required 11/14/23 16:45 11/14/23 17:00 11/14/23 17:05 Temperature Temperature Source Pulse Rate 70 75 Pulse Rate from SpO2 Sensor 69 75 Respiratory Rate 19 16 Blood Pressure 143/90 H Blood Pressure Mean 107 Pulse Oximetry 94 96 Oxygen Delivery Method Room Air Room Air Room Air Sepsis Recent Fever Within 48 Hours Sepsis New/Unexplained Change in Mental Status Sepsis Action Taken by Nursing 11/14/23 17:27 11/14/23 17:31 11/14/23 17:31 Temperature Temperature Source Pulse Rate 69 Pulse Rate from SpO2 Sensor 69 Respiratory Rate 19 Blood Pressure 155/108 H 155/108 H Blood Pressure Mean 122 122 Pulse Oximetry 97 Oxygen Delivery Method Sepsis Recent Fever Within 48 Hours Sepsis New/Unexplained Change in Mental Status Sepsis Action Taken by Nursing 11/14/23 17:33 11/14/23 18:00 11/14/23 18:00 Temperature Temperature Source Pulse Rate 71 68 Pulse Rate from SpO2 Sensor 71 68 Respiratory Rate 12 19 Blood Pressure 156/92 H Blood Pressure Mean 116 Pulse Oximetry 96 95 Oxygen Delivery Method Room Air Room Air Sepsis Recent Fever Within 48 Hours Sepsis New/Unexplained Change in Mental Status Sepsis Action Taken by Nursing 11/14/23 18:30 11/14/23 18:36 Temperature Temperature Source Pulse Rate 71 Pulse Rate from SpO2 Sensor Respiratory Rate 18 Blood Pressure 150/89 H Blood Pressure Mean 114 Pulse Oximetry 96 Oxygen Delivery Method Room Air Sepsis Recent Fever Within 48 Hours Sepsis New/Unexplained Change in Mental Status Sepsis Action Taken by Nursing Laboratory Data 11/14/23 16:49 11/14/23 18:38 Lab Results 11/14/23 11/14/23 Range/Units 16:49 18:38 WBC 4.27 L (4.8-10.8) K/ul RBC 4.48 L (4.70-6.10) M/uL Hgb 15.3 (14.0-18.0) g/dl Hct 43.1 (42.0-52.0) % MCV 96.2 (80.0-100.0) fL MCH 34.2 H (25.0-34.0) pg MCHC 35.5 (32.0-36.0) g/dL RDW Std Deviation 41.2 (36.4-46.3) fL RDW Coeff of Mirella 11.7 (11.5-14.5) % Plt Count 173 (130-400) K/uL MPV 10.6 (9.4-12.4) fL Immature Gran % (Auto) 0.2 % Neut % (Auto) 56.3 % Lymph % (Auto) 30.4 % [place] % (Auto) 8.9 % Eos % (Auto) 3.7 % Baso % (Auto) 0.5 % Neut # (Auto) 2.40 (1.40-6.50) K/uL Lymph # (Auto) 1.30 (1.20-3.40) K/uL [place] # (Auto) 0.38 (0.11-0.59) K/uL Eos # (Auto) 0.16 (0.00-0.50) K/uL Baso # (Auto) 0.02 (0.00-0.20) K/uL Immature Gran # (Auto) 0.01 (0.01-0.20) K/uL Sodium 136 (136-145) mmol/L Potassium TNP 4.6 Chloride 103 (98-107) mmol/L Carbon Dioxide 25 (21-32) mmol/L Anion Gap 8 (3-11) BUN 15 (6-23) mg/dl Creatinine 0.71 (0.6-1.4) mg/dl Est Cr Clr Drug Dosing 147.9 ml/min Est GFR ( Amer) 120.7 ml/min Est GFR (Non-Af Amer) 104.2 ml/min BUN/Creatinine Ratio 21.1 H (10-20) Glucose 262 H (70-99(Fasting)) mg/dl Calcium 8.9 (8.6-10.3) mg/dl Total Bilirubin 0.5 (0.2-1.0) mg/dl AST TNP 104 H ALT 217 H (7-52) U/L Alkaline Phosphatase 91 (34-104) U/L Troponin I High Sens 23.3 H 26.6 H (0-20) pg/ml Total Protein 7.5 (6.0-8.3) gm/dl Albumin 4.2 (3.4-5.0) gm/dl Globulin 3.3 (2.5-4.0) gm/dl Albumin/Globulin Ratio 1.3 (0.9-2) Lipase 44 (11-82) U/L Administered Medications Enoxaparin Sodium (Enoxaparin Inj 40 Mg/0.4 Ml Syr) 40 mg SQ Q24H [place] Stop: 12/14/23 21:59 Last Admin: 11/14/23 22:05 Dose: 40 mg Documented By: SRW Multivitamins 10 ml/ Thiamine HCl 100 mg/ Folic Acid 1 mg/Sodium Chloride 1,011.2 mls @ 500 mls/hr IV .Q2H2M ONE Stop: 11/15/23 00:01 Last Admin: 11/14/23 22:21 Dose: 500 mls/hr Documented By: IRVIN Insulin Aspart (Insulin Aspart Per Unit Charge) 0 units SC ACHS [place] Stop: 12/14/23 21:19 Last Admin: 11/14/23 21:37 Dose: Not Given Documented By: IRVIN Discontinued Medications Aspirin (Aspirin Chew 324 Mg) 324 mg PO NOW STA Stop: 11/14/23 16:50 Last Admin: 11/14/23 17:24 Dose: Not Given Documented By: MOJGAN Gabapentin (Gabapentin 600 Mg Tab) 1,200 mg PO NOW ONE Stop: 11/14/23 21:53 Last Admin: 11/14/23 22:21 Dose: 1,200 mg Documented By: IRVIN Cefepime HCl (Maxipime) 20 mls @ 5 mls/min IV ONE STA Stop: 11/14/23 19:51 Last Admin: 11/14/23 20:48 Dose: 5 mls/min Documented By: WILMAN Labetalol HCl (Labetalol Hcl Iv 5 Mg/Ml 20ml) 10 mg IV NOW STA Stop: 11/14/23 21:51 Last Admin: 11/14/23 22:05 Dose: 10 mg Documented By: IRVIN Co-signed By: COREEN Imaging Data Radiologist's Impression: Chest X-Ray 11/14/23 16:49 XR chest 1V portable CLINICAL HISTORY: Chest pain, nonspecific TECHNIQUE: Single frontal radiograph of the chest was obtained. Comparison: Comparison is made to chest radiograph 10/20/2020 FINDINGS: No lines and tubes are seen. The cardiomediastinal silhouette is normal. The lungs are clear. No evidence of pleural effusion or pneumothorax. IMPRESSION: No acute chest disease. ACT 112: Negative or not required by law. Electronically signed by: Oscar Fagan M.D. 11/14/2023 5:25 PM Discharge Plan Visit Data Chief Complaint: Chest Pain Stated Complaint: CHEST PAIN ED Provider: Virgilio Macario Discharge Problem: Chest pain, Elevated troponin Patient Disposition: Admitted As Inpatient Discharge Instructions Interventions: ED Discharge Assessment Last Done: 11/14/23 21:00 Discharge Problem: Chest pain Qualifiers: Chest pain type: unspecified Qualified Code(s): R07.9 - Chest pain, unspecified
[2023-11-14 17:11] LABS: Basophils # (auto) 0.02 K/uL (0.00-0.20); Basophils % (auto) 0.5 %; Eosinophils # (auto) 0.16 K/uL (0.00-0.50); Eosinophils % (auto) 3.7 %; Hematocrit (blood only) 43.1 % (42.0-52.0); Hemoglobin 15.3 g/dl (14.0-18.0); Immature Granulocytes # (auto) 0.01 K/uL (0.01-0.20); Immature Granulocytes % (auto) 0.2 %; Lymphocytes % (auto) 30.4 %; Mean Corpuscular Hemoglobin 34.2 pg (25.0-34.0); Mean Corpuscular Hgb Conc 35.5 g/dL (32.0-36.0); Mean Corpuscular Volume 96.2 fL (80.0-100.0); Mean Platelet Volume 10.6 fL (9.4-12.4); Monocytes # (auto) 0.38 K/uL (0.11-0.59); Monocytes % (auto) 8.9 %; Neutrophils % (auto) 56.3 %; Platelet Count 173 K/uL (130-400); RDW Coefficient of Variation 11.7 % (11.5-14.5); RDW Standard Deviation 41.2 fL (36.4-46.3); Red Blood Count 4.48 M/uL (4.70-6.10); White Blood Count 4.27 K/ul (4.8-10.8)
[2023-11-14] MEDS: ASPIRIN CHEW 324 MG PO STA (17:24)
--- NOTE | 2023-11-14 17:27 | XRay Report ---
XR chest 1V portable CLINICAL HISTORY: Chest pain, nonspecific TECHNIQUE: Single frontal radiograph of the chest was obtained. Comparison: Comparison is made to chest radiograph 10/20/2020 FINDINGS: No lines and tubes are seen. The cardiomediastinal silhouette is normal. The lungs are clear. No evid ence of pleural effusion or pneumothorax. IMPRESSION: No acute chest disease. ACT 112: Negative or not required by law. Electronically signed by: Oscar Fagan M.D. 11/14/2023 5:25 PM
[2023-11-14 18:13] LABS: Alanine Aminotransferase 217 U/L (7-52); Albumin Globulin Ratio 1.3 (0.9-2); Albumin Level 4.2 gm/dl (3.4-5.0); Alkaline Phosphatase 91 U/L (34-104); Anion Gap 8 (3-11); BUN Creatinine Ratio 21.1 (10-20); Bilirubin,Total 0.5 mg/dl (0.2-1.0); Blood Urea Nitrogen 15 mg/dl (6-23); Calcium 8.9 mg/dl (8.6-10.3); Carbon Dioxide 25 mmol/L (21-32); Chloride 103 mmol/L (98-107); Creatinine Clr Calc Pharmacy 147.9 ml/min; Est GFR (African American) 120.7 ml/min; Est GFR (Non-African American) 104.2 ml/min; Globulin 3.3 gm/dl (2.5-4.0); Glucose 262 mg/dl (70-99(Fasting)); Lipase 44 U/L (11-82); Sodium 136 mmol/L (136-145); Total Protein 7.5 gm/dl (6.0-8.3); Troponin I High Sensitivity 23.3 pg/ml (0-20)
--- NOTE | 2023-11-14 18:33 | History & Physical Report ---
<Statement entered by Robel Coombs DO - 11/14/23 20:26> I have seen and examined the patient and have discussed the case with the provider above. I have reviewed the advanced practitioner's documentation, and I agree with, and take responsibility for that plan of care. Patient seen and examined while still in the ED. Patient reports chest pain is gone. Patient reports that he had chronic ulcerations of his lower extremities but did have some trauma to his ulcers about a week ago deafly states it is more red and tender than usual. Patient does have significant history of coronary disease possible unstable angina. Plan of care as outlined below Date of Service November 14, 2023 Assessment & Plan (1) Chest pain: (2) CAD, multiple vessel: Plan: Patient is 58-year-old male with PMH multivessel CAD, HTN, HLD, DM II, chronic skin ulcers presented to ER with complaint of left squeezing chest pain, nausea, flushing today. Had 1SL nitro pre-hospital without reported relief. Was given 324mg aspirin by EMS with reported resolution of symptoms. In ER afebrile, P: 67, R: 18, initial BP 161/100, 95% on room air BP downtrended to 150/89. Denies any chest pain or shortness of breath during ER course EKG with sinus rhythm, T wave changes Troponin 23 --> 26 R/O ACS. Risk factors: CAD, HTN, hyperlipidemia, DM Repeat EKG in am Will trend troponin Echo Lipid panel in am, will continue statin for now Continue aspirin, metoprolol, Plavix Cardiology consult (3) Ulcer of left lower leg: (4) Cellulitis of lower leg: Plan: Chronic ulcers LLE with possible secondary cellulitis Doppler LLE pending Wound culture Blood cultures Cefepime for now Wound nurse consult (5) Hypertension: Plan: BP 161/100 In ER and downtrended to 150/89 Monitor BP Continue lisinopril, metoprolol (6) Dyslipidemia: Plan: Lipid panel in am Continue rosuvastatin for now, monitor LFTs. May need to consider alternate agent (7) Diabetes type 2, uncontrolled: Plan: A1c: 9.7 on 10/16/23 Hold Jardiance Novolog sliding scale (8) Elevated LFTs: Plan: AST: 104 (was 154 on 10/16/23). ALT: 217 (was 241 on 10/20/23) Repeat CMP in am May need to consider holding statin, further workup. Max 2000mg acetaminphen DVT Prophylaxis Lovenox SQ Admit med/tele Full Code as per discussion with pt Follows with Dr Knox for routine care Pt was seen and care coordinated with Dr Coombs. See addendum I spent a total of 79 minutes reviewing notes, outpatient records, labs, medication, coordinating, documenting and providing care for this patient excluding time spent in the performance of separately billed services. History of Present Illness Chief Complaint: CP Primary Care Provider: Dr Holly Knox Patient is 58-year-old male with PMH multivessel CAD, HTN, HLD, DM II, chronic skin ulcers presented to ER with complaint of chest pain today. History obtained from patient and inpatient and outpatient chart review. Patiens states had squeezing sensation to left chest with dizziness and body felt shaky and was feeling hot and nauseated around 3:00PM today. 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 Denies any SOB or syncope. Reported nurse took his BSG was 318 and reported BP 155/108. States he took one SL nitro prior to EMS arrival and didn't feel any improvement. Patient states applied cold cloth and drank cold water and felt like that helped some. Was given 4 baby aspirin by EMS and he feels he was improved and chest pain free since that time. Has chronic LLE ulcers to lower leg and states had followed with wound clinic in past but hasn't seen recently. States past several weeks worsening ulcers with redness after bumping his left garza. States past week having increased discomfort to area. States intermittent yellow/bloody drainage from area. Unaware of any fevers. Denies V/D/C, CASIANO, vision changes, neck pain, orthopnea, palpitations, cough, sore throat, rhinorrhea, abdominal pain, paresthesias, weakness, extremity edema, other rashes, urinary symptoms. Outpatient chart review: 04/08/2023 echo: EF: 60-65%, normal LV wall motion, normal right ventricular systolic function, normal left and right atrial size Allergies Allergy/AdvReac Type Severity Reaction Status Date / Time No Known Allergies Allergy Unknown Verified 01/09/22 10:25 Home Medications Medication Instructions Recorded Confirmed Type aspirin 81 mg tablet,delayed 81 mg PO QAM #30 tabs 04/11/23 11/14/23 Rx release clopidogrel 75 mg tablet 75 mg PO QAM #30 tabs 04/11/23 11/14/23 Rx empagliflozin 10 mg tablet 10 mg PO DAILY #30 tabs 04/11/23 11/14/23 Rx (Jardiance) lisinopril 40 mg tablet (Zestril) 40 mg PO QAM #30 tabs 04/11/23 11/14/23 Rx metoprolol succinate 25 mg 25 mg PO QAM #30 tabs 04/11/23 11/14/23 Rx tablet,extended release 24 hr rosuvastatin 40 mg tablet 40 mg PO DAILY #30 tabs 04/11/23 11/14/23 Rx Past Med/Surg History Problem List (Updated 11/14/23 @ 20:02 by Keely Tolbert PA-C) Elevated LFTs Ulcer of left lower leg CAD, multiple vessel Cellulitis of lower leg Open leg wound Abnormal ankle brachial index Unstable angina (Acute) Diabetes mellitus type II, uncontrolled (Acute) Hypertensive urgency (Acute) Neck pain Chest pain Venous insufficiency of both lower extremities (Chronic) Non-occlusive coronary artery disease Dyslipidemia Diabetes type 2, uncontrolled Saphenous vein clot Obesity Venous stasis ulcer (Acute) Venous stasis (Chronic) 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) Hypertension (Acute) Medical History Venous stasis ulcer Surgical History History of cholecystectomy Family History Father Diabetes Social History Smoking Status: Former smoker Second Hand Exposure: No; Do You Dip or Chew Tobacco: No; Hx Alcohol Use: Yes Alcohol type: beer Alcohol Intake Frequency: 2-3 x/Week Hx Substance Use: No Preferred Language: Pashto Communication Ability: Effective Communication Ability Comment: Speak slowly Inspector Brake Lining Required: No Beliefs That Will Affect Care: None Current Living Situation: Family Current Living Situation Comment: patient independent with dressing changes current occupational status: other other: patient entering into SSI Feels Safe at Home: Yes Diet: diabetic Assistive Devices: None Review of Systems Review of Systems: All systems reviewed & are unremarkable except as noted in HPI & below Physical Exam Physical Exam: General: no distress, overweight Head: normocephalic, atraumatic Eyes: conjunctiva non-injected, anicteric ENT: normal inspection external ears, nose, mucous membranes moist Neck: supple, trachea midline Lungs: clear, no respiratory distress, no wheezing/rhonchi/rales CV: RRR, no murmur, no pretibial edema Abd: normal BS, soft, non-tender Ext: no cyanosis, no calf tenderness; LLE+3 ulcers with surrounding erythema with tenderness to palpation, no discharge noted, no red streaking noted Neuro: A&O x 3, no focal deficits noted, normal affect Skin: warm, dry Results & Data Results & Data Vital Signs (Past 12 Hours) Vital Signs Temp Pulse Resp BP Pulse Ox O2 Del Method 11/14/23 18:00 156/92 H 11/14/23 18:00 68 19 95 Room Air 11/14/23 17:33 71 12 96 Room Air 11/14/23 17:31 155/108 H 11/14/23 17:31 155/108 H 11/14/23 17:27 69 19 97 11/14/23 17:05 Room Air 11/14/23 17:00 75 16 143/90 H 96 Room Air 11/14/23 16:45 70 19 94 Room Air 11/14/23 16:36 69 11/14/23 16:35 Room Air 11/14/23 16:35 36.6 C 67 18 161/100 H 95 Room Air Laboratory Results Short CBC 11/14/23 Range/Units 16:49 WBC 4.27 L (4.8-10.8) K/ul Hgb 15.3 (14.0-18.0) g/dl Hct 43.1 (42.0-52.0) % Plt Count 173 (130-400) K/uL BMP 11/14/23 11/14/23 16:49 18:38 Sodium 136 Potassium TNP 4.6 Chloride 103 Carbon Dioxide 25 BUN 15 Creatinine 0.71 Glucose 262 H Calcium 8.9 Liver Function 11/14/23 11/14/23 Range/Units 16:49 18:38 Total Bilirubin 0.5 (0.2-1.0) mg/dl AST TNP 104 H ALT 217 H (7-52) U/L Alkaline Phosphatase 91 (34-104) U/L Albumin 4.2 (3.4-5.0) gm/dl Diagnostic Findings Chest X-Ray 11/14/23 16:49 XR chest 1V portable CLINICAL HISTORY: Chest pain, nonspecific TECHNIQUE: Single frontal radiograph of the chest was obtained. Comparison: Comparison is made to chest radiograph 10/20/2020 FINDINGS: No lines and tubes are seen. The cardiomediastinal silhouette is normal. The lungs are clear. No evidence of pleural effusion or pneumothorax. IMPRESSION: No acute chest disease. ACT 112: Negative or not required by law. Electronically signed by: Oscar Fagan M.D. 11/14/2023 5:25 PM ECG Additional Comments: EKG sinus rhythm, rate 68 T wave flattening inferior, lateral leads (1) Chest pain Chest pain type: unspecified Qualified Code(s): R07.9 - Chest pain, unspecified
[2023-11-14 19:08] LABS: Potassium 4.6 mmol/L (3.5-5.1)
[2023-11-14 19:15] LABS: Troponin I High Sensitivity 26.6 pg/ml (0-20)
[2023-11-14] MEDS ORDERED: CEFEPIME 2,000 MG in SYRINGE 0 ML IV STA (19:39)
[2023-11-14] MEDS: CEFEPIME 20 ML IV STA (20:48)
[2023-11-14] MEDS ORDERED: CARBOHYDRATES FOR HYPOGLYCEMIA PO PRN (21:20)
[2023-11-14] MEDS ORDERED: GLUCOSE 10 TAB/TUBE PO PRN (21:20)
[2023-11-14] MEDS ORDERED: GLUCOSE 40% GEL 15 GM TUBE PO PRN (21:20)
[2023-11-14] MEDS ORDERED: ONDANSETRON INJ 2 MG/ML 2 ML VIAL IV PRN (21:20)
[2023-11-14] MEDS ORDERED: GLUCAGON FOR INJ 1 MG VIAL SQ PRN (21:20)
[2023-11-14] MEDS ORDERED: ACETAMINOPHEN 325 MG TAB PO PRN (21:20)
[2023-11-14] MEDS ORDERED: DEXTROSE 50% 50 ML SYRINGE IV PRN (21:20)
[2023-11-14] MEDS ORDERED: POLYETHYLENE (MIRALAX) 17 GM PACK PO PRN (21:20)
[2023-11-14] MEDS: INSULIN ASPART PER UNIT CHARGE SC SCH (21:37)
--- OUTSIDE RECORDS SUMMARY | 2023-11-14 21:49 | External Medical Summary | Summary of Care ---
Author Name Unknown Organization [facility] Address [address] [place] [address] Phone [phone] Care Team Providers Care Swimming Coach Or Instructor Name Role Phone Holly Knox MD Primary Care Provider Reason for Visit * Reason Onset Date Comments Test Results 10/23/2023 Encounter Details Date Type Department Care Team (Late st Contact Info) Description 10/23/2023 Telephone Family Practice [facility] [address] [place] [address] [place] [address] Clau Shine PA-C [address] [facility] [place] [address] Test Results Allergies Active Allergy Reactions Criticality Noted Date Comments Nsaids Rash 07/17/2006 Possible alergic reaction; discuss with patient documented as of this encounter (statuses as of 10/23/2023) Medications Medication Sig Dispensed Refills Start Date End Date Status aspirin enteric coated 81 MG TBEC Take 1 Tablet by mouth in the morning. Active Vitamin Y80-Rzabt Acid 500-400 MCG Oral Tablet Take by mouth. Active BD Pen Needle Ayse 2nd Gen 32G X 4 MM 03/16/2021 Active Fluocinonide 0.05 % External SolutionIndications :Seborrheic dermatitis Apply to scalp nightly as needed for itching 60 mL 1 07/10/2021 Active Additional Information Patient not taking.Reported on 10/16/2023 OneTouch Verio In Vitro StripIndications:Ty pe 2 diabetes mellitus with diabetic peripheral angiopathy without gangrene, with long-term current use of insulin (HCC) use 1 TEST STRIP to TEST BLOOD SUGAR three times a day 90 Strip 11 12/07/2021 Active Aquacel Ag Foam 10"X12" External PadIndications:Skin ulcer of left lower leg with fat layer exposed (HCC) Apply topically to affected area 1 Units daily . 30 Each 2 12/07/2021 Active Lisinopril 40 MG Oral TabletIndications:H TN, goal below 130/80 Take 1 Tablet by mouth in the morning. 90 Tablet 3 10/16/2023 Active Metoprolol Succinate ER 25 MG Oral Tablet Extended Release 24 Hour (toPROL XL)Indications:Exer tional chest pain Take 1 Tablet by mouth in the morning. 90 Tablet 3 10/16/2023 Active Nitroglycerin 0.4 MG Sublingual Tablet Sublingual (Nitrostat)Indicati ons:Chest pain, unspecified type,Atherosclerosi s of [place] coronary artery of [place] heart without angina pectoris Place 1 Tablet under the tongue as needed for Pain, Chest. May repeat 3 times. If chest pain continues, call 911. 25 Tablet 11 10/16/2023 Active Rosuvastatin Calcium 40 MG Oral Tablet (Crestor)Indication s:Dyslipidemia Take 1 Tablet by mouth in the morning. 90 Tablet 3 10/16/2023 Active Clopidogrel Bisulfate 75 MG Oral Tablet (pLAVix) Take 1 Tablet by mouth in the morning. 90 Tablet 3 10/16/2023 Active Empagliflozin 10 MG Oral Tablet (Jardiance)Indicati ons:Type 2 diabetes mellitus with diabetic peripheral angiopathy without gangrene, without long-term current use of insulin (HCC) Take 1 Tablet by mouth in the morning. 90 Tablet 3 10/16/2023 Active Ketoconazole 2 % External Shampoo (Nizoral)Indication s:Seborrheic dermatitis Apply to scalp, [place] and chest daily for one week and then use 2-3 times per week after; leave on 3-5 minutes before rinsing 120 mL 2 10/16/2023 Active Clobetasol Propionate 0.05 % External SolutionIndications :Scalp psoriasis Apply topically to scalp twice daily as needed 50 mL 1 10/16/2023 Active documented as of this encounter (statuses as of 10/23/2023) Active Problems Problem Noted Date Diagnosed Date Venous stasis dermatitis 10/16/2023 H/O heart artery stent 10/16/2023 Coronary artery disease invo lving [place] coronary artery of [place] heart without angina pectoris 10/16/2023 Atherosclerosis of [place] co ronary artery with angina pectoris 06/03/2022 Type 2 diabetes mellitus without complication Skin ulcer of left lower leg with fat layer expo sed 06/03/2022 Constipation 06/03/2022 Type 2 diabetes mellitus wit h skin complication, without long-term current use of insulin 01/31/2020 Dyslipidemia 01/31/2020 HTN, goal below 130/80 01/31/2020 ADVANCE DIRECTIVE INFORMATION 07/17/2006 Overview: No, Advance Directive brochure offered , patient declined. Ulcer of calf 09/08/2003 documented as of this encounter (statuses as of 10/23/2023) Immunizations Name Administration Dates Next Due TDAP (age 10 and older)(Boostrix) 10/31/2020 documented as of this encounter Social History Tobacco Use Types Packs/Day Years Used Date Smoking Tobacco: Former Cigarettes 1 6 0 04/28/1996 - 04/28/2002 Smokeless Tobacco: Never Alcohol Use Standard Drinks/Week Comments Yes 0 (1 standard drink = 0.6 oz pur e alcohol) occ AUDIT-C Answer Date Recorded Frequency of Alcohol Consumption 4 or more times a week 12/01/2019 Average Number of Drinks 1 or 2 020 Frequency of Binge Drinking Less than monthly PHQ-2 Answer Date Recorded PHQ Adult Total Score 0 12/07/2021 Utilities Answer Date Recorded Do you have trouble paying y our heating, water, or electric bill? (Adult - for ages 18 years and over) Not on file 10/14/2023 Is your family able to pay t he heat, water, or electric bill? (Household - for ages 0-17 years) Not on file 10/14/2023 Does your family have access to good internet? (Household - for ages 0-17 years) Not on file 10/14/2023 Social Connections Answer Date Recorded How often do you feel lonely or isolated from those around you? (Adult - for ages 18 years and over) Not on file 10/14/2023 Sex and Gender Information Value Date Recorded Sex Assigned at Not on file Gender Identity Not on file Sexual Orientation Not on file Job Start Date Occupation Industry Not on file Not on file Not on file documented as of this encounter Miscellaneous Notes * Telephone Encounter - Aline Pool MED ASSIST - 10/23/2023 8:09 AM EDT Myg sent * Telephone Encounter - Aline Pool MED ASSIST - 10/23/2023 8:08 AM EDT ----- Message from Clau Soo Shine sent at 10/22/2023 6:43 PM EDT ----- Please send a lab letter stating xray results normal. documented in this encounter Plan of Treatment Upcoming Encounters Date Type Department Care Team (Late st Contact Info) Description 04/08/2024 9:30 AM EST Office Visit Cardiology, [facility] [address] [address] Russel Medellin MD [address] [address] 04/19/2024 8:40 AM EST Office Visit Family Practice [facility] [address] [facility] [address] Clau Shine PA-C [address] [facility] [place] [address] Health Maintenance Due Date Last Done Comments Pneumococcal Vaccine: Pediatrics (0 to 5 Years) and At-Risk Patients (6 to 64 Years) (1 of 2 - PCV) 1972 HIV Screening 1981 Hepatitis C Screening 1984 Hepatitis B (1 of 3 - 19+ 3-dose series) 1985 Fecal Occult Blood Test 07/04/2011 Sigmoidoscopy 07/04/2011 Zoster Vaccines (1 of 2) 2016 Colonoscopy 08/15/2016 08/15/2006 Depression Screening 12/07/2022 12/07/2021 COVID-19 Vaccine (1 - 2022- season) 2022 Albumin/Creatinine Ratio 09/03/2023 023, 09/06/2021, 10/31/2020 Influenza Vaccine (FLU shot) (Season Ended) 2023 HbA1c 04/16/2024 10/16/2023, 03/28, 09/02/2022, Additional history exists Cologuard 06/13/2024 06/13/2021, 11/2021, 06/05/2021 Colorectal Cancer Screening 06/13/2024 Diabetic Eye Exam 10/15/2024 10/16/2023, , 10/31/2020 Diabetic Foot Exam 10/15/2024 10/16/2023, 09/06/2021 GFR 10/15/2024 10/16/2023, 03/28, 09/02/2022, Additional history exists DTaP,Tdap,and Td Vaccines (2 - Td or Tdap) 10/31/2030 10/31/2020 GARDASIL-HPV IMMUNIZATION SERIES Aged Out No longer eligible based on patient's age to complete this topic MENINGOCOCCAL (MENACTRA/MENVEO) Aged Out No longer eligible based on patient's age to complete this topic documented as of this encounter Medical Devices Not on filedocumented as of this encounter Care Teams Swimming Coach Or Instructor Relationship Specialty Start Date End Date Holly Knox MD [address] [place] [address] PCP - General Family Medicine 09/19/23 documented as of this encounter
--- OUTSIDE RECORDS SUMMARY | 2023-11-14 21:50 | External Medical Summary | Summary of Care ---
Author Name Unknown Organization [facility] Address [address] [place] [address] Phone [phone] Care Team Providers Care Fuel Management Handler Name Role Phone Holly Knox MD Primary Care Provider [phone] Reason for Visit * Reason Comments Outpatient Testing Encounter Details Date Type Department Care Team (Late st Contact Info) Description 10/16/2023 9:50 AM EDT Laboratory Laboratory [facility] [place] [address] [place] [address] [place], [address] [place] [address] Hyperlipemia, mixed; Type 2 diabetes mellitus with other skin ulcer, without long-term current use of insulin ([facility]); HTN, goal below 130/80 Allergies Active Allergy Reactions Criticality Noted Date Comments Nsaids Rash 07/17/2006 Possible alergic reaction; discuss with patient documented as of this encounter (statuses as of 10/16/2023) Medications Medication Sig Dispensed Refills Start Date End Date Status aspirin enteric coated 81 MG TBEC Take 1 Tablet by mouth in the morning. Active Vitamin Z41-Atmvg Acid 500-400 MCG Oral Tablet Take by [...] (Nitrostat)Indicati ons:Chest pain, unspecified type,Atherosclerosi s of [place] coronary artery of [place] heart without angina pectoris Place 1 Tablet [...] by mouth in the morning. 90 Tablet 10/16/2023 Active Empagliflozin 10 MG Oral Tablet [...] as of this encounter (statuses as of 10/16/2023) Active Problems Problem Noted Date Diagnosed Date Venous stasis dermatitis 10/16/2023 H/O heart artery stent 10/16/2023 Coronary artery disease invo lving [place] coronary artery of [place] heart without angina pectoris 10/16/2023 Atherosclerosis of [place] co ronary artery with angina pectoris 06/03/2022 [...] as of this encounter (statuses as of 10/16/2023) Immunizations Name Administration Dates Next Due TDAP [...] on file documented as of this encounter Plan of Treatment Upcoming Encounters Date Type Department Care Team (Late st Contact Info) Description 10/22/2023 3:20 PM EDT Office Visit Wound Care, [facility] [address] [place] [address] Chiqui Stokes DPM [address] [place] [address] 04/08/2024 9:30 AM EST Office Visit Cardiology, [facility] [address] [place] [address] Russel Medellin MD [address] [place] [address] 04/19/2024 8:40 AM EST Office Visit Family Practice [facility] [address] [facility] [place] [address] Clau Shine PA-C [address] [facility] [place] [address] Pending Results Name Type Priority Associated Diagnoses Date /Time LIPID PANEL WITH DIRECT LDL IF TG IS HIGH Lab Routine Hyperlipemia, mixed 10/16/2023 9:38 AM EDT HEMOGLOBIN A1C Lab Routine Type 2 diabetes mellitus with other skin ulcer, without long-term current use of insulin (HCC) 10/16/2023 9:38 AM EDT COMPREHENSIVE METABOLIC PANEL Lab Routine Type 2 diabetes mellitus with other skin ulcer, without long-term current use of insulin (HCC) HTN, goal below 130/80 10/16/2023 9:38 AM EDT BILIRUBIN, DIRECT Lab Routine Hyperlipemia, mixed 10/16/2023 9:38 AM EDT Health Maintenance Due Date Last Done Comments [...] 08/15/2006 Depression Screening 12/07/2022 12/07/2021 COVID-19 Vaccine ( - season) 2022 Albumin/Creatinine Ratio 09/03/2023 023, 09/06/2021, 10/31/2020 HbA1c 10/11/2023 04/11/2023, 050 11/2022, 06/03/2022, Additional history exists Influenza Vaccine (FLU shot) (Season Ended) 2023 GFR 04/11/2024 04/11/2023, 05/0 11/2022, 06/03/2022, Additional history exists Cologuard 06/13/2024 06/13/2021, 0 11/2021, 06/05/2021 Colorectal Cancer Screening 06/13/2024 Diabetic Eye Exam 10/15/2024 10/16/2023, , 10/31/2020 Diabetic Foot Exam 10/15/2024 10/16/2023, 09/06/2021 DTaP,Tdap,and Td Vaccines (2 - Td or Tdap) 10/31/2030 10/31/2020 GARDASIL-HPV IMMUNIZATION SERIES Aged Out No longer eligible based on patient's age to complete this topic MENINGOCOCCAL (MENACTRA/MENVEO) Aged Out No longer eligible based on patient's age to complete this topic documented as of this encounter Medical Devices Not on filedocumented as of this encounter Visit Diagnoses Diagnosis Hyperlipemia, mixed Mixed hyperlipidemia Type 2 diabetes mellitus with other skin ulcer, without long-term current use of insulin (HCC) HTN, goal below 130/80 Unspecified essential hypertension documented in this encounter Care Teams Fuel Management Handler Relationship Specialty Start Date End Date Holly Knox MD [address] [place] [address] PCP - General Family Medicine 09/19/23 documented as of this encounter
--- OUTSIDE RECORDS SUMMARY | 2023-11-14 21:50 | External Medical Summary ---
Author Name Unknown Address Unknown Organization [id number]:LABORATORY [facility] - [address] [facility] [address] Laboratory Report Ordering Provider Test Date Status ILDEFONSO LARES 10/16/2023 09:38:31 Final Observation Date Value Abnormality Reference (Units ) Status Triglyceride 10/16/2023 09:38:31 267 Above high normal <=174 (mg/dL) Final Triglyceride Reference Range s (mg/dL):
<150 Acceptable
150-174 Borderline high
175-499 High
>=500 Very high Cholesterol 10/16/2023 09:38:31 300 Above high normal <200 (mg/dL) Final Total Cholesterol Reference Ranges (mg/dL):
<200 Desirable
200-239 Borderline high
>=240 High HDL 10/16/2023 09:38:31 68 >39 (mg/dL ) Final HDL Cholesterol Reference Ra nges (mg/dL):
>=60 High (Desirable)
<50 Low (Undesirable) For Females
<40 Low (Undesirable) For Males NON-HDL CHOLESTEROL 10/16/2023 09:38:31 232 Above high normal <=159 (mg/dL) Final Non-HDL Cholesterol Referenc e Range (mg/dL):
<100 Target level for high risk ASCVD patient
<130 Optimal for general population
130-159 Near optimal for general population
160-189 Borderline High
190-219 High
>=220 Very High LDL, (calculated) 10/16/2023 09:38:31 179 Above high n ormal <=129 (mg/dL) Final LDL Cholesterol Reference Ra nges (mg/dL):
<70 Target level for high risk ASCVD patient
<100 Optimal for general population
100-129 Near optimal for general population
130-159 Borderline high
160-189 High
>=190 Very high Performing Location LAB[facility]ORY [facility] - [address] [facility] [address]
--- OUTSIDE RECORDS SUMMARY | 2023-11-14 21:50 | External Medical Summary | Summary of Care ---
Author Name Unknown Organization [facility] Address [address] [place] [address] Phone [phone] Care Team Providers Care Examination Grader Name Role Phone Holly Knox MD Primary Care Provider [phone] Reason for Visit * Reason Onset Date Comments Test Results 10/16/2023 Encounter Details Date Type Department Care Team (Late st Contact Info) Description 10/16/2023 Telephone Cardiology, [facility] [address] [facility] [place] [address] JanayShanelle andrew CRNP [address] [facility] [id number] Test Results Allergies Active Allergy Reactions Criticality Noted Date Comments Nsaids Rash 07/17/2006 Possible alergic reaction; discuss with patient documented as of this encounter (statuses as of 10/16/2023) Medications Medication Sig Dispensed Refills Start Date End Date Status aspirin enteric coated 81 MG TBEC Take 1 Tablet by mouth in the morning. Active Vitamin D72-Jscbb Acid 500-400 MCG Oral Tablet Take by mouth. Active BD Pen Needle Ayse 2nd Gen 32G X 4 MM 03/16/2021 Active Fluocinonide 0.05 % External SolutionIndications :Seborrheic dermatitis Apply to scalp nightly as needed for itching 60 mL 1 07/10/2021 Active Additional Information Patient not taking.Reported on 10/16/2023 OneSimona Charles In Vitro StripIndications:Ty pe 2 diabetes mellitus [...] (Nitrostat)Indicati ons:Chest pain, unspecified type,Atherosclerosi s of [place] coronary artery of [place] heart without angina pectoris Place 1 Tablet [...] stent 10/16/2023 Coronary artery disease invo lving [place] coronary artery of [place] heart without angina pectoris 10/16/2023 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 Please follow-up with the patient and see if he is taking his rosuvastatin. Please make sure he is not drinking alcohol and is avoiding NSAIDs. Further recommendations pending patient response. documented in this encounter Plan of Treatment Upcoming Encounters Date Type Department Care Team (Late st Contact Info) Description 10/22/2023 3:20 PM EDT Office Visit Wound Care, [facility] [address] [facility] [place] [address] Chiqui Stokes DPM [address] [place] [address] 04/08/2024 9:30 AM EST Office Visit Cardiology, [facility] [address] [place] [address] Russel Medellin MD [address] [place] [address] 04/19/2024 8:40 AM EST Office Visit Family Practice [facility] [address] [place] [address] Clau Shine PA-C [address] [facility] [place] [address] Health Maintenance Due Date Last Done Comments [...] 09/03/2023 023, 09/06/2021, 10/31/2020 HbA1c 10/11/2023 04/11/2023, 11/2022, 06/03/2022, Additional history exists Influenza Vaccine (FLU shot) (Season Ended) 2023 Cologuard 06/13/2024 06/13/2021, 11/2021, 06/05/2021 Colorectal Cancer [...] filedocumented as of this encounter Care Teams Examination Grader Relationship Specialty Start Date End Date Holly Knox MD [address] [place] [address] PCP - General Family Medicine 09/19/23 documented as of this encounter
--- OUTSIDE RECORDS SUMMARY | 2023-11-14 21:50 | External Medical Summary ---
Author Name Unknown Address Unknown Organization [id number]:[facility] - [address] [facility] [place] [address] Laboratory Report Ordering Provider Test Date Status 10/16/2023 09:38:31 Final Observation Date Value Abnormality Reference (Units ) Status HbA1C 10/16/2023 09:38:31 9.7 Above high normal 4. 0-5.6 (%) Final The use of HbA1c to monitor glycemic status is based on normal hemoglobin and HbA composition. This test should not be used in patients with abnormal hemoglobin that affects the half life of the red blood cell or the in vivo glycation rates. Glucose, estimated average 10/16/2023 09:38:31 232 Above high normal <126 (mg/dL) Dimas hurtado Performing Location [facility] - [address] [place] [address]
--- OUTSIDE RECORDS SUMMARY | 2023-11-14 21:50 | External Medical Summary | Summary of Care ---
Author Name Unknown Organization [facility] Address [address] [place] [address] Phone [phone] Care Team Providers Care Migratory Game Bird Biologist Name Role Phone Holly Knox MD Primary Care Provider [phone] Reason for Visit * Reason Onset Date Comments Test Results 10/16/2023 Encounter Details Date Type Department Care Team (Late st Contact Info) Description 10/16/2023 Telephone Family Practice [facility] [place] [address] [place] [address] Clau Shine PA-C [address] [facility] [place] [address] Test Results Allergies Active Allergy Reactions Criticality Noted Date Comments Nsaids Rash 07/17/2006 Possible alergic reaction; discuss with patient documented as of this encounter (statuses as of 10/16/2023) Medications Medication Sig Dispensed Refills Start Date End Date Status aspirin enteric coated 81 MG TBEC Take 1 Tablet by mouth in the morning. 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 Are you taking your cholesterol meds. Alcohol consumption? documented in this encounter Plan of Treatment Upcoming Encounters Date Type Department Care Team (Late st Contact Info) Description 10/22/2023 3:20 PM EDT Office Visit Wound Care, [facility] [address] [place] [address] Chiqui Stokes DPM [address] [place] [address] 04/08/2024 9:30 AM EST Office Visit Cardiology, [facility] [address] [place] [address] Russel Medeliln MD [address] [place] [address] 04/19/2024 8:40 AM EST Office Visit Family Practice [facility] [address] [facility] [place] [address] Clau Shine PA-C [address] [facility] [place] [address] Health Maintenance Due Date Last Done Comments [...] Screening 12/07/2022 12/07/2021 COVID-19 Vaccine ( - 2022- season) 2022 Albumin/Creatinine Ratio 09/03/2023 [...] filedocumented as of this encounter Care Teams Migratory Game Bird Biologist Relationship Specialty Start Date End Date Holly Knox MD [address] [place] [address] PCP - General Family Medicine 09/19/23 documented as of this encounter
--- OUTSIDE RECORDS SUMMARY | 2023-11-14 21:50 | External Medical Summary | Summary of Care ---
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 Name Role Phone Holly Knox MD Primary Care Provider [phone] Reason for Referral * Evaluate & Treat - Unlimited Visits (Within 10 days (routine)) - Authorized Specialty Diagnoses / Procedures Referred By Contac t Referred To Contact Wound Care Diagnoses Skin ulcer of left lower leg with fat layer exposed (HCC) Diabetes with skin ulcer (HCC) Clau Shine PA-C [address] [place] [address] Referral ID Status Reason Start Date Expiration Date Visits Requested Visits Authorized [id number] Authorized Specialty Services Required 10/16/2023 999 [id number] Question Answer Referral Priority Within 10 days (routine) Where should this appointment be scheduled? External Comments Assess for: Present over 30 days * Evaluate & Treat - Unlimited Visits (Within 30 days (routine)) - Authorized Specialty Diagnoses / Procedures Referred By Contact Referred To Contact Cardiovascular Medicine / Cardiology Diagnoses EKG abnormalities Clau Shine PA-C [address] [place] [address] Referral ID Status Reason Start Date Expiration Date Visits Requested Visits Authorized [id number] Authorized Specialty Services Required 10/16/[phone] Question Answer Referral Priority Within 30 days (routine) Where should this appointment be scheduled? [facility] To which of the following clinics are you referring your patient? General Cardiology Clinic Reason for Visit * Reason Comments NEW PATIENT Patient would like t o establish care. Wound Care Patient has a wound on his left leg that is concerned about. Patient states that it has been there for 36 years. Patient states that bleeding does occur sometimes. Patient changing his bandages every 3-4 days. Numbness Patient states that he has numbness in bilat toes. Patient states that this has occurred for about 2-3 years. Encounter Details Date Type Department Care Team (Late st Contact Info) Description 10/16/2023 8:00 AM EDT Office Visit [facility] [address] [facility] [place] [address] [address] Clau LAZARO Vann [address] [facility] [place] [address] Type 2 diabetes mellitus with other skin ulcer, without long-term current use of insulin (HCC)*; Skin ulcer of left lower leg with fat layer exposed (HCC); DM type 2 nursing care encounter (HCC); HTN, goal below 130/80; EKG abnormalities; Chest pain, unspecified type; Diabetes with skin ulcer ([facility]); Exertional chest pain; Atherosclerosis of [place] coronary artery of [place] heart without angina pectoris; Dyslipidemia; Type 2 diabetes mellitus with diabetic peripheral angiopathy without gangrene, without long-term current use of insulin ([facility]); Seborrheic dermatitis; Scalp psoriasis; Coronary artery disease involving [place] coronary artery of [place] heart without angina pectoris; Type 2 diabetes mellitus without complication, unspecified whether detention insulin use ([facility]) Allergies Active Allergy Reactions Criticality Noted Date Comments Nsaids Rash 07/17/2006 Possible alergic reaction; discuss with patient documented as of this encounter (statuses as of 10/16/2023) Medications Medication Sig Dispensed Refills Start Date End Date Status aspirin enteric coated 81 MG TBEC Take 1 Tablet by mouth in the morning. Active Vitamin A18-Kpcmp Acid 500-400 MCG Oral Tablet Take by mouth. Active BD Pen Needle Ayse 2nd Gen 32G X 4 MM 03/16/2021 Active Fluocinonide 0.05 % External SolutionIndication s:Seborrheic dermatitis Apply to scalp nightly as needed for itching 60 mL 1 07/10/2021 Active Additional Information Patient not taking.Reported on 10/16/2023 Josi Charles In Vitro StripIndications:T ype 2 diabetes mellitus with diabetic peripheral angiopathy without gangrene, with long-term current use of insulin ([facility]) use 1 TEST STRIP to TEST BLOOD SUGAR three times a day 90 Strip 11 12/07/2021 Active Aquacel Ag Foam 10"X12" External PadIndications:Ski n ulcer of left lower leg with fat layer exposed (HCC) Apply topically to affected area 1 Units daily . 30 Each 2 12/07/2021 Active Lisinopril 40 MG Oral TabletIndications: HTN, goal below 130/80 Take 1 Tablet by mouth in the morning. 90 Tablet 10/16/2023 Active Metoprolol Succinate ER 25 MG Oral Tablet Extended Release 24 Hour (toPROL XL)Indications:Exe rtional chest pain Take 1 Tablet by mouth in the morning. 90 Tablet 10/16/2023 Active Nitroglycerin 0.4 MG Sublingual Tablet Sublingual (Nitrostat)Indicat ions:Chest pain, unspecified type,Atheroscleros is of [place] coronary artery of [place] heart without angina pectoris Place 1 Tablet under the tongue as needed for Pain, Chest. May repeat 3 times. If chest pain continues, call 911. 25 Tablet 11 10/16/2023 Active Rosuvastatin Calcium 40 MG Oral Tablet (Crestor)Indicatio ns:Dyslipidemia Take 1 Tablet by mouth in the morning. 90 Tablet 10/16/2023 Active Clopidogrel Bisulfate 75 MG Oral Tablet (pLAVix) Take 1 Tablet by mouth in the morning. 90 Tablet 10/16/2023 Active Empagliflozin 10 MG Oral Tablet (Jardiance)Indicat ions:Type 2 diabetes mellitus with diabetic peripheral angiopathy without gangrene, without long-term current use of insulin ([facility]) Take 1 Tablet by mouth in the morning. 90 Tablet 10/16/2023 Active Ketoconazole 2 % External Shampoo (Nizoral)Indicatio ns:Seborrheic dermatitis Apply to scalp, [place] and chest daily for one week and then use 2-3 times per week after; leave on 3-5 minutes before rinsing 120 mL 2 10/16/2023 Active Clobetasol Propionate 0.05 % External SolutionIndication s:Scalp psoriasis Apply topically to scalp twice daily as needed 50 mL 1 10/16/2023 Active Clobetasol Propionate 0.05 % External SolutionIndication s:Scalp psoriasis Apply topically to scalp twice daily as needed 50 mL 1 11/08/2020 4 Discontinue d(Refill) Ketoconazole 2 % External Shampoo (Nizoral)Indicatio ns:Seborrheic dermatitis Apply to scalp, [place] and chest daily for one week and then use 2-3 times per week after; leave on 3-5 minutes before rinsing 120 mL 2 07/10/2021 4 Discontinue d(Refill) Nitroglycerin 0.4 MG Sublingual Tablet Sublingual (Nitrostat)Indicat ions:Atheroscleros is of [place] coronary artery of [place] heart without angina pectoris,Chest pain, unspecified type Place under the tongue 1 Tablet as needed for Pain, Chest. May repeat 3 times. If chest pain continues, call 911. 25 Tablet 11 09/28/2021 4 Discontinue d(Refill) Rosuvastatin Calcium 40 MG Oral Tablet (Crestor)Indicatio ns:Dyslipidemia Take by mouth 1 Tablet in the morning. 90 Tablet 3 01/21/2022 4 Discontinue d(Refill) Dulaglutide 0.75 MG/0.5ML Subcutaneous Solution Pen-injector (Trulicity) Inject 0.75 mg under the skin once a week. 2 mL 11 05/20/2022 4 Discontinue d(Medicatio n List Clean Up) Lisinopril 40 MG Oral TabletIndications: HTN, goal below 130/80 Take 1 Tablet by mouth in the morning. 04/10/2023 4 Discontinue d(Refill) Empagliflozin 10 MG Oral Tablet (Jardiance)Indicat ions:Type 2 diabetes mellitus with diabetic peripheral angiopathy without gangrene, without long-term current use of insulin (HCC) Take 1 Tablet by mouth in the morning. 04/10/2023 4 Discontinue d(Refill) Metoprolol Succinate ER 25 MG Oral Tablet Extended Release 24 Hour (toPROL XL)Indications:Exe rtional chest pain Take 1 Tablet by mouth in the morning. 04/10/2023 4 Discontinue d(Refill) Ezetimibe 10 MG Oral Tablet (Zetia) Take 1 Tablet by mouth in the morning. 04/10/2023 4 Discontinue d(Medicatio n List Clean Up) Clopidogrel Bisulfate 75 MG Oral Tablet (pLAVix) 10/16/2023 4 Discontinue d(Refill) documented as of this encounter (statuses as of 10/16/2023) Active Problems Problem Noted Date Diagnosed Date Venous stasis dermatitis 10/16/2023 H/O heart artery stent 10/16/2023 Coronary artery disease invo lving [place] coronary artery of [place] heart without angina pectoris 10/16/2023 Atherosclerosis of [place] co ronary artery with angina pectoris 06/03/2022 [...] on file documented as of this encounter Last Filed Vital Signs Vital Sign Reading Time Taken Comments Blood Pressure 148/96 10/16/2023 8:06 AM EDT Pulse 70 10/16/2023 8:06 AM EDT Temperature 36.5 C (97.7 F) 10/16/2023 8:06 AM ED T Respiratory Rate 16 10/16/2023 8:06 AM EDT Oxygen Saturation 95% 10/16/2023 8:06 AM EDT Inhaled Oxygen Concentration - - Weight 110.7 kg (244 lb 1.9 oz) 10/16/2023 8:06 AM EDT Height 183.1 cm (6' 0.09") 10/16/2023 8:06 AM ED T Body Mass Index 33.03 10/16/2023 8:06 AM EDT documented in this encounter Patient Instructions * Patient Instructions* Jack Amin, MED ASSIST - 10/16/2023 8:09 AM EDT Diabetes: Keeping Feet Healthy Inspect your feet every day for signs of a problem. Diabetes can damage nerves in your feet and cause neuropathy. This condition makes it hard for you to feel injuries or sore spots. Diabetes can also change blood flow, making it harder for small problems, like a blister, to heal properly. In fact, minor injuries can quickly become serious infections that send you to the hospital. Practice self-care to protect your feet and keep them healthy. Take Special Care Inspect your feet daily for problems such as redness, blisters, cracks, dry skin, or numbness. Use a mirror to see the bottoms of your feet. Or, ask for help. Manage your diabetes. Monitor and control your blood sugar. Take all your medications as prescribed. Avoid walking barefoot, even indoors. Wash your feet with warm water and mild soap. Dry well, especially between toes. Dont treat corns or calluses yourself. Talk to your doctor or powder guard (a doctor who specializes in foot care) if you need assistance trimming your toenails. Use moisturizing cream or lotion if you have dry skin, but dont use it between toes. Dont use heating pads on your feet. If you have neuropathy, you could get a burn and not feel it. Stop smoking. Smoking restricts blood flow and can make it harder for wounds to heal. Have Regular Checkups Foot problems can develop quickly. So be sure to follow your healthcare teams schedule for regular checkups. During office visits, take off your shoes and socks as soon as you get in the exam room. Ask your healthcare provider to examine your feet for problems. This will make it easier to find and treat small skin irritations before they get worse. Regular checkups can also help keep track of the blood flow and feeling in your feet. If you have neuropathy, you may need to have checkups more often. Wear Proper Footwear Wearing proper footwear is very important. If areas of your feet have been damaged by too much pressure, your healthcare provider may recommend changing your footwear. In some cases, avoiding high heels or tight work boots may be all thats needed. Or, your healthcare provider may recommend special shoes or custom inserts. These help protect your feet and keep existing irritations from getting worse. If you need special footwear, ask your healthcare provider if you qualify for [employer] diabetic shoe program. Make Sure Shoes and Socks Fit Any pair of shoes--new or old--should feel comfortable as soon as you put them on. There shouldnt be any rubbing when you walk. Wear the right shoe for any activity. For instance, a running shoe is designed to keep your feet injury-free while jogging. Buy shoes at the end of the day, when your feet are larger. Make sure they provide support without feeling too loose. Make sure your socks fit, t oo. Wear soft, seamless, well-padded socks for activity. Cotton or microfiber socks are best to help to absorb sweat. To protect your feet, avoid shoes that are open-toed or open-heeled. If you have questions about what kinds of shoes and socks are best, talk to your healthcare team. Get Regular Exercise Regular exercise improves blood flow in your feet. It also increases foot strength and flexibility.Gentle exercises, like walking or riding a stationary bicycle, are best. You can also do special foot exercises. Just be sure to talk with your healthcare provider before starting any exercise program. Also mention if any exercise causes pain, redness, or other signs of foot problems. Note: If you have any kind of break in the skin of your foot or ankle, keep the area clean. Then call your doctor--especially if the area doesnt appear to be healing. [id number] [employer], [address] [place] [address], [place] [address]. All rights reserved. This information is not intended as a substitute for professional medical care. Always follow your healthcare professional's instructions. documented in this encounter Progress Notes * Clau Shine PA-C - 10/16/2023 8:22 AM EDT Images from the original note were not included. History of Present Illness Von Roman is a 58 year old male that presents for NEW PATIENT (Patient would like to establish care.), Wound Care (Patient has a wound on his left leg that is concerned about. Patient states that it has been there for 36 years. Patient states that bleeding does occur sometimes. Patient changing his bandages every 3-4 days. ), and Numbness (Patient states that he has numbness in bilat toes. Patient states that this has occurred for about 2-3 years. ) Patient is a 58 year old male who presents to establish in our office. He is feeling alright. He notes some issues with his legs. Cramps and pain He is a diabetic. Doesn't always check blood sugars. Follows a diabetic diet. Denies sob,palpitations, edema, headaches, dizzy Some chest pain On left leg ; lower leg lesion that will not heal. Discharge and bleeding. Has been using some antibiotic cream on the leg. Appetite good Sleep normal Urination/ bowel movements some frequency. 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 [id number] Physical Exam Vitals: 10/16/23 0806 Temp: 36.5 C (97.7 F) Pulse: 70 Resp: 16 SpO2: 95% BP: 148/96 BMI: 33.03 BP Readings from Last 3 Encounters: 10/16/23 148/96 09/02/22 150/90 06/03/22 124/80 Wt Readings from Last 3 Encounters: 10/16/23 110.7 kg (244 lb 1.9 oz) 09/02/22 113.8 kg (250 lb 12.8 oz) 06/03/22 115.7 kg (255 lb) General: alert, healthy, no distress, well nourished, well developed, comfortable, and cooperative Head: Normocephalic, No masses, lesions, tenderness or abnormalities Eye Exam: PERRLA, extraocular movements intact, conjunctiva are pink and non- injected, sclera clear Neck: supple, no adenopathy, no bruits, thyroid normal size, non-tender, without nodularity Heart: regular rate & rhythm, no murmur, and no gallops Lungs: chest symmetric with normal AP diameter, no chest deformities noted, normal respiratory rateand rhythm, no chest wall tenderness, diaphragmatic excursion normal, lungs clear to auscultation Extremities: less than 2 second capillary refill, no joint deformities, effusion, or inflammation, no edema, no clubbing, Pronounced venous stasis present. Skin: skin color, texture, turgor are normal, Three full-thickness thickness skin ulcerations notedon left medial calf I have reviewed the following results: None Assessment and Plan Type 2 diabetes mellitus with other skin ulcer, without long-term current use of insulin ([facility]) (Primary) - HEMOGLOBIN A1C; Future; Expected date: 10/16/2023 - ALBUMIN / CREATININE RATIO, URINE; Future; Expected date: 10/16/2023 - DIABETIC EYE EXAM - COMPREHENSIVE METABOLIC PANEL; Future; Expected date: 10/16/2023 Skin ulcer of left lower leg with fat layer exposed ([facility]) - WOUND CARE REFERRAL OP - XR TIB/FIB 2 VIEWS; Future; Expected date: 10/16/2023 DM type 2 nursing care encounter ([facility]) - DIABETES FOOT EXAM HTN, goal below 130/80 - LIPID PANEL WITH DIRECT LDL IF TG IS HIGH; Future; Expected date: 10/16/2023 - COMPREHENSIVE METABOLIC PANEL; Future; Expected date: 10/16/2023 - Lisinopril 40 MG Oral Tablet; Take 1 Tablet by mouth in the morning. EKG abnormalities - CARDIOLOGY REFERRAL OP Chest pain, unspecified type - EKG; Future; Expected date: 10/16/2023 - Nitroglycerin 0.4 MG Sublingual Tablet Sublingual (Nitrostat); Place 1 Tablet under the tongue asneeded for Pain, Chest. May repeat 3 times. If chest pain continues, call 911. - EKG Diabetes with skin ulcer (HCC) - WOUND CARE REFERRAL OP Exertional chest pain - Metoprolol Succinate ER 25 MG Oral Tablet Extended Release 24 Hour (toPROL XL); Take 1 Tablet by mouth in the morning. Atherosclerosis of [place] coronary artery of [place] heart without angina pectoris - Nitroglycerin 0.4 MG Sublingual Tablet Sublingual (Nitrostat); Place 1 Tablet under the tongue asneeded for Pain, Chest. May repeat 3 times. If chest pain continues, call 911. Dyslipidemia - Rosuvastatin Calcium 40 MG Oral Tablet (Crestor); Take 1 Tablet by mouth in the morning. Type 2 diabetes mellitus with diabetic peripheral angiopathy without gangrene, without long-term current use of insulin ([facility]) - Empagliflozin 10 MG Oral Tablet (Jardiance); Take 1 Tablet by mouth in the morning. Seborrheic dermatitis - Ketoconazole 2 % External Shampoo (Nizoral); Apply to scalp, [place] and chest daily for one week and then use 2-3 times per week after; leave on 3-5 minutes before rinsing Scalp psoriasis - Clobetasol Propionate 0.05 % External Solution; Apply topically to scalp twice daily as needed Coronary artery disease involving [place] coronary artery of [place] heart without angina pectoris Type 2 diabetes mellitus without complication, unspecified whether detention insulin use ([facility]) Other orders - Clopidogrel Bisulfate 75 MG Oral Tablet (pLAVix); Take 1 Tablet by mouth in the morning. Follow Up: Return in about 6 months (around 04/16/2024) for Clinic Visit/ for 40 mins. 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 | For: Clinic Visit/ for 40 mins. 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 * Jack Amin MED ASSIST - 10/16/2023 8:09 AM EDT Socks and Shoes Removed for Annual Diabetic Foot Screening RIGHT FOOT: No Reddened, Cracking, Or Open Areas Noted. RIGHT Dorsalis Pedis Pulse: Palpable RIGHT Posterior Tibial Pulse: Palpable RIGHT Monofilament:Patient reports feeling monofilament pressure on plantar surface of foot LEFT FOOT: No Reddened, Cracking or Open Areas Noted. LEFT Dorsalis Pedis Pulse: Palpable LEFT Posterior Tibial Pulse: Palpable LEFT Monofilament:Patient reports feeling monofilament pressure on plantar surface of foot Do you need diabetic shoes: No DM Foot Exam completed today. Provider aware. MARYLIN Issa documented in this encounter Nursing Notes * Jack Amin MED ASSIST - 10/16/2023 8:06 AM EDT Chief Complaint Patient presents with NEW PATIENT Patient would like to establish care. Wound Care Patient has a wound on his left leg that is concerned about. Patient states that it has been there for 36 years. Patient states that bleeding does occur sometimes. Patient changing his bandages every3-4 days. Numbness Patient states that he has numbness in bilat toes. Patient states that this has occurred for about 2-3 years. documented in this encounter Plan of Treatment Scheduled Orders Name Type Priority Associated Diagnoses Orde r Schedule HEMOGLOBIN A1C Lab Routine Type 2 diabetes mellitus with other skin ulcer, without long-term current use of insulin (HCC) Expected: 10/16/2023 (Approximate), Expires: 10/15/2024 ALBUMIN / CREATININE RATIO, URINE Lab Routine Type 2 diabetes mellitus with other skin ulcer, without long-term current use of insulin (HCC) Expected: 10/16/2023 (Approximate), Expires: 10/15/2024 EKG EKG Routine Chest pain, unspecified type Expected: 10/16/2023 (Approximate), Expires: 11/14/2024 LIPID PANEL WITH DIRECT LDL IF TG IS HIGH Lab Routine HTN, goal below 130/80 Expected: 10/16/2023, Expires: 10/15/2024 COMPREHENSIVE METABOLIC PANEL Lab Routine Type 2 diabetes mellitus with other skin ulcer, without long-term current use of insulin (HCC) HTN, goal below 130/80 Expected: 10/16/2023 (Approximate), Expires: 10/15/2024 XR TIB/FIB 2 VIEWS Medical Imaging Routine Skin ulcer of left lower leg with fat layer exposed (HCC) Expected: 10/16/2023, Expires: 11/14/2024 Scheduled Referrals Name Type Priority Associated Diagnoses Orde r Schedule CARDIOLOGY REFERRAL OP Referral Within 30 days (routine) EKG abnormalities Ordered: 10/16/2023 WOUND CARE REFERRAL OP Referral Within 10 days (routine) Skin ulcer of left lower leg with fat layer exposed (HCC) Diabetes with skin ulcer (HCC) Ordered: 10/16/2023 Health Maintenance Due Date Last Done Comments [...] COVID-19 Vaccine (1 - 2022- season) 2022 Diabetic Eye Exam 06/03/2023 06/03/2022, 10/31/2020 Albumin/Creatinine Ratio 09/03/2023 023, 09/06/2021, 10/31/2020 HbA1c 10/11/2023 04/11/2023, 05/0 11/2022, 06/03/2022, Additional history exists Influenza Vaccine (FLU shot) (Season Ended) 2023 GFR 04/11/2024 04/11/2023, 050 11/2022, 06/03/2022, Additional history exists Cologuard 06/13/2024 06/13/2021, 0 11/2021, 06/05/2021 Colorectal Cancer Screening 06/13/2024 Diabetic Foot Exam 10/15/2024 10/16/2023, 09/06/2021 DTaP,Tdap,and [...] as of this encounter Visit Diagnoses Diagnosis Type 2 diabetes mellitus with other skin ulcer, without long-term current use of insulin (HCC)- Primary Skin ulcer of left lower leg with fat layer exposed (HCC) DM type 2 nursing care encounter (HCC) Type II or unspecified type diabetes mellitus without mention of complication, not stated as uncontrolled HTN, goal below 130/80 Unspecified essential hypertension EKG abnormalities Nonspecific abnormal electrocardiogram (ECG) (EKG) Chest pain, unspecified type Diabetes with skin ulcer (HCC) Type II or unspecified type diabetes mellitus with other specified manifestations, not stated as uncontrolled Exertional chest pain Chest pain, unspecified Atherosclerosis of [place] coronary artery of [place] heart without angina pectoris Dyslipidemia Other and unspecified hyperlipidemia Type 2 diabetes mellitus with diabetic peripheral angiopathy without gangrene, without long-term current use of insulin (HCC) Seborrheic dermatitis Seborrheic dermatitis, unspecified Scalp psoriasis Other psoriasis Coronary artery disease involving [place] coronary artery of [place] heart without angina pectoris Type 2 diabetes mellitus without complication, unspecified whether buttermaker insulin use (HCC) documented in this encounter Care Teams 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
--- OUTSIDE RECORDS SUMMARY | 2023-11-14 21:50 | External Medical Summary | Summary of Care ---
Author Name Unknown Organization [facility] Address [address] [facility] [place] [address] Phone [phone] Care Team Providers Care Gravure Press Operator Name Role Phone Holly Knox MD Primary Care Provider [phone] Encounter Details Date Type Department Care Team (Late st Contact Info) Description 10/18/2023 Orders Only PATIENT PORTAL DO NOT DELETE THIS DEPT USED BY [place] [id number] Allergies Active Allergy Reactions Criticality Noted Date Comments Nsaids Rash 07/17/2006 Possible alergic reaction; discuss with patient documented as of this encounter (statuses as of 10/18/2023) Medications Medication Sig Dispensed Refills Start Date End Date Status aspirin enteric coated 81 MG TBEC Take 1 Tablet by mouth in the morning. Active Vitamin E50-Wwtrb Acid 500-400 MCG Oral Tablet Take by mouth. Active BD Pen Needle Ayse 2nd Gen 32G X 4 MM 03/16/2021 Active Fluocinonide 0.05 % External SolutionIndications :Seborrheic dermatitis Apply to scalp nightly as needed for itching 60 mL 1 07/10/2021 Active Additional Information Patient not taking.Reported on 10/16/2023 Smash Bucket[employer]rum Devices Verio In Vitro StripIndications:Ty pe 2 diabetes [...] (Nitrostat)Indicati ons:Chest pain, unspecified type,Atherosclerosi s of [place] coronary artery of [place] heart without angina pectoris Place 1 Tablet [...] as of this encounter (statuses as of 10/18/2023) Active Problems Problem Noted Date Diagnosed Date Venous stasis dermatitis 10/16/2023 H/O heart artery stent 10/16/2023 Coronary artery disease invo lving [place] coronary artery of [place] heart without angina pectoris 10/16/2023 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 06/03/2022 [...] as of this encounter (statuses as of 10/18/2023) Immunizations Name Administration Dates Next Due TDAP [...] 3:20 PM EDT Office Visit Wound Care, [address] [place] [address] Chiqui Stokes DPM [address] [place] [address] 04/08/2024 9:30 AM EST Office Visit Cardiology, [facility] [address] [place] [address] Russel Medellin MD [address] [place] [address] 04/19/2024 8:40 AM EST Office Visit Family Practice [facility] [address] [facility] [place] [address] Clau Shine PA-C [address] [facility] [place] [address] Health Maintenance Due Date Last Done Comments [...] filedocumented as of this encounter Care Teams Gravure Press Operator Relationship Specialty Start Date End Date Holly Knox MD [address] [facility] [place] [address] PCP - General Family Medicine 09/19/23 documented as of this encounter
--- OUTSIDE RECORDS SUMMARY | 2023-11-14 21:50 | External Medical Summary ---
Author Name Unknown Address Unknown Organization K09:[facility] [place] [address] Laboratory Report Ordering Provider Test Date Status ILDEFONSO LARES 10/16/2023 09:38:31 Final Observation Date Value Abnormality Reference (Units ) Status Bilirubin, Direct 10/16/2023 09:38:31 0.2 0. 0-0.3 (mg/dL) Final Performing Location [facility] [place] [address]
--- OUTSIDE RECORDS SUMMARY | 2023-11-14 21:50 | External Medical Summary | Summary of Care ---
Author Name Unknown Organization [facility] Address [address] [place] [address] Phone [phone] Care Team Providers Care Client Director Name Role Phone Holly Knox MD Primary Care Provider [phone] Reason for Visit * Reason Comments NEW PATIENT * Evaluate & Treat - Unlimited Visits (Within 10 days (routine)) - Authorized Specialty Diagnoses / Procedures Referred By Alfonso chambers Referred To Contact Wound Care Diagnoses Skin ulcer of left lower leg with fat layer exposed (HCC) Diabetes with skin ulcer (HCC) Rl July Soo, PA-C [address] [place] [address] Referral ID Status Reason Start Date Expiration Date Visits Requested Visits Authorized [id number] Authorized Specialty Services Required 10/16/2023 999 999 Encounter Details Date Type Department Care Team (Late st Contact Info) Description 10/22/2023 3:20 PM EDT Office Visit Wound Care, [facility] [address] [place] [address] Chiqui Stokes DPM [address] [place] [address] Patient left without being seen* Allergies Active Allergy Reactions Criticality Noted Date Comments Nsaids Rash 07/17/2006 Possible alergic reaction; discuss with patient documented as of this encounter (statuses as of 10/22/2023) Medications Medication Sig Dispensed Refills Start Date End Date Status aspirin enteric coated 81 MG TBEC Take 1 Tablet by mouth in the morning. Active Vitamin D73-Lxjad Acid 500-400 MCG Oral Tablet Take by mouth. Active BD Pen Needle Ayse 2nd Gen 32G X 4 MM 03/16/2021 Active Fluocinonide 0.05 % External SolutionIndications :Seborrheic dermatitis Apply to scalp nightly as needed for itching 60 mL 1 07/10/2021 Active Additional Information Patient not taking.Reported on 10/16/2023 Josi Shelliegeorge In Vitro StripIndications:Ty pe 2 diabetes mellitus [...] (Nitrostat)Indicati ons:Chest pain, unspecified type,Atherosclerosi s of [place] coronary artery of [place] heart without angina pectoris Place 1 Tablet [...] as of this encounter (statuses as of 10/22/2023) Active Problems Problem Noted Date Diagnosed Date Venous stasis dermatitis 10/16/2023 H/O heart artery stent 10/16/2023 Coronary artery disease invo lving [place] coronary artery of [place] heart without angina pectoris 10/16/2023 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 documented in this encounter Plan of Treatment Upcoming Encounters Date Type Department Care Team (Late st Contact Info) Description 04/08/2024 9:30 AM EST Office Visit Cardiology, [facility] [address] [place] [address] Russel Medellin MD [address] [place] [address] 04/19/2024 8:40 AM EST Office Visit Family Practice [facility] [address] [facility] [place] [address] Clau Shine PA-C [address] [facility] [place] [address] Scheduled Referrals Name Type Priority Associated Diagnoses Orde r Schedule WOUND CARE REFERRAL OP Referral Within 10 [...] Screening 12/07/2022 12/07/2021 COVID-19 Vaccine (1 - season) 2022 Albumin/Creatinine Ratio 09/03/2023 023, [...] as of this encounter Visit Diagnoses Diagnosis Patient left without being seen- Primary Surgical or other procedure not carried out because of patient's decision documented in this encounter Care Teams Client Director Relationship Specialty Start Date End Date Holly Knox MD [address] [facility] [address] PCP - General Family Medicine 09/19/23 documented as of this encounter
--- OUTSIDE RECORDS SUMMARY | 2023-11-14 21:50 | External Medical Summary | Summary of Care ---
Author Name Unknown Organization [facility] Address [address] [place] [address] Phone [phone] Care Team Providers Care Health And Social Care Teacher Name Role Phone Holly Knox MD Primary Care Provider [phone] Reason for Referral * Evaluate & Treat - Unlimited Visits (Within 10 days (routine)) - Authorized Specialty Diagnoses / Procedures Referred By Contac t Referred To Contact Wound Care Diagnoses Skin ulcer of left lower leg with fat layer exposed (HCC) Diabetes with skin ulcer (HCC) Clau Shine PA-C [address] [place] [address] Referral ID Status Reason Start Date Expiration Date Visits Requested Visits Authorized [id number] Authorized Specialty Services Required 10/16/2023 999 999 [...] abnormalities Clau Shine PA-C [address] [place] [address] Referral ID Status Reason Start Date Expiration Date Visits Requested Visits Authorized [id number] Authorized Specialty Services Required 10/16/2023 999 999 [...] Description 10/16/2023 8:00 AM EDT Office Visit [facility] [place] [address] [facility] [place] [address] Rl Clau LAZARO Vann [address] [facility] [place] [address] Type 2 diabetes mellitus with other skin ulcer, without long-term current use of insulin (HCC)*; Skin ulcer of left lower leg with fat layer exposed (HCC); DM type 2 nursing care encounter (HCC); HTN, goal below 130/80; EKG abnormalities; Chest pain, unspecified type; Diabetes with skin ulcer ([facility]); Exertional chest pain; Atherosclerosis of [place] coronary artery of [place] heart without angina pectoris; Dyslipidemia; Type 2 diabetes mellitus with diabetic peripheral angiopathy without gangrene, without long-term current use of insulin ([facility]); Seborrheic dermatitis; Scalp psoriasis; Coronary artery disease involving [place] coronary artery of [place] heart without angina pectoris; Type 2 diabetes mellitus without complication, unspecified whether assisted insulin use ([facility]) Allergies Active Allergy Reactions Criticality Noted Date Comments Nsaids Rash 07/17/2006 Possible alergic reaction; discuss with patient documented as of this encounter (statuses as of 10/16/2023) Medications Medication Sig Dispensed Refills Start Date End Date Status aspirin enteric coated 81 MG TBEC Take 1 Tablet by mouth in the morning. Active Vitamin W79-Aaved Acid 500-400 MCG Oral Tablet Take by [...] gangrene, with long-term current use of insulin ([facility]) use 1 TEST STRIP to TEST BLOOD [...] (Nitrostat)Indicat ions:Chest pain, unspecified type,Atheroscleros is of [place] coronary artery of [place] heart without angina pectoris Place 1 Tablet [...] gangrene, without long-term current use of insulin ([facility]) Take 1 Tablet by mouth in the [...] Sublingual Tablet Sublingual (Nitrostat)Indicat ions:Atheroscleros is of [place] coronary artery of [place] heart without angina pectoris,Chest pain, unspecified type [...] stent 10/16/2023 Coronary artery disease invo lving [place] coronary artery of [place] heart without angina pectoris 10/16/2023 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 Talk to your doctor or learning disabilities specialist (a doctor who specializes in foot care) [...] the area doesnt appear to be healing. [id number] [employer], [address] [place] [address], [place] [address]. All rights reserved. This information is not [...] normal Urination/ bowel movements some frequency. Benitez senior nurse manager L[place] [id number] Physical Exam Vitals: 10/16/23 0806 Temp: 36.5 [...] ulcer, without long-term current use of insulin ([facility]) (Primary) - HEMOGLOBIN A1C; Future; Expected date: 10/16/2023 - ALBUMIN / CREATININE RATIO, URINE; Future; Expected date: 10/16/2023 - DIABETIC EYE EXAM - COMPREHENSIVE METABOLIC PANEL; Future; Expected date: 10/16/2023 Skin ulcer of left lower leg with fat layer exposed ([facility]) - WOUND CARE REFERRAL OP - XR TIB/FIB 2 VIEWS; Future; Expected date: 10/16/2023 DM type 2 nursing care encounter ([facility]) - DIABETES FOOT EXAM HTN, goal below [...] by mouth in the morning. Atherosclerosis of [place] coronary artery of [place] heart without angina pectoris - Nitroglycerin 0.4 [...] gangrene, without long-term current use of insulin ([facility]) - Empagliflozin 10 MG Oral Tablet (Jardiance); [...] daily as needed Coronary artery disease involving [place] coronary artery of [place] heart without angina pectoris Type 2 diabetes mellitus without complication, unspecified whether assisted insulin use ([facility]) Other orders - Clopidogrel Bisulfate 75 MG Oral Tablet (pLAVix); Take 1 Tablet by mouth in the morning. Follow Up: Return in about 6 months (around 04/16/2024) for Clinic Visit/ for 40 mins. needs senior nurse manager. | For: Clinic Visit/ for 40 mins. needs senior nurse manager | Check-out note: Schedule cardiology/wound clinic Wrap-Up [...] about 2-3 years. documented in this encounter Miscellaneous Notes * Addendum Note - Zeinab White LPN - 10/16/2023 9:34 AM EDTAddended by: ZEINAB WHITE on: 10/16/2023 09:34 AM Modules accepted: Orders documented in this encounter Plan of Treatment Upcoming Encounters Date Type Department Care Team (Late st Contact Info) Description 04/08/2024 9:30 AM EST Office Visit Cardiology, [facility] [address] [place] [address] Russel Medellin MD [address] [place] [address] 04/19/2024 8:40 AM EST Office Visit Family Practice [facility] [address] [facility] [place] [address] Clau Shine PA-C [address] [facility] [place] [address] Scheduled Orders Name Type Priority Associated Diagnoses [...] Depression Screening 12/07/2022 12/07/2021 COVID-19 Vaccine ( season) 2022 Diabetic Eye Exam 06/03/2023 06/03/2022, 10/31/2020 Albumin/Creatinine Ratio 09/03/2023 023, 09/06/2021, 10/31/2020 HbA1c 10/11/2023 04/11/2023, 05/0 11/2022, 06/03/2022, Additional history exists Influenza Vaccine (FLU shot) (Season Ended) 2023 GFR 04/11/2024 04/11/2023, 05/0 11/2022, 06/03/2022, Additional history exists Cologuard 06/13/2024 06/13/2021, 02/0 11/2021, 06/05/2021 Colorectal Cancer Screening 06/13/2024 Diabetic [...] chest pain Chest pain, unspecified Atherosclerosis of [place] coronary artery of [place] heart without angina pectoris Dyslipidemia Other and unspecified hyperlipidemia Type 2 diabetes mellitus with diabetic peripheral angiopathy without gangrene, without long-term current use of insulin (HCC) Seborrheic dermatitis Seborrheic dermatitis, unspecified Scalp psoriasis Other psoriasis Coronary artery disease involving [place] coronary artery of [place] heart without angina pectoris Type 2 diabetes mellitus without complication, 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 exterminator insulin use (HCC) documented in this encounter Care Teams Health And Social Care Teacher Relationship Specialty Start Date End Date Holly Knox MD [address] [place] [address] PCP - General Family Medicine 09/19/23 documented as of this encounter
--- OUTSIDE RECORDS SUMMARY | 2023-11-14 21:50 | External Medical Summary | Summary of Care ---
Author Name Unknown Organization [facility] Address [address] [place] [address] Phone [phone] Care Team Providers Care Site Engineer Name Role Phone Holly Knox MD Primary Care Provider [phone] Reason for Referral * Evaluate & Treat - Unlimited Visits (Within 10 days (routine)) - Authorized Specialty Diagnoses / Procedures Referred By Contac t Referred To Contact Wound Care Diagnoses Skin ulcer of left lower leg with fat layer exposed (HCC) Diabetes with skin ulcer (HCC) Clau Shine PA-C [address] [place] [address] Referral ID Status Reason Start Date Expiration Date Visits Requested Visits Authorized [id number] Authorized Specialty Services Required 10/16/2023 999 999 [...] abnormalities Clau Shine PA-C [address] [place] [address] Referral ID Status Reason Start Date Expiration Date Visits Requested Visits Authorized [id number] Authorized Specialty Services Required 10/16/2023 999 999 [...] Description 10/16/2023 8:00 AM EDT Office Visit [facility] [place] [facility] [place] [address] R[address] Clau LAZARO Vann [address] [facility] [place] [address] Type 2 diabetes mellitus with other skin ulcer, without long-term current use of insulin (HCC)*; Skin ulcer of left lower leg with fat layer exposed (HCC); DM type 2 nursing care encounter (HCC); HTN, goal below 130/80; EKG abnormalities; Chest pain, unspecified type; Diabetes with skin ulcer ([facility]); Exertional chest pain; Atherosclerosis of [place] coronary artery of [place] heart without angina pectoris; Dyslipidemia; Type 2 diabetes mellitus with diabetic peripheral angiopathy without gangrene, without long-term current use of insulin ([facility]); Seborrheic dermatitis; Scalp psoriasis; Coronary artery disease involving [place] coronary artery of [place] heart without angina pectoris; Type 2 diabetes mellitus without complication, unspecified whether skilled nursing insulin use ([facility]) Allergies Active Allergy Reactions Criticality Noted Date Comments Nsaids Rash 07/17/2006 Possible alergic reaction; discuss with patient documented as of this encounter (statuses as of 10/16/2023) Medications Medication Sig Dispensed Refills Start Date End Date Status aspirin enteric coated 81 MG TBEC Take 1 Tablet by mouth in the morning. Active Vitamin C24-Ntnsq Acid 500-400 MCG Oral Tablet Take by [...] gangrene, with long-term current use of insulin ([facility]) use 1 TEST STRIP to TEST BLOOD [...] (Nitrostat)Indicat ions:Chest pain, unspecified type,Atheroscleros is of [place] coronary artery of [place] heart without angina pectoris Place 1 Tablet [...] gangrene, without long-term current use of insulin ([facility]) Take 1 Tablet by mouth in the [...] Sublingual Tablet Sublingual (Nitrostat)Indicat ions:Atheroscleros is of [place] coronary artery of [place] heart without angina pectoris,Chest pain, unspecified type [...] stent 10/16/2023 Coronary artery disease invo lving [place] coronary artery of [place] heart without angina pectoris 10/16/2023 Atherosclerosis 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 Talk to your doctor or supervisor heavy equipment (a doctor who specializes in foot care) [...] the area doesnt appear to be healing. [phone] [employer], [address] [place] [address], [place] [address]. All rights reserved. This information is not [...] normal Urination/ bowel movements some frequency. Benitez interpreter and translator Lavinia [id number] Physical Exam Vitals: 10/16/23 0806 Temp: 36.5 [...] ulcer, without long-term current use of insulin ([facility]) (Primary) - HEMOGLOBIN A1C; Future; Expected date: 10/16/2023 - ALBUMIN / CREATININE RATIO, URINE; Future; Expected date: 10/16/2023 - DIABETIC EYE EXAM - COMPREHENSIVE METABOLIC PANEL; Future; Expected date: 10/16/2023 Skin ulcer of left lower leg with fat layer exposed ([facility]) - WOUND CARE REFERRAL OP - XR TIB/FIB 2 VIEWS; Future; Expected date: 10/16/2023 DM type 2 nursing care encounter ([facility]) - DIABETES FOOT EXAM HTN, goal below [...] by mouth in the morning. Atherosclerosis of [place] coronary artery of [place] heart without angina pectoris - Nitroglycerin 0.4 [...] gangrene, without long-term current use of insulin ([facility]) - Empagliflozin 10 MG Oral Tablet (Jardiance); [...] daily as needed Coronary artery disease involving [place] coronary artery of [place] heart without angina pectoris Type 2 diabetes mellitus without complication, unspecified whether skilled nursing insulin use ([facility]) Other orders - Clopidogrel Bisulfate 75 MG Oral Tablet (pLAVix); Take 1 Tablet by mouth in the morning. Follow Up: Return in about 6 months (around 04/16/2024) for Clinic Visit/ for 40 mins. needs interpreter and translator. | For: Clinic Visit/ for 40 mins. needs interpreter and translator | Check-out note: Schedule cardiology/wound clinic Wrap-Up [...] Miscellaneous Notes * Addendum Note - Zeinab Campbell LPN - 10/16/2023 9:34 AM EDTAddended by: ZEINAB CAMPBELL on: 10/16/2023 09:34 AM Modules accepted: Orders documented in this encounter Plan of Treatment Upcoming Encounters Date Type Department Care Team (Late st Contact Info) Description 10/16/2023 9:40 AM EDT Imaging Radiology [facility] [address] [place] [address] Skin ulcer of left lower leg with fat layer exposed (HCC) 10/16/2023 9:50 AM EDT Laboratory Laboratory [facility] [place] [address] [place] [id number] [place] [facility] [address] [place] [address] Arrived 10/22/2023 3:20 PM EDT Office Visit [facility], [facility] [address] [place] [facility] [place] [address] Chiqui Stokes DPM [address] [place] [address] 04/08/2024 9:30 AM EST Office Visit Cardiology, [facility] [address] [place] [address] Russel Medellin MD [address] [place] [address] 04/19/2024 8:40 AM EST Office Visit Family Practice [facility] [address] [place] [address] Clau Shine PA-C [address] [place] [address] Scheduled Orders Name Type Priority Associated Diagnoses [...] Not on filedocumented as of this encounter Procedures Procedure Name Priority Date/Time Associated Diagnosis Comments TELEMEDICINE DIABETIC EYE Routine 10/16/2023 Type 2 diabetes mellitus with other skin ulcer, without long-term current use of insulin (HCC) documented in this encounter Results * TELEMEDICINE DIABETIC EYE (10/16/2023) 10/16/2023 Clau Shine PA-C DIGITAL PHOTOGRAPHY documented in this encounter Visit Diagnoses Diagnosis Type 2 [...] chest pain Chest pain, unspecified Atherosclerosis of [place] coronary artery of [place] heart without angina pectoris Dyslipidemia Other and unspecified hyperlipidemia Type 2 diabetes mellitus with diabetic peripheral angiopathy without gangrene, without long-term current use of insulin (HCC) Seborrheic dermatitis Seborrheic dermatitis, unspecified Scalp psoriasis Other psoriasis Coronary artery disease involving [place] coronary artery of [place] heart without angina pectoris Type 2 diabetes mellitus without complication, 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
--- OUTSIDE RECORDS SUMMARY | 2023-11-14 21:50 | External Medical Summary | Summary of Care ---
Author Name Unknown Organization [facility] Address [address] [place] [address] Phone [phone] Care Team Providers Care Tool Filer Hand Name Role Phone Holly Knox MD Primary Care Provider [phone] Reason for Referral * Evaluate & Treat - Unlimited Visits (Within 10 days (routine)) - Authorized Specialty Diagnoses / Procedures Referred By Contac t Referred To Contact Wound Care Diagnoses Skin ulcer of left lower leg with fat layer exposed (HCC) Diabetes with skin ulcer (HCC) Clau Shine PA-C [address] [place] [address] Referral ID Status Reason Start Date Expiration Date Visits Requested Visits Authorized [id number] Authorized Specialty Services Required 10/16/2023 999 999 [...] abnormalities Clau Shine PA-C [address] [place] [address] Referral ID Status Reason Start Date Expiration Date Visits Requested Visits Authorized [id number] Authorized Specialty Services Required 10/16/2023 999 999 [...] Description 10/16/2023 8:00 AM EDT Office Visit [facility] [place] [address] [facility] [place] [address] [address] Clau LAZARO V[place] [address] [facility] [place] [address] Type 2 diabetes mellitus with other skin ulcer, without long-term current use of insulin (HCC)*; Skin ulcer of left lower leg with fat layer exposed (HCC); DM type 2 nursing care encounter (HCC); HTN, goal below 130/80; EKG abnormalities; Chest pain, unspecified type; Diabetes with skin ulcer ([facility]); Exertional chest pain; Atherosclerosis of [place] coronary artery of [place] heart without angina pectoris; Dyslipidemia; Type 2 diabetes mellitus with diabetic peripheral angiopathy without gangrene, without long-term current use of insulin ([facility]); Seborrheic dermatitis; Scalp psoriasis; Coronary artery disease involving [place] coronary artery of [place] heart without angina pectoris; Type 2 diabetes mellitus without complication, unspecified whether intermediate insulin use ([facility]) Allergies Active Allergy Reactions Criticality Noted Date Comments Nsaids Rash 07/17/2006 Possible alergic reaction; discuss with patient documented as of this encounter (statuses as of 10/16/2023) Medications Medication Sig Dispensed Refills Start Date End Date Status aspirin enteric coated 81 MG TBEC Take 1 Tablet by mouth in the morning. Active Vitamin K30-Qnpit Acid 500-400 MCG Oral Tablet Take by [...] gangrene, with long-term current use of insulin ([facility]) use 1 TEST STRIP to TEST [...] (Nitrostat)Indicat ions:Chest pain, unspecified type,Atheroscleros is of [place] coronary artery of [place] heart without angina pectoris Place 1 Tablet [...] gangrene, without long-term current use of insulin ([facility]) Take 1 Tablet by mouth in [...] Sublingual Tablet Sublingual (Nitrostat)Indicat ions:Atheroscleros is of [place] coronary artery of [place] heart without angina pectoris,Chest pain, unspecified type [...] stent 10/16/2023 Coronary artery disease invo lving [place] coronary artery of [place] heart without angina pectoris 10/16/2023 Atherosclerosis of [place] co ronary artery with angina pectoris 06/03/2022 [...] calluses yourself. Talk to your doctor or aviation technician aircraft (a doctor who specializes in foot care) [...] the area doesnt appear to be healing. [id number] [employer], [address] [place] [address], [place] [address]. All rights reserved. This information is not [...] normal Urination/ bowel movements some frequency. Benitez vegetable cook Lavin[place] [id number] Physical Exam Vitals: 10/16/23 0806 Temp: 36.5 [...] ulcer, without long-term current use of insulin ([facility]) (Primary) - HEMOGLOBIN A1C; Future; Expected date: 10/16/2023 - ALBUMIN / CREATININE RATIO, URINE; Future; Expected date: 10/16/2023 - DIABETIC EYE EXAM - COMPREHENSIVE METABOLIC PANEL; Future; Expected date: 10/16/2023 Skin ulcer of left lower leg with fat layer exposed ([facility]) - WOUND CARE REFERRAL OP - XR TIB/FIB 2 VIEWS; Future; Expected date: 10/16/2023 DM type 2 nursing care encounter ([facility]) - DIABETES FOOT EXAM HTN, goal [...] by mouth in the morning. Atherosclerosis of [place] coronary artery of [place] heart without angina pectoris - Nitroglycerin 0.4 [...] gangrene, without long-term current use of insulin ([facility]) - Empagliflozin 10 MG Oral Tablet [...] daily as needed Coronary artery disease involving [place] coronary artery of [place] heart without angina pectoris Type 2 diabetes mellitus without complication, unspecified whether intermediate insulin use ([facility]) Other orders - Clopidogrel Bisulfate 75 MG Oral Tablet (pLAVix); Take 1 Tablet by mouth in the morning. Follow Up: Return in about 6 months (around 04/16/2024) for Clinic Visit/ for 40 mins. needs vegetable cook. | For: Clinic Visit/ for 40 mins. needs vegetable cook | Check-out note: Schedule cardiology/wound clinic Wrap-Up [...] Description 10/16/2023 9:50 AM EDT Laboratory Laboratory [facility] [place] [address] [place] [id number] Pranay Hallman [place] [address] [place] [address] Hyperlipemia, mixed; Type 2 diabetes mellitus with other skin ulcer, without long-term current use of insulin (HCC); HTN, goal below 130/80 10/22/2023 3:20 PM EDT Office [facility] [address] [facility] [place] [id number] Chiqui Stokes DPM [address] [place] [address] 04/08/2024 9:30 AM EST Office Visit [facility], [facility] [place] [address] Russel Medellin MD [address] [place] [address] 04/19/2024 8:40 AM EST Office Visit Family Practice [facility] [place] [address] [place] [address] [address] Clau Shine PA-C [address] [place] [address] [id number] Pending Results Name Type Priority Associated Diagnoses Date/Time HEMOGLOBIN A1C Lab Routine Type 2 diabetes mellitus with other skin ulcer, without long-term current use of insulin (HCC) 10/16/2023 9:38 AM EDT COMPREHENSIVE METABOLIC PANEL Lab Routine Type 2 diabetes mellitus with other skin ulcer, without long-term current use of insulin (HCC) HTN, goal below 130/80 10/16/2023 9:38 AM EDT XR TIB/FIB 2 VIEWS Medical Imaging Routine Skin ulcer of left lower leg with fat layer exposed (HCC) 10/16/2023 9:39 AM EDT Scheduled Orders Name Type Priority Associated Diagnoses [...] unspecified type Expected: 10/16/2023 (Approximate), Expires: 11/14/2024 COMPREHENSIVE METABOLIC PANEL Lab Routine Type 2 [...] 12/07/2022 12/07/2021 COVID-19 Vaccine ( season) 2022 Albumin/Creatinine Ratio 09/03/2023 023, 09/06/2021, [...] * TELEMEDICINE DIABETIC EYE (10/16/2023) 10/16/2023 Clau Soo Shine PA-C DIGITAL PHOTOGRAPHY documented in this [...] chest pain Chest pain, unspecified Atherosclerosis of [place] coronary artery of [place] heart without angina pectoris Dyslipidemia Other and unspecified hyperlipidemia Type 2 diabetes mellitus with diabetic peripheral angiopathy without gangrene, without long-term current use of insulin (HCC) Seborrheic dermatitis Seborrheic dermatitis, unspecified Scalp psoriasis Other psoriasis Coronary artery disease involving [place] coronary artery of [place] heart without angina pectoris Type 2 diabetes mellitus without complication, unspecified whether intermediate insulin use (HCC) Hyperlipemia, mixed Mixed hyperlipidemia Type 2 diabetes mellitus with other skin ulcer, without long-term current use of insulin (HCC) HTN, goal below 130/80 Unspecified essential hypertension documented in this encounter Care Teams Tool Filer Hand Relationship Specialty Start Date End Date Holly Knox MD [address] [facility] [place] [address] PCP - General Family Medicine 09/19/23 documented as of this encounter
--- OUTSIDE RECORDS SUMMARY | 2023-11-14 21:50 | External Medical Summary | Summary of Care ---
Author Name Unknown Organization [facility] Address [address] [place] [address] Phone [phone] Care Team Providers Care System Configuration Specialist Name Role Phone Holly Knox MD Primary Care Provider [phone] Reason for Visit * Reason Onset Date Comments Test Results 10/17/2023 Encounter Details Date Type Department Care Team (Late st Contact Info) Description 10/17/2023 Telephone Cardiology, [facility] [address] [facility] [place] [address] JanayShanelle andrew CRNP [address] [facility] [id number] Test Results Allergies Active Allergy Reactions Criticality Noted Date Comments Nsaids Rash 07/17/2006 Possible alergic reaction; discuss with patient documented as of this encounter (statuses as of 10/17/2023) Medications Medication Sig Dispensed Refills Start Date End Date Status aspirin enteric coated 81 MG TBEC Take 1 Tablet by mouth in the morning. Active Vitamin G86-Gmxkb Acid 500-400 MCG Oral Tablet Take by [...] (Nitrostat)Indicati ons:Chest pain, unspecified type,Atherosclerosi s of [place] coronary artery of [place] heart without angina pectoris Place 1 Tablet [...] as of this encounter (statuses as of 10/17/2023) Active Problems Problem Noted Date Diagnosed Date Venous stasis dermatitis 10/16/2023 H/O heart artery stent 10/16/2023 Coronary artery disease invo lving [place] coronary artery of [place] heart without angina pectoris 10/16/2023 Atherosclerosis of [place] co ronary artery with angina pectoris 06/03/2022 [...] as of this encounter (statuses as of 10/17/2023) Immunizations Name Administration Dates Next Due TDAP [...] Telephone Encounter - Leonardo Morales RN - 10/17/2023 10:08 AM EDT Called and left message on phone for the patient to call the clinic regards to his lab results fromShanelle VANCE * Telephone Encounter - Leonardo Morales RN - 10/17/2023 10:08 AM EDT ----- Message from Shanelle Gustafson sent at 10/17/2023 8:15 AM EDT ----- LDL significantly uncontrolled. Patient has been known to be noncompliant with his medications. Please see previous result note for LFTs. documented in this encounter Plan of Treatment Upcoming Encounters Date Type Department Care Team (Late st Contact Info) Description 10/22/2023 3:20 PM EDT Office Visit Wound Care, [facility] [address] [facility] [place] [address] Chiqui Stokes DPM [address] [place] [address] 04/08/2024 9:30 AM EST Office Visit Cardiology, [facility] [address] [place] [address] Russel Medellin MD [address] [place] [address] 04/19/2024 8:40 AM EST Office Visit Family [facility] [address] [place] [address] Clau Shine PA-C [address] [place] [address] Health Maintenance Due Date Last Done Comments [...] filedocumented as of this encounter Care Teams System Configuration Specialist Relationship Specialty Start Date End Date Holly Knox MD 200 [facility] [place] [address] PCP - General Family Medicine 09/19/23 documented as of this encounter
[2023-11-14] MEDS ORDERED: GABAPENTIN 1200MG ALCOHOL WITHDRAWAL LOAD PO STA (21:52)
[2023-11-14] MEDS ORDERED: LORazepam 3 MG in SYRINGE 1.5 ML IV PRN (21:52)
[2023-11-14] MEDS ORDERED: Ativan IV Alcohol Withdrawal--Active Protocol IV PRN (21:52)
[2023-11-14] MEDS ORDERED: LORazepam 1 MG in SYRINGE 0.5 ML IV PRN (21:52)
[2023-11-14] MEDS ORDERED: LORazepam 2 MG in SYRINGE 1 ML IV PRN (21:52)
[2023-11-14] MEDS: LABETALOL HCL IV 5 MG/ML 20ML IV STA (22:05)
[2023-11-14] MEDS: ENOXAPARIN INJ 40 MG/0.4 ML SYR SQ SCH (22:05)
[2023-11-14] MEDS: MULTI-VITAMIN INFUSION 10 ML, THIAMINE HCL 100 MG, FOLIC ACID 1 MG in SODIUM CHLORIDE 0... IV ONE (22:21)
[2023-11-14] MEDS: GABAPENTIN 600 MG TAB PO ONE (22:21)
--- NOTE | 2023-11-14 23:21 | Ultrasound Report ---
ULTRASOUND LEFT LOWER EXTREMITY VENOUS CLINICAL HISTORY: Left calf pain and erythema. COMPARISON STUDY: Left lower extremity venous ultrasound dated 04/08/2023. TECHNIQUE: Real-time, grayscale, and color Doppler sonography of the deep veins of the left lower ext remity was performed from the inguinal crease to the calf. Compression and augmentation were utilized . FINDINGS: There is no sonographic evidence of deep venous thrombosis identified in the left lower ext remity. The common femoral, superficial femoral, and popliteal veins are patent and normally compress ible. The greater saphenous vein and the profunda femoris vein at the junction with the common femora l vein are clear. The visualized calf veins are patent. IMPRESSION: There is no sonographic evidence of deep venous thrombosis identified in the left lower e xtremity. ACT 112: Negative or not required by law. Electronically signed by: Paramjit Ramos M.D. 11/14/2023 11:19 PM
[2023-11-15] MEDS: GABAPENTIN 600 MG TAB PO SCH ×2 (04:13→17:37)
[2023-11-15] MEDS: CEFEPIME 2,000 MG in SYRINGE 0 ML IV SCH (04:14)
[2023-11-15] MEDS: INSULIN ASPART PER UNIT CHARGE SC SCH ×2 (06:38→17:35)
[2023-11-15] MEDS ORDERED: Nursing to Pharmacy Communication SCH (06:45)
[2023-11-15 06:53] LABS: Basophils # (auto) 0.04 K/uL (0.00-0.20); Eosinophils # (auto) 0.17 K/uL (0.00-0.50); Eosinophils % (auto) 4.1 %; Hemoglobin 15.1 g/dl (14.0-18.0); Immature Granulocytes # (auto) 0.01 K/uL (0.01-0.20); Immature Granulocytes % (auto) 0.2 %; Lymphocytes # (auto) 1.49 K/uL (1.20-3.40); Mean Corpuscular Hemoglobin 34.2 pg (25.0-34.0); Mean Corpuscular Hgb Conc 35.1 g/dL (32.0-36.0); Mean Corpuscular Volume 97.3 fL (80.0-100.0); Mean Platelet Volume 10.5 fL (9.4-12.4); Monocytes % (auto) 9.7 %; Neutrophils # (auto) 2.03 K/uL (1.40-6.50); Platelet Count 147 K/uL (130-400); RDW Coefficient of Variation 11.6 % (11.5-14.5); RDW Standard Deviation 41.6 fL (36.4-46.3); Red Blood Count 4.42 M/uL (4.70-6.10); White Blood Count 4.14 K/ul (4.8-10.8)
[2023-11-15 07:12] LABS: Alanine Aminotransferase 164 U/L (7-52); Albumin Level 3.9 gm/dl (3.4-5.0); Alkaline Phosphatase 74 U/L (34-104); Anion Gap 8 (3-11); Aspartate Aminotransferase 68 U/L (13-39); BUN Creatinine Ratio 25.8 (10-20); Bilirubin Direct 0.1 mg/dl (0-0.2); Bilirubin,Total 0.6 mg/dl (0.2-1.0); Blood Urea Nitrogen 16 mg/dl (6-23); Calcium 8.7 mg/dl (8.6-10.3); Carbon Dioxide 24 mmol/L (21-32); Chloride 106 mmol/L (98-107); Cholesterol 268 mg/dl (0-200); Creatinine Clr Calc Pharmacy 168.2 ml/min; Est GFR (African American) 127.6 ml/min; Est GFR (Non-African American) 110.1 ml/min; Glucose 145 mg/dl (70-99(Fasting)); HDL Cholesterol 57 mg/dl; Magnesium 2.2 mg/dl (1.7-2.4); Sodium 138 mmol/L (136-145); Total Protein 6.6 gm/dl (6.0-8.3); Triglycerides 418 mg/dl (0-150)
[2023-11-15 07:17] LABS: Albumin Globulin Ratio 1.4 (0.9-2); Chol HDL Ratio 4.7 (0-5); Globulin 2.7 gm/dl (2.5-4.0)
[2023-11-15 07:19] LABS: Troponin I High Sensitivity 37.5 pg/ml (0-20)
[2023-11-15 07:33] LABS: Folate (Folic Acid),Ser orPlas > 22.30 ng/ml (>5.38)
[2023-11-15 07:34] LABS: Vitamin B12 374 pg/ml (180-914)
[2023-11-15] MEDS: METOPROLOL SUCC 25MG EXT REL TAB PO SCH (08:15)
[2023-11-15] MEDS: THIAMINE HCL 100 MG in SYRINGE 9 ML IV SCH (08:16)
[2023-11-15] MEDS: FOLIC ACID 1 MG in SYRINGE 9.8 ML IV SCH (08:16)
[2023-11-15] MEDS: ASPIRIN 81 MG ECTAB PO SCH (08:16)
[2023-11-15] MEDS: lisinopril 40 MG TAB PO SCH (08:16)
[2023-11-15] MEDS: CLOPIDOGREL BISULFATE 75 MG TAB PO SCH (08:16)
[2023-11-15] MEDS: ROSUVASTATIN CALCIUM 20 MG TAB PO SCH (08:16)
--- NOTE | 2023-11-15 09:12 | Cardiology Consultation ---
Date of Consultation November 15, 2023 Assessment & Plan (1) Unstable angina: (2) Elevated LFTs: (3) Ulcer of left lower leg: (4) CAD, multiple vessel: (5) Diabetes mellitus type II, uncontrolled: (6) Dyslipidemia: Plan Impression/Plan: 1.Chest Pain -Known history of CAD s/p GALLO RCA. RCA stent occluded with L-R collaterals. 2.Hypertension 3.Hyperlipidemia 4.Elevated LFTs 5.Chronic LLE Wounds 6.DM 2, A1C 9.9 11/15/23: -Denies any further chest pain. Has topical nitro paste applied to the left side of the chest. -Troponin's are elevated. EKG shows no specific T wave changes. -Patient has a history of CAD with many risk factors such has uncontrolled diabe rene with chronic wounds, hypertension, and hyperlipidemia. Unclear if he is compliant with medications or not. -Recommend cardiac catheterization. Plan to discuss with patient -Continue DAPT. -BP elevated. Start Amlodipine 5 mg daily. Continue Lisinopril 40 mg daily. -Continue Metoprolol Succinate 25 mg daily. Case discussed with Dr. Snyder I spent a total of 60 minutes on the date of service in preparation, delivery, and documentation of the care provided to this patient, excluding any time spent in the performance of separately billed services. PINKY Gomez Department of Cardiology, [facility] This chart was completed in part utilizing Speech Voice Recognition Software. Grammatical errors, random word insertions, pronoun errors, and incomplete sentences are an occasional consequence of this system due to software limitations, ambient noise, and hardware issues. Any formal questions or concerns about the content, text, or information contained within the body of this dictation should be directly addressed to the provider for clarification. Supervising Physician Co-Signing Physician Notes Attending attestation: Case reviewed with the advanced practitioner. I have personally performed a history and physical examination on the patient. I have reviewed the advanced practitioner's documentation on the date of service referenced in note, and I agree with, and take responsibility for the plan of care. Subjective: Patient speaks Kittitian primarily and a little bit of Eritrean. 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 No chest discomfort at present. Comfortable. Blood pressure noted to still be above goal. Telemetry reveals sinus rhythm in the 60s to 70s. Exam: Cardiovascular: Regular rhythm, no murmurs, no edema EKG performed x 3 thus far this admission reviewed and interpreted independently revealing sinus rhythm with nonspecific diffuse T wave flattening. Unchanged compared to March,. Data: Mild elevation in high-sensitivity troponin, peaking at 37.5 (upper limit of normal 20 PG per mL) and has trended down to 25.4 PG per mL Impression/ Plan: Patient with chest discomfort, mild troponin elevation, symptoms concerning for unstable angina. Describes being adherent to medications. Blood pressure is above goal. Cardiac catheterization films from 2021 reviewed/interpreted independently. Patient with chronic occlusion of the right coronary artery with robust [id number] collaterals.There was hemodynamically significant stenosis at the distal LAD but this was a small portion of the vessel and medical management pursued at that time. Stress testing performed 5 months prior to that cardiac catheterization was abnormal, and I do not think that additional stress testing would add much at this point. Discussed options with patient such as trial of more intensified antianginal therapy with neck step to add amlodipine 5 mg daily for blood pressure and anginal benefit. Currently he is on topical nitroglycerin and adding isosorbide mononitrate would be a good neck step. Proceed with trial of medical therapy, depend upon his course, may warrant invasive coronary angiography next week. I spent a total of 20 minutes coordinating, documenting, and providing care for this patient excluding time spent in the performance of separately billed services or time spent by another provider. Yuri Snyder, DO History of Present Illness Reason for Consultation: Chest Pain Requesting Physician: Katty Rose MD Attending Physician: Dr. Snyder History of Present Illness PMH: 1.CAD -Cardiac catheterization February, Nonobstructive CAD of the LAD and LCx, however, in the very distal portion of the LAD there is an 80 to 90% concentric stenoses. RCA occluded with L-R collaterals. 02/05/2022 -Abnormal DANAY 09/2021 -GALLO x1 mRCA 2020 2.Cardiometabolic Syndrome 3.DM 2 4.Hyperlipidemia 5.Medication Noncompliance 6. Hypertension 7.Chronic LE Wounds Patient is a 58 year old male that presented to [facility] on 11/14/2023 for evaluation of chest pain. 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 States that he developed chest discomfort described as "squeezing" after doing dishes. He felt nauseous and sweaty at that time. physician assistant surgery checked his blood sugar which was 318. He applied a cool wash cloth to his face for relief. BP at that time was elevated. He took 1 SL nitro without relief. He did feel relief after taking 4 baby aspirin. Patient saw PCP on 10/16/2023 and reported chest pain. Referral placed for Cardiology. Patient has not seen Cardiology since 2021. He also has chronic lower extremity ulcers. Denies fevers/chills. Used to follow with the wound clinic, but has not in quite some time. LE are very tender touch. Denies tobacco use, alcohol use, and illicit drug use. Allergies Allergy/AdvReac Type Severity Reaction Status Date / Time No Known Allergies Allergy Unknown Verified 01/09/22 10:25 Home Medications Medication Instructions Recorded Confirmed Type aspirin 81 mg tablet,delayed 81 mg PO QAM #30 tabs 04/11/23 11/14/23 Rx release clopidogrel 75 mg tablet 75 mg PO QAM #30 tabs 04/11/23 11/14/23 Rx empagliflozin 10 mg tablet 10 mg PO DAILY #30 tabs 04/11/23 11/14/23 Rx (Jardiance) lisinopril 40 mg tablet (Zestril) 40 mg PO QAM #30 tabs 04/11/23 11/14/23 Rx metoprolol succinate 25 mg 25 mg PO QAM #30 tabs 04/11/23 11/14/23 Rx tablet,extended release 24 hr rosuvastatin 40 mg tablet 40 mg PO DAILY #30 tabs 04/11/23 11/14/23 Rx Patient History Medical History Venous stasis ulcer Surgical History History of cholecystectomy Family History Father Diabetes Social History Smoking Status: Former smoker Tobacco Type: Cigarettes Second Hand Exposure: No; Do You Dip or Chew Tobacco: No; Hx Alcohol Use: Yes Alcohol type: beer, wine and hard liquor Alcohol Intake Frequency: 2-3 x/Week Hx Substance Use: No Preferred Language: [place] Communication Ability: Effective Communication Ability Comment: Speak slowly Tourism Radio Presenter Required: No Beliefs That Will Affect Care: None Current Living Situation: Alone Current Living Situation Comment: patient independent with dressing changes current occupational status: other other: patient entering into SSI Feels Safe at Home: Yes Diet: diabetic Assistive Devices: None Review of Systems Review of Systems: All systems reviewed & are unremarkable except as noted in HPI & below Physical Exam Constitutional: WD/WN, vitals as above Eyes: PERRL, conjunctivae normal, anicteric sclerae Respiratory: normal respiratory effort, lungs clear to auscultation normal respiratory effort; no respiratory distress Cardiovascular: RRR, no murmur, no edema Rate/Rhythm: regular rate and regular rhythm Extremities: no edema Musculoskeletal: LLE ulcers x3 Venous stasis Neurologic: PERRL, EOMI, accommodation nl, no face palsy, no dysarthria Psychiatric: A+Ox3, euthymic affect Results & Data Vital Signs (Past 12 Hours) Vital Signs Temp Pulse Pulse Pulse Resp BP BP 11/15/23 07:51 60 11/15/23 07:46 36.5 C 60 18 169/92 H 11/15/23 02:52 36.5 C 64 18 169/94 H 11/14/23 23:48 70 11/14/23 22:25 36.7 C 16 11/14/23 22:24 68 169/95 H 11/14/23 22:05 69 184/103 H 11/14/23 21:54 69 11/14/23 21:22 36.8 C 72 16 184/103 H Pulse Ox O2 Del Method 11/15/23 07:51 11/15/23 07:46 96 Room Air 11/15/23 02:52 95 Room Air 11/14/23 23:48 11/14/23 22:25 94 Room Air 11/14/23 22:24 11/14/23 22:05 11/14/23 21:54 11/14/23 21:22 97 Room Air Laboratory Results Cardiac Enzymes 11/14/23 11/14/23 11/15/23 Range/Units 16:49 18:38 00:18 AST TNP 104 H Troponin I High Sens 23.3 H 26.6 H 34.8 H (0-20) pg/ml 11/15/23 Range/Units 06:15 AST 68 H Troponin I High Sens 37.5 H (0-20) pg/ml Lipids 11/15/23 Range/Units 06:15 Triglycerides 418 H (0-150) mg/dl Cholesterol 268 H (0-200) mg/dl HDL Cholesterol 57 mg/dl Cholesterol/HDL Ratio 4.7 (0-5) CBC 11/14/23 11/15/23 Range/Units 16:49 06:15 WBC 4.27 L 4.14 L (4.8-10.8) K/ul RBC 4.48 L 4.42 L (4.70-6.10) M/uL Hgb 15.3 15.1 (14.0-18.0) g/dl Hct 43.1 43.0 (42.0-52.0) % Plt Count 173 147 (130-400) K/uL Neut # (Auto) 2.40 2.03 (1.40-6.50) K/uL Lymph # (Auto) 1.30 1.49 (1.20-3.40) K/uL Overton # (Auto) 0.38 0.40 (0.11-0.59) K/uL Eos # (Auto) 0.16 0.17 (0.00-0.50) K/uL Baso # (Auto) 0.02 0.04 (0.00-0.20) K/uL Comprehensive Metabolic Panel 11/14/23 11/14/23 11/15/23 Range/Units 16:49 18:38 06:15 Sodium 136 138 (136-145) mmol/L Potassium TNP 4.6 4.0 Chloride 103 106 (98-107) mmol/L Carbon Dioxide 25 24 (21-32) mmol/L BUN 15 16 (6-23) mg/dl Creatinine 0.71 0.62 (0.6-1.4) mg/dl Glucose 262 H 145 H (70-99(Fasting)) mg/dl Calcium 8.9 8.7 (8.6-10.3) mg/dl Direct Bilirubin 0.1 (0-0.2) mg/dl AST TNP 104 H 68 H ALT 217 H 164 H (7-52) U/L Alkaline Phosphatase 91 74 (34-104) U/L Total Protein 7.5 6.6 (6.0-8.3) gm/dl Albumin 4.2 3.9 (3.4-5.0) gm/dl Intake and Output 11/14/23 11/15/23 11/15/23 22:59 06:59 14:59 Intake Total 1161.2 / 1161.2 Balance 1161.2 / 1161.2 Intake: IV 1011.2 / 1011.2 Multi-Vitamin Infusion 10 ml 1011.2 / 1011.2 Thiamine HCl 100 mg Folic Acid 1 mg In Sodium Chloride 0.9% 1, 000 ml @ 500 mls/hr IV .Q2H2M ONE Rx#:[id number] Oral 150 / 150 Other: Other Intake Source sips Npo Weight 109.7 kg 109.7 kg Weight Measurement Method Standing Scale Standing Scale Diagnostic Findings EKG 11/15/2023 NSR 63 bpm Nonspecifc T wave abnormality EKG 11/14/2023 NSR 68 bpm Nonspecifc T wave abnormality EKG 10/16/2023 NSR 1 AV Block 68 bpm Echo 04/08/2023 No significant valvular pathology left ventricle is normal in size. Left ventricular systolic function is normal. The left ventricular wall motion is normal. Ejection fraction equal 60 to 65%. The right ventricle systolic function is normal. Left atrial size is normal. Right atrial size is normal Cardiac cath at [facility] with Dr Melissa 02/05/2022 The patient has diffuse nonobstructive coronary artery disease of the LAD and left circumflex systems however, in the very distal portion of the LAD there is an 80 to 90% concentric stenoses. The right coronary artery is occluded at the stented site proximally and fills with a generous flow of left to right collaterals distally. Exercise stress echocardiogram August 2021: The primary indication after review was deemed appropriate and the examination was performed. The exercise echocardiographic examination is uninterpretable due to low work load Clinical findings suggest coronary artery disease with ischemia even though the stress echo failed to identify segmental wall motion abnormalities. The low heart rate response and or low workload achieved reduces the sensitivity of this test for the detection of coronary artery disease or ischemia. Symptoms noted during stress are similar to the patient's referral symptoms. The stress test was terminated due to chest pain. Normal blood pressure response to exercise. At rest, normal LV chamber size with mild concentric LVH. Normal LV systolic function without regional wall motion abnormalities. EF 55 to 60%. Grade 1 diastolic dysfunction. No significant valvular pathology
[2023-11-15] MEDS: NITROGLYCERIN 2% OINTMENT 30GM TUBE EXT ONE (10:47)
[2023-11-15 11:34] LABS: Estimated Average Glucose 237 mg/dl; Hemoglobin A1C 9.9 % (4.5-5.6)
[2023-11-15] MEDS ORDERED: INSULIN ASPART PER UNIT CHARGE SC SCH ×2 (12:00→21:00)
--- NOTE | 2023-11-15 13:24 | Hospitalist Progress Note ---
Date of Service November 15, 2023 Assessment & Plan (1) Chest pain: (2) CAD, multiple vessel: (3) Ulcer of left lower leg: (4) Cellulitis of lower leg: (5) Hypertension: (6) Dyslipidemia: (7) Diabetes type 2, uncontrolled: (8) Elevated LFTs: Plan Mr. Roman is a 58-year-old male with PMH multivessel CAD, HTN, HLD, DM II, chronic skin ulcers admitted for ACS r/o. Patient Martiniquais speaking but declined unit assembler. Patient reports chest pain resolved in ED, however, this am reports left sided recurrence. Troponin remains elevated at baseline and EKG with TWI in V1, V2 otherwise NSR #Typical Chest pain: substernal pressure, ?provoked by exertion/stress? resolved with nitro #Multivessel CAD CAD, multiple vessel: Abnormal admission EGK, repeat with improvement, TWI present Troponin with baseline elevation iso known CAD R/O ACS. Risk factors: CAD, HTN, hyperlipidemia, DM ECHO pending read Lipid panel grossly abnormal: repeat lipid panel 2/2 interference with TG on level Continue Statin Continue aspirin, metoprolol, Plavix Cardiology consult Nitro topical q6h #Ulcer of left lower leg: #Cellulitis of lower leg: Chronic ulcers LLE with possible secondary cellulitis Doppler LLE negative Wound culture pending Blood cultures pending Cefepime for now for pseudomonal coverage Wound nurse consult #Hypertension: BP 161/100 In ER and downtrended to 150/89 Monitor BP Continue lisinopril, metoprolol #Transaminitis #Hepatic steatosis elevated US abd/liver in 2022 with hepatic steatosis, no RUQ concerns this am improved from admission repeat CMP Max 2000mg acetaminophen #Dyslipidemia: Continue rosuvastatin for now, monitor LFTs. May need to consider alternate agent #Diabetes type 2, uncontrolled: A1c: 9.9% Hold Jardiance Novolog sliding scale Concern for noncompliance DVT Prophylaxis Lovenox SQ Admit med/tele Full Code Follows with Dr Knox for routine care Admission and Anticipated Discharge Date Admission Date: November 14, 2023 Subjective NAEO however this am patient reports recurrence of left chest pain, substernal based on patient gesturing and wrapping under left axilla. Denies diaphoresis or radiation to jaw, reports relief with nitro EKG seemingly improved from day prior, trop downtrending Patient states chest pain isnt reproducible to palpation, he endorses compliance on exam with reported home regimen States this morning occurred at rest but sometimes provoked by exertion Patient declines any unit assembler service and verbalizes understanding of discussion held at bedside . Results & Data Results & Data Vital Signs (Past 12 Hours) Vital Signs Temp Pulse Pulse Resp BP Pulse Ox O2 Del Method 11/15/23 11:37 36.8 C 62 18 158/94 H 95 Room Air 11/15/23 07:51 60 11/15/23 07:46 36.5 C 60 18 169/92 H 96 Room Air 11/15/23 02:52 36.5 C 64 18 169/94 H 95 Room Air Laboratory Results Short CBC 11/14/23 11/15/23 Range/Units 16:49 06:15 WBC 4.27 L 4.14 L (4.8-10.8) K/ul Hgb 15.3 15.1 (14.0-18.0) g/dl Hct 43.1 43.0 (42.0-52.0) % Plt Count 173 147 (130-400) K/uL BMP 11/14/23 11/14/23 11/15/23 16:49 18:38 06:15 Sodium 136 138 Potassium TNP 4.6 4.0 Chloride 103 106 Carbon Dioxide 25 24 BUN 15 16 Creatinine 0.71 0.62 Glucose 262 H 145 H Calcium 8.9 8.7 Liver Function 11/14/23 11/14/23 11/15/23 Range/Units 16:49 18:38 06:15 Total Bilirubin 0.5 0.6 (0.2-1.0) mg/dl Direct Bilirubin 0.1 (0-0.2) mg/dl AST TNP 104 H 68 H ALT 217 H 164 H (7-52) U/L Alkaline Phosphatase 91 74 (34-104) U/L Albumin 4.2 3.9 (3.4-5.0) gm/dl Medications Administered Home Medications Medication Instructions Recorded Confirmed Last Taken aspirin 81 mg tablet,delayed 81 mg PO QAM #30 tabs 04/11/23 11/14/23 11/14/23 release clopidogrel 75 mg tablet 75 mg PO QAM #30 tabs 04/11/23 11/14/23 11/14/23 empagliflozin 10 mg tablet 10 mg PO DAILY #30 tabs 04/11/23 11/14/23 11/14/23 (Jardiance) lisinopril 40 mg tablet (Zestril) 40 mg PO QAM #30 tabs 04/11/23 11/14/23 11/14/23 metoprolol succinate 25 mg 25 mg PO QAM #30 tabs 04/11/23 11/14/23 11/14/23 tablet,extended release 24 hr rosuvastatin 40 mg tablet 40 mg PO DAILY #30 tabs 04/11/23 11/14/23 Unknown Active Medications Generic Name Dose Route Start Last Admin Trade Name Freq PRN Reason Stop Dose Admin Aspirin 81 mg 11/15/23 09:00 11/15/23 08:16 Aspirin 81 Mg Ectab PO 12/15/23 08:59 81 mg QAM AZ Administration Clopidogrel Bisulfate 75 mg 11/15/23 09:00 11/15/23 08:16 Clopidogrel Bisulfate 75 Mg Tab PO 12/15/23 08:59 75 mg QAM AZ Administration Enoxaparin Sodium 40 mg 11/14/23 22:00 11/14/23 22:05 Enoxaparin Inj 40 Mg/0.4 Ml Syr SQ 12/14/23 21:59 40 mg Q24H AZ Administration Cefepime HCl 2,000 mg/ Syringe 20 mls @ 5 mls/min 11/15/23 05:00 11/15/23 13:22 IV 11/22/23 04:59 5 mls/min Q8H AZ Administration Protocol Thiamine HCl 100 mg/ Syringe 10 mls @ 2 mls/min 11/15/23 09:00 11/15/23 08:16 IV 12/15/23 08:59 2 mls/min QAM AZ Administration Folic Acid 1 mg/ Syringe 10 mls @ 5 mls/min 11/15/23 09:00 11/15/23 08:16 IV 12/15/23 08:59 5 mls/min QAM AZ Administration Insulin Aspart 0 units 11/15/23 06:45 11/15/23 13:21 Insulin Aspart Per Unit Charge SC 12/15/23 06:44 1 units Q6 AZ Administration Lisinopril 40 mg 11/15/23 09:00 11/15/23 08:16 Lisinopril 40 Mg Tab PO 08/19/24 08:59 40 mg QAM AZ Administration Metoprolol Succinate 25 mg 11/15/23 09:00 11/15/23 08:15 Metoprolol Succ 25mg Ext Rel Tab PO 12/15/23 08:59 25 mg QAM AZ Administration Rosuvastatin Calcium 40 mg 11/15/23 09:00 11/15/23 08:16 Rosuvastatin Calcium 20 Mg Tab PO 12/15/23 08:59 40 mg DAILY [place] Administration (1) Chest pain Chest pain type: unspecified Qualified Code(s): R07.9 - Chest pain, unspecified
[2023-11-15] MEDS: amLODIPine BESYLATE 5 MG TAB PO ONE (15:39)
[2023-11-15] MEDS: NITROGLYCERIN 2% OINTMENT 30GM TUBE EXT SCH (17:36)
[2023-11-15] MEDS: LANTUS PER UNIT CHARGE SQ SCH (21:28)
[2023-11-16 07:13] LABS: Hematocrit (blood only) 42.3 % (42.0-52.0); Hemoglobin 14.7 g/dl (14.0-18.0); Mean Corpuscular Hemoglobin 34.3 pg (25.0-34.0); Mean Corpuscular Hgb Conc 34.8 g/dL (32.0-36.0); Mean Corpuscular Volume 98.6 fL (80.0-100.0); Mean Platelet Volume 10.6 fL (9.4-12.4); Platelet Count 153 K/uL (130-400); RDW Coefficient of Variation 11.7 % (11.5-14.5); RDW Standard Deviation 42.4 fL (36.4-46.3); Red Blood Count 4.29 M/uL (4.70-6.10); White Blood Count 5.32 K/ul (4.8-10.8)
[2023-11-16] MEDS: amLODIPine BESYLATE 5 MG TAB PO SCH (07:23)
[2023-11-16 07:34] LABS: BUN Creatinine Ratio 22.7 (10-20); Calcium 8.9 mg/dl (8.6-10.3); Est GFR (Non-African American) 101.8 ml/min; Potassium 4.1 mmol/L (3.5-5.1)
[2023-11-16 07:40] LABS: Albumin Globulin Ratio 1.4 (0.9-2); Albumin Level 3.9 gm/dl (3.4-5.0); Bilirubin,Total 0.6 mg/dl (0.2-1.0); Chol HDL Ratio 5.4 (0-5); Globulin 2.8 gm/dl (2.5-4.0); Magnesium 2.2 mg/dl (1.7-2.4); Phosphorus 3.1 mg/dl (2.5-4.9); Total Protein 6.7 gm/dl (6.0-8.3)
[2023-11-16] MEDS: GABAPENTIN 600 MG TAB PO SCH (09:10)
--- NOTE | 2023-11-16 10:37 | Cardiology Progress Note ---
Date of Service November 16, 2023 Assessment & Plan (1) Unstable angina: (2) Elevated LFTs: (3) Ulcer of left lower leg: (4) CAD, multiple vessel: (5) Diabetes mellitus type II, uncontrolled: (6) Dyslipidemia: Plan Impression/Plan: 1.Chest Pain -Known history of CAD s/p GALLO RCA. RCA stent occluded with L-R collaterals. 2.Hypertension 3.Hyperlipidemia 4.Elevated LFTs 5.Chronic LLE Wounds 6.DM 2, A1C 9.9 11/15/23: -Denies any further chest pain. Has topical nitro paste applied to the left side of the chest. -Troponin's are elevated. EKG shows no specific T wave changes. -Patient has a history of CAD with many risk factors such has uncontrolled diabetes with chronic wounds, hypertension, and hyperlipidemia. Unclear if he is compliant with medications or not. -Recommend cardiac catheterization. Plan to discuss with patient -Continue DAPT. -BP elevated. Start Amlodipine 5 mg daily. Continue Lisinopril 40 mg daily. -Continue Metoprolol Succinate 25 mg daily. 11/16/23: -Denies any further chest pain. Instructed nursing to remove Topical Nitro Past e. Order was previously discontinued. Continue Isordil 10 mg TID for now. -BP in R arm 129/81, BP in L arm 150/83. Continue Amlodipine 5 mg daily and Lisinopril 40 mg daily. -Will discuss cardiac catheterization vs medical management with Dr. Belle tomorrow. -Continue DAPT and Crestor 40 mg daily -Continue Metoprolol Succinate 25 mg daily Case discussed with Dr. Snyder I spent a total of 30 minutes on the date of service in preparation, delivery, and documentation of the care provided to this patient, excluding any time spent in the performance of separately billed services. PINKY Gomez Department of Cardiology, [facility] This chart was completed in part utilizing Speech Voice Recognition Software. Grammatical errors, random word insertions, pronoun errors, and incomplete sentences are an occasional consequence of this system due to software limitations, ambient noise, and hardware issues. Any formal questions or concerns about the content, text, or information contained within the body of this dictation should be directly addressed to the provider for clarification. Admission and Anticipated Discharge Date Admission Date: November 14, 2023 Supervising Physician Co-Signing Physician Notes Attending attestation: Case reviewed with the advanced practitioner. I have personally performed a history and physical examination on the patient. I have reviewed the advanced practitioner's documentation on the date of service referenced in note, and I agree with, and take responsibility for the plan of care. Subjective: Declined use of Puerto [place]ican language line speck dyer. Denies chest pain Telemetry reveals sinus rhythm in the 60s to 70s. Exam: Cardiovascular: Regular rhythm, no murmurs, no edema EKG performed x 3 thus far this admission reviewed and interpreted independently revealing sinus rhythm with nonspecific diffuse T wave flattening. Unchanged compared to March,. Data: Mild elevation in high-sensitivity troponin, peaking at 37.5 (upper limit of normal 20 PG per mL) and has trended down to 25.4 PG per mL Echocardiogram performed 11/15/2023 revealed mild concentric left ventricular hypertrophy, no regional wall motion abnormalities, LVEF in the range of 55 to 60%, mild aortic root enlargement Impression/ Plan: Patient with chest discomfort, mild troponin elevation. Symptoms improved. Ambulated in the hallway without any symptoms. Cardiac catheterization films from 2021 reviewed/interpreted independently. Patient with chronic occlusion of the right coronary artery with robust [id number] collaterals.There was hemodynamically significant stenosis at the distal LAD but this was a small portion of the vessel and medical management pursued at that time. Stress testing performed 5 months prior to that cardiac catheterization was abnormal, and I do not think that additional stress testing would add much at this point. Discussed options with patient such as trial of more intensified antianginal therapy versus cardiac catheterization. Patient feeling improved. Proceed with trial of medical therapy. Amlodipine added for blood pressure lowering and antianginal effect. Patient also tolerated trial of topical nitroglycerin and then Isordil. Will transition him to isosorbide mononitrate extended release 30 mg daily at time of discharge. This medication is available at a low cost. The patient's direct LDL level of 183 mg/dL raises concerns of possible nonad herence. Resume rosuvastatin. Add ezetimibe if affordable. Outpatient clinical pharmacy consultation may be helpful in order to make sure patient is benefiting from any programs that could help him afford his medications. Proceed with discharge. Case discussed with Dr. Rose for the purspose of coordination of care. Will arrange outpatient follow-up with [facility] cardiology. I spent a total of 250 minutes coordinating, documenting, and providing care for this patient excluding time spent in the performance of separately billed services or time spent by another provider. Yuri Snyder, Subjective No acute events noted overnight. Patient is resting in bed without concerns. No chest pain. Review of Systems Review of Systems: All systems reviewed & are unremarkable except as noted in HPI & below Physical Exam Respiratory: normal respiratory effort, lungs clear to auscultation normal respiratory effort; no respiratory distress Cardiovascular: RRR, no murmur, no edema Rate/Rhythm: regular rate and regular rhythm Extremities: no edema Neurologic: PERRL, EOMI, accommodation nl, no face palsy, no dysarthria Psychiatric: A+Ox3, euthymic affect Results & Data Vital Signs (Past 12 Hours) Vital Signs Temp Pulse Resp BP Pulse Ox O2 Del Method 11/16/23 07:39 36.7 C 60 18 143/78 H 96 Room Air 11/16/23 02:56 36.6 C 66 16 121/73 97 Room Air 11/15/23 23:25 36.8 C 74 18 125/80 95 Room Air Laboratory Results Cardiac Enzymes 11/15/23 11/15/23 11/15/23 Range/Units 10:41 12:19 18:58 AST (13-39) U/L Troponin I High Sens 32.2 H 25.4 H 21.7 H (0-20) pg/ml 11/16/23 Range/Units 06:13 AST 61 H (13-39) U/L Troponin I High Sens (0-20) pg/ml Lipids 11/16/23 Range/Units 06:13 Triglycerides 293 H (0-150) mg/dl Cholesterol 258 H (0-200) mg/dl HDL Cholesterol 48 mg/dl Cholesterol/HDL Ratio 5.4 H (0-5) LDL cholesterol direct: 183 mg/dl CBC 11/16/23 Range/Units 06:13 WBC 5.32 (4.8-10.8) K/ul RBC 4.29 L (4.70-6.10) M/uL Hgb 14.7 (14.0-18.0) g/dl Hct 42.3 (42.0-52.0) % Plt Count 153 (130-400) K/uL Comprehensive Metabolic Panel 11/16/23 Range/Units 06:13 Sodium 135 L (136-145) mmol/L Potassium 4.1 (3.5-5.1) mmol/L Chloride 103 (98-107) mmol/L Carbon Dioxide 24 (21-32) mmol/L BUN 17 (6-23) mg/dl Creatinine 0.75 (0.6-1.4) mg/dl Glucose 156 H (70-99(Fasting)) mg/dl Calcium 8.9 (8.6-10.3) mg/dl AST 61 H (13-39) U/L ALT 141 H (7-52) U/L Alkaline Phosphatase 73 (34-104) U/L Total Protein 6.7 (6.0-8.3) gm/dl Albumin 3.9 (3.4-5.0) gm/dl Intake and Output 11/15/23 11/16/23 11/16/23 22:59 06:59 14:59 Intake Total 880 / 895 Output Total Balance - 880 / 894 Intake: Oral 880 / 895 Output: # Bowel Movements Other: Other Intake Source NPO # Unmeasured Voids 2 Weight 109.7 kg Diagnostic Findings EKG 11/15/2023 NSR 63 bpm Nonspecifc T wave abnormality EKG 11/14/2023 NSR 68 bpm Nonspecifc T wave abnormality EKG 10/16/2023 NSR 1 AV Block 68 bpm Echo 04/08/2023 No significant valvular pathology left ventricle is normal in size. Left ventricular systolic function is normal. The left ventricular wall motion is normal. Ejection fraction equal 60 to 65%. The right ventricle systolic function is normal. Left atrial size is normal. Right atrial size is normal Cardiac cath at [facility] with Dr Melissa 02/05/2022 The patient has diffuse nonobstructive coronary artery disease of the LAD and left circumflex systems however, in the very distal portion of the LAD there is an 80 to 90% concentric stenoses. The right coronary artery is occluded at the stented site proximally and fills with a generous flow of left to right collaterals distally. Exercise stress echocardiogram August 2021: The primary indication after review was deemed appropriate and the examination was performed. The exercise echocardiographic examination is uninterpretable due to low work load Clinical findings suggest coronary artery disease with ischemia even though the stress echo failed to identify segmental wall motion abnormalities. The low heart rate response and or low workload achieved reduces the sensitivity of this test for the detection of coronary artery disease or ischemia. Symptoms noted during stress are similar to the patient's referral symptoms. The stress test was terminated due to chest pain. Normal blood pressure response to exercise. At rest, normal LV chamber size with mild concentric LVH. Normal LV systolic function without regional wall motion abnormalities. EF 55 to 60%. Grade 1 diastolic dysfunction. No significant valvular pathology
--- NOTE | 2023-11-16 12:09 | Hospitalist Progress Note ---
Date of Service November 16, 2023 Assessment & Plan (1) Chest pain: (2) CAD, multiple vessel: (3) Ulcer of left lower leg: (4) Cellulitis of lower leg: (5) Hypertension: (6) Dyslipidemia: (7) Diabetes type 2, uncontrolled: (8) Elevated LFTs: Plan Mr. Roman is a 58-year-old male with PMH multivessel CAD, HTN, HLD, DM II, chronic skin ulcers admitted for ACS r/o. Patient Central African speaking but declined wrapper sizer. Patient reports chest pain resolved in ED, however with recurrence on 11/14. Pain resolved with topical nitro which is no transitioned to Isordil. Plan for continued discussion of med management v cath tomorrow. #Typical Chest pain: substernal pressure, ?provoked by exertion/stress? resolved with nitro #Multivessel CAD CAD, multiple vessel: Abnormal admission EGK, repeat with improvement, TWI present Troponin with baseline elevation iso known CAD R/O ACS. Risk factors: CAD, HTN, hyperlipidemia, DM ECHO 55-60% mild LVH Lipid panel grossly abnormal: repeat lipid panel 2/2 interference with TG on level -LDL 151, reports compliance Add Zetia Continue Statin Continue aspirin, metoprolol, Plavix Cardiology consult Nitro topical q6h discontinued and transitioned to isoduril 10mg TID, if tolerated and no recurrence, will transition to imdur #Ulcer of left lower leg: #Cellulitis of lower leg: Chronic ulcers LLE with possible secondary cellulitis Doppler LLE negative Wound culture NGTD, Blood cultures NGTD Cefepime for now for pseudomonal coverage Wound nurse consult #Hypertension: BP 161/100 In ER and downtrended to 150/89 Monitor BP Continue lisinopril, metoprolol #Transaminitis *improving #Hepatic steatosis elevated US abd/liver in 2022 with hepatic steatosis, no RUQ concerns this am improved from admission repeat CMP Max 2000mg acetaminophen #Dyslipidemia: Continue rosuvastatin for now, monitor LFTs. May need to consider alternate agent add zetia, ldl goal < 70 (183 this admission) #Diabetes type 2, uncontrolled: A1c: 9.9% Hold Jardiance Novolog sliding scale DVT Prophylaxis Lovenox SQ Admit med/tele Full Code Follows with Dr Knox for routine care Admission and Anticipated Discharge Date Admission Date: November 14, 2023 Subjective NAEO Denies any chest pain on exam today Reports concern for undergoing LHC because he worries about "the purpose" as "they find something" every time. He agrees to continue on medication management and verbalizes understanding of medication adjustments Physical Exam Constitutional: WD/WN, vitals as above Respiratory: normal respiratory effort, lungs clear to auscultation Cardiovascular: RRR, no murmur, no edema Gastrointestinal (Abdomen): normal bowel sounds, soft, nontender, no hepatosplenomegaly Results & Data Results & Data Vital Signs (Past 12 Hours) Vital Signs Temp Pulse Resp BP Pulse Ox O2 Del Method 11/16/23 11:19 36.5 C 66 18 129/81 95 Room Air 11/16/23 07:39 36.7 C 60 18 143/78 H 96 Room Air 11/16/23 02:56 36.6 C 66 16 121/73 97 Room Air Laboratory Results Short CBC 11/16/23 Range/Units 06:13 WBC 5.32 (4.8-10.8) K/ul Hgb 14.7 (14.0-18.0) g/dl Hct 42.3 (42.0-52.0) % Plt Count 153 (130-400) K/uL BMP 11/16/23 06:13 Sodium 135 L Potassium 4.1 Chloride 103 Carbon Dioxide 24 BUN 17 Creatinine 0.75 Glucose 156 H Calcium 8.9 Liver Function 11/16/23 Range/Units 06:13 Total Bilirubin 0.6 (0.2-1.0) mg/dl AST 61 H (13-39) U/L ALT 141 H (7-52) U/L Alkaline Phosphatase 73 (34-104) U/L Albumin 3.9 (3.4-5.0) gm/dl Medications Administered Home Medications Medication Instructions Recorded Confirmed Last Taken aspirin 81 mg tablet,delayed 81 mg PO QAM #30 tabs 04/11/23 11/14/23 11/14/23 release clopidogrel 75 mg tablet 75 mg PO QAM #30 tabs 04/11/23 11/14/23 11/14/23 empagliflozin 10 mg tablet 10 mg PO DAILY #30 tabs 04/11/23 11/14/23 11/14/23 (Jardiance) lisinopril 40 mg tablet (Zestril) 40 mg PO QAM #30 tabs 04/11/23 11/14/23 11/14/23 metoprolol succinate 25 mg 25 mg PO QAM #30 tabs 04/11/23 11/14/23 11/14/23 tablet,extended release 24 hr rosuvastatin 40 mg tablet 40 mg PO DAILY #30 tabs 04/11/23 11/14/23 Unknown Active Medications Generic Name Dose Route Start Last Admin Trade Name Jose Luisq PRN Reason Stop Dose Admin Amlodipine Besylate 5 mg 11/16/23 09:00 11/16/23 07:23 Amlodipine Besylate 5 Mg Tab PO 12/16/23 08:59 5 mg QAM AZ Administration Aspirin 81 mg 11/15/23 09:00 11/16/23 07:24 Aspirin 81 Mg Ectab PO 12/15/23 08:59 81 mg QAM AZ Administration Clopidogrel Bisulfate 75 mg 11/15/23 09:00 11/16/23 07:24 Clopidogrel Bisulfate 75 Mg Tab PO 12/15/23 08:59 75 mg QAM AZ Administration Enoxaparin Sodium 40 mg 11/14/23 22:00 11/15/23 21:26 Enoxaparin Inj 40 Mg/0.4 Ml Syr SQ 12/14/23 21:59 40 mg Q24H AZ Administration Gabapentin 600 mg 11/18/23 10:00 11/16/23 09:10 Gabapentin 600 Mg Tab PO 11/18/23 10:01 600 mg Q24H AZ Administration Cefepime HCl 2,000 mg/ Syringe 20 mls @ 5 mls/min 11/15/23 05:00 11/16/23 13:23 IV 11/22/23 04:59 5 mls/min Q8H AZ Administration Protocol Thiamine HCl 100 mg/ Syringe 10 mls @ 2 mls/min 11/15/23 09:00 11/16/23 07:25 IV 12/15/23 08:59 2 mls/min QAM AZ Administration Folic Acid 1 mg/ Syringe 10 mls @ 5 mls/min 11/15/23 09:00 11/16/23 07:25 IV 12/15/23 08:59 5 mls/min QAM AZ Administration Insulin Aspart 0 units 11/15/23 16:45 11/16/23 13:00 Insulin Aspart Per Unit Charge SC 12/15/23 16:44 7 units ACHS AZ Administration Insulin Glargine 5 units 11/15/23 21:00 11/16/23 09:10 Lantus Per Unit Charge SQ 12/15/23 20:59 5 units BID AZ Administration Isosorbide Dinitrate 10 mg 11/16/23 12:00 11/16/23 13:22 Isosorbide Dinitrate 20 Mg Tab PO 12/16/23 11:59 10 mg TID@0700,1200,1700 AZ Administration Lisinopril 40 mg 11/15/23 09:00 11/16/23 07:24 Lisinopril 40 Mg Tab PO 12/15/23 08:59 40 mg QAM AZ Administration Metoprolol Succinate 25 mg 11/15/23 09:00 11/16/23 07:24 Metoprolol Succ 25mg Ext Rel Tab PO 12/15/23 08:59 25 mg QAM AZ Administration Rosuvastatin Calcium 40 mg 11/15/23 09:00 11/16/23 07:24 Rosuvastatin Calcium 20 Mg Tab PO 12/15/23 08:59 40 mg DAILY AZ Administration (1) Chest pain Chest pain type: unspecified Qualified Code(s): R07.9 - Chest pain, unspecified
[2023-11-16] MEDS: ISOSORBIDE DINITRATE 20 MG TAB PO SCH (13:22)
[2023-11-16] MEDS ORDERED: EZETIMIBE 10 MG TAB PO SCH (14:30)
--- NOTE | 2023-11-16 16:53 | Discharge Summary ---
Discharge Summary Date of Service November 16, 2023 Principal Dx & Hospital Course #1 = Principal Diagnosis (1) Chest pain: (2) CAD, multiple vessel: (3) Ulcer of left lower leg: (4) Cellulitis of lower leg: (5) Hypertension: (6) Dyslipidemia: (7) Diabetes type 2, uncontrolled: (8) Elevated LFTs: Plan Mr. Roman is a 58-year-old male with PMH multivessel CAD, HTN, HLD, DM II, chronic skin ulcers admitted for ACS r/o. 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 Patient reports chest pain resolved in ED, however with recurrence on 11/14. Pain resolved with topical nitro which was transitioned to Isordil. Further discussion with patient and Cardiology revealed patient is adament for medical management trial and wishes to go home. Plan to discharge with Imdur and amlodipine for angina management. Additionally, cefepime transitioned to oral doxy for cellulitis. On day of discharge, patient denied any chest pain or other acute concerns. Patient ambulating without difficult and exertional symptoms. #Typical Chest pain: substernal pressure, ?provoked by exertion/stress? resolved with nitro #Multivessel CAD CAD, multiple vessel: Abnormal admission EGK, repeat with improvement, TWI present Troponin with baseline elevation iso known CAD R/O ACS. Risk factors: CAD, HTN, hyperlipidemia, DM ECHO 55-60% mild LVH Lipid panel grossly abnormal: repeat lipid panel 2/2 interference with TG on level -LDL 151, reports compliance Add Zetia Continue Statin Continue aspirin, metoprolol, Plavix Cardiology consult Discharged with Imdur 30mg qam #Ulcer of left lower leg: #Cellulitis of lower leg: Chronic ulcers LLE with possible secondary cellulitis Doppler LLE negative Wound culture NGTD, Blood cultures NGTD Discharge with 5 more days doxy PCP follow up #Hypertension: BP 161/100 In ER and downtrended to 150/89 Monitor BP Continue lisinopril, metoprolol #Chronic Transaminitis *improving #Hepatic steatosis elevated US abd/liver in 2022 with hepatic steatosis, no RUQ concerns this am improved from admission repeat CMP Max 2000mg acetaminophen #Dyslipidemia: Continue rosuvastatin for now, monitor LFTs. May need to consider alternate agent add zetia, ldl goal < 70 (183 this admission) #Diabetes type 2, uncontrolled: A1c: 9.9% Resume jardiance DC with metformin 500mg bid Notes For Next Care Provider Medication Changes From Visit Start Imdur 30mg qam Start Amlodipine 5mg qam Start Zetia 10mg qam Start Metformin 500mg BID Doxycycline 100mg bid x 5 days Admission HPI Per Admitting Provider Patient is 58-year-old male with PMH multivessel CAD, HTN, HLD, DM II, chronic skin ulcers presented to ER with complaint of chest pain today. History obtained from patient and inpatient and outpatient chart review. Patiens states had squeezing sensation to left chest with dizziness and body felt shaky and was feeling hot and nauseated around 3:00PM today. 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 Denies any SOB or syncope. Reported nurse took his BSG was 318 and reported BP 155/108. States he took one SL nitro prior to EMS arrival and didn't feel any improvement. Patient states applied cold cloth and drank cold water and felt like that helped some. Was given 4 baby aspirin by EMS and he feels he was improved and chest pain free since that time. Has chronic LLE ulcers to lower leg and states had followed with wound clinic in past but hasn't seen recently. States past several weeks worsening ulcers with redness after bumping his left garza. States past week having increased discomfort to area. States intermittent yellow/bloody drainage from area. Unaware of any fevers. Denies V/D/C, CASIANO, vision changes, neck pain, orthopnea, palpitations, cough, sore throat, rhinorrhea, abdominal pain, paresthesias, weakness, extremity edema, other rashes, urinary symptoms. Outpatient chart review: 04/08/2023 echo: EF: 60-65%, normal LV wall motion, normal right ventricular systolic function, normal left and right atrial size Admission Exam Per Admitting Provider General: no distress, overweight Head: normocephalic, atraumatic Eyes: conjunctiva non-injected, anicteric ENT: normal inspection external ears, nose, mucous membranes moist Neck: supple, trachea midline Lungs: clear, no respiratory distress, no wheezing/rhonchi/rales CV: RRR, no murmur, no pretibial edema Abd: normal BS, soft, non-tender Ext: no cyanosis, no calf tenderness; LLE+3 ulcers with surrounding erythema with tenderness to palpation, no discharge noted, no red streaking noted Neuro: A&O x 3, no focal deficits noted, normal affect Skin: warm, dry Discharge Exam Constitutional WD/WN, vitals as above Respiratory normal respiratory effort, lungs clear to auscultation Cardiovascular RRR, no murmur, no edema Gastrointestinal (Abdomen) normal bowel sounds, soft, nontender, no hepatosplenomegaly Updated Medication List Medication Instructions Recorded Confirmed Type aspirin 81 mg tablet,delayed 81 mg PO QAM #30 tabs 04/11/23 11/14/23 Rx release clopidogrel 75 mg tablet 75 mg PO QAM #30 tabs 04/11/23 11/14/23 Rx empagliflozin 10 mg tablet 10 mg PO DAILY #30 tabs 04/11/23 11/14/23 Rx (Jardiance) amlodipine 5 mg tablet (Norvasc) 5 mg PO QAM #30 tabs 11/16/23 Rx doxycycline hyclate 100 mg tablet 100 mg PO Q12H 5 days #10 tabs 11/16/23 Rx ezetimibe 10 mg tablet 10 mg PO QAM #30 tabs 11/16/23 Rx isosorbide mononitrate 30 mg 30 mg PO DAILY #30 tabs 11/16/23 Rx tablet,extended release 24 hr lisinopril 40 mg tablet (Zestril) 40 mg PO QAM #30 tabs 11/16/23 Rx metformin 500 mg tablet 500 mg PO BIDWMEAL #60 tabs 11/16/23 Rx metoprolol succinate 25 mg 25 mg PO QAM #30 tabs 11/16/23 Rx tablet,extended release 24 hr rosuvastatin 40 mg tablet 40 mg PO DAILY #30 tabs 11/16/23 Rx Hospital Stay Data Consultations 11/14/23 18:22 ED Decision to Admit Stat 11/14/23 21:20 Consult Cardiology Routine Diagnostic Imagining Performed 11/14/23 19:06 US venous doppler LE LT Urgent Pending Results Patient Have Any Pending Studies at Discharge: No Discharge Instructions Given to Patient (Per Discharging Provider) You were experiencing chest pain and you were monitored in the hospital. There were multiple medication changes to help with your symptoms. For chest pain, the following medications were added: Amlodipine 5mg daily Imdur 30mg daily For additionally cholesterol control: Start Zetia 10mg daily Continue Rosuvastatin 40mg daily For better diabetes control: Start Metformin 500mg two times a day For concern of superimposed infection on lower extremities: Continue Doxycyline 100mg two times a day until course complete Please continue plavix and aspirin daily Please continue all medications as prescribed including the above additions Total Time Total Time Spent Total Time Spent (In Minutes): 35
[2023-11-16] MEDS ORDERED: GABAPENTIN 600 MG TAB PO SCH (22:00)
--- NOTE | 2023-11-17 10:56 | Electrocardiogram Report ---
Test Reason : Blood Pressure : / mmHG Vent. Rate : 068 BPM Atrial Rate : 068 BPM P-R Int : 192 ms QRS Dur : 098 ms QT Int : 418 ms P-R-T Axes : 035 -20 009 degrees QTc Int : 444 ms Normal sinus rhythm Nonspecific T wave abnormality Abnormal ECG When compared with ECG of 09-APR-2023 08:49, No significant change was found Confirmed by Nilesh Isbell ([id number]) on 11/17/2023 10:55:58 AM Referred By: REFERRED SELF Confirmed By:Nilesh Isbell
--- NOTE | 2023-11-17 11:54 | Electrocardiogram Report ---
Test Reason : Blood Pressure : / mmHG Vent. Rate : 063 BPM Atrial Rate : 063 BPM P-R Int : 202 ms QRS Dur : 098 ms QT Int : 436 ms P-R-T Axes : 057 -06 025 degrees QTc Int : 446 ms Poor data quality, interpretation may be adversely affected Normal sinus rhythm Normal ECG When compared with ECG of 14-NOV-2023 16:31, (unconfirmed) Nonspecific T wave abnormality, improved in Lateral leads Confirmed by Nilesh Isbell ([id number]) on 11/17/2023 11:53:48 AM Referred By: REFERRED SELF Confirmed By:Nilesh Isbell
--- NOTE | 2023-11-17 12:11 | Electrocardiogram Report ---
Test Reason : Blood Pressure : / mmHG Vent. Rate : 062 BPM Atrial Rate : 062 BPM P-R Int : 208 ms QRS Dur : 094 ms QT Int : 420 ms P-R-T Axes : 048 -10 013 degrees QTc Int : 426 ms Normal sinus rhythm Normal ECG When compared with ECG of 15-NOV-2023 04:33, (unconfirmed) No significant change Confirmed by Nilesh Isbell ([id number]) on 11/17/2023 12:11:26 PM Referred By: REFERRED SELF Confirmed By:Nilesh Isbell
== END 2023-11-16 17:13 | disposition home or self-care (01) | DRG 313 ==
LOC: ED 16:19 → SUATTDRO 18:41 → 2N 18:41

== ENCOUNTER 2024-05-25 17:53 | Inpatient (IN) ==
--- NOTE | 2024-05-25 18:31 | XRay Report ---
INDICATION: Chest pain. TECHNIQUE: Frontal radiograph of the chest. COMPARISON: Radiograph from 11/14/2023. FINDINGS: The cardiomediastinal silhouette and pulmonary vasculature appear within normal limits. No infiltrate, pleural effusion or pneumothorax. No acute osseous abnormality evident. IMPRESSION: No acute cardiopulmonary process. Electronically signed by Ray Urena 05-25-2024 6:30 PM
[2024-05-25 19:10] LABS: Basophils # (auto) 0.02 K/uL (0.00-0.20); Basophils % (auto) 0.4 %; Hematocrit (blood only) 43.8 % (42.0-52.0); Hemoglobin 16.2 g/dl (14.0-18.0); Immature Granulocytes # (auto) 0.01 K/uL (0.01-0.20); Immature Granulocytes % (auto) 0.2 %; Mean Corpuscular Hemoglobin 34.5 pg (25.0-34.0); Mean Corpuscular Volume 93.2 fL (80.0-100.0); Mean Platelet Volume 10.6 fL (9.4-12.4); Monocytes # (auto) 0.42 K/uL (0.11-0.59); Monocytes % (auto) 8.4 %; Neutrophils # (auto) 2.45 K/uL (1.40-6.50); Platelet Count 188 K/uL (130-400); RDW Coefficient of Variation 11.2 % (11.5-14.5); RDW Standard Deviation 38.4 fL (36.4-46.3)
[2024-05-25 19:26] LABS: Albumin Globulin Ratio 1.7 (0.9-2); Albumin Level 4.7 gm/dl (3.4-5.0); BUN Creatinine Ratio 15.5 (10-20); Bilirubin,Total 0.8 mg/dl (0.2-1.0); Calcium 9.7 mg/dl (8.6-10.3); Creatinine Clr Calc Pharmacy 116.4 ml/min; Globulin 2.8 gm/dl (2.5-4.0); Potassium 4.1 mmol/L (3.5-5.1); Total Protein 7.5 gm/dl (6.0-8.3)
[2024-05-25 19:32] LABS: Troponin I High Sensitivity 44.7 pg/ml (0-20)
--- NOTE | 2024-05-25 19:53 | Emergency Department Note ---
Impression & Plan Chest pain, Hypertensive urgency, Elevated troponin ED Provider Note NAME: GLADIS CARRANZA AGE: 58 SEX: M : 1965 ARRIVES VIA: Walk-In INFORMANT: Patient, ED PROVIDER(S): Darrion Smith MD CHIEF COMPLAINT: chest pain, headache HPI: This is a 58-year-old male presenting for chest pain and headache. Patient states over the past 1 week he has had intermittent symptoms of chest pain and headache. He also has chest pain and left arm pain are more intense than his headache. He notes he felt somewhat dizzy throughout the course of the week. He reports he had a heart attack in 2020 had stents placed. Otherwise he had his blood pressure checked by his sister who notes that his blood pressure was over 190 systolic. ROS: See above HPI for pertinent positives & negatives. A total of 10 systems reviewed and were otherwise negative. PAST MEDICAL HISTORY: See Below PAST SURGICAL HISTORY: See Below FAMILY HISTORY: See Below SOCIAL HISTORY: See Below HOME MEDICATIONS: See Below ALLERGIES: See Below VITALS: See Below PHYSICAL EXAMINATION: General: resting comfortably in no acute distress Head: Normocephalic and atraumatic Eyes: Normal inspection, extraocular muscles intact Ear, nose, throat: Normal external exam Neck: Normal range of motion Respiratory: lungs clear to auscultation bilaterally Cardiovascular: Regular rate/rhythm, no murmur GI: soft, nontender, no guarding or rebound Extremities: nontender, moves all extremities Neuro: The patient awake and alert, appropriately conversive, no focal deficits, symmetric faces, no dysmetria, no nystagmus Skin: Warm, dry, and intact MEDICAL DECISION MAKING: This is a 58-year-old male presenting for chest pain/headache. Patient complains mostly of chest and arm pain at this time. No neck radiation. Previous history of stenting and CAD. -ECG independently interpreted by me with normal sinus rhythm, rate of 67, normal [place], normal QRS, prolonged QTc, no ST segment elevations consistent with STEMI criteria -The patient is moderately hypertensive here. -Chest Xray independently interpreted by me showing no pneumothorax, focal opacity, or pleural effusions. -CT head ordered due to the hypertension, headache. This reveals no acute intracranial process -Patient blood does return showing no leukocytosis or anemia. Electrolytes are within the limits. His glucose is elevated without signs of DKA. Otherwise his troponin is elevated higher than his baseline in the 40s. -With his history of hypertension, CAD patient is fairly moderate high risk heart score. Will admit for further cardiac workup. Differential diagnosis: Hypertensive emergency, CAD, NSTEMI, STEMI, PE Diagnostics interpreted by me: ECG: See above Cardiac Monitoring: An order was placed for continuous cardiac monitoring. The monitor shows a rate 61 with sinus rhythm Past Med/Surg History Problem List (Updated 05/26/24 @ 12:04 by Darrion Smith MD) Elevated troponin (Acute) Hypertensive urgency (Acute) Chest pain (Acute) Noncompliance w/medication treatment due to intermit use of medication Hypertensive crisis Ulcer of left lower leg CAD, multiple vessel Cellulitis of lower leg Open leg wound Abnormal ankle brachial index Unstable angina (Acute) Diabetes mellitus type II, uncontrolled (Acute) Hypertensive urgency (Acute) Neck pain Chest pain (Acute) Venous insufficiency of both lower extremities (Chronic) Non-occlusive coronary artery disease Dyslipidemia Diabetes type 2, uncontrolled Saphenous vein clot Obesity Venous stasis ulcer (Acute) Venous stasis (Chronic) 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) Hypertension (Acute) Medical History Elevated troponin Elevated LFTs Venous stasis ulcer Surgical History History of cholecystectomy Family History Father Diabetes Social History Smoking Status: Former smoker Tobacco Type: Cigarettes Second Hand Exposure: No; Do You Dip or Chew Tobacco: No; Hx Alcohol Use: Yes Alcohol type: beer, wine and hard liquor Alcohol Intake Frequency: 2-3 x/Week Hx Substance Use: No Preferred Language: Kyrgyz Communication Ability: Effective Communication Ability Comment: Speak slowly [employer] Required: No Beliefs That Will Affect Care: None Current Living Situation: Alone Current Living Situation Comment: patient independent with dressing changes current occupational status: other other: patient entering into SSI Feels Safe at Home: Yes Safety Concerns: Feels Safe At This Time Diet: diabetic Assistive Devices: None Allergies Allergies Allergy/AdvReac Type Severity Reaction Status Date / Time NSAIDS (Non-Steroidal Allergy Rash Verified 05/25/24 19:13 Anti-Inflamma Home Meds Home Medications Medication Instructions Recorded Confirmed empagliflozin 10 mg tablet 10 mg PO QAM 05/25/24 05/25/24 (Jardiance) glipizide 10 mg tablet, extended 10 mg PO QAM 05/25/24 05/25/24 release 24 hr ketoconazole 2 % shampoo 1 applic topical .2-3 TIMES PER 05/25/24 05/25/24 WEEK nitroglycerin 0.4 mg sublingual 0.4 mg sublingual UD PRN Chest Pain 05/25/24 05/25/24 tablet Previous Rx's Medication Instructions Recorded aspirin 81 mg tablet,delayed 81 mg PO QAM #30 tabs 04/11/23 release clopidogrel 75 mg tablet 75 mg PO QAM #30 tabs 04/11/23 amlodipine 5 mg tablet (Norvasc) 5 mg PO QAM #30 tabs 11/16/23 lisinopril 40 mg tablet (Zestril) 40 mg PO QAM #30 tabs 11/16/23 metoprolol succinate 25 mg 25 mg PO QAM #30 tabs 11/16/23 tablet,extended release 24 hr rosuvastatin 40 mg tablet 40 mg PO DAILY #30 tabs 11/16/23 Results & Data (ED) Vital Signs Vital Signs - 24 hr 05/25/24 17:54 05/25/24 18:23 05/25/24 18:23 Temperature 36.6 C Temperature Source Temporal Artery Scan Pulse Rate 76 72 Pulse Rate [Apical] 72 Pulse Rate from SpO2 Sensor Pulse Rhythm [Apical] Pulse Strength [Apical] Respiratory Rate 18 20 18 Respiratory Effort / Characteristics Non-Labored Spontaneous Respiratory Depth Normal Respiratory Pattern Regular Blood Pressure 173/105 H Blood Pressure [Right Arm] 191/111 H Blood Pressure Mean 127 Blood Pressure Mean [Right Arm] 137 Blood Pressure Position [Right Arm] Semi-fowlers Pulse Oximetry 99 95 93 Oxygen Delivery Method Room Air Room Air Sepsis Recent Fever Within 48 Hours No Sepsis New/Unexplained Change in Mental Status N/A Sepsis Action Taken by Nursing No Action Required 05/25/24 18:30 05/25/24 18:37 05/25/24 18:51 Temperature Temperature Source Pulse Rate 73 71 72 Pulse Rate [Apical] Pulse Rate from SpO2 Sensor 72 Pulse Rhythm [Apical] Pulse Strength [Apical] Respiratory Rate 16 17 Respiratory Effort / Characteristics Respiratory Depth Respiratory Pattern Blood Pressure 213/126 H 202/128 H Blood Pressure [Right Arm] Blood Pressure Mean 167 152 Blood Pressure Mean [Right Arm] Blood Pressure Position [Right Arm] Pulse Oximetry 97 97 Oxygen Delivery Method Sepsis Recent Fever Within 48 Hours Sepsis New/Unexplained Change in Mental Status Sepsis Action Taken by Nursing 05/25/24 18:55 05/25/24 19:00 05/25/24 20:00 Temperature Temperature Source Pulse Rate 70 Pulse Rate [Apical] 68 63 Pulse Rate from SpO2 Sensor Pulse Rhythm [Apical] Regular Pulse Strength [Apical] Normal Respiratory Rate 19 17 22 Respiratory Effort / Characteristics Non-Labored Spontaneous Non-Labored Spontaneous Respiratory Depth Normal Normal Respiratory Pattern Regular Blood Pressure 166/107 H Blood Pressure [Right Arm] 202/128 H 174/116 H Blood Pressure Mean 135 Blood Pressure Mean [Right Arm] 152 135 Blood Pressure Position [Right Arm] Lying Pulse Oximetry 95 98 96 Oxygen Delivery Method Room Air Room Air Sepsis Recent Fever Within 48 Hours Sepsis New/Unexplained Change in Mental Status Sepsis Action Taken by Nursing Laboratory Data 05/26/24 07:52 05/26/24 07:52 Lab Results 05/25/24 05/25/24 05/25/24 Range/Units 18:49 20:05 20:35 WBC 5.00 (4.8-10.8) K/ul RBC 4.70 (4.70-6.10) M/uL Hgb 16.2 (14.0-18.0) g/dl Hct 43.8 (42.0-52.0) % MCV 93.2 (80.0-100.0) fL MCH 34.5 H (25.0-34.0) pg MCHC 37.0 H (32.0-36.0) g/dL RDW Std Deviation 38.4 (36.4-46.3) fL RDW Coeff of [place]ire[place] 11.2 L (11.5-14.5) % Plt Count 188 (130-400) K/uL MPV 10.6 (9.4-12.4) fL Immature Gran % (Auto) 0.2 % Neut % (Auto) 49.0 % Lymph % (Auto) 40.0 % [place] % (Auto) 8.4 % Eos % (Auto) 2.0 % Baso % (Auto) 0.4 % Neut # (Auto) 2.45 (1.40-6.50) K/uL Lymph # (Auto) 2.00 (1.20-3.40) K/uL [place] # (Auto) 0.42 (0.11-0.59) K/uL Eos # (Auto) 0.10 (0.00-0.50) K/uL Baso # (Auto) 0.02 (0.00-0.20) K/uL Immature Gran # (Auto) 0.01 (0.01-0.20) K/uL Sodium 134 L (136-145) mmol/L Potassium 4.1 (3.5-5.1) mmol/L Chloride 99 (98-107) mmol/L Carbon Dioxide 25 (21-32) mmol/L Anion Gap 10 (3-11) BUN 13 (6-23) mg/dl Creatinine 0.84 (0.6-1.4) mg/dl Est Cr Clr Drug Dosing 116.4 ml/min eGFR 101.71 BUN/Creatinine Ratio 15.5 (10-20) Glucose 309 H* (70-99(Fasting)) mg/dl Estimat Average Glucose 289 mg/dl Hemoglobin A1c 11.7 H (4.5-5.6) % Calcium 9.7 (8.6-10.3) mg/dl Magnesium 2.0 (1.7-2.4) mg/dl Total Bilirubin 0.8 (0.2-1.0) mg/dl AST 59 H (13-39) U/L ALT 133 H (7-52) U/L Alkaline Phosphatase 105 H (34-104) U/L Troponin I High Sens 44.7 H 41.9 H (0-20) pg/ml Total Protein 7.5 (6.0-8.3) gm/dl Albumin 4.7 (3.4-5.0) gm/dl Globulin 2.8 (2.5-4.0) gm/dl Albumin/Globulin Ratio 1.7 (0.9-2) Lipase 49 (11-82) U/L TSH 5.399 H (0.300-4.500) uIu/ml Free T4 0.93 (0.61-1.60) ng/dl Urine Color Yellow Urine Appearance Clear (Clear) Urine pH 5.0 (4.5-7.5) Ur Specific [place] 1.039 H (1.000-1.030) Urine Protein Trace H (Negative) Urine Glucose (UA) 3+ H (Negative) Urine Ketones Trace H (Negative) Urine Blood Negative (Negative) Urine Nitrite Negative (Negative) Urine Bilirubin Negative (Negative) Urine Urobilinogen Negative (Negative) Ur Leukocyte Esterase Negative (Negative) Urine WBC (Auto) 0-5 (0-5) /hpf Urine RBC (Auto) 0-2 (0-2) /hpf U Hyaline Cast (Auto) 0-2 (0-2) /lpf U Epithel Cells (Auto) 0-2 (0-2) /hpf Urine Bacteria (Auto) None Seen (None Seen) Adenovirus (PCR) Not Detected (NotDetected) B. pertussis DNA (PCR) Not Detected (NotDetected) B.parapertussis DNA PCR Not Detected (NotDetected) C. pneumoniae DNA (PCR) Not Detected (NotDetected) Coronavirus OC43 (PCR) Not Detected (NotDetected) Coronavirus HKU1 (PCR) Not Detected (NotDetected) Coronavirus 229E (PCR) Not Detected (NotDetected) SARS-CoV-2 (PCR) Not Detected (NotDetected) Coronavirus NL63 (PCR) Not Detected (NotDetected) Human Metapneumovir PCR Not Detected (NotDetected) Influenza Type A (PCR) Not Detected (NotDetected) Influenza Type B (PCR) Not Detected (NotDetected) M. pneumoniae (PCR) Not Detected (NotDetected) Parainfluenza 1 (PCR) Not Detected (NotDetected) Parainfluenza 2 (PCR) Not Detected (NotDetected) Parainfluenza 3 (PCR) Not Detected (NotDetected) Parainfluenza 4 (PCR) Not Detected (NotDetected) RSV (PCR) Not Detected (NotDetected) Entero/Rhino (PCR) Not Detected (NotDetected) Administered Medications Amlodipine Besylate (Amlodipine Besylate 5 Mg Tab) 10 [facility] Stop: 06/25/24 08:59 Last Admin: 05/26/24 08:05 Dose: 10 mg Documented By: ZACHERY Aspirin (Aspirin 81 Mg Ectab) 81 mg PO [facility] Stop: 06/25/24 08:59 Last Admin: 05/26/24 08:05 Dose: 81 mg Documented By: ZACHERY Clopidogrel Bisulfate (Clopidogrel Bisulfate 75 Mg Tab) 75 mg PO [facility] Stop: 06/25/24 08:59 Last Admin: 05/26/24 08:04 Dose: 75 mg Documented By: ZACHERY Enoxaparin Sodium (Enoxaparin Inj 40 Mg/0.4 Ml Syr) 40 mg SQ [facility] Stop: 06/25/24 08:59 Last Admin: 05/26/24 08:06 Dose: 40 mg Documented By: ZACHERY Sodium Chloride (Nss) 1,000 mls @ 50 mls/hr IV .Q20H ONE Stop: 05/26/24 17:37 Last Admin: 05/25/24 22:43 Dose: 50 mls/hr Documented By: GRICEL Insulin Aspart (Insulin Aspart Per Unit Charge) 0 units SC Q6H [facility] Stop: 06/25/24 05:59 Last Admin: 05/26/24 11:42 Dose: 4 units Documented By: ZACHERY Co-signed By: ZACHERY(2) Admin: 05/26/24 06:20 Dose: 5 units Documented By: GRICEL Co-signed By: CARLOS Isosorbide Mononitrate (Isosorbide [place] Extended Rel 30 Mg Tabcr) 30 mg PO [facility] Stop: 06/25/24 10:29 Last Admin: 05/26/24 10:51 Dose: 30 mg Documented By: ZACHERY Lisinopril (Lisinopril 40 Mg Tab) 40 mg PO [facility] Stop: 06/25/24 08:59 Last Admin: 05/26/24 08:05 Dose: 40 mg Documented By: ZACHERY Metoprolol Succinate (Metoprolol Succ 25mg Ext Rel Tab) 25 mg PO [facility] Stop: 06/25/24 08:59 Last Admin: 05/26/24 08:05 Dose: 25 mg Documented By: ZACHERY Rosuvastatin Calcium (Rosuvastatin Calcium 20 Mg Tab) 40 mg PO DAILY [facility] Stop: 06/25/24 08:59 Last Admin: 05/26/24 08:05 Dose: 40 mg Documented By: ZACHERY Discontinued Medications Amlodipine Besylate (Amlodipine Besylate 5 Mg Tab) 5 mg PO NOW ONE Stop: 05/25/24 21:39 Last Admin: 05/25/24 21:54 Dose: 5 mg Documented By: LAUREN Insulin Aspart (Insulin Aspart Per Unit Charge) 0 units SC ACHS [place] Stop: 06/24/24 21:34 Last Admin: 05/25/24 22:15 Dose: 4 units Documented By: LAUREN Co-signed By: WILMAN Insulin Glargine (Lantus Per Unit Charge) 10 units SQ NOW STA Stop: 05/25/24 21:35 Last Admin: 05/25/24 21:54 Dose: 10 units Documented By: LAUREN Co-signed By: WILMAN Metoprolol Tartrate (Metoprolol Tartrate 1 Mg/Ml Vial) 2.5 mg IV NOW STA Stop: 05/25/24 20:58 Last Admin: 05/25/24 21:15 Dose: 2.5 mg Documented By: LAUREN Nitroglycerin (Nitroglycerin Sl 0.4 Mg/Tab Tab) 0.4 mg SL NOW STA Stop: 05/25/24 20:57 Last Admin: 05/25/24 21:16 Dose: 0.4 mg Documented By: LAUREN Imaging Data Radiologist's Impression: Chest X-Ray 05/25/24 18:11 INDICATION: Chest pain. TECHNIQUE: Frontal radiograph of the chest. COMPARISON: Radiograph from 11/14/2023. FINDINGS: The cardiomediastinal silhouette and pulmonary vasculature appear within normal limits. No infiltrate, pleural effusion or pneumothorax. No acute osseous abnormality evident. IMPRESSION: No acute cardiopulmonary process. Electronically signed by Ray Urena 05-25-2024 6:[address] 05/25/24 19:40 Exam(s): CT HEAD Without Contrast EXAM: CT Head Without Intravenous Contrast CLINICAL HISTORY: Reason for exam: headache, off balance. TECHNIQUE: Axial computed tomography images of the head/brain without intravenous contrast. CTDI is 65.5 mGy and DLP is 1100.35 mGy-cm. Automated exposure control was utilized for the study. A dose lowering technique was utilized adhering to the principles of ALARA. COMPARISON: No relevant prior studies available. FINDINGS: Brain: No hemorrhage, extra-axial fluid collection, mass effect, or edema. Ventricles: Unremarkable. Bones/joints: Unremarkable. No fracture. Soft tissues: Unremarkable. Sinuses: No acute sinusitis. Mastoid air cells: Unremarkable as visualized. IMPRESSION: 1. No acute intracranial abnormality. Electronically signed by: Rolando Rodriguez MD 05/25/24 21:13 PM Discharge Plan Visit Data Chief Complaint: Hypertension Stated Complaint: CHEST PAIN, HYPERTENSION ED Provider: Darrion Smith Discharge Problem: Chest pain, Hypertensive urgency, Elevated troponin Patient Disposition: Admitted As Inpatient Discharge Instructions Interventions: ED Discharge Assessment Last Done: 05/25/24 22:33
[2024-05-25 19:55] LABS: Adenovirus PCR Not Detected (NotDetected); Bordetella parapertussis PCR Not Detected (NotDetected); Bordetella pertussis PCR Not Detected (NotDetected); Chlamydia pneumoniae PCR Not Detected (NotDetected); Coronavirus 229E PCR Not Detected (NotDetected); Coronavirus CoV-2 (COVID19)PCR Not Detected (NotDetected); Coronavirus HKU1 PCR Not Detected (NotDetected); Coronavirus NL63 PCR Not Detected (NotDetected); Coronavirus OC43PCR Not Detected (NotDetected); Human Metapneumovirus PCR Not Detected (NotDetected); Influenza A PCR Not Detected (NotDetected); Influenza B PCR Not Detected (NotDetected); Mycoplasma pneumoniae PCR Not Detected (NotDetected); Parainfluenza Virus 1 PCR Not Detected (NotDetected); Parainfluenza Virus 2 PCR Not Detected (NotDetected); Parainfluenza Virus 3 PCR Not Detected (NotDetected); Parainfluenza Virus 4 PCR Not Detected (NotDetected); Respiratory Syncytial VirusPCR Not Detected (NotDetected); Rhinovirus/Enterovirus PCR Not Detected (NotDetected)
[2024-05-25 20:43] LABS: Appearance Urine Clear (Clear); Bacteria Urine Automated None Seen (None Seen); Bilirubin Urine Negative (Negative); Blood Urine Negative (Negative); Cast Urine Automated 0-2 /lpf (0-2); Color Urine Yellow; Epithelial Cell Urine Auto 0-2 /hpf (0-2); Glucose Urine UA 3+ (Negative); Ketones Urine Trace (Negative); Leukocyte Esterase Urine Negative (Negative); Nitrite Urine Negative (Negative); Protein Urine Trace (Negative); RBC Urine Automated 0-2 /hpf (0-2); Specific Gravity Urine 1.039 (1.000-1.030); Urobilinogen Urine Negative (Negative); WBC Urine Automated 0-5 /hpf (0-5)
--- NOTE | 2024-05-25 21:14 | CT Scan Report ---
Exam(s): CT HEAD Without Contrast EXAM: CT Head Without Intravenous Contrast CLINICAL HISTORY: Reason for exam: headache, off balance. TECHNIQUE: Axial computed tomography images of the head/brain without intravenous contrast. CTDI is 65.5 mGy and DLP is 1100.35 mGy-cm. Automated exposure control was utilized for the study. A dose lowering technique was utilized adhering to the principles of ALARA. COMPARISON: No relevant prior studies available. FINDINGS: Brain: No hemorrhage, extra-axial fluid collection, mass effect, or edema. Ventricles: Unremarkable. Bones/joints: Unremarkable. No fracture. Soft tissues: Unremarkable. Sinuses: No acute sinusitis. Mastoid air cells: Unremarkable as visualized. IMPRESSION: 1. No acute intracranial abnormality. Electronically signed by: Rolando Rodriguez MD 05/25/24 21:13 PM
[2024-05-25] MEDS: METOPROLOL TARTRATE 1 MG/ML VIAL IV STA (21:15)
[2024-05-25] MEDS: NITROGLYCERIN SL 0.4 MG/TAB TAB SL STA (21:16)
--- NOTE | 2024-05-25 21:32 | History & Physical Report ---
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 re: recurrent chest pain, history of CAD N.p.o. in anticipation of ischemic workup Basal bolus insulin adjusted for n.p.o. status, ISS BG goal 1 10-1 40, update hemoglobin A1c Patient counseled regarding need to check blood pressure at home, compliance with medications with chronic medical conditions, and outpatient specialist follow-up Recheck outpatient TSH after 3 months DVT prophylaxis. Lovenox subcu Full code Total crit care time was 40 minutes. Text document was generated using [employer] voice recognition software. It may contain grammatical or spelling errors. Kindly contact undersigned for clarification of any documentation item in question. History of Present Illness Chief Complaint: Chest pain, headache Primary Care Provider: Clau Shine PA-C History obtained from patient and records. History somewhat limited due to language barrier. Patient refuses teletranslator used. Medical history significant for CAD status post stent, hypertension, hyperlipidemia, hepatic steatosis, DM2 on oral medications, chronic venous stasis, chronic LLE ulcer, past tobacco abuse. Last confinement October 2023 for unstable angina in the setting of multivessel CAD and LLE cellulitis status post antibiotic Rx. Concern for medical noncompliance as per provider notes. Diagnostic cardiac catheterization refused by patient. Medical management recommended on discharge. Since leaving hospital, patient with intermittent episodes of chest tightness and headache symptoms. Somewhat worse with exertion. Does not check blood pressure at home because he does not have a machine. Patient missed outpatient cardiology appointments as per records. Patient claims to be compliant with home medications. Today, patient noted achy chest pain going to the left arm with headache, dizziness symptoms. Similar to episode in the past but not as bad. SBP taken at sisters home noted to be 180s. Chest pain relieved by nitroglycerin administration at the ER. Highest SBP of 210s documented at the ER. Medical History as above Surgical History : Cholecystectomy, pilonidal cyst removal Family History : DM Personal/Social history : Past tobacco abuse, occasional EtOH intake, prior employment at [employer] [place] Allergies Allergy/AdvReac Type Severity Reaction Status Date / Time NSAIDS (Non-Steroidal Allergy Rash Verified 05/25/24 19:13 Anti-Inflamma Home Medications Medication Instructions Recorded Confirmed Type aspirin 81 mg tablet,delayed 81 mg PO QAM #30 tabs 04/11/23 05/25/24 Rx release clopidogrel 75 mg tablet 75 mg PO QAM #30 tabs 04/11/23 05/25/24 Rx amlodipine 5 mg tablet (Norvasc) 5 mg PO QAM #30 tabs 11/16/23 05/25/24 Rx lisinopril 40 mg tablet (Zestril) 40 mg PO QAM #30 tabs 11/16/23 05/25/24 Rx metoprolol succinate 25 mg 25 mg PO QAM #30 tabs 11/16/23 05/25/24 Rx tablet,extended release 24 hr rosuvastatin 40 mg tablet 40 mg PO DAILY #30 tabs 11/16/23 05/25/24 Rx empagliflozin 10 mg tablet 10 mg PO QAM 05/25/24 05/25/24 History (Jardiance) glipizide 10 mg tablet, extended 10 mg PO QAM 05/25/24 05/25/24 History release 24 hr ketoconazole 2 % shampoo 1 applic topical .2-3 TIMES PER 05/25/24 05/25/24 History WEEK nitroglycerin 0.4 mg sublingual 0.4 mg sublingual UD PRN Chest Pain 05/25/24 05/25/24 History tablet Past Med/Surg History Problem List (Updated 05/25/24 @ 23:01 by Aelk Hill MD) Hypertensive crisis Ulcer of left lower leg CAD, multiple vessel Cellulitis of lower leg Open leg wound Abnormal ankle brachial index Unstable angina (Acute) Diabetes mellitus type II, uncontrolled (Acute) Hypertensive urgency (Acute) Neck pain Chest pain (Acute) Venous insufficiency of both lower extremities (Chronic) Non-occlusive coronary artery disease Dyslipidemia Diabetes type 2, uncontrolled Saphenous vein clot Obesity Venous stasis ulcer (Acute) Venous stasis (Chronic) 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) Hypertension (Acute) Medical History Venous stasis ulcer Surgical History History of cholecystectomy Family History Father Diabetes Social History Smoking Status: Former smoker Tobacco Type: Cigarettes Second Hand Exposure: No; Do You Dip or Chew Tobacco: No; Hx Alcohol Use: Yes Alcohol type: beer, wine and hard liquor Alcohol Intake Frequency: 2-3 x/Week Hx Substance Use: No Preferred Language: Venezuelan Communication Ability: Effective Communication Ability Comment: Speak slowly Debit Agent Required: No Beliefs That Will Affect Care: None Current Living Situation: Alone Current Living Situation Comment: patient independent with dressing changes current occupational status: other other: patient entering into SSI Feels Safe at Home: Yes Diet: diabetic Assistive Devices: None Review of Systems Review of Systems: As per HPI, all other systems reviewed and negative Physical Exam Physical Exam: GENERAL: Comfortable, pleasant, no respiratory distress SKIN: Normal color, warm HEENT: Partial alopecia, pink palpebral conjunctivae, no ptosis, moist buccal mucosa NECK : Supple, no tenderness CHEST : CTA, no tenderness HEART : RRR, no obvious murmurs ABDOMEN: Some distention, nontender EXTREMITIES : Chronic LE venous stasis, with dressing over LLE wound, no tenderness, no other conspicuous deformities noted NEUROLOGIC : Coherent, no facial asymmetry, no other gross focality Results & Data Results & Data Vital Signs (Past 12 Hours) Vital Signs Temp Pulse Pulse Resp BP BP Pulse Ox 05/25/24 20:00 63 22 174/116 H 96 05/25/24 19:00 70 17 166/107 H 98 05/25/24 18:55 68 19 202/128 H 95 05/25/24 18:51 72 17 202/128 H 97 05/25/24 18:37 71 05/25/24 18:30 73 16 213/126 H 97 05/25/24 18:23 72 18 93 05/25/24 18:23 72 20 191/111 H 95 05/25/24 17:54 36.6 C 76 18 173/105 H 99 O2 Del Method 05/25/24 20:00 Room Air 05/25/24 19:00 05/25/24 18:55 Room Air 05/25/24 18:51 05/25/24 18:37 05/25/24 18:30 05/25/24 18:23 Room Air 05/25/24 18:23 Room Air 05/25/24 17:54 Laboratory Results Laboratory Results WBC 5.00 K/ul (4.8-10.8) 05/25/24 18:49 RBC 4.70 M/uL (4.70-6.10) 05/25/24 18:49 Hgb 16.2 g/dl (14.0-18.0) 05/25/24 18:49 Hct 43.8 % (42.0-52.0) 05/25/24 18:49 MCV 93.2 fL (80.0-100.0) 05/25/24 18:49 MCH 34.5 pg (25.0-34.0) H 05/25/24 18:49 MCHC 37.0 g/dL (32.0-36.0) H 05/25/24 18:49 RDW Std Deviation 38.4 fL (36.4-46.3) 05/25/24 18:49 RDW Coeff of Mirella 11.2 % (11.5-14.5) L 05/25/24 18:49 Plt Count 188 K/uL (130-400) 05/25/24 18:49 MPV 10.6 fL (9.4-12.4) 05/25/24 18:49 Immature Gran % (Auto) 0.2 % 05/25/24 18:49 Neut % (Auto) 49.0 % 05/25/24 18:49 Lymph % (Auto) 40.0 % 05/25/24 18:49 [place] % (Auto) 8.4 % 05/25/24 18:49 Eos % (Auto) 2.0 % 05/25/24 18:49 Baso % (Auto) 0.4 % 05/25/24 18:49 Neut # (Auto) 2.45 K/uL (1.40-6.50) 05/25/24 18:49 Lymph # (Auto) 2.00 K/uL (1.20-3.40) 05/25/24 18:49 [place] # (Auto) 0.42 K/uL (0.11-0.59) 05/25/24 18:49 Eos # (Auto) 0.10 K/uL (0.00-0.50) 05/25/24 18:49 Baso # (Auto) 0.02 K/uL (0.00-0.20) 05/25/24 18:49 Immature Gran # (Auto) 0.01 K/uL (0.01-0.20) 05/25/24 18:49 Sodium 134 mmol/L (136-145) L 05/25/24 18:49 Potassium 4.1 mmol/L (3.5-5.1) 05/25/24 18:49 Chloride 99 mmol/L (98-107) 05/25/24 18:49 Carbon Dioxide 25 mmol/L (21-32) 05/25/24 18:49 Anion Gap 10 (3-11) 05/25/24 18:49 BUN 13 mg/dl (6-23) 05/25/24 18:49 Creatinine 0.84 mg/dl (0.6-1.4) 05/25/24 18:49 Est Cr Clr Drug Dosing 116.4 ml/min 05/25/24 18:49 eGFR 101.71 05/25/24 18:49 BUN/Creatinine Ratio 15.5 (10-20) 05/25/24 18:49 Glucose 309 mg/dl (70-99(Fasting)) H* 05/25/24 18:49 Calcium 9.7 mg/dl (8.6-10.3) 05/25/24 18:49 Magnesium 2.0 mg/dl (1.7-2.4) 05/25/24 18:49 Total Bilirubin 0.8 mg/dl (0.2-1.0) 05/25/24 18:49 AST 59 U/L (13-39) H 05/25/24 18:49 ALT 133 U/L (7-52) H 05/25/24 18:49 Alkaline Phosphatase 105 U/L (34-104) H 05/25/24 18:49 Troponin I High Sens 41.9 pg/ml (0-20) H 05/25/24 20:35 Total Protein 7.5 gm/dl (6.0-8.3) 05/25/24 18:49 Albumin 4.7 gm/dl (3.4-5.0) 05/25/24 18:49 Globulin 2.8 gm/dl (2.5-4.0) 05/25/24 18:49 Albumin/Globulin Ratio 1.7 (0.9-2) 05/25/24 18:49 Lipase 49 U/L (11-82) 05/25/24 18:49 Urine Color Yellow 05/25/24 20:05 Urine Appearance Clear (Clear) 05/25/24 20: Urine pH 5.0 (4.5-7.5) 05/25/24 20:05 Ur Specific [place] 1.039 (1.000-1.030) H 05/25/24 20:05 Urine Protein Trace (Negative) H 05/25/24 20:05 Urine Glucose (UA) 3+ (Negative) H 05/25/24 20:05 Urine Ketones Trace (Negative) H 05/25/24 20:05 Urine Blood Negative (Negative) 05/25/24 20:05 Urine Nitrite Negative (Negative) 05/25/24 20:05 Urine Bilirubin Negative (Negative) 05/25/24 20:05 Urine Urobilinogen Negative (Negative) 05/25/24 20:05 Ur Leukocyte Esterase Negative (Negative) 05/25/24 20:05 Urine WBC (Auto) 0-5 /hpf (0-5) 05/25/24 20:05 Urine RBC (Auto) 0-2 /hpf (0-2) 05/25/24 20:05 U Hyaline Cast (Auto) 0-2 /lpf (0-2) 05/25/24 20:05 U Epithel Cells (Auto) 0-2 /hpf (0-2) 05/25/24 20:05 Urine Bacteria (Auto) None Seen (None Seen) 05/25/24 20:05 Adenovirus (PCR) Not Detected (NotDetected) 05/25/24 18:49 B. pertussis DNA (PCR) Not Detected (NotDetected) 05/25/24 18:49 B.parapertussis DNA PCR Not Detected (NotDetected) 05/25/24 18:49 C. pneumoniae DNA (PCR) Not Detected (NotDetected) 05/25/24 18:49 Coronavirus OC43 (PCR) Not Detected (NotDetected) 05/25/24 18:49 Coronavirus HKU1 (PCR) Not Detected (NotDetected) 05/25/24 18:49 Coronavirus 229E (PCR) Not Detected (NotDetected) 05/25/24 18:49 SARS-CoV-2 (PCR) Not Detected (NotDetected) 05/25/24 18:49 Coronavirus NL63 (PCR) Not Detected (NotDetected) 05/25/24 18:49 Human Metapneumovir PCR Not Detected (NotDetected) 05/25/24 18:49 Influenza Type A (PCR) Not Detected (NotDetected) 05/25/24 18:49 Influenza Type B (PCR) Not Detected (NotDetected) 05/25/24 18:49 M. pneumoniae (PCR) Not Detected (NotDetected) 05/25/24 18:49 Parainfluenza 1 (PCR) Not Detected (NotDetected) 05/25/24 18:49 Parainfluenza 2 (PCR) Not Detected (NotDetected) 05/25/24 18:49 Parainfluenza 3 (PCR) Not Detected (NotDetected) 05/25/24 18:49 Parainfluenza 4 (PCR) Not Detected (NotDetected) 05/25/24 18:49 RSV (PCR) Not Detected (NotDetected) 05/25/24 18:49 Entero/Rhino (PCR) Not Detected (NotDetected) 05/25/24 18:49 Impressions Chest X-Ray 05/25/24 18:11 INDICATION: Chest pain. TECHNIQUE: Frontal radiograph of the chest. COMPARISON: Radiograph from 11/14/2023. FINDINGS: The cardiomediastinal silhouette and pulmonary vasculature appear within normal limits. No infiltrate, pleural effusion or pneumothorax. No acute osseous abnormality evident. IMPRESSION: No acute cardiopulmonary process. Electronically signed by Ray Urena 05-25-2024 6:[address] 05/25/24 19:40 Exam(s): CT HEAD Without Contrast EXAM: CT Head Without Intravenous Contrast CLINICAL HISTORY: Reason for exam: headache, off balance. TECHNIQUE: Axial computed tomography images of the head/brain without intravenous contrast. CTDI is 65.5 mGy and DLP is 1100.35 mGy-cm. Automated exposure control was utilized for the study. A dose lowering technique was utilized adhering to the principles of ALARA. COMPARISON: No relevant prior studies available. FINDINGS: Brain: No hemorrhage, extra-axial fluid collection, mass effect, or edema. Ventricles: Unremarkable. Bones/joints: Unremarkable. No fracture. Soft tissues: Unremarkable. Sinuses: No acute sinusitis. Mastoid air cells: Unremarkable as visualized. IMPRESSION: 1. No acute intracranial abnormality. Electronically signed by: Rolando Rodriguez MD 05/25/24 21:13 PM Diagnostic Findings EKG as per my interpretation :Rate 70, NSR, LAD, LAFB, nonspecific T wave abnormalities over limb leads
[2024-05-25] MEDS ORDERED: GLUCOSE 40% GEL 15 GM TUBE PO PRN (21:34)
[2024-05-25] MEDS ORDERED: GLUCOSE 10 TAB/TUBE PO PRN (21:34)
[2024-05-25] MEDS ORDERED: DEXTROSE 50% 50 ML SYRINGE IV PRN (21:34)
[2024-05-25] MEDS ORDERED: CARBOHYDRATES FOR HYPOGLYCEMIA PO PRN (21:34)
[2024-05-25] MEDS ORDERED: GLUCAGON FOR INJ 1 MG VIAL SQ PRN (21:34)
[2024-05-25] MEDS ORDERED: MoRPHine SULFATE 4 MG/ML 1 ML CARP\\VIAL IV PRN (21:35)
[2024-05-25] MEDS ORDERED: oxyCODONE HCL IR 5 MG TAB (IMMEDIATE RELEASE) PO PRN (21:35)
[2024-05-25] MEDS ORDERED: NITROGLYCERIN SL 0.4 MG/TAB TAB SL PRN (21:35)
[2024-05-25] MEDS ORDERED: ACETAMINOPHEN 500 MG TAB PO PRN (21:35)
[2024-05-25] MEDS ORDERED: PROMETHAZINE 6.25 MG/50.25 ML BAG IV PRN (21:35)
[2024-05-25 21:39] LABS: Thyroid Stimulating Hormone 5.399 uIu/ml (0.300-4.500)
[2024-05-25] MEDS: amLODIPine BESYLATE 5 MG TAB PO ONE (21:54)
[2024-05-25] MEDS: LANTUS PER UNIT CHARGE SQ STA (21:54)
[2024-05-25 22:15] LABS: T4 Free Thyroxine 0.93 ng/dl (0.61-1.60)
[2024-05-25] MEDS: INSULIN ASPART PER UNIT CHARGE SC SCH (22:15)
[2024-05-25] MEDS: SODIUM CHLORIDE 0.9% 1,000 ML IV ONE (22:43)
[2024-05-25 22:46] LABS: Estimated Average Glucose 289 mg/dl; Hemoglobin A1C 11.7 % (4.5-5.6)
[2024-05-26] MEDS ORDERED: Nursing to Pharmacy Communication SCH (02:30)
--- OUTSIDE RECORDS SUMMARY | 2024-05-26 02:56 | External Medical Summary | Summary of Care ---
Author Name Unknown Organization [facility] Address [address] [place] [address] Phone [phone] Care Team Providers Care Automatic Oven Operator Name Role Phone Clau Shine LAZARO Primary Care Provider [phone] Encounter Details Date Type Department Care Team (Late st Contact Info) Description 04/21/2024 Orders Only PATIENT PORTAL DO NOT DELETE THIS DEPT USED BY [facility] [id number] Allergies Active Allergy Reactions Criticality Noted Date Comments Nsaids Rash 07/17/2006 Possible alergic reaction; discuss with patient documented as of this encounter (statuses as of 04/21/2024) Medications aspirin enteric coated 81 MG TBEC Take 1 Tablet by mouth in the morning. Active BD Pen Needle Ayse 2nd Gen 32G X 4 MM 1 Active Fluocinonide 0.05 % External SolutionIndicati ons:Seborrheic dermatitis Apply to scalp nightly as needed for itching 60 mL 1 2 Active OneTouch Verio In Vitro StripIndications :Type 2 diabetes mellitus with diabetic peripheral angiopathy without gangrene, with long-term current use of insulin (HCC) use 1 TEST STRIP to TEST BLOOD SUGAR three times a day 90 Strip 11 2 Active Aquacel Ag Foam 10"X12" External PadIndications:S kin ulcer of left lower leg with fat layer exposed (HCC) Apply topically to affected area 1 Units daily . 30 Each 2 2 Active Lisinopril 40 MG Oral TabletIndication s:HTN, goal below 130/80 Take 1 Tablet by mouth in the morning. 90 Tablet 3 4 Active Nitroglycerin 0.4 MG Sublingual Tablet Sublingual (Nitrostat)Indic ations:Chest pain, unspecified type,Atheroscler osis of [place] coronary artery of [place] heart without angina pectoris Place 1 Tablet under the tongue as needed for Pain, Chest. May repeat 3 times. If chest pain continues, call 911. 25 Tablet 11 4 Active Rosuvastatin Calcium 40 MG Oral Tablet (Crestor)Indicat ions:Dyslipidemi a Take 1 Tablet by mouth in the morning. 90 Tablet 3 4 Active Clopidogrel Bisulfate 75 MG Oral Tablet (pLAVix) Take 1 Tablet by mouth in the morning. 90 Tablet 3 4 Active Empagliflozin 10 MG Oral Tablet (Jardiance)Indic ations:Type 2 diabetes mellitus with diabetic peripheral angiopathy without gangrene, without long-term current use of insulin (HCC) Take 1 Tablet by mouth in the morning. 90 Tablet 3 4 Active Clobetasol Propionate 0.05 % External SolutionIndicati ons:Scalp psoriasis Apply topically to scalp twice daily as needed 50 mL 1 4 Active Ezetimibe 10 MG Oral Tablet (Zetia) Take 1 Tablet by mouth in the morning. Active Isosorbide Mononitrate ER 30 MG Oral Tablet Extended Release 24 Hour (Imdur) Take 1 Tablet by mouth in the morning. 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 30 minutes before a meal.. 90 Tablet 3 4 Active amLODIPine Besylate 5 MG Oral Tablet (Norvasc)Indicat ions:HTN, goal below 130/80 One daily 90 Tablet 1 4 Active Metoprolol Succinate ER 25 MG Oral Tablet Extended Release 24 Hour (toPROL XL)Indications:A therosclerosis of [place] coronary artery of [place] heart with angina pectoris (HCC) Take 1 Tablet by mouth in the morning. 90 Tablet 3 4 Active Ketoconazole 2 % External Shampoo (Nizoral)Indicat ions:Seborrheic dermatitis Apply to scalp, [place] and chest daily for one week and then use 2-3 times per week after; leave on 3-5 minutes before rinsing 120 mL 2 Active documented as of this encounter (statuses as of 04/21/2024) Active Problems Problem Noted Date Diagnosed Date Venous stasis of both lower extremities 01/30/20 Class 1 obesity due to exces s calories with serious comorbidity and body mass index (BMI) of 32.0 to 32.9 in adult 01/30/2024 Venous stasis dermatitis 10/16/2023 H/O heart artery stent 10/16/2023 Coronary artery disease invo lving [place] coronary artery of [place] heart without angina pectoris 10/16/2023 Atherosclerosis of [place] co ronary artery with angina pectoris 06/03/2022 Type 2 diabetes mellitus wit h hemoglobin A1c goal of less than 7.0% 06/03/2022 Skin ulcer of left lower leg with fat layer expo sed 06/03/2022 Constipation 06/03/2022 Dyslipidemia 01/31/2020 HTN, goal below 130/80 01/31/2020 documented as of this encounter (statuses as of 04/21/2024) Immunizations Name Administration Dates Next Due TDAP [...] Date Recorded PHQ Adult Total Score 0 04/19/2024 Sex and Gender Information Value Date Recorded Sex Assigned at Not on file Legal Sex Male 5:40 AM EST Gender Identity Not on file Sexual Orientation Not on file documented as of this encounter Plan of Treatment Upcoming Encounters Date Type Department Care Team (Late st Contact Info) Description 10/19/2024 8:40 AM EDT Office Visit Family [facility] [place] [address] [place] [address] Clau Shine PA-C [address] [place] [address] Health Maintenance Due Date Last Done Comments HIV Screening 1981 Hepatitis C Screening 1984 Hepatitis B Vaccine (1 of 3 - 19+ 3-dose series) 1985 Pneumococcal Vaccine: Pediatrics (0 to 5 Years) and At-Risk Patients (6 to 64 Years) (1 of 2 - PCV) 1985 Fecal Occult Blood Test 07/04/2011 Sigmoidoscopy 07/04/2011 Zoster Vaccines (1 of 2) 2016 Colonoscopy 08/15/2016 08/15/2006 Albumin/Creatinine Ratio 09/03/2023 023, 09/06/2021, 10/31/2020 COVID-19 Vaccine ( season) 2023 Influenza Vaccine (FLU shot) (#1) 2023 HbA1c 04/16/2024 10/16/2023, 03/28, 09/02/2022, Additional history exists Cologuard 06/13/2024 06/13/2021, 11/2021, 06/05/2021 Colorectal Cancer Screening 06/13/2024 Diabetic Eye Exam 10/15/2024 10/16/2023, , 10/31/2020 Diabetic Foot Exam 10/15/2024 10/16/2023, 09/06/2021 GFR 10/15/2024 10/16/2023, 03/28, 09/02/2022, Additional history exists Depression Screening 04/19/2025 04/19/2024 DTap/Tdap Vaccines (2 - Td or Tdap) 10/31/2030 10/31/2020 HPV (Gardasil) Vaccine Aged Out No lo nger eligible based on patient's age to complete this topic MENINGOCOCCAL (MENACTRA/MENVEO) Aged Out No longer eligible based on patient's age to complete this topic documented as of this encounter Medical Devices Not on filedocumented as of this encounter Care Teams Automatic Oven Operator Relationship Specialty Start Date End Date Clau Shine PA-C [address] [place] [address] PCP - General Physician Front Office Medical Assistant 01/30/24 documented as of this encounter
--- OUTSIDE RECORDS SUMMARY | 2024-05-26 02:56 | External Medical Summary | Summary of Care ---
Author Name Unknown Organization [facility] Address [address] [facility] [place] [address] Phone [phone] Care Team Providers Care Financial Specialist Name Role Phone Clau Shine LAZARO Primary Care Provider [phone] Reason for Visit * Reason Onset Date Comments Hospital Follow-Up 11/19/2023 Encounter Details Date Type Department Care Team (Late st Contact Info) Description 11/19/2023 Telephone General Internal Medicine Amelia Hallman [place] [address] [facility] [place] [address] Holly Knox MD [address] [facility] [place] [address] Hospital Follow-Up Allergies Active Allergy Reactions Criticality Noted Date Comments Nsaids Rash 07/17/2006 Possible alergic reaction; discuss with patient documented as of this encounter (statuses as of 02/18/2024) Medications Medication Sig Dispensed Refills Start Date [...] (Nitrostat)Indic ations:Chest pain, unspecified type,Atheroscler osis of [place] coronary artery of [place] heart without angina pectoris Place 1 Tablet under the tongue as needed for Pain, Chest. May repeat 3 times. If chest pain continues, call 911. 25 Tablet 11 4 Active Rosuvastatin Calcium 40 MG Oral Tablet (Crestor)Indicat ions:Dyslipidemi a Take 1 Tablet by mouth in the morning. 90 Tablet 3 4 Active Additional Information Patient not taking.Reported on 01/30/2024 Clopidogrel Bisulfate 75 MG Oral Tablet (pLAVix) [...] 3-5 minutes before rinsing 120 mL 2 4 Active Clobetasol Propionate 0.05 % External SolutionIndicati ons:Scalp psoriasis Apply topically to scalp twice daily as needed 50 mL 1 4 Active Vitamin Z29-Kzmdm Acid 500-400 MCG Oral Tablet Take by mouth. 01/30/20 24 Discontinued Metoprolol Succinate ER 25 MG Oral Tablet Extended Release 24 Hour (toPROL XL)Indications:E xertional chest pain Take 1 Tablet by mouth in the morning. 90 Tablet 3 4 01/30/20 24 Discontinued(Ref ill) documented as of this encounter (statuses as of 02/18/2024) Active Problems Problem Noted Date Diagnosed Date Venous stasis of both lower extremities 01/30/20 24 Class 1 obesity due to exces s calories with serious comorbidity and body mass index (BMI) of 32.0 to 32.9 in adult 01/30/2024 Venous stasis dermatitis 10/16/2023 H/O heart artery stent 10/16/2023 Coronary artery disease invo [place]ving [place] coronary artery of [place] heart without angina pectoris 10/16/2023 Atherosclerosis of [place] co ronary artery with angina pectoris 06/03/2022 Type 2 diabetes mellitus wit h hemoglobin A1c goal of less than 7.0% 06/03/2022 Skin ulcer of left lower leg with fat layer expo sed 06/03/2022 Constipation 06/03/2022 Dyslipidemia 01/31/2020 HTN, goal below 130/80 01/31/2020 documented as of this encounter (statuses as of 02/18/2024) Immunizations Name Administration Dates Next Due TDAP [...] encounter Miscellaneous Notes * Telephone Encounter - Martinez Marshall RN - 11/19/2023 3:22 PM EDT Patient discharged 11/16/[address] [facility] after admission for chest pain. Patient also with concern forlower extremity superimposed infection. Discharge summary and wound cultures resulted and faxed to for review. Thank you documented in this encounter Plan of Treatment Upcoming Encounters Date Type Department Care Team (Late st Contact Info) Description 04/19/2024 8:40 AM EST Office Visit [facility] [address] [facility] [place] [address] Clau Shine PA-C [address] [facility] [place] [address] Health Maintenance Due Date Last Done Comments [...] Colonoscopy 08/15/2016 08/15/2006 Depression Screening 12/07/2022 12/07/2021 Albumin/Creatinine Ratio 09/03/2023 023, 09/06/2021, 10/31/2020 COVID-19 Vaccine ( season) 2023 Influenza Vaccine (FLU shot) (#1) 2023 *NEPHROLOGY REFERRAL DUE TO RESISTANT HTN 02/01/2024 HbA1c 04/16/2024 10/16/2023, 03/28, 09/02/2022, Additional history exists Cologuard 06/13/2024 06/13/2021, 02/0 11/2021, 06/05/2021 Colorectal Cancer Screening 06/13/2024 Diabetic Eye Exam 10/15/2024 10/16/2023, , 10/31/2020 Diabetic Foot Exam 10/15/2024 10/16/2023, 09/06/2021 GFR 10/15/2024 10/16/2023, 03/28, 09/02/2022, Additional history exists DTap/Tdap Vaccines (2 - Td or Tdap) 10/31/2030 10/31/2020 HPV (Gardasil) Vaccine Aged Out No lo nger eligible based on patient's age to complete this topic MENINGOCOCCAL (MENACTRA/MENVEO) Aged Out No longer eligible based on patient's age to complete this topic documented as of this encounter Medical Devices Not on filedocumented as of this encounter Care Teams Financial Specialist Relationship Specialty Start Date End Date Rl Clau Soo, LAZARO [address] [place] [address] PCP - General Physician Manager Placement 01/30/24 documented as of this encounter
--- OUTSIDE RECORDS SUMMARY | 2024-05-26 02:56 | External Medical Summary | Summary of Care ---
Author Name Unknown Organization [facility] Address [address] [place] [address] Phone [phone] Care Team Providers Care Syrup Mixer Assistant Name Role Phone Unavailable Primary Care Provider Unavailabl e Encounter Details Date Type Department Care Team (Late st Contact Info) Description 05/20/2024 Population Health External Data Unspecified Department Allergies Active Allergy Reactions Criticality Noted Date Comments Nsaids Rash 07/17/2006 Possible alergic reaction; discuss with patient documented as of this encounter (statuses as of 05/20/2024) Medications aspirin enteric coated 81 MG TBEC [...] (Nitrostat)Indic ations:Chest pain, unspecified type,Atheroscler osis of [place] coronary artery of [place] heart without angina pectoris Place 1 Tablet [...] 2 diabetes mellitus without complication, unspecified whether [facility] insulin use (HCC),Type 2 diabetes mellitus with [...] Release 24 Hour (toPROL XL)Indications: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 90 Tablet 3 4 Active Ketoconazole 2 % External Shampoo (Nizoral)Indicat ions:Seborrheic dermatitis Apply to scalp, [place] and chest daily for one week and then use 2-3 times per week after; leave on 3-5 minutes before rinsing 120 mL 2 4 Active documented as of this encounter (statuses as of 05/20/2024) Active Problems Problem Noted Date Diagnosed Date Venous stasis of both lower extremities 01/30/20 Class 1 obesity due to exces s calories with serious comorbidity and body mass index (BMI) of 32.0 to 32.9 in adult 01/30/2024 Venous stasis dermatitis 10/16/2023 H/O heart artery stent 10/16/2023 Coronary artery disease invo lving [place] coronary artery of [place] heart without angina pectoris 10/16/2023 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 06/03/2022 Type 2 diabetes mellitus wit h hemoglobin A1c goal of less than 7.0% 06/03/2022 Skin ulcer of left lower leg with fat layer expo sed 06/03/2022 Constipation 06/03/2022 Dyslipidemia 01/31/2020 HTN, goal below 130/80 01/31/2020 documented as of this encounter (statuses as of 05/20/2024) Immunizations Name Administration Dates Next Due TDAP [...] 8:40 AM EDT Office Visit Family Practice [facility] [address] [place] [address] Clau Shine PA-C [address] [place] [id number] Health Maintenance Due Date Last Done Comments HIV Screening 1981 Hepatitis C Screening 1984 Hepatitis B Vaccine (1 of 3 - 19+ 3-dose series) 1985 Pneumococcal Vaccine: 50+ Years (1 of 2 - PCV) 1985 Fecal Occult Blood Test 07/04/2011 Sigmoidoscopy 07/04/2011 Zoster Vaccines (1 of 2) 2016 Colonoscopy 08/15/2016 08/15/2006 Albumin/Creatinine Ratio 09/03/2023 023, 09/06/2021, 10/31/2020 COVID-19 Vaccine (2023- season) 2023 Influenza Vaccine (FLU shot) (#1) [...]
--- OUTSIDE RECORDS SUMMARY | 2024-05-26 02:56 | External Medical Summary | Summary of Care ---
Author Name Unknown Organization [facility] Address [address] [facility] [place] [address] Phone [phone] Care Team Providers Care Supervisor [employer] Name Role Phone Clau Shine PA-C Primary Care Provider [phone] Reason for Visit * Reason Onset Date Comments Health Maintenance 02/10/2024 Encounter Details Date Type Department Care Team (Late st Contact Info) Description 02/10/2024 Telephone Family Practice [facility] [place] [address] [place] [address] Clau Shine PA-C [address] [facility] [place] [address] Health Maintenance Allergies Active Allergy Reactions Criticality Noted Date Comments Nsaids Rash 07/17/2006 Possible alergic reaction; discuss with patient documented as of this encounter (statuses as of 02/10/2024) Medications Medication Sig Dispensed Refills Start Date End Date Status aspirin enteric coated 81 MG TBEC Take 1 Tablet by mouth in the morning. Active BD Pen Needle Ayse 2nd Gen 32G X 4 MM 03/16/2021 Active Fluocinonide 0.05 % External SolutionIndications :Seborrheic dermatitis Apply to scalp nightly as needed for itching 60 mL 1 07/10/2021 Active OneTouch Verio In Vitro StripIndications:Ty pe 2 [...] (Nitrostat)Indicati ons:Chest pain, unspecified type,Atherosclerosi s of [place] coronary artery of [place] heart without angina pectoris Place 1 Tablet under the tongue as needed for Pain, Chest. May repeat 3 times. If chest pain continues, call 911. 25 Tablet 11 10/16/2023 Active Rosuvastatin Calcium 40 MG Oral Tablet (Crestor)Indication s:Dyslipidemia Take 1 Tablet by mouth in the morning. 90 Tablet 3 10/16/2023 Active Additional Information Patient not taking.Reported on [...] as needed 50 mL 1 10/16/2023 Active Ezetimibe 10 MG Oral Tablet (Zetia) Take 1 Tablet by mouth in the morning. Active Isosorbide Mononitrate ER 30 MG Oral Tablet Extended Release 24 Hour (Imdur) Take 1 Tablet by mouth in the morning. Active glipiZIDE ER 10 MG Oral Tablet Extended Release 24 Hour (glipiZIDE XL)Indications:Type 2 diabetes mellitus without complication, unspecified whether [facility] insulin use (HCC),Type 2 diabetes mellitus with other skin ulcer, without long-term current use of insulin (HCC) Take 1 Tablet by mouth in the morning. 30 minutes before a meal.. 90 Tablet 3 11/27/2023 Active amLODIPine Besylate 5 MG Oral Tablet (Norvasc)Indication s:HTN, goal below 130/80 One daily 90 Tablet 1 01/08/2024 Active Metoprolol Succinate ER 25 MG Oral Tablet Extended Release 24 Hour (toPROL XL)Indications:Athe rosclerosis of [place] coronary artery of [place] heart with angina pectoris (HCC) Take 1 Tablet by mouth in the morning. 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 06/03/2022 Type 2 diabetes mellitus wit h hemoglobin A1c goal of less than 7.0% 06/03/2022 Skin ulcer of left lower leg with fat layer expo sed 06/03/2022 Constipation 06/03/2022 Dyslipidemia 01/31/2020 HTN, goal below 130/80 01/31/2020 documented as of this encounter (statuses as of 02/10/2024) Immunizations Name Administration Dates Next Due TDAP [...] encounter Miscellaneous Notes * Telephone Encounter - Rasheeda Steen LPN - 02/10/2024 2:34 PM EDT Care Gaps Comprehensive Care Outreach Last Office/Telemedicine Visit: 01/30/2024 (in office), Visit date not found (telemedicine) Next Office Visit: 04/19/2024 Hemoglobin AIC Results: Lab Results Component Value Date/Time HEMOGLOBIN A1C - [facility] 9.7 (H) 10/16/2023 09:38 AM HEMOGLOBIN A1C - [facility] 8.6 (H) 09/02/2022 11:17 AM HEMOGLOBIN A1C - [facility] 10.7 (H) 06/03/2022 11:12 AM HEMOGLOBIN A1C - [facility] 10.6 (H) 01/06/2020 12:23 PM BP Readings from Last 1 Encounters: 01/30/24 150/86 Reviewed Health Maintenance below: Health Maintenance Topic Date Due Pneumococcal Vaccine: Pediatrics (0 to 5 Years) and At-Risk Patients (6 to 64 Years) (1 of 2 - PCV)Never done HIV Screening Never done Hepatitis C Screening Never done Hepatitis B Vaccine (1 of 3 - 19+ 3-dose series) Never done Zoster Vaccines (1 of 2) Never done Depression Screening 12/07/2022 Albumin/Creatinine Ratio 09/03/2023 Influenza Vaccine (FLU shot) (1) Never done COVID-19 Vaccine (2023- season) Never done *NEPHROLOGY REFERRAL DUE TO RESISTANT HTN Never done HbA1c 04/16/2024 Colorectal Cancer Screening 06/13/2024 Labs already ordered Colon cologuard not due until may Care Gap Outreach Action Taken: Outreach not indicated documented in this encounter Plan of Treatment Upcoming Encounters Date Type Department Care Team (Late st Contact Info) Description 04/19/2024 8:40 AM EST Office Visit [facility] [address] [place] [address] Clau Shine PA-C [address] [place] [address] Health Maintenance Due Date Last Done Comments [...] filedocumented as of this encounter Care Teams Supervisor [employer] Relationship Specialty Start Date End Date RlJuly LAZARO Vann [address] [place] [address] PCP - General Physician Health Care Attorney 01/30/24 documented as of this encounter
--- OUTSIDE RECORDS SUMMARY | 2024-05-26 02:56 | External Medical Summary | Summary of Care ---
Author Name Unknown Organization [facility] Address [address] [place] [address] Phone [phone] Care Team Providers Care Bank Officer Name Role Phone Clau Shine PA-C Primary Care Provider [phone] Reason for Referral * Evaluate & Treat - Unlimited Visits (Within 30 days (routine)) - Authorized Specialty Diagnoses / Procedures Referred By Alfonso chambers Referred To Contact Wound Care Diagnoses Ulcer of left lower extremity, limited to breakdown of skin (HCC) Clau Shine PA-C [address] [place] [address] Phone: tel: fax: Referral ID Status Reason Start Date Expiration Date Visits Requested Visits Authorized [id number] Authorized Specialty Services Required 4 [phone] Question Answer Referral Priority Within 30 days (routine) Where should this appointment be scheduled? External Where is the wound? Below the knee Comments Assess for: Present over 30 days Reason for Visit * Reason Comments Re-Check Encounter Details Date Type Department Care Team (Late st Contact Info) Description 04/19/2024 8:40 AM EST Office Visit Family Practice [facility] [place] [address] [place] [address] Clau Shine PA-C [address] [facility] [place] [address] Type 2 diabetes mellitus with hemoglobin A1c goal of less than 7.0% (HCC)*; HTN, goal below 130/80; Seborrheic dermatitis; Dyslipidemia; Dysuria; Ulcer of left lower extremity, limited to breakdown of skin (HCC); Venous stasis of both lower extremities; Skin ulcer of left lower leg with fat layer exposed (HCC) Allergies Active Allergy Reactions Criticality Noted Date Comments Nsaids Rash 07/17/2006 Possible alergic reaction; discuss with patient documented as of this encounter (statuses as of 04/19/2024) Medications aspirin enteric coated 81 MG TBEC Take 1 Tablet by mouth in the morning. Active BD Pen Needle Ayse 2nd Gen 32G X 4 MM 1 Active Fluocinonide 0.05 % External SolutionIndicat ions:Seborrheic dermatitis Apply to scalp nightly as needed for itching 60 mL 1 2 Active OneTouch Verio In Vitro StripIndication s:Type 2 diabetes mellitus with diabetic peripheral angiopathy without gangrene, with long-term current use of insulin (HCC) use 1 TEST STRIP to TEST BLOOD SUGAR three times a day 90 Strip 11 2 Active Aquacel Ag Foam 10"X12" External PadIndications: Skin ulcer of left lower leg with fat layer exposed (HCC) Apply topically to affected area 1 Units daily . 30 Each 2 2 Active Lisinopril 40 MG Oral TabletIndicatio ns:HTN, goal below 130/80 Take 1 Tablet by mouth in the morning. 90 Tablet 3 4 Active Nitroglycerin 0.4 MG Sublingual Tablet Sublingual (Nitrostat)Yeimy cations:Chest pain, unspecified type,Atheroscle rosis of [place] coronary artery of [place] heart without angina pectoris Place 1 Tablet under the tongue as needed for Pain, Chest. May repeat 3 times. If chest pain continues, call 911. 25 Tablet 11 4 Active Rosuvastatin Calcium 40 MG Oral Tablet (Crestor)Indica tions:Dyslipide macrina Take 1 Tablet by mouth in the morning. 90 Tablet 3 4 Active Clopidogrel Bisulfate 75 MG Oral Tablet (pLAVix) Take 1 Tablet by mouth in the morning. 90 Tablet 3 4 Active Empagliflozin 10 MG Oral Tablet (Jardiance)Yeimy cations:Type 2 diabetes mellitus with diabetic peripheral angiopathy without gangrene, without long-term current use of insulin (HCC) Take 1 Tablet by mouth in the morning. 90 Tablet 3 4 Active Clobetasol Propionate 0.05 % External SolutionIndicat ions:Scalp psoriasis Apply topically to scalp twice daily as needed 50 mL 1 4 Active Ezetimibe 10 MG Oral Tablet (Zetia) Take 1 Tablet by mouth in the morning. Active Isosorbide Mononitrate ER 30 MG Oral Tablet Extended Release 24 Hour (Imdur) Take 1 Tablet by mouth in the morning. Active glipiZIDE ER 10 MG Oral Tablet Extended Release 24 Hour (glipiZIDE XL)Indications: Type 2 diabetes mellitus without complication, unspecified whether rodent exterminator insulin use (HCC),Type 2 diabetes mellitus with other skin ulcer, without long-term current use of insulin (HCC) Take 1 Tablet by mouth in the morning. 30 minutes before a meal.. 90 Tablet 3 4 Active amLODIPine Besylate 5 MG Oral Tablet (Norvasc)Indica tions:HTN, goal below 130/80 One daily 90 Tablet 1 4 Active Metoprolol Succinate ER 25 MG Oral Tablet Extended Release 24 Hour (toPROL XL)Indications: Atherosclerosis of [place] coronary artery of [place] heart with angina pectoris (HCC) Take 1 Tablet by mouth in the morning. 90 Tablet 3 4 Active Ketoconazole 2 % External Shampoo (Nizoral)Indica tions:Seborrhei c dermatitis Apply to scalp, [place] and chest daily for one week and then use 2-3 times per week after; leave on 3-5 minutes before rinsing 120 mL 2 4 Active Ketoconazole 2 % External Shampoo (Nizoral)Indica tions:Seborrhei c dermatitis Apply to scalp, [place] and chest daily for one week and then use 2-3 times per week after; leave on 3-5 minutes before rinsing 120 mL 2 4 04/19/20 24 Discontinu ed(Refill) documented as of this encounter (statuses as of 04/19/2024) Active Problems Problem Noted Date Diagnosed Date Venous stasis of both lower extremities 01/30/20 Class 1 obesity due to exces s calories with serious comorbidity and body mass index (BMI) of 32.0 to 32.9 in adult 01/30/2024 Venous stasis dermatitis 10/16/2023 H/O heart artery stent 10/16/2023 Coronary artery disease invo lving [place] coronary artery of [place] heart without angina pectoris 10/16/2023 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 06/03/2022 Type 2 diabetes mellitus wit h hemoglobin A1c goal of less than 7.0% 06/03/2022 Skin ulcer of left lower leg with fat layer expo sed 06/03/2022 Constipation 06/03/2022 Dyslipidemia 01/31/2020 HTN, goal below 130/80 01/31/2020 documented as of this encounter (statuses as of 04/19/2024) Immunizations Name Administration Dates Next Due TDAP [...] Sign Reading Time Taken Comments Blood Pressure 140/80 04/19/2024 8:43 AM EST Pulse 76 04/19/2024 8:43 AM EST Temperature 36.7 C (98 F) 04/19/2024 8:43 AM EST Respiratory Rate 16 04/19/2024 8:43 AM EST Oxygen Saturation 95% 04/19/2024 8:43 AM EST Inhaled Oxygen Concentration - - Weight 111.5 kg (245 lb 12 oz) 04/19/2024 8:43 A M EST Height 182.9 cm (6' 0.01") 04/19/2024 8:43 AM ES T Body Mass Index 33.32 04/19/2024 8:43 AM EST documented in this encounter Progress Notes * Clau Shine PA-C - 04/19/2024 9:07 AM EST Images from the original note were not included. History of Present Illness Von Roman is a 58 year old male that presents for Re-Check Patient is a 58 year old male who presents for a follow up. Refuses drapery estimator. States he gets someburning at times after urination. Occurs intermittently for several years. Advised labs are ordered. Taking medications regularly. Checks blood sugars at times. Range from 170-200's. Denies chest pain, sob, palpitations, edema, headache, dizzy Persistent lesion on left lower extremity. Appetite good Sleep fair Urination/ bowel movements normal. Physical Exam Vitals: 04/19/24 0843 Temp: 98 F (36.7 C) Pulse: 76 Resp: 16 SpO2: 95% BP: 140/80 BMI: 33.32 BP Readings from Last 3 Encounters: 04/19/24 140/80 01/30/24 150/86 11/27/23 128/70 Wt Readings from Last 3 Encounters: 04/19/24 245 lb 12 oz (111.5 kg) 01/30/24 246 lb (111.6 kg) 11/27/23 239 lb 1.6 oz (108.5 kg) General: alert, healthy, no distress, well nourished, well developed, and cooperative Head: Normocephalic, No masses, lesions, [...] no joint deformities, effusion, or inflammation, no clubbing, no cyanosis, pronounced venous stasis in both lower extremities. Skin: skin color, texture, turgor are normal, chronic ulcerative areas noted on left lower extremity I have reviewed the following results: Hemoglobin A1C Assessment and Plan Type 2 diabetes mellitus with hemoglobin A1c goal of less than 7.0% (HCC) (Primary) - ALBUMIN / CREATININE RATIO, URINE; Future; Expected date: 04/19/2024 HTN, goal below 130/80 Seborrheic dermatitis - Ketoconazole 2 % External Shampoo (Nizoral); Apply to scalp, lancaster and chest daily for one week and then use 2-3 times per week after; leave on 3-5 minutes before rinsing Dyslipidemia Dysuria - URINALYSIS, REFLEX TO MICROSCOPIC; Future; Expected date: 04/19/2024 Ulcer of left lower extremity, limited to breakdown of skin (HCC) - WOUND CARE REFERRAL OP - DRESSING CHANGE Venous stasis of both lower extremities Skin ulcer of left lower leg with fat layer exposed (HCC) Follow Up: Return in about 6 months (around 10/18/2024) for Clinic Visit. | For: Clinic Visit | Check-out note: Schedule wound clinic Reinforce the need to get labs done continue current medications. Wrap-Up Time: I spent a total of 30-39 minutes (exact time 33 mins) on the date of service in preparation, delivery, and documentation of the care provided to Von Roman excluding any time spent in the performance of separately billed services. documented in this encounter Nursing Notes * Saida Hunter NA - 04/19/2024 8:38 AM EST Test Center Administrator services offered but were declined multiple times. Von Roman presents for 6 month recheck. Patient is complaining of left leg problems.States he is suffering from some ulcers that aren't healing for many years but is worsening recently. Reports they are opening and weeping. States he bought some products OTC for it with no relief. Medications & HM reviewed. Patient has been verbally educated on the need or importance of Flu Vaccine and Shingles Vaccine and has declined topic(s). documented in this encounter Plan of Treatment Upcoming Encounters Date Type Department Care Team (Late st Contact Info) Description 10/19/2024 8:40 AM EDT Office Visit [facility] [place] [facility] [place] [address] Clau Shine PA-C [address] [place] [address] Scheduled Orders Name Type Priority Associated Diagnoses Orde r Schedule URINALYSIS, REFLEX TO MICROSCOPIC Lab Routine Dysuria Expected: 04/19/2024, Expires: 04/19/2025 ALBUMIN / CREATININE RATIO, URINE Lab Routine Type 2 diabetes mellitus with hemoglobin A1c goal of less than 7.0% (HCC) Expected: 04/19/2024 (Approximate), Expires: 04/19/2025 Scheduled Referrals Name Type Priority Associated Diagnoses Orde r Schedule WOUND CARE REFERRAL OP Referral Within 30 days (routine) Ulcer of left lower extremity, limited to breakdown of skin (HCC) Ordered: 04/19/2024 Health Maintenance Due Date Last Done Comments [...] Diagnoses Diagnosis Type 2 diabetes mellitus with hemoglobin A1c goal of less than 7.0% (HCC)- Primary HTN, goal below 130/80 Unspecified essential hypertension Seborrheic dermatitis Seborrheic dermatitis, unspecified Dyslipidemia Other and unspecified hyperlipidemia Dysuria Ulcer of left lower extremity, limited to breakdown of skin (HCC) Venous stasis of both lower extremities Skin ulcer of left lower leg with fat layer exposed (HCC) documented in this encounter Care Teams Bank Officer Relationship Specialty Start Date End Date Rl Clau ROSEMARY VannC [address] [place] [address] PCP - General Physician Director Of Early Childhood Education 01/30/24 documented as of this encounter
--- OUTSIDE RECORDS SUMMARY | 2024-05-26 02:56 | External Medical Summary | Summary of Care ---
Author Name Unknown Organization [facility] Address [address] [place] [facility] [place] [address] Phone [phone] Care Team Providers Care Paraprofessional Aide Teacher Name Role Phone Clau Shine LAZARO Primary Care Provider [phone] Reason for Referral * Evaluate & Treat - Unlimited Visits (Within 10 days (routine)) - Authorized Specialty Diagnoses / Procedures Referred By Contac t Referred To Contact Endocrinology/Metabolism / Endocrinology Diagnoses Type 2 diabetes mellitus with hemoglobin A1c goal of less than 7.0% (HCC) Type 2 diabetes mellitus with hyperglycemia, without long-term current use of insulin (HCC) Holly Knox MD [address] [place] [address] Referral ID Status Reason Start Date Expiration Date Visits Requested Visits Authorized [id number] Authorized Specialty Services Required 01/30/2024 [id number] Question Answer Referral Priority Within 10 days (routine) Where should this appointment be scheduled? [facility] For what condition is the patient being referred? Diabetes Mellitus For which diabetes condition are you referring? Type 2 Reason for Visit * Reason Comments Re-Check 2 month recheck. Encounter Details Date Type Department Care Team (Late st Contact Info) Description 01/30/2024 10:40 AM EDT Office Visit Family Practice [facility] [place] [address] [place] [address] Holly Knox MD [address] [place] [address] Type 2 diabetes mellitus with hemoglobin A1c goal of less than 7.0% (HCC)*; Type 2 diabetes mellitus with hyperglycemia, without long-term current use of insulin (HCC); Dyslipidemia; HTN, goal below 130/80; Atherosclerosis of [place] coronary artery of [place] heart with angina pectoris (HCC); Venous stasis of both lower extremities; Class 1 obesity due to excess calories with serious comorbidity and body mass index (BMI) of 32.0 to 32.9 in adult Allergies Active Allergy Reactions Criticality Noted Date Comments Nsaids Rash 07/17/2006 Possible alergic reaction; discuss with patient documented as of this encounter (statuses as of 02/15/2024) Medications Medication Sig Dispensed Refills Start Date [...] (Nitrostat)Indic ations:Chest pain, unspecified type,Atheroscler osis of [place] coronary artery of [place] heart without angina pectoris Place 1 Tablet [...] gangrene, without long-term current use of insulin ([facility]) Take 1 Tablet by mouth [...] 2 diabetes mellitus without complication, unspecified whether fpc insulin use ([facility]),Type 2 diabetes mellitus with other skin ulcer, without long-term current use of insulin ([facility]) Take 1 Tablet by mouth in the morning. 30 minutes before a meal.. 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 90 Tablet 3 4 Active Vitamin Q78-Zkscs Acid 500-400 MCG Oral Tablet Take by mouth. 01/30/20 24 Discontinued Metoprolol Succinate ER 25 MG Oral Tablet Extended Release 24 Hour (toPROL XL)Indications:E xertional chest pain Take 1 Tablet by mouth in the morning. 90 Tablet 3 4 01/30/20 24 Discontinued(Ref ill) Doxycycline Hyclate 100 MG Oral CapsuleIndicatio ns:Skin ulcer of calf, limited to breakdown of skin, unspecified laterality (HCC) Take 1 Capsule by mouth in the morning and 1 Capsule before bedtime. Do all this for 10 days. Until gone.. 20 Capsule 4 01/30/20 Discontinued documented as of this encounter (statuses as of 02/15/2024) Active Problems Problem Noted Date Diagnosed Date Venous stasis of both lower extremities 01/30/20 Class 1 obesity due to exces s calories with serious comorbidity and body mass index (BMI) of 32.0 to 32.9 in adult 01/30/2024 Venous stasis dermatitis 10/16/2023 H/O heart artery stent 10/16/2023 Coronary artery disease invo lving [place] coronary artery of [place] heart without angina pectoris 10/16/2023 Atherosclerosis of [place] co ronary artery with angina pectoris 06/03/2022 Type 2 diabetes mellitus wit h hemoglobin A1c goal of less than 7.0% 06/03/2022 Skin ulcer of left lower leg with fat layer expo sed 06/03/2022 Constipation 06/03/2022 Dyslipidemia 01/31/2020 HTN, goal below 130/80 01/31/2020 documented as of this encounter (statuses as of 02/15/2024) Immunizations Name Administration Dates Next Due TDAP (age 10 and older)(Boostrix) 10/31/2020 documented as of this encounter Social History Tobacco Use Types Packs/Day Years Used Date Smoking Tobacco: Former Cigarettes 1 6 0 04/28/1996 - 04/28/2002 Smokeless Tobacco: Never Tobacco Cessation:Counseling Given: Not Answered Alcohol Use Standard Drinks/Week Comments Yes 0 [...] Sign Reading Time Taken Comments Blood Pressure 150/86 01/30/2024 11:18 AM EDT Pulse 75 01/30/2024 11:18 AM EDT Temperature 36.4 C (97.6 F) 01/30/2024 11:18 AM E DT Respiratory Rate 20 01/30/2024 11:18 AM EDT Oxygen Saturation 94% 01/30/2024 11:18 AM EDT Inhaled Oxygen Concentration - - Weight 111.6 kg (246 lb) 01/30/2024 11:18 AM EDT Height - - Body Mass Index 33.36 11/27/2023 11:03 AM EDT documented in this encounter Progress Notes * Holly Knox MD - 01/30/2024 10:41 AM EDT Subjective Chief Complaint Patient presents with Re-Check 2 month recheck. HPI: Von Roman is a 58 year old male. Patient is unaccompanied. The following issues were addressed today: Patient presents today for follow-up. He has no new concerns today. Seems to have poor insight into control of diabetes. Recent Hgb A1cs have been above goal. He is currently only taking Jardiance and glipizide. Discussed that he may benefit from endocrinology referral for more comprehensive care. Has had difficulty with lower extremity ulcers and was in the hospital earlier this year for related infection and chest pain concerns. He denies any current chest pain or shortness of breath. LDL is above goal and his cholesterol is poorly controlled. He is prescribed rosuvastatin 40mg and ezetimibe but it is not clear if he is taking these regularly. We discussed increased risk of ASCVD and importance of taking medications. Patient is prescribed metoprolol, lisinopril, and amlodipine for blood pressure, which is above goal today. States he has not been taking metoprolol and needs a refill. Review of Systems: See HPI Objective BP 150/86 (BP Site: Left Arm, BP Position: Sitting, BP Cuff Size: Regular) | Pulse 75 | Temp 36.4 C (97.6 F) (Tympanic) | Resp 20 | Wt 111.6 kg (246 lb) | SpO2 94% | BMI 33.36 kg/m | BSA 2.38 m Wt Readings from Last 3 Encounters: 01/30/24 111.6 kg (246 lb) 11/27/23 108.5 kg (239 lb 1.6 oz) 10/16/23 110.7 kg (244 lb 1.9 oz) BP Readings from Last 3 Encounters: 01/30/24 150/86 11/27/23 128/70 10/16/23 148/96 General: Well-appearing, no acute distress Cardiovascular: Regular rate and rhythm, no murmur Respiratory: Good respiratory effort, breath sounds equal and clear to auscultation bilaterally Neurological: Alert and oriented, no focal deficits noted Psychiatric: Appropriate mood and affect Hemoglobin AIC Results: Lab Results Component Value Date/Time HEMOGLOBIN A1C - [facility] 9.7 (H) 10/16/2023 09:38 AM HEMOGLOBIN A1C - [facility] 8.6 (H) 09/02/2022 11:17 AM HEMOGLOBIN A1C - [facility] 10.7 (H) 06/03/2022 11:12 AM HEMOGLOBIN A1C - [facility] 10.6 (H) 01/06/2020 12:23 PM Lipid Panel Results: Results for orders placed or performed in visit on 10/16/23 LIPID PANEL WITH DIRECT LDL IF TG IS HIGH Result Value Ref Range Triglycerides 267 (H) <=174 mg/dL Cholesterol 300 (H) <200 mg/dL HDL Cholesterol 68 >39 mg/dL Non-HDL Cholesterol 232 (H) <=159 mg/dL LDL Cholesterol 179 (H) <=129 mg/dL Assessment & Plan 1. Type 2 diabetes mellitus with hemoglobin A1c goal of less than 7.0% ([facility]) Update Hgb A1c. Discussed diet. Continue current medications. Will refer to endocrinology. Stressedimportance of regular follow-up with PCP. - HEMOGLOBIN A1C; Future - ADULT ENDOCRINOLOGY REFERRAL OP 2. Type 2 diabetes mellitus with hyperglycemia, without long-term current use of insulin (HCC) As above. - HEMOGLOBIN A1C; Future - ADULT ENDOCRINOLOGY REFERRAL OP 3. Dyslipidemia Uncontrolled. Encouraged regular use of statin and Zetia. 4. HTN, goal below 130/80 Uncontrolled. Restart metoprolol. Continue lisinopril and amlodipine. 5. Atherosclerosis of [place] coronary artery of [place] heart with angina pectoris (HCC) Continue current medications. - Metoprolol Succinate ER 25 MG Oral Tablet Extended Release 24 Hour (toPROL XL); Take 1 Tablet by mouth in the morning. Dispense: 90 Tablet; Refill: 3 6. Venous stasis of both lower extremities Recommended elevation, compression stockings. Discussed importance of Hgb A1c control to prevent ulceration/infections. 7. Class 1 obesity due to excess calories with serious comorbidity and body mass index (BMI) of 32.0 to 32.9 in adult Diet discussed. Return for follow-up as scheduled or sooner as needed. This note was electronically signed by Holly Knox MD documented in this encounter Nursing Notes * Mora Salvador LPN - 01/30/2024 11:17 AM EDT Chief Complaint Patient presents with Re-Check 2 month recheck. Patient seems unsure of some of medications. documented in this encounter Plan of Treatment Upcoming Encounters Date Type Department Care Team (Late st Contact Info) Description 04/19/2024 8:40 AM EST Office Visit Family Practice [facility] [place] [address] [place] [address] Clau Shine PA-C [address] [place] [address] Scheduled Orders Name Type Priority Associated Diagnoses Orde r Schedule HEMOGLOBIN A1C Lab Routine Type 2 diabetes mellitus with hemoglobin A1c goal of less than 7.0% (HCC) Type 2 diabetes mellitus with hyperglycemia, without long-term current use of insulin (HCC) Expected: 01/30/2024 (Approximate), Expires: 01/29/2025 Scheduled Referrals Name Type Priority Associated Diagnoses Order Schedule ADULT ENDOCRINOLOGY REFERRAL OP Referral Within 10 days (routine) Type 2 diabetes mellitus with hemoglobin A1c goal of less than 7.0% (HCC) Type 2 diabetes mellitus with hyperglycemia, without long-term current use of insulin (HCC) Ordered: 01/30/2024 Health Maintenance Due Date Last Done Comments [...] 09/02/2022, Additional history exists Cologuard 06/13/2024 06/13/2021, 02/11/2021, 06/05/2021 Colorectal Cancer Screening 06/13/2024 Diabetic Eye [...] goal of less than 7.0% (HCC)- Primary Type 2 diabetes mellitus with hyperglycemia, without long-term current use of insulin (HCC) Dyslipidemia Other and unspecified hyperlipidemia HTN, goal below 130/80 Unspecified essential hypertension 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
--- OUTSIDE RECORDS SUMMARY | 2024-05-26 02:56 | External Medical Summary | Summary of Care ---
Author Name Unknown Organization [facility] Address [address] [facility] [place] [address] Phone [phone] Care Team Providers Care Superintendent [employer] Name Role Phone Clau Shine LAZARO Primary Care Provider [phone] Reason for Visit * Reason Onset Date Comments Medication Refill 01/07/2024 Encounter Details Date Type Department Care Team (Late st Contact Info) Description 01/07/2024 Refill Family Practice [facility] [place] [address] [place] [address] Holly Knox MD [address] [place] [address] HTN, goal below 130/80* Allergies Active Allergy Reactions Criticality Noted Date Comments Nsaids Rash 07/17/2006 Possible alergic reaction; discuss with patient documented as of this encounter (statuses as of 02/13/2024) Medications Medication Sig Dispensed Refills Start Date [...] 1 Units daily . 30 Each 2 08/12/202 2 Active Lisinopril 40 MG Oral TabletIndication s:HTN, goal below 130/80 Take 1 Tablet by mouth in the morning. 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 30 minutes before a meal.. 90 Tablet 3 4 Active amLODIPine Besylate 5 MG Oral Tablet (Norvasc)Indicat ions:HTN, goal below 130/80 One daily 90 Tablet 1 4 Active Vitamin D00-Nxsri Acid 500-400 MCG Oral Tablet Take by mouth. 01/30/20 Discontinued Metoprolol Succinate ER 25 MG Oral Tablet Extended Release 24 Hour (toPROL XL)Indications:E xertional chest pain Take 1 Tablet by mouth in the morning. 90 Tablet 3 4 01/30/20 24 Discontinued(Ref ill) amLODIPine Besylate 5 MG Oral Tablet (Norvasc) 5 MG ORALLY DAILY IN THE MORNING 01/07/20 24 Discontinued(Ref ill) Doxycycline Hyclate 100 MG Oral CapsuleIndicatio ns:Skin ulcer of calf, limited to breakdown of skin, unspecified laterality (HCC) Take 1 Capsule by mouth in the morning and 1 Capsule before bedtime. Do all this for 10 days. Until gone.. 20 Capsule 4 01/30/20 Discontinued documented as of this encounter (statuses as of 02/13/2024) Active Problems Problem Noted Date Diagnosed Date Venous stasis of both lower extremities 01/30/20 Class 1 obesity due to exces s calories with serious comorbidity and body mass index (BMI) of 32.0 to 32.9 in adult 01/30/2024 Venous stasis dermatitis 10/16/2023 H/O heart artery stent 10/16/2023 Coronary artery disease invo lving [place] coronary artery of [place] heart without angina pectoris 10/16/2023 Atherosclerosis of [place] co ronary artery with angina pectoris 06/03/2022 Type 2 diabetes mellitus wit h hemoglobin A1c goal of less than 7.0% 06/03/2022 Skin ulcer of left lower leg with fat layer expo sed 06/03/2022 Constipation 06/03/2022 Dyslipidemia 01/31/2020 HTN, goal below 130/80 01/31/2020 documented as of this encounter (statuses as of 02/13/2024) Immunizations Name Administration Dates Next Due TDAP [...] encounter Miscellaneous Notes * Telephone Encounter - Ashvin Nuñez MD - 01/08/2024 8:12 AM EDTSigned Prescriptions: Disp Refills amLODIPine Besylate 5 MG Oral Tablet (Norv*90 Tab*1 Sig: One daily Authorizing Provider: ASHVIN NUÑEZ * Telephone Encounter - Nickie Reaz CMA - 01/07/2024 4:27 PM EDTPending Prescriptions: Disp Refills amLODIPine Besylate 5 MG Oral Tablet (Norv* documented in this encounter Plan of Treatment Upcoming Encounters Date Type Department Care Team (Late st Contact Info) Description 04/19/2024 8:40 AM EST Office Visit Family Practice [facility] [place] [address] [place] [address] Clau Shine PA-C [address] [place] [address] Health Maintenance Due Date Last Done Comments [...] as of this encounter Visit Diagnoses Diagnosis HTN, goal below 130/80- Primary Unspecified essential hypertension documented in this encounter Care Teams Superintendent [employer] Relationship Specialty Start Date End Date Rl Clau LAZARO Vann [address] [place] [address] PCP - General Physician Babysitter 01/30/24 documented as of this encounter
--- OUTSIDE RECORDS SUMMARY | 2024-05-26 02:57 | External Medical Summary | Summary of Care ---
Author Name Unknown Organization [facility] Address [address] [facility] [place] [address] Phone [phone] Care Team Providers Care Casino Supervisor Name Role Phone Clau Shine LAZARO Primary Care Provider [phone] Reason for Visit * Reason Onset Date Comments Referral 02/02/2024 Encounter Details Date Type Department Care Team (Late st Contact Info) Description 02/02/2024 Telephone Family Practice [facility] [place] [address] [facility] [place] [address] Holly Knox MD [address] [facility] [place] [address] Referral Allergies Active Allergy Reactions Criticality Noted Date Comments Nsaids Rash 07/17/2006 Possible alergic reaction; discuss with patient documented as of this encounter (statuses as of 02/02/2024) Medications Medication Sig Dispensed Refills Start Date [...] Release 24 Hour (toPROL XL)Indications:Athe rosclerosis of [place] coronary artery of [place] heart with angina pectoris (HCC) Take 1 Tablet by mouth in the morning. 90 Tablet 3 01/30/2024 Active documented as of this encounter (statuses as of 02/02/2024) Active Problems Problem Noted Date Diagnosed Date [...] as of this encounter (statuses as of 02/02/2024) Immunizations Name Administration Dates Next Due TDAP [...] encounter Miscellaneous Notes * Telephone Encounter - Ana Trejo OSA - 02/02/2024 1:13 PM EDT Contacted patient about Active Referrals for Endocrinology and left a detailed VM to call back to schedule will also send a EvalYou message. documented in this encounter Plan of Treatment Upcoming Encounters Date Type Department Care Team (Late st Contact Info) Description 04/19/2024 8:40 AM EST Office Visit Family Practice [facility] [address] [facility] [place] [address] Clau Shine PA-C [address] [facility] [place] [address] Health Maintenance Due Date Last Done Comments [...] 09/02/2022, Additional history exists Cologuard 06/13/2024 06/13/2021, /11/2021, 06/05/2021 Colorectal Cancer Screening 06/13/2024 Diabetic Eye [...] filedocumented as of this encounter Care Teams Casino Supervisor Relationship Specialty Start Date End Date RlJuly LAZARO Vann [address] [place] [address] PCP - General Physician Fruit Buying Grader 01/30/24 documented as of this encounter
--- OUTSIDE RECORDS SUMMARY | 2024-05-26 02:57 | External Medical Summary | Summary of Care ---
Author Name Unknown Organization [facility] Address [address] [place] [address] Phone [phone] Care Team Providers Care Stone Grader Name Role Phone Holly Knox MD Primary Care Provider [phone] Reason for Visit * Reason Onset Date Comments Appointment 11/28/2023 Encounter Details Date Type Department Care Team (Late st Contact Info) Description 11/28/2023 Telephone [facility] Wound Care [address] [place] [address] Services, Scheduling [address] [place] [address] Appointment Allergies Active Allergy Reactions Criticality Noted Date Comments Nsaids Rash 07/17/2006 Possible alergic reaction; discuss with patient documented as of this encounter (statuses as of 11/28/2023) Medications Medication Sig Dispensed Refills Start Date End Date Status aspirin enteric coated 81 MG TBEC Take 1 Tablet by mouth in the morning. Active Vitamin C97-Udiup Acid 500-400 MCG Oral Tablet Take by mouth. Active BD Pen Needle Ayse 2nd Gen 32G X 4 MM 03/16/2021 Active Fluocinonide 0.05 % External SolutionIndication s:Seborrheic dermatitis Apply to scalp nightly as needed for itching 60 mL 1 07/10/2021 Active Additional Information Patient not taking.Reported on 10/16/2023 OneTouch Verio In Vitro StripIndications:T ype 2 diabetes mellitus [...] (Nitrostat)Indicat ions:Chest pain, unspecified type,Atheroscleros is of [place] coronary artery of [place] heart without angina pectoris Place 1 Tablet [...] as needed 50 mL 1 10/16/2023 Active amLODIPine Besylate 5 MG Oral Tablet (Norvasc) 5 MG ORALLY DAILY IN THE MORNING Active Ezetimibe 10 MG Oral Tablet (Zetia) Take 1 Tablet by mouth in the morning. Active Isosorbide Mononitrate ER 30 MG Oral Tablet Extended Release 24 Hour (Imdur) Take 1 Tablet by mouth in the morning. Active Doxycycline Hyclate 100 MG Oral CapsuleIndications :Skin ulcer of calf, limited to breakdown of skin, unspecified laterality (HCC) Take 1 Capsule by mouth in the morning and 1 Capsule before bedtime. Do all this for 10 days. Until gone.. 20 Capsule 11/27/2023 12/07/2023 Active glipiZIDE ER 10 MG Oral Tablet Extended Release 24 Hour (glipiZIDE XL)Indications:Typ e 2 diabetes mellitus without complication, unspecified whether [facility] insulin use (HCC),Type 2 diabetes mellitus with other skin ulcer, without long-term current use of insulin (HCC) Take 1 Tablet by mouth in the morning. 30 minutes before a meal.. 90 Tablet 3 11/27/2023 Active documented as of this encounter (statuses as of 11/28/2023) Active Problems Problem Noted Date Diagnosed Date Venous stasis dermatitis 10/16/2023 H/O heart artery stent 10/16/2023 Coronary artery disease invo lving [place] coronary artery of [place] heart without angina pectoris 10/16/2023 Atherosclerosis of [place] co ronary artery with angina pectoris 06/03/2022 [...] as of this encounter (statuses as of 11/28/2023) Immunizations Name Administration Dates Next Due TDAP [...] encounter Miscellaneous Notes * Telephone Encounter - Naye [place] OSA - 11/28/2023 9:43 AM EDT Called patient and LM for them to CB and schedule from the Wq for Skin ulcer of calf documented in this encounter Plan of Treatment Upcoming Encounters Date Type Department Care Team (Late st Contact Info) Description 12/05/2023 10:30 AM EDT Office Visit Cardiology, [facility] [address] [facility] [place] [address] Kelly Nichols PA-C [address] [place] [address] [place] [address] 01/30/2024 10:40 AM EDT Office Visit [facility] [address] [place] [address] Holly Knox MD [address] [place] [address] 04/19/2024 8:40 AM EST Office Visit [facility] [address] [place] [address] [address] Clau Shine PA-C [address] [place] [address] Health Maintenance Due Date Last Done Comments [...] 023, 09/06/2021, 10/31/2020 Influenza Vaccine (FLU shot) (#1) 2023 HbA1c [...] filedocumented as of this encounter Care Teams Stone Grader Relationship Specialty Start Date End Date Holly Knox MD [address] [place] [address] PCP - General Family Medicine 09/19/23 documented as of this encounter
--- OUTSIDE RECORDS SUMMARY | 2024-05-26 02:57 | External Medical Summary | Summary of Care ---
Author Name Unknown Organization [facility] Address [address] [place] [address] Phone [phone] Care Team Providers Care Patient Transportation Driver Name Role Phone Holly Knox MD Primary Care Provider [phone] Reason for Visit * Reason Onset Date Comments Medication Question 10/17/2023 Encounter Details Date Type Department Care Team (Late st Contact Info) Description 10/17/[address] [facility] [place] [address] [place] [address] Clau Shine PA-C [address] [facility] [place] [address] Medication Question Allergies Active Allergy Reactions Criticality Noted Date Comments Nsaids Rash 07/17/2006 Possible alergic reaction; discuss with patient documented as of this encounter (statuses as of 01/16/2024) Medications Medication Sig Dispensed Refills Start Date End Date Status aspirin enteric coated 81 MG TBEC Take 1 Tablet by mouth in the morning. 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 * Telephone Encounter - Karine Reddy LPN - 10/18/2023 10:56 AM EDT ----- Message from July Soo Shine sent at 10/16/2023 8:33 PM EDT ----- Please inquire if he has been off his medicine. Thanks * Telephone Encounter - Jack Amin MED ASSIST - 10/17/2023 8:47 AM EDT ----- Message from July Soo Shine sent at 10/16/2023 8:33 PM EDT ----- Please inquire if he has been off his medicine. Thanks documented in this encounter Plan of Treatment Upcoming Encounters Date Type Department Care Team (Late st Contact Info) Description 01/30/2024 10:40 AM EDT Office Visit [facility] [place] [address] Holly Knox MD [address] [place] [address] 04/19/2024 8:40 AM EST Office Visit [facility] [place] [address] [place] [address] Clau Shine PA-C [address] [place] [address] Health Maintenance Due Date Last Done Comments [...] filedocumented as of this encounter Care Teams Patient Transportation Driver Relationship Specialty Start Date End Date Holly Knox MD [address] [place] [address] PCP - General Family Medicine 09/19/23 documented as of this encounter
--- OUTSIDE RECORDS SUMMARY | 2024-05-26 02:57 | External Medical Summary | Summary of Care ---
Author Name Unknown Organization [facility] Address [address] [place] [address] Phone [phone] Care Team Providers Care Sequins Stringer Name Role Phone Holly Knox MD Primary Care Provider [phone] Reason for Visit * Reason Onset Date Comments Appointment 11/28/2023 Encounter Details Date Type Department Care Team (Late st Contact Info) Description 11/28/2023 Telephone [facility] Wound Care [address] [place] [address] Services, Scheduling [address] [place] [address] Appointment Allergies Active Allergy Reactions Criticality Noted Date Comments Nsaids Rash 07/17/2006 Possible alergic reaction; discuss with patient documented as of this encounter (statuses as of 12/12/2023) Medications Medication Sig Dispensed Refills Start Date End Date Status aspirin enteric coated 81 MG TBEC Take 1 Tablet by mouth in the morning. 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 30 minutes before a meal.. 90 Tablet 3 11/27/2023 Active Doxycycline Hyclate 100 MG Oral CapsuleIndications :Skin ulcer of calf, limited to breakdown of skin, unspecified laterality (HCC) Take 1 Capsule by mouth in the morning and 1 Capsule before bedtime. Do all this for 10 days. Until gone.. 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 * Telephone Encounter - Naye Montana OSA - 12/05/2023 8:24 AM EDT Called patient and attempted to schedule an appointment and he said that he needs an appointment before 12. I said with the Dr. He has seen before we do not have appointments before 12 and offered anappointment at 12:40 which is the earliest appointment that we would have. He did not want that appointment and I explained if he wanted one at that time we can message our other providers or he may need to try elsewhere. Patient hung up. * Telephone Encounter - Naye Montana OSA - 11/28/2023 9:43 AM EDT Called patient and LM for them to CB and schedule from the W for Skin ulcer of calf documented in this encounter Plan of Treatment Upcoming Encounters Date Type Department Care Team (Late st Contact Info) Description 01/30/2024 10:40 AM EDT [facility] [place] [address] [place] [address] Holly Knox MD 200 [facility] [place] [address] 04/19/2024 8:40 AM EST [facility] [place] [address] [place] [address] Clau Shine, [place] [address] [facility] [place] [address] Health Maintenance Due Date Last Done Comments [...] filedocumented as of this encounter Care Teams Sequins Stringer Relationship Specialty Start Date End Date Holly Knox MD [address] [place] [address] PCP - General Family Medicine 09/19/23 documented as of this encounter
--- OUTSIDE RECORDS SUMMARY | 2024-05-26 02:57 | External Medical Summary | Summary of Care ---
Author Name Unknown Organization [facility] Address [address] [place] [address] Phone [phone] Care Team Providers Care Superintendent Building Name Role Phone Holly Knox MD Primary Care Provider [phone] Reason for Visit * Reason Onset Date Comments Appointment 11/28/2023 Encounter Details Date Type Department Care Team (Late st Contact Info) Description 11/28/2023 Telephone [facility] Wound Care [address] [place] [address] Services, Scheduling [address] [place] [address] Appointment Allergies Active Allergy Reactions Criticality Noted Date Comments Nsaids Rash 07/17/2006 Possible alergic reaction; discuss with patient documented as of this encounter (statuses as of 12/05/2023) Medications Medication Sig Dispensed Refills Start Date End Date Status aspirin enteric coated 81 MG TBEC Take 1 Tablet by mouth in the morning. 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 06/03/2022 [...] as of this encounter (statuses as of 12/05/2023) Immunizations Name Administration Dates Next Due TDAP [...] 12/05/2023 10:30 AM EDT Office Visit Cardiology, [facility] [address] [facility] [place] [address] Kelly Nichols PA-C [address] [place] [address] 01/30/2024 10:40 AM EDT Office Visit [facility] [address] [facility] [place] [address] Holly Knox MD [address] [facility] [place] [address] 04/19/2024 8:40 AM EST Office Visit [facility] [address] [facility] [place] [address] Clau Shine PA-C [address] [facility] [place] [address] Health Maintenance Due Date Last Done Comments [...] filedocumented as of this encounter Care Teams Superintendent Building Relationship Specialty Start Date End Date Holly Knox MD [address] [facility] [place] [address] PCP - General Family Medicine 09/19/23 documented as of this encounter
--- OUTSIDE RECORDS SUMMARY | 2024-05-26 02:57 | External Medical Summary | Summary of Care ---
Author Name Unknown Organization [facility] Address [address] [place] [address] Phone [phone] Care Team Providers Care Back Maker Name Role Phone Holly Knox MD Primary Care Provider [phone] Reason for Visit * Reason Onset Date Comments Scan To Read 10/16/2023 Encounter Details Date Type Department Care Team (Late st Contact Info) Description 10/16/2023 Telephone Family Practice [facility] [place] [address] [facility] [place] [address] Clau Shine PA-C [address] [facility] [place] [address] Scan To Read (/) Allergies Active Allergy Reactions Criticality Noted Date Comments Nsaids Rash 07/17/2006 Possible alergic reaction; discuss with patient documented as of this encounter (statuses as of 01/15/2024) Medications Medication Sig Dispensed Refills Start Date End Date Status aspirin enteric coated 81 MG TBEC Take 1 Tablet by mouth in the morning. Active Vitamin S41-Nzonk Acid 500-400 MCG Oral Tablet Take by mouth. Active BD Pen Needle Ayse 2nd Gen 32G X 4 MM 03/16/2021 Active Fluocinonide 0.05 % External SolutionIndications :Seborrheic dermatitis Apply to scalp nightly as needed for itching 60 mL 1 07/10/2021 Active Additional Information Patient not taking.Reported on 10/16/2023 OneTouch [employer] In Vitro StripIndications:Ty pe 2 diabetes mellitus [...] (Nitrostat)Indicati ons:Chest pain, unspecified type,Atherosclerosi s of [place] coronary artery of [place] heart without angina pectoris Place 1 Tablet [...] as of this encounter (statuses as of 01/15/2024) Active Problems Problem Noted Date Diagnosed Date Venous stasis dermatitis 10/16/2023 H/O heart artery stent 10/16/2023 Coronary artery disease invo [place]ving [place] coronary artery of [place] heart without angina pectoris 10/16/2023 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 Omar Schwartz MD 10/16/2023 12:54 PM * Telephone Encounter - Jack Amin MED ASSIST - 10/16/2023 9:36 AM EDT A Diabetic Telemed Eye image was taken and requires your interpretation for . Please check your inbasket for image. Patient prefers to be seen at [facility] if a follow-up appointment is needed. documented in this encounter Plan of Treatment Upcoming Encounters Date Type Department Care Team (Late st Contact Info) Description 01/30/2024 10:40 AM EDT Office Visit [facility] [place] [address] [place] [address] Holly Knox MD [address] [place] [address] [id number] 04/19/2024 8:40 AM EST Office Visit [facility] [place] [address] [place] [address] Clau Shine PA-C [address] [place] [address] [address] Health Maintenance Due Date Last Done Comments [...] filedocumented as of this encounter Care Teams Back Maker Relationship Specialty Start Date End Date Holly Knox MD [address] [place] [address] PCP - General Family Medicine 09/19/23 documented as of this encounter
--- OUTSIDE RECORDS SUMMARY | 2024-05-26 02:57 | External Medical Summary | Summary of Care ---
Author Name Unknown Organization [facility] Address [address] [place] [address] Phone [phone] Care Team Providers Care Tube Lancer Name Role Phone Holly Knox MD Primary Care Provider [phone] Reason for Referral * Evaluate & Treat - Unlimited Visits (Within 10 days (routine)) - Authorized Specialty Diagnoses / Procedures Referred By Alfonso chambers Referred To Contact Wound Care Diagnoses Skin ulcer of calf, limited to breakdown of skin, unspecified laterality (HCC) Jael Crespo MD [address] [place] [address] Referral ID Status Reason Start Date Expiration Date Visits Requested Visits Authorized [id number] Authorized Specialty Services Required 11/27/[phone] Question Answer Referral Priority Within 10 days (routine) Where should this appointment be scheduled? [facility] Comments Assess for: Hx of wound healing problem, Lower Extremity Wound (refer to Podiatry/Ortho), and Other: left lower leg ulcer -non healing for a while. Poorly controlled DM Reason for Visit * Reason Onset Date Comments Hospital Follow-Up Hospital Follow-Up 11/27/2023 Encounter Details Date Type Department Care Team (Late st Contact Info) Description 11/27/2023 11:00 AM EDT Office Visit [facility] [address] [place] [address] Jael Crespo MD [address] [place] [address] [address] Skin ulcer of calf, limited to breakdown of skin, unspecified laterality (HCC)*; Hospital discharge follow-up; Type 2 diabetes mellitus without complication, unspecified whether facility manager histology insulin use (HCC); Type 2 diabetes mellitus with other skin ulcer, without long-term current use of insulin ([facility]); HTN, goal below 130/80; H/O heart artery stent; Dyslipidemia; Coronary artery disease involving [place] coronary artery of [place] heart without angina pectoris; Atherosclerosis of [place] coronary artery of [place] heart with angina pectoris (HCC); Angina pectoris ([facility]) Allergies Active Allergy Reactions Criticality Noted Date Comments Nsaids Rash 07/17/2006 Possible alergic reaction; discuss with patient documented as of this encounter (statuses as of 12/18/2023) Medications Medication Sig Dispensed Refills Start Date End Date Status aspirin enteric coated 81 MG TBEC Take 1 Tablet by mouth in the morning. Active Vitamin P92-Pasri Acid 500-400 MCG Oral Tablet Take by [...] gangrene, with long-term current use of insulin ([facility]) use 1 TEST STRIP to TEST BLOOD SUGAR three times a day 90 Strip 11 12/07/2021 Active Aquacel Ag Foam 10"X12" External PadIndications:Ski n ulcer of left lower leg with fat layer exposed ([facility]) Apply topically to affected area 1 Units [...] (Nitrostat)Indicat ions:Chest pain, unspecified type,Atheroscleros is of [place] coronary artery of [place] heart without angina pectoris Place 1 Tablet [...] 2 diabetes mellitus without complication, unspecified whether fci insulin use (HCC),Type 2 diabetes mellitus with [...] as of this encounter (statuses as of 12/18/2023) Active Problems Problem Noted Date Diagnosed Date Venous stasis dermatitis 10/16/2023 H/O heart artery stent 10/16/2023 Coronary artery disease invo lving [place] coronary artery of [place] heart without angina pectoris 10/16/2023 Atherosclerosis of [place] co ronary artery with angina pectoris 06/03/2022 [...] as of this encounter (statuses as of 12/18/2023) Immunizations Name Administration Dates Next Due TDAP [...] Sign Reading Time Taken Comments Blood Pressure 128/70 11/27/2023 11:03 AM EDT Pulse 72 11/27/2023 11:03 AM EDT Temperature 36.5 C (97.7 F) 11/27/2023 1 1:03 AM EDT Respiratory Rate 16 11/27/2023 11:0 3 AM EDT Oxygen Saturation 97% 11/27/2023 11: 03 AM EDT Inhaled Oxygen Concentration - - Weight 108.5 kg (239 lb 1.6 oz) 024 11:03 AM EDT Height 182.9 cm (6') 11/27/2023 11:03 AM EDT Body Mass Index 32.43 11/27/2023 11:03 AM EDT documented in this encounter Progress Notes * Jael Crespo MD - 11/27/2023 11:15 AM EDT SUBJECTIVE: Von Roman is a 58 year old male. Chief Complaint Patient presents with Hospital Follow-Up HPI: 58 year old YOmale with PMH as listed below presents here for hospital follow up. Pt was having left sided CP and SOB which happened again the next day and cane to ER for eval. He has been dealing with recurrent leg/ankle ulcer which was worse with redness and drainage . Presentedto hospital on 11/14/23 . He was found to have some acute changed in EKG which resolved later. He was given nitro then started on imdur which helped with CP. He was also started on doxy for cellulitisand then admitted for observation. Tape Duplicator was consulted and recommended to go to cardiac cathwhich he denied and wanted medical management . Labs were overall normal except acute on CKD and high sugar and Imaging CXR normal , leg US - no DVT . He was seen by line fisher . Rest of the hospital course unremarkable . He was sent home on 11/17/23 on Amlodipine,Imdur and Doxy. Since discharge feeling better. Hospital records reviewed and updated. The patient's medication list was reviewed and updated as needed. Current issues now- -reluctant to use insulin and rather be on oral meds -not interested in many meds -feels okay and no more CP Patient Active Problem List Diagnosis Ulcer of calf (HCC) ADVANCE DIRECTIVE INFORMATION Type 2 diabetes mellitus with skin complication, without long-term current use of insulin (HCC) Dyslipidemia HTN, goal below 130/80 Atherosclerosis of [place] coronary artery with angina pectoris (HCC) Type 2 diabetes mellitus without complication (HCC) Skin ulcer of left lower leg with fat layer exposed ([facility]) Constipation Venous stasis dermatitis H/O heart artery stent Coronary artery disease involving [place] coronary artery of [place] heart without angina pectoris Current Outpatient Medications Medication Sig Dispense Refill aspirin enteric coated 81 MG TBEC Take 1 Tablet by mouth in the morning. Vitamin O83-Qgudp Acid 500-400 MCG Oral Tablet Take by mouth. BD Pen Needle Ayse 2nd Gen 32G X 4 MM [employer] In Vitro Strip use 1 TEST STRIP to TEST BLOOD SUGAR three times a day 90 Strip 11 [employer] Ag Foam 10"X12" External Pad Apply topically to affected area 1 Units daily . 30 Each 2 Lisinopril 40 MG Oral Tablet Take 1 Tablet by mouth in the morning. 90 Tablet 3 Metoprolol Succinate ER 25 MG Oral Tablet Extended Release 24 Hour (toPROL XL) Take 1 Tablet by mouth in the morning. 90 Tablet 3 Nitroglycerin 0.4 MG Sublingual Tablet Sublingual (Nitrostat) Place 1 Tablet under the tongue as needed for Pain, Chest. May repeat 3 times. If chest pain continues, call 911. 25 Tablet 11 Rosuvastatin Calcium 40 MG Oral Tablet (Crestor) Take 1 Tablet by mouth in the morning. 90 Tablet 3 Clopidogrel Bisulfate 75 MG Oral Tablet (pLAVix) Take 1 Tablet by mouth in the morning. 90 Tablet 3 Empagliflozin 10 MG Oral Tablet (Jardiance) Take 1 Tablet by mouth in the morning. 90 Tablet 3 Ketoconazole 2 % External Shampoo (Nizoral) Apply to scalp, [place] and chest daily for one week and then use 2-3 times per week after; leave on 3-5 minutes before rinsing 120 mL 2 Clobetasol Propionate 0.05 % External Solution Apply topically to scalp twice daily as needed 50 mL1 amLODIPine Besylate 5 MG Oral Tablet (Norvasc) 5 MG ORALLY DAILY IN THE MORNING Ezetimibe 10 MG Oral Tablet (Zetia) Take 1 Tablet by mouth in the morning. Isosorbide Mononitrate ER 30 MG Oral Tablet Extended Release 24 Hour (Imdur) Take 1 Tablet by mouthin the morning. Fluocinonide 0.05 % External Solution Apply to scalp nightly as needed for itching (Patient not taking: Reported on 10/16/2023) 60 mL 1 No current facility-administered medications for this visit. Review of patient's allergies indicates: Allergen Reactions Ibuprofen [Nsaids] Rash Possible alergic reaction; discuss with patient Past Medical History: Diagnosis Date H/O heart artery stent 10/16/2023 Venous stasis dermatitis 10/16/2023 Past Surgical History: Procedure Laterality Date LAPAROSCOPY; CHOLECYSTECTOMY 07/11/06 at [facility] - Dr. Persaud NONE REMOVE PILONIDAL CYST, EXTENSIVE 07/23/06 Pilonidal excision- Family History Problem Relation Name Age of Onset Diabetes Father Social History Socioeconomic History Marital status: Tobacco Use Smoking status: Former Current packs/day: 0.00 Average packs/day: 1 pack/day for 6.0 years (6.0 ttl pk-yrs) Types: Cigarettes Start date: 04/28/1996 Quit date: 04/28/2002 Years since quittin.5 Smokeless tobacco: Never Vaping Use Vaping status: Never Used Substance and Sexual Activity Alcohol use: Yes Comment: occ Drug use: Never Sexual activity: Yes Social Determinants of Health Social Connections Family History Problem Relation Name Age of Onset Diabetes Father REVIEW OF SYSTEMS: All 10 systems reviewed and negative except mentioned in HPI OBJECTIVE: BP 128/70 (BP Site: Left Arm, BP Position: Sitting, BP Cuff Size: Regular) | Pulse 72 | Temp 36.5 C (97.7 F) (Tympanic) | Resp 16 | Ht 1.829 m (6') | Wt 108.5 kg (239 lb 1.6 oz) | SpO2 97% | BMI 32.43 kg/m | BSA 2.35 m PHYSICAL EXAM: General: alert, healthy, and no distress Head: Normocephalic, No masses, lesions, tenderness or abnormalities Oropharynx: no exudate, no erythema, lips, buccal mucosa, and tongue normal, and mucous membranes are moist Neck: supple, no adenopathy, no bruits, thyroid normal size, non-tender, without nodularity Heart: regular rate & rhythm, no murmur, and no gallops Lungs: chest symmetric with normal AP diameter, no chest deformities noted, no chest wall tenderness, lungs clear to auscultation Abdomen: abdomen soft, non-tender, normal bowel sounds, and no masses or organomegaly Extremities: less than 2 second capillary refill, edema b/l leg with healing ulcer in ankle.leg left side with healing redness but nto gone ASSESSMENT AND PLAN Skin ulcer of calf, limited to breakdown of skin, unspecified laterality (HCC) (Primary) - DISCH MED RECON CUR MED LIS - WOUND CARE REFERRAL OP - Doxycycline Hyclate 100 MG Oral Capsule; Take 1 Capsule by mouth in the morning and 1 Capsule before bedtime. Do all this for 10 days. Until gone.. Hospital discharge follow-up Type 2 diabetes mellitus without complication, unspecified whether fci insulin use ([facility]) - DISCH MED RECON CUR MED LIS - glipiZIDE ER 10 MG Oral Tablet Extended Release 24 Hour (glipiZIDE XL); Take 1 Tablet by mouth inthe morning. 30 minutes before a meal.-increased Cont jardiance Declined metformin and insulin Type 2 diabetes mellitus with other skin ulcer, without long-term current use of insulin ([facility]) - glipiZIDE ER 10 MG Oral Tablet Extended Release 24 Hour (glipiZIDE XL); Take 1 Tablet by mouth inthe morning. 30 minutes before a meal.. HTN, goal below 130/80 H/O heart artery stent Dyslipidemia Coronary artery disease involving [place] coronary artery of [place] heart without angina pectoris - DISCH MED RECON CUR MED LIS Atherosclerosis of [place] coronary artery of [place] heart with angina pectoris (HCC) Angina pectoris (HCC) - DISCH MED RECON CUR MED LIS Continue current medications as directed Importance of controlling DM and HTN very important Follow Up: Return in about 2 months (around 01/27/2024) for recheck with PCP . | For: recheck with PCP Treatment and plan was discussed with patient and was given opportunity to ask questions which wereanswered appropriately. Patient verbalizing understanding. This note was prepared with the help of fluency and if there is any mis-spelled words , sentences or something which doesn't represent the content of the subject that could be technical error and please refer to the author for clarification. Jael Crespo MD 11:15 AM 11/27/2023 documented in this encounter Nursing Notes * Reyna Reza, MED ASSIST - 12/18/2023 4:41 PM EDT Hospital Follow Up: When was patient seen: 11/15/23 Which hospital: [facility] What were they seen for: chest pain and cellulitis LLE What testing did they have done: cxr, ekg, xray , and Ultrasound What did ED think was wrong (dx): cellulitis, uncontrolled diabetes, CAD, chest pain Any new medications prescribed: zetia 10mg, imdur 30mg and amlodipine 5mg How is patient feeling today: Feeling much better with the chest pain Patient concerns today: the wounds on his legs, they hurt yesterday. He has finished the antibiotic. documented in this encounter Plan of Treatment Upcoming Encounters Date Type Department Care Team (Late st Contact Info) Description 01/30/2024 10:40 AM EDT Office Visit [facility] [address] [facility] [place] [address] Holly Knox MD [address] [facility] [place] [address] 04/19/2024 8:40 AM EST Office Visit [facility] [address] [facility] [place] [address] Clau Shine PA-C [address] [facility] [place] [address] Scheduled Referrals Name Type Priority Associated Diagnoses Orde r Schedule WOUND CARE REFERRAL OP Referral Within 10 days (routine) Skin ulcer of calf, limited to breakdown of skin, unspecified laterality (HCC) Ordered: 11/27/2023 Health Maintenance Due Date Last Done Comments [...] Screening 12/07/2022 12/07/2021 COVID-19 Vaccine (1 - 2022-24 season) 2022 Albumin/Creatinine Ratio 09/03/2023 023, 09/06/2021, [...] as of this encounter Visit Diagnoses Diagnosis Skin ulcer of calf, limited to breakdown of skin, unspecified laterality (HCC)- Primary Hospital discharge follow-up Other follow-up examination Type 2 diabetes mellitus without complication, unspecified whether fci insulin use (HCC) Type 2 diabetes mellitus with other skin ulcer, without long-term current use of insulin (HCC) HTN, goal below 130/80 Unspecified essential hypertension H/O heart artery stent Postsurgical percutaneous transluminal coronary angioplasty status Dyslipidemia Other and unspecified hyperlipidemia Coronary artery disease involving [place] coronary artery of [place] heart without angina pectoris Atherosclerosis of [place] coronary artery of [place] heart with angina pectoris (HCC) Angina pectoris (HCC) Other and unspecified angina pectoris documented in this encounter Care Teams Tube Lancer Relationship Specialty Start Date End Date Holly Knox MD [address] [facility] [place] [address] PCP - General Family Medicine 09/19/23 documented as of this encounter
--- OUTSIDE RECORDS SUMMARY | 2024-05-26 02:57 | External Medical Summary | Summary of Care ---
Author Name Unknown Organization [facility] Address [address] [place] [address] Phone [phone] Care Team Providers Care Psychiatric Security Nurse Name Role Phone Holly Knox MD Primary Care Provider [phone] Reason for Referral * Evaluate & Treat - Unlimited Visits (Within 10 days (routine)) - Authorized Specialty Diagnoses / Procedures Referred By Alfonso chambers Referred To Contact Wound Care Diagnoses Skin ulcer of calf, limited to breakdown of skin, unspecified laterality (HCC) Jael Crespo MD [address] [place] [address] Referral ID Status Reason Start Date Expiration Date Visits Requested Visits Authorized [id number] Authorized Specialty Services Required 11/27/2023 999 999 [...] Medicine State Adriana Aquino [address] [place] [address] Jael Crespo MD [address] [place] [address] [id number] Skin ulcer of calf, limited to breakdown of skin, unspecified laterality (HCC)*; Hospital discharge follow-up; Type 2 diabetes mellitus without complication, 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 control technician 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 (HCC); Type 2 diabetes mellitus with other skin ulcer, without long-term current use of insulin ([facility]); HTN, goal below 130/80; H/O heart artery stent; Dyslipidemia; Coronary artery disease involving [place] coronary artery of [place] heart without angina pectoris; Atherosclerosis of [place] coronary artery of [place] heart with angina pectoris (HCC); Angina pectoris ([facility]) Allergies Active Allergy Reactions Criticality Noted Date Comments Nsaids Rash 07/17/2006 Possible alergic reaction; discuss with patient documented as of this encounter (statuses as of 12/16/2023) Medications Medication Sig Dispensed Refills Start Date End Date Status aspirin enteric coated 81 MG TBEC Take 1 Tablet by mouth in the morning. Active Vitamin C64-Ronnn Acid 500-400 MCG Oral Tablet Take by [...] gangrene, with long-term current use of insulin ([facility]) use 1 TEST STRIP to TEST BLOOD SUGAR three times a day 90 Strip 11 12/07/2021 Active Aquacel Ag Foam 10"X12" External PadIndications:Ski n ulcer of left lower leg with fat layer exposed ([facility]) Apply topically to affected area 1 Units [...] (Nitrostat)Indicat ions:Chest pain, unspecified type,Atheroscleros is of [place] coronary artery of [place] heart without angina pectoris Place 1 Tablet [...] 2 diabetes mellitus without complication, unspecified whether shelter insulin use (HCC),Type 2 diabetes mellitus with other skin ulcer, without long-term current use of insulin (HCC) Take 1 Tablet by mouth in the morning. 30 minutes before a meal.. 90 Tablet 3 11/27/2023 Active Doxycycline Hyclate 100 MG Oral CapsuleIndications :Skin ulcer of calf, limited to breakdown of skin, unspecified laterality ([facility]) Take 1 Capsule by mouth in the morning and 1 Capsule before bedtime. Do all this for 10 days. Until gone.. 20 Capsule 11/27/2023 12/07/2023 documented as of this encounter (statuses as of 12/16/2023) Active Problems Problem Noted Date Diagnosed Date Venous stasis dermatitis 10/16/2023 H/O heart artery stent 10/16/2023 Coronary artery disease invo lving k[place] coronary artery of [place] heart without angina pectoris 10/16/2023 Atherosclerosis of [place] co ronary artery with angina pectoris 06/03/2022 [...] as of this encounter (statuses as of 12/16/2023) Immunizations Name Administration Dates Next Due TDAP [...] doxy for cellulitisand then admitted for observation. Dairy Clerk was consulted and recommended to go to cardiac cathwhich he denied and wanted medical management . Labs were overall normal except acute on CKD and high sugar and Imaging CXR normal , leg US - no DVT . He was seen by loan manager . Rest of the hospital course unremarkable [...] Dyslipidemia HTN, goal below 130/80 Atherosclerosis of [place] coronary artery with angina pectoris (HCC) Type 2 diabetes mellitus without complication (HCC) Skin ulcer of left lower leg with fat layer exposed ([facility]) Constipation Venous stasis dermatitis H/O heart artery stent Coronary artery disease involving [place] coronary artery of [place] heart without angina pectoris Current Outpatient Medications Medication Sig Dispense Refill aspirin enteric coated 81 MG TBEC Take 1 Tablet by mouth in the morning. Vitamin T07-Nwwud Acid 500-400 MCG Oral Tablet Take by mouth. BD Pen Needle Ayse 2nd Gen 32G X 4 MM [email or web address] Verio In Vitro Strip use 1 TEST STRIP to TEST BLOOD SUGAR three times a day 90 Strip 11 cashcloud Ag Foam 10"X12" External Pad Apply topically [...] Procedure Laterality Date LAPAROSCOPY; CHOLECYSTECTOMY 07/11/06 at [facility] - Dr. Persaud NONE REMOVE PILONIDAL [...] 2 diabetes mellitus without complication, unspecified whether shelter insulin use ([facility]) - DISCH MED RECON CUR MED LIS - glipiZIDE ER 10 MG Oral Tablet Extended Release 24 Hour (glipiZIDE XL); Take 1 Tablet by mouth inthe morning. 30 minutes before a meal.-increased Cont jardiance Declined metformin and insulin Type 2 diabetes mellitus with other skin ulcer, without long-term current use of insulin ([facility]) - glipiZIDE ER 10 MG Oral Tablet Extended Release 24 Hour (glipiZIDE XL); Take 1 Tablet by mouth inthe morning. 30 minutes before a meal.. HTN, goal below 130/80 H/O heart artery stent Dyslipidemia Coronary artery disease involving [place] coronary artery of [place] heart without angina pectoris - DISCH MED RECON CUR MED LIS Atherosclerosis of [place] coronary artery of [place] heart with angina pectoris (HCC) Angina pectoris [...] in this encounter Nursing Notes * Reyna Reza MED ASSIST - 12/16/2023 10:29 AM EDT Hospital Follow Up: When was patient seen: 11/15/23 Which hospital: [facility] What were they seen for: chest [...] Description 01/30/2024 10:40 AM EDT Office Visit [facility] [address] [facility] [place] [address] Holly Knox MD [address] [facility] [place] [address] 04/19/2024 8:40 AM EST Office Visit [facility] [address] [facility] [place] [address] Clau Shine PA-C [address] [facility] [place] [address] Scheduled Referrals Name Type Priority Associated Diagnoses [...] 2 diabetes mellitus without complication, unspecified whether shelter insulin use (HCC) Type 2 diabetes mellitus with other skin ulcer, without long-term current use of insulin (HCC) HTN, goal below 130/80 Unspecified essential hypertension H/O heart artery stent Postsurgical percutaneous transluminal coronary angioplasty status Dyslipidemia Other and unspecified hyperlipidemia Coronary artery disease involving [place] coronary artery of [place] heart without angina pectoris Atherosclerosis of [place] coronary artery of [place] heart with angina pectoris (HCC) Angina pectoris (HCC) Other and unspecified angina pectoris documented in this encounter Care Teams Psychiatric Security Nurse Relationship Specialty Start Date End Date Holly Knox MD [address] [facility] [place] [address] PCP - General Family Medicine 09/19/23 documented as of this encounter
[2024-05-26 03:17] VITALS: RESP 18
[2024-05-26] MEDS: INSULIN ASPART PER UNIT CHARGE SC SCH ×2 (06:20→21:54)
[2024-05-26] MEDS: CLOPIDOGREL BISULFATE 75 MG TAB PO SCH (08:04)
[2024-05-26] MEDS: ROSUVASTATIN CALCIUM 20 MG TAB PO SCH (08:05)
[2024-05-26] MEDS: lisinopril 40 MG TAB PO SCH (08:05)
[2024-05-26] MEDS: amLODIPine BESYLATE 5 MG TAB PO SCH (08:05)
[2024-05-26] MEDS: METOPROLOL SUCC 25MG EXT REL TAB PO SCH (08:05)
[2024-05-26] MEDS: ASPIRIN 81 MG ECTAB PO SCH (08:05)
[2024-05-26] MEDS: ENOXAPARIN INJ 40 MG/0.4 ML SYR SQ SCH (08:06)
[2024-05-26 08:35] LABS: Basophils # (auto) 0.04 K/uL (0.00-0.20); Basophils % (auto) 0.9 %; Eosinophils % (auto) 4.5 %; Hematocrit (blood only) 41.2 % (42.0-52.0); Hemoglobin 15.1 g/dl (14.0-18.0); Lymphocytes # (auto) 1.63 K/uL (1.20-3.40); Lymphocytes % (auto) 36.8 %; Mean Corpuscular Hemoglobin 34.6 pg (25.0-34.0); Mean Corpuscular Hgb Conc 36.7 g/dL (32.0-36.0); Mean Corpuscular Volume 94.5 fL (80.0-100.0); Mean Platelet Volume 10.8 fL (9.4-12.4); Monocytes # (auto) 0.35 K/uL (0.11-0.59); Monocytes % (auto) 7.9 %; Neutrophils # (auto) 2.21 K/uL (1.40-6.50); Neutrophils % (auto) 49.9 %; Platelet Count 167 K/uL (130-400); RDW Coefficient of Variation 11.1 % (11.5-14.5); RDW Standard Deviation 38.5 fL (36.4-46.3); Red Blood Count 4.36 M/uL (4.70-6.10); White Blood Count 4.43 K/ul (4.8-10.8)
[2024-05-26] MEDS ORDERED: LANTUS PER UNIT CHARGE SQ SCH ×2 (09:00→21:00)
[2024-05-26 09:07] LABS: Albumin Level 4.1 gm/dl (3.4-5.0); Bilirubin,Total 0.8 mg/dl (0.2-1.0); Calcium 9.4 mg/dl (8.6-10.3); Potassium 3.8 mmol/L (3.5-5.1)
[2024-05-26 09:13] LABS: Albumin Globulin Ratio 1.6 (0.9-2); BUN Creatinine Ratio 16.9 (10-20); Chol HDL Ratio 5.4 (0-5); Creatinine Clr Calc Pharmacy 144.5 ml/min; Globulin 2.6 gm/dl (2.5-4.0); Total Protein 6.7 gm/dl (6.0-8.3)
[2024-05-26 09:21] LABS: Troponin I High Sensitivity 28.7 pg/ml (0-20)
--- NOTE | 2024-05-26 09:37 | Electrocardiogram Report ---
Test Reason : Blood Pressure : */* mmHG Vent. Rate : 67 BPM Atrial Rate : 67 BPM P-R Int : 206 ms QRS Dur : 98 ms QT Int : 438 ms P-R-T Axes : 37 -16 36 degrees QTcB Int : 462 ms Normal sinus rhythm Nonspecific T wave abnormality Prolonged QT Abnormal ECG When compared with ECG of 15-Nov-2023 10:38, No significant change was found Confirmed by Ramsey Avila ([id number]) on 05/26/2024 9:36:56 AM Referred By: Confirmed By: Ramsey Avila
--- NOTE | 2024-05-26 10:20 | Cardiology Consultation ---
Date of Consultation May 26, 2024 Assessment & Plan (1) Hypertensive urgency: (2) Unstable angina: (3) CAD, multiple vessel: (4) Cellulitis of lower leg: (5) Noncompliance w/medication treatment due to intermit use of medication: Plan 58-year-old male presents with hypertensive urgency secondary to noncompliance with medical therapies. Chest discomfort has resolved although patient continues to note intermittent exertional symptoms prior to admission. Noncompliant with antianginal therapies including amlodipine and isosorbide. Occasionally utilizing aspirin, clopidogrel, and statin therapy. Unable to assess efficacy of antianginal therapies due to noncompliance. I had a long discussion with the patient regarding the importance of adherence to his current medical regimen. Metoprolol succinate, amlodipine, lisinopril, clopidogrel, and low-dose aspirin restarted. Add isosorbide monohydrate 30 mg daily, first dose now. Unable to further titrate beta-gaston due to resting sinus bradycardia. Repeat cardiac catheterization will be considered if symptoms refractory to medical therapy. No indication for repeat stress testing at this time. Continue medical management. Echocardiogram pending at this time. Thank you for allow me to participate in the care of your patient. History of Present Illness Reason for Consultation: chesdt pain Requesting Physician: Dr. Alek Hill Attending Physician: Katty Rose MD History of Present Illness 58-year-old male present to the emergency department due to elevated blood pressure. Hospitalized over the summer with unstable angina. Prescribed amlodipine and isosorbide monohydrate at that time. He was scheduled for cardiology follow-up to discuss repeat cardiac catheterization, however, patient did not show for follow-up appointments. Reports noncompliance with cardiovascular medications dating back to at least February. Notes intermittent dizziness and left-sided chest discomfort. Visiting his sister yesterday who is a nurse. She assessed his blood pressure with systolic reading greater than 200. She advised him to come to the ER. In the emergency department patient systolic blood pressure 213/126. Treated with IV metoprolol, oral amlodipine, and sublingual nitroglycerin. Mild blood pressure improvement overnight. Chest discomfort and dizziness has resolved. Patient reports intermittent exertional chest discomfort and elevated blood pressure at home. Has not used any sublingual nitroglycerin. History somewhat limited due to language barrier, however, patient declines lang interpreter at this time. ECG demonstrates nonspecific T wave abnormality similar to prior study. High-sensitivity troponin mildly elevated also similar to prior assessment. Allergies Allergy/AdvReac Type Severity Reaction Status Date / Time NSAIDS (Non-Steroidal Allergy Rash Verified 05/25/24 19:13 Anti-Inflamma Home Medications Medication Instructions Recorded Confirmed Type aspirin 81 mg tablet,delayed 81 mg PO QAM #30 tabs 04/11/23 05/25/24 Rx release clopidogrel 75 mg tablet 75 mg PO QAM #30 tabs 04/11/23 05/25/24 Rx amlodipine 5 mg tablet (Norvasc) 5 mg PO QAM #30 tabs 11/16/23 05/25/24 Rx lisinopril 40 mg tablet (Zestril) 40 mg PO QAM #30 tabs 11/16/23 05/25/24 Rx metoprolol succinate 25 mg 25 mg PO QAM #30 tabs 11/16/23 05/25/24 Rx tablet,extended release 24 hr rosuvastatin 40 mg tablet 40 mg PO DAILY #30 tabs 11/16/23 05/25/24 Rx empagliflozin 10 mg tablet 10 mg PO QAM 05/25/24 05/25/24 History (Jardiance) glipizide 10 mg tablet, extended 10 mg PO QAM 05/25/24 05/25/24 History release 24 hr ketoconazole 2 % shampoo 1 applic topical .2-3 TIMES PER 05/25/24 05/25/24 History WEEK nitroglycerin 0.4 mg sublingual 0.4 mg sublingual UD PRN Chest Pain 05/25/24 05/25/24 History tablet Patient History Medical History Elevated troponin Elevated LFTs Venous stasis ulcer Surgical History History of cholecystectomy Family History Father Diabetes Social History Smoking Status: Former smoker Tobacco Type: Cigarettes Second Hand Exposure: No; Do You Dip or Chew Tobacco: No; Hx Alcohol Use: Yes Alcohol type: beer, wine and hard liquor Alcohol Intake Frequency: 2-3 x/Week Hx Substance Use: No Preferred Language: [place] Communication Ability: Effective Communication Ability Comment: Speak slowly Staff 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 Office Based Only Required: No Beliefs That Will Affect Care: None Current Living Situation: Alone Current Living Situation Comment: patient independent with dressing changes current occupational status: other other: patient entering into SSI Feels Safe at Home: Yes Safety Concerns: Feels Safe At This Time Diet: diabetic Assistive Devices: None Review of Systems Review of Systems: All systems reviewed & are unremarkable except as noted in HPI & below Physical Exam Constitutional: well nourished; no acute distress Respiratory: normal respiratory effort; no respiratory distress, no labored breathing and no retractions Auscultation: no crackles, no rales, no rhonchi and no wheezes Cardiovascular: Rate/Rhythm: regular rate and regular rhythm Heart Sounds: normal S1 and normal S2; no murmur Vessels: no JVD and no carotid bruit Extremities: no edema Gastrointestinal (Abdomen): Inspection/Auscultation: abdomen normal to inspection and normal bowel sounds; abdomen not distended Neurologic: CN's II-XI intact bilaterally and moves all extremities Results & Data Vital Signs (Past 12 Hours) Vital Signs Temp Pulse Pulse Resp BP BP Pulse Ox 05/26/24 08:49 36.5 C 62 18 163/97 H 94 05/26/24 03:16 36.5 C 57 L 18 146/89 H 95 05/25/24 22:35 70 05/25/24 22:30 36.3 C L 59 L 16 159/97 H 99 O2 Del Method 05/26/24 08:49 Room Air 05/26/24 03:16 Room Air 05/25/24 22:35 05/25/24 22:30 Room Air Laboratory Results Cardiac Enzymes 05/25/24 05/25/24 05/26/24 Range/Units 18:49 20:35 07:52 AST 59 H 143 H (13-39) U/L Troponin I High Sens 44.7 H 41.9 H 28.7 H D (0-20) pg/ml Lipids 05/26/24 Range/Units 07:52 Triglycerides 275 H (0-150) mg/dl Cholesterol 294 H (0-200) mg/dl HDL Cholesterol 54 mg/dl Cholesterol/HDL Ratio 5.4 H (0-5) CBC 05/25/24 05/26/24 Range/Units 18:49 07:52 WBC 5.00 4.43 L (4.8-10.8) K/ul RBC 4.70 4.36 L (4.70-6.10) M/uL Hgb 16.2 15.1 (14.0-18.0) g/dl Hct 43.8 41.2 L (42.0-52.0) % Plt Count 188 167 (130-400) K/uL Neut # (Auto) 2.45 2.21 (1.40-6.50) K/uL Lymph # (Auto) 2.00 1.63 (1.20-3.40) K/uL Bucks # (Auto) 0.42 0.35 (0.11-0.59) K/uL Eos # (Auto) 0.10 0.20 (0.00-0.50) K/uL Baso # (Auto) 0.02 0.04 (0.00-0.20) K/uL Comprehensive Metabolic Panel 05/25/24 05/26/24 Range/Units 18:49 07:52 Sodium 134 L 136 (136-145) mmol/L Potassium 4.1 3.8 (3.5-5.1) mmol/L Chloride 99 103 (98-107) mmol/L Carbon Dioxide 25 25 (21-32) mmol/L BUN 13 12 (6-23) mg/dl Creatinine 0.84 0.71 (0.6-1.4) mg/dl Glucose 309 H* 221 H (70-99(Fasting)) mg/dl Calcium 9.7 9.4 (8.6-10.3) mg/dl AST 59 H 143 H (13-39) U/L ALT 133 H 169 H (7-52) U/L Alkaline Phosphatase 105 H 76 (34-104) U/L Total Protein 7.5 6.7 (6.0-8.3) gm/dl Albumin 4.7 4.1 (3.4-5.0) gm/dl Intake and Output 05/25/24 05/26/24 05/26/24 22:59 06:59 14:59 Other: Other Intake Source NPO # Unmeasured Voids 1 Weight 106.5 kg 106.1 kg Weight Measurement Method Standing Scale Built in [facility]
[2024-05-26] MEDS: ISOSORBIDE MONO EXTENDED REL 30 MG TABCR PO SCH (10:51)
--- NOTE | 2024-05-26 12:39 | Hospitalist Progress Note ---
Date of Service May 26, 2024 Assessment & Plan (1) Hypertensive crisis: Plan: Mr. Roman is a 58-year-old male with PMH multivessel CAD, HTN, HLD, DM II, chronic skin ulcers admitted for hypertensive urgency. 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 Patient reports chest pain resolved in ED. BP up to 213 SBP. Home regimen resumed with resolution of symptoms and improvement in BP Patient with noncompliance, question if possible cultural/langaage barrier. 20 minutes at bedside spent reinforcing and attempting to break down barriers #Hypertensive urgency #Unstable angina #Multivessel CAD CAD, multiple vessel: Troponin with baseline elevation iso known CAD ECHO 55-60% mild LVH -LDL 185 Previously on zetia--consider resumption Continue Statin Continue aspirin, metoprolol, Plavix Continue amlodipine Cardiology consult -add imdur 30mg as previously prescribed last admission -continue med management -ECHO pending #Chronic Venous Stasis Ulcesr of left lower leg: Wound nurse consult previously mrsa +, placed on contact per IC #Diabetes type 2, uncontrolled: A1c: 11.7% Novolog sliding scale Hold home oral meds (however, not taking at this time) informatics educator consulted to help emphasize diabetes care DVT Prophylaxis Lovenox SQ Admit med/tele Full Code Admission and Anticipated Discharge Date Admission Date: May 25, 2024 Subjective Patient refused supervisor garment manufacturing service Patient states he has not taken his home meds in about 2 months He states that he is not experiencing any pain or discomfort at time of exam He states he didnt think he needed the medications any longer which is why he stopped them He verbalized understanding and was able to state he needs to continue his meds He reports the wound on his LLE is improved notably and "healing" Physical Exam Constitutional: WD/WN, vitals as above Respiratory: normal respiratory effort, lungs clear to auscultation Cardiovascular: RRR, no murmur, no edema Skin: violaceous dusky discoloration of BLE consistent with stasis dermatitis, dressing on LLE CDI Results & Data Results & Data Vital Signs (Past 12 Hours) Vital Signs Temp Pulse Resp BP Pulse Ox O2 Del Method 05/26/24 10:41 36.6 C 61 18 145/89 H 97 Room Air 05/26/24 08:49 36.5 C 62 18 163/97 H 94 Room Air 05/26/24 03:16 36.5 C 57 L 18 146/89 H 95 Room Air Laboratory Results Short CBC 05/25/24 05/26/24 Range/Units 18:49 07:52 WBC 5.00 4.43 L (4.8-10.8) K/ul Hgb 16.2 15.1 (14.0-18.0) g/dl Hct 43.8 41.2 L (42.0-52.0) % Plt Count 188 167 (130-400) K/uL BMP 05/25/24 05/26/24 18:49 07:52 Sodium 134 L 136 Potassium 4.1 3.8 Chloride 99 103 Carbon Dioxide 25 25 BUN 13 12 Creatinine 0.84 0.71 Glucose 309 H* 221 H Calcium 9.7 9.4 Liver Function 05/25/24 05/26/24 Range/Units 18:49 07:52 Total Bilirubin 0.8 0.8 (0.2-1.0) mg/dl AST 59 H 143 H (13-39) U/L ALT 133 H 169 H (7-52) U/L Alkaline Phosphatase 105 H 76 (34-104) U/L Albumin 4.7 4.1 (3.4-5.0) gm/dl Urine 05/25/24 Range/Units 20:05 Urine Color Yellow Urine Appearance Clear (Clear) Urine pH 5.0 (4.5-7.5) Ur Specific [place] 1.039 H (1.000-1.030) Urine Protein Trace H (Negative) Urine Glucose (UA) 3+ H (Negative) Medications Administered Home Medications Medication Instructions Recorded Confirmed Last Taken aspirin 81 mg tablet,delayed 81 mg PO QAM #30 tabs 04/11/23 05/25/24 11/14/23 release clopidogrel 75 mg tablet 75 mg PO QAM #30 tabs 04/11/23 05/25/24 11/14/23 amlodipine 5 mg tablet (Norvasc) 5 mg PO QAM #30 tabs 11/16/23 05/25/24 Unknown lisinopril 40 mg tablet (Zestril) 40 mg PO QAM #30 tabs 11/16/23 05/25/24 Unknown metoprolol succinate 25 mg 25 mg PO QAM #30 tabs 11/16/23 05/25/24 Unknown tablet,extended release 24 hr rosuvastatin 40 mg tablet 40 mg PO DAILY #30 tabs 11/16/23 05/25/24 Unknown empagliflozin 10 mg tablet 10 mg PO QAM 05/25/24 05/25/24 Unknown (Jardiance) glipizide 10 mg tablet, extended 10 mg PO QAM 05/25/24 05/25/24 Unknown release 24 hr ketoconazole 2 % shampoo 1 applic topical .2-3 TIMES PER 05/25/24 05/25/24 Unknown WEEK nitroglycerin 0.4 mg sublingual 0.4 mg sublingual UD PRN Chest Pain 05/25/24 05/25/24 Unknown tablet Active Medications Generic Name Dose Route Start Last Admin Trade Name Freq PRN Reason Stop Dose Admin Amlodipine Besylate 10 mg 05/26/24 09:00 05/26/24 08:05 Amlodipine Besylate 5 Mg Tab PO 06/25/24 08:59 10 mg QAM [place] Administration Aspirin 81 mg 05/26/24 09:00 05/26/24 08:05 Aspirin 81 Mg Ectab PO 06/25/24 08:59 81 mg QAM [place] Administration Clopidogrel Bisulfate 75 mg 05/26/24 09:00 05/26/24 08:04 Clopidogrel Bisulfate 75 Mg Tab PO 06/25/24 08:59 75 mg QAM [place] Administration Enoxaparin Sodium 40 mg 05/26/24 09:00 05/26/24 08:06 Enoxaparin Inj 40 Mg/0.4 Ml Syr SQ 06/25/24 08:59 40 mg QAM [place] Administration Sodium Chloride 1,000 mls @ 50 mls/hr 05/25/24 21:38 05/25/24 22:43 Nss IV 05/26/24 17:37 50 mls/hr .Q20H ONE Administration Insulin Aspart 0 units 05/26/24 06:00 05/26/24 11:42 Insulin Aspart Per Unit Charge SC 06/25/24 05:59 4 units Q6H [place] Administration Isosorbide Mononitrate 30 mg 05/26/24 10:30 05/26/24 10:51 Isosorbide Day Extended Rel 30 Mg Tabcr PO 06/25/24 10:29 30 mg QAM [place] Administration Lisinopril 40 mg 05/26/24 09:00 05/26/24 08:05 Lisinopril 40 Mg Tab PO 06/25/24 08:59 40 mg QAM [place] Administration Metoprolol Succinate 25 mg 05/26/24 09:00 05/26/24 08:05 Metoprolol Succ 25mg Ext Rel Tab PO 06/25/24 08:59 25 mg QAM [place] Administration Rosuvastatin Calcium 40 mg 05/26/24 09:00 05/26/24 08:05 Rosuvastatin Calcium 20 Mg Tab PO 06/25/24 08:59 40 mg DAILY [place] Administration
[2024-05-26] MEDS: INSULIN ASPART PER UNIT CHARGE SC STA (18:04)
[2024-05-26] MEDS: LANTUS PER UNIT CHARGE SQ SCH (21:54)
[2024-05-26] MEDS: MUPIROCIN 2% OINT 22 GM TUBE EXT SCH (21:55)
[2024-05-27 07:09] VITALS: TEMP 97.9
--- NOTE | 2024-05-27 11:27 | Discharge Summary ---
Discharge Summary Date of Service May 27, 2024 Principal Dx & Hospital Course #1 = Principal Diagnosis (1) Hypertensive urgency: (2) Noncompliance w/medication treatment due to intermit use of medication: (3) CAD, multiple vessel: (4) Ulcer of left lower leg: (5) Diabetes type 2, uncontrolled: (6) Non-pressure chronic ulcer of left calf with fat layer exposed: (7) Unstable angina: (8) Demand ischemia: Plan Patient presented with chest pain noted to have extremely elevated blood pressure. Patient readily admits to being noncompliant with his medications. Patient was admitted to the hospital. He was dosed with his usual antihypertensive medications and has urgency quickly improved. His chest pain resolved. Norvasc was titrated upwards for better blood pressure control and Imdur was added for management of his chronic angina. Patient also really admits not taking his diabetes medications for quite some time. Hemoglobin A1c increased to the past several months. Was seen by diabetes education. Was agr eeable to starting Lantus. He has been on insulin in the past. With this intervention his sugars became much more improved as well. Troponins essentially remained flat. Chronic LE ovation due to his hypertension and some demand ischemia. LFTs are chronically elevated and stable. Has a chronic venous ulcer on his lower leg. This was seen by wound care with some dressing recommendations. Will attempt to coordinate outpatient wound clinic. On day of discharge blood pressure is well-controlled. No chest pain or shortness of breath. Understands the importance of taking his medications daily and as prescribed is similar with using the insulin. He be discharged home to follow- up with his outpatient providers. Notes For Next Care Provider Continue to encourage compliance with his medications Hemoglobin A1c 3-month Medication Changes From Visit Norvasc increased Imdur added Lantus for diabetes control Glipizide discontinued Admission HPI Per Admitting Provider History obtained from patient and records. History somewhat limited due to language barrier. Patient refuses teletranslator used. Medical history significant for CAD status post stent, hypertension, hyperlipidemia, hepatic steatosis, DM2 on oral medications, chronic venous stasis, chronic LLE ulcer, past tobacco abuse. Last confinement October 2023 for unstable angina in the setting of multivessel CAD and LLE cellulitis status post antibiotic Rx. Concern for medical noncompliance as per provider notes. Diagnostic cardiac catheterization refused by patient. Medical management recommended on discharge. Since leaving hospital, patient with intermittent episodes of chest tightness and headache symptoms. Somewhat worse with exertion. Does not check blood pressure at home because he does not have a machine. Patient missed outpatient cardiology appointments as per records. Patient claims to be compliant with home medications. Today, patient noted achy chest pain going to the left arm with headache, dizziness symptoms. Similar to episode in the past but not as bad. SBP taken at sisters home noted to be 180s. Chest pain relieved by nitroglycerin administration at the ER. Highest SBP of 210s documented at the ER. Medical History as above Surgical History : Cholecystectomy, pilonidal cyst removal Family History : DM Personal/Social history : Past tobacco abuse, occasional EtOH intake, prior employment at [employer] Admission Exam Per Admitting Provider See H&P Discharge Exam Constitutional: Alert HEENT: Mucous membranes moist. Lungs: Clear to auscultation, decreased, no wheezes rales or rhonchi CV: S1-S2, regular Abdomen: Soft, nontender, nondistended Extremities: No significant edema, dressing on lower extremity ulceration, no evidence of cellulitis Neuro: No focal deficits Psych: Cooperative, normal mood Updated Medication List Medication Instructions Recorded Confirmed Type amlodipine 5 mg tablet (Norvasc) 5 mg PO QAM #30 tabs 11/16/23 05/25/24 Rx glipizide 10 mg tablet, extended 10 mg PO QAM 05/25/24 05/25/24 History release 24 hr ketoconazole 2 % shampoo 1 applic topical .2-3 TIMES PER 05/25/24 05/25/24 History WEEK amlodipine 5 mg tablet (Norvasc) 10 mg (2 x 5 mg) PO QAM #30 tabs 05/27/24 Rx aspirin 81 mg tablet,delayed 81 mg PO QAM #30 tabs 05/27/24 Rx release blood sugar diagnostic (OneTouch #100 ea 05/27/24 Rx Ultra Test strips) blood-glucose meter (OneTouch #1 ea 05/27/24 Rx Ultra2 Meter) clopidogrel 75 mg tablet 75 mg PO QAM #30 tabs 05/27/24 Rx empagliflozin 10 mg tablet 10 mg PO QAM #30 tabs 05/27/24 Rx (Jardiance) insulin glargine 100 unit/mL (3 15 unit (0.15 mL) subcut QAM #15 mL 05/27/24 Rx mL) subcutaneous pen (Lantus Solostar U-100 Insulin) isosorbide mononitrate 30 mg 30 mg PO QAM #30 tabs 05/27/24 Rx tablet,extended release 24 hr lancets 33 gauge (OneTouch Delica #100 ea 05/27/24 Rx Plus Lancet) lisinopril 40 mg tablet (Zestril) 40 mg PO QAM #30 tabs 05/27/24 Rx metoprolol succinate 25 mg 25 mg PO QAM #30 tabs 05/27/24 Rx tablet,extended release 24 hr nitroglycerin 0.4 mg sublingual 0.4 mg sublingual UD PRN Chest 05/27/24 Rx tablet Pain #1 btl pen needle, diabetic 32 gauge x #100 ea 05/27/24 Rx 5/32" rosuvastatin 40 mg tablet 40 mg PO DAILY #30 tabs 05/27/24 Rx silver-hydrocolloid dressing 1.2 1 ea topical .every other day #10 05/27/24 Rx %-3.5" X 4" (Aquacel-AG) ea Hospital Stay Data Consultations 05/25/24 21:11 ED Decision to Admit Stat 05/25/24 22:55 Consult Cardiology Routine Diagnostic Imagining Performed 05/25/24 19:40 CT head/brain wo con Stat Reviewed imaging, laboratory and diagnostic studies. Pertinent findings as below. Hemoglobin 15.9 Platelet 157 Electrolytes within normal range Creatinine 0.71 Hemoglobin A1c 11.7 AST 143 ALT 169 Troponin chronically elevated between 20 and 45. Most recent testing 28.7 TSH slightly increased 5.3, free T40.93 Within normal range Pending Results Patient Have Any Pending Studies at Discharge: No Discharge Instructions Given to Patient (Per Discharging Provider) Is absolutely critical that you take your medications as prescribed every day Follow-up with your specialists and PCP as coordinated Total Time Total Time Spent Total Time Spent (In Minutes): 37
[2024-05-27 11:41] VITALS: PULSE 70; O2SAT 93
[2024-05-27 13:44] VITALS: BP 159/97
--- NOTE | 2024-05-28 07:52 | Coding Query ---
CODING QUERY FOR UNCONTROLLED DIABETES To promote full compliance with coding requirements relating to patient care, provider participation is requested in all cases of dedicated driver uncertainty. Please assist us with the question(s) below: Coding Question: The term uncontrolled Diabetes was used throughout the record. To be able to code this diagnosis properly, could you please clarify the diagnosis below: ( ) Uncontrolled Diabetes meaning hypoglycemia ( x ) Uncontrolled Diabetes meaning hyperglycemia ( ) Other (please specify) Principal Diagnosis: "that condition established after study, to be chiefly responsible for occasioning the admission of the patient to the hospital for care." Co-Existing Principal Diagnosis: "when two or more diagnoses equally meet the criteria for principal diagnosis as determined by the circumstances of admission, diagnostic work up, and/or therapy provided, and the Alphabetic Index, Tabular List, or another coding guideline does not provide sequencing direction, any one of the diagnoses may be sequenced first." "When the physician has documented what appears to be a current diagnosis in the body of the record, but has not included the diagnosis in the final diagnostic statement, the physician should be asked whether the diagnosis should be added." (Source Coding [facility] 2 QTR90. p3-4) JAYLIN
== END 2024-05-27 13:45 | disposition home or self-care (01) | DRG 305 ==
LOC: ED 17:53 → SUATTDRO 21:33 → 2S 21:33

== ENCOUNTER 2025-02-09 10:31 | Observation (INO) ==
[2025-02-09] MEDS: SODIUM CHLORIDE 0.9% 1,000 ML IV STA (10:50)
[2025-02-09] MEDS: METOPROLOL TARTRATE 1 MG/ML VIAL IV STA (10:57)
--- NOTE | 2025-02-09 11:02 | XRay Report ---
XR chest 1V portable CLINICAL HISTORY: Chest pain, nonspecific COMPARISON STUDY: 05/25/2024 FINDINGS: Heart size and pulmonary vasculature are normal. No consolidation or pleural effusion. No p neumothorax. IMPRESSION: No acute findings. ACT 112: Negative or not required by law. Electronically signed by: Azeem Burns M.D. 02/09/2025 11:01 AM
[2025-02-09 11:20] LABS: Hematocrit (blood only) 44.0 % (42.0-52.0); Hemoglobin 16.0 g/dl (14.0-18.0); Immature Granulocytes # (auto) 0.02 K/uL (0.01-0.20); Immature Granulocytes % (auto) 0.4 %; Mean Corpuscular Hemoglobin 33.3 pg (25.0-34.0); Mean Corpuscular Volume 91.5 fL (80.0-100.0); Platelet Count 194 K/uL (130-400); RDW Standard Deviation 39.4 fL (36.4-46.3); Red Blood Count 4.81 M/uL (4.70-6.10); White Blood Count 5.50 K/ul (4.8-10.8)
[2025-02-09 11:39] LABS: Alanine Aminotransferase 45.0 U/L (7-52); Albumin Globulin Ratio 1.2 (0.9-2); Albumin Level 4.2 gm/dl (3.4-5.0); Alkaline Phosphatase 90.0 U/L (34-104); Anion Gap 13.0 (3-11); Bilirubin,Total 0.6 mg/dl (0.2-1.0); Blood Urea Nitrogen 18.0 mg/dl (6-23); Calcium 10.5 mg/dl (8.6-10.3); Carbon Dioxide 23.0 mmol/L (21-32); Chloride 99.0 mmol/L (98-107); Creatinine Clr Calc Pharmacy 116.8 ml/min; Globulin 3.5 gm/dl (2.5-4.0); Glucose 377.0 mg/dl (70-99(Fasting)); Lipase 47.0 U/L (11-82); Potassium 4.2 mmol/L (3.5-5.1); Sodium 135.0 mmol/L (136-145); Total Protein 7.7 gm/dl (6.0-8.3)
--- NOTE | 2025-02-09 12:12 | Emergency Department Note ---
Impression & Plan Acute non-ST elevation myocardial infarction (NSTEMI), Chest pain, Atrial fib/flutter, transient ED Provider Note Patient is a 59-year-old who presents emergency department with chest pain, rapid heart rate. Patient states that started around 9:00 this morning. He went to urgent care was found to be in rapid atrial fibrillation with some ST segment changes. He was then referred to the emergency department. He was diaphoretic at that time. On arrival to the emergency department he feels somewhat better but he still has some ongoing chest discomfort. Patient denies any history of irregular heart rate or abnormal heart rhythm. He does have previous episodes of chest pain that has been attributed to his blood pressure. He has not yet taken any medications yet today. Gen: No fevers, chills, fatigue or malaise ENT: No URI symptoms, no sore throat, no ear pain Neck: No neck pain or stiffness CV: Positive chest pain, palpitations Pulm: No cough, SOB, wheezing, GI: No abdominal pain, nausea, vomiting, diarrhea : No Flank pain, no dysuria or hematuria Skin: No rashes or Erythema Neuro: No headache, numbness, weakness or dizziness Endo: No polyuria or polydipsia Gen: No acute distress, generally well appearing Eyes: PERRL, no redness or injection, EOMI Neck: Supple, normal ROM CV: No murmurs, positive irregular rapid heart rate. Pulm: CTA bilaterally, no increased work of breathing, no wheezing GI: Abd soft, nontender, normal bowel sounds, no distension : No CVA tenderness, no suprapubic abdominal tenderness or distension Neuro: No acute focal neuro deficits, normal strength and sensation Skin: No rashes, wounds, or erythema. Medical decision making: Patient with chest pain, initially presented in rapid atrial fibrillation versus a flutter. He was given a dose of metoprolol and that resolved. His pain is also resolved at this time. His EKG does however show some changes, particularly a biphasic T wave in V2, T wave inversions in aVL and 1. Not meeting any ST segment elevation criteria and currently he is chest pain-free. Patient paged out for hospitalization at 12:20 PM. He is currently completely pain-free and heparin drip ordered. Not meeting any ST segment elevation criteria. Past Med/Surg History Problem List (Updated 02/09/25 @ 17:12 by Dustin Petty MD) Atrial fib/flutter, transient (Acute) Chest pain (Acute) Acute non-ST elevation myocardial infarction (NSTEMI) (Acute) Atrial flutter with rapid ventricular response Atrial fibrillation with RVR Demand ischemia Elevated troponin (Acute) Hypertensive urgency (Acute) Chest pain (Acute) Noncompliance w/medication treatment due to intermit use of medication Hypertensive crisis Ulcer of left lower leg CAD, multiple vessel Cellulitis of lower leg Open leg wound Abnormal ankle brachial index Unstable angina (Acute) Diabetes mellitus type II, uncontrolled (Acute) Hypertensive urgency (Acute) Neck pain Chest pain (Acute) Venous insufficiency of both lower extremities (Chronic) Non-occlusive coronary artery disease Dyslipidemia Diabetes type 2, uncontrolled Saphenous vein clot Obesity Venous stasis ulcer (Acute) Venous stasis (Chronic) 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) Hypertension (Acute) Medical History Elevated troponin Elevated LFTs Venous stasis ulcer Surgical History History of cholecystectomy Family History Father Diabetes Social History Smoking Status: Never smoker Tobacco Type: Cigarettes Second Hand Exposure: No; Do You Dip or Chew Tobacco: No; Hx Alcohol Use: Yes Alcohol type: beer, wine and hard liquor Alcohol Intake Frequency: 2-3 x/Week Hx Substance Use: No Preferred Language: [place] Communication Ability: Effective Communication Ability Comment: able to speak [place]- speak slowly Domestic Technician Required: No Beliefs That Will Affect Care: None Current Living Situation: Alone Current Living Situation Comment: lives alone current occupational status: other other: patient entering into SSI Feels Safe at Home: Yes Diet: diabetic Assistive Devices: Cane Allergies Allergies Allergy/AdvReac Type Severity Reaction Status Date / Time NSAIDS (Non-Steroidal Allergy Rash Verified 02/09/25 09:49 Anti-Inflamma Home Meds Home Medications Medication Instructions Recorded Confirmed ketoconazole 2 % shampoo 1 applic topical .2-3 TIMES PER 05/25/24 02/09/25 WEEK atorvastatin 40 mg tablet 40 mg PO DAILY 02/09/25 02/09/25 Previous Rx's Medication Instructions Recorded aspirin 81 mg tablet,delayed 81 mg PO QAM #30 tabs 05/27/24 release blood sugar diagnostic (OneTouch #100 ea 05/27/24 Ultra Test strips) blood-glucose meter (OneTouch #1 ea 05/27/24 Ultra2 Meter) clopidogrel 75 mg tablet 75 mg PO QAM #30 tabs 05/27/24 empagliflozin 10 mg tablet 10 mg PO QAM #30 tabs 05/27/24 (Jardiance) isosorbide mononitrate 30 mg 30 mg PO QAM #30 tabs 05/27/24 tablet,extended release 24 hr lancets 33 gauge (OneTouch Delica #100 ea 05/27/24 Plus Lancet) lisinopril 40 mg tablet (Zestril) 40 mg PO QAM #30 tabs 05/27/24 metoprolol succinate 25 mg 25 mg PO QAM #30 tabs 05/27/24 tablet,extended release 24 hr nitroglycerin 0.4 mg sublingual 0.4 mg sublingual UD PRN Chest 05/27/24 tablet Pain #1 btl pen needle, diabetic 32 gauge x #100 ea 05/27/24 5/32" silver-hydrocolloid dressing 1.2 1 ea topical .every other day #10 05/27/24 %-3.5" X 4" (Aquacel-AG) ea Results & Data (ED) Vital Signs Vital Signs - 24 hr 02/09/25 10:36 02/09/25 10:44 02/09/25 10:57 Temperature 36.9 C Temperature Source Oral Pulse Rate 124 H 126 H Pulse Rate [Apical] Pulse Rhythm Irregular Pulse Rhythm [Apical] Pulse Strength Normal Pulse Strength [Apical] Respiratory Rate 18 18 Respiratory Effort / Characteristics Non-Labored Spontaneous Respiratory Depth Normal Respiratory Pattern Regular Blood Pressure 154/112 H 154/112 H Blood Pressure [Right Arm] Blood Pressure Mean 126 Blood Pressure Mean [Right Arm] Blood Pressure Position Lying Blood Pressure Position [Right Arm] Pulse Oximetry 97 99 Oxygen Delivery Method Room Air Room Air Sepsis Recent Fever Within 48 Hours No Sepsis New/Unexplained Change in Mental Status No Sepsis Action Taken by Nursing No Action Required 02/09/25 11:02 02/09/25 11:02 02/09/25 11:39 Temperature Temperature Source Pulse Rate 73 Pulse Rate [Apical] 119 H Pulse Rhythm Pulse Rhythm [Apical] Regular Pulse Strength Pulse Strength [Apical] Normal Respiratory Rate 16 Respiratory Effort / Characteristics Non-Labored Spontaneous Respiratory Depth Normal Respiratory Pattern Regular Blood Pressure Blood Pressure [Right Arm] 145/119 H Blood Pressure Mean Blood Pressure Mean [Right Arm] 127 Blood Pressure Position Blood Pressure Position [Right Arm] Lying Pulse Oximetry 98 98 Oxygen Delivery Method Room Air Room Air Sepsis Recent Fever Within 48 Hours Sepsis New/Unexplained Change in Mental Status Sepsis Action Taken by Nursing 02/09/25 11:59 Temperature Temperature Source Pulse Rate 73 Pulse Rate [Apical] Pulse Rhythm Pulse Rhythm [Apical] Pulse Strength Pulse Strength [Apical] Respiratory Rate Respiratory Effort / Characteristics Respiratory Depth Respiratory Pattern Blood Pressure 173/110 H Blood Pressure [Right Arm] Blood Pressure Mean Blood Pressure Mean [Right Arm] Blood Pressure Position Blood Pressure Position [Right Arm] Pulse Oximetry Oxygen Delivery Method Sepsis Recent Fever Within 48 Hours Sepsis New/Unexplained Change in Mental Status Sepsis Action Taken by Nursing Laboratory Data Elevated troponin, elevated glucose, Repeat troponin also significantly elevated 02/09/25 10:40 02/09/25 10:40 Lab Results 02/09/25 02/09/25 Range/Units 10:40 12:40 WBC 5.50 (4.8-10.8) K/ul RBC 4.81 (4.70-6.10) M/uL Hgb 16.0 (14.0-18.0) g/dl Hct 44.0 (42.0-52.0) % MCV 91.5 (80.0-100.0) fL MCH 33.3 (25.0-34.0) pg MCHC 36.4 H (32.0-36.0) g/dL RDW Std Deviation 39.4 (36.4-46.3) fL RDW Coeff of Mirella 11.9 (11.5-14.5) % Plt Count 194 (130-400) K/uL MPV 11.2 (9.4-12.4) fL Immature Gran % (Auto) 0.4 % Neut % (Auto) 53.0 % Lymph % (Auto) 35.8 % [place] % (Auto) 6.5 % Eos % (Auto) 3.6 % Baso % (Auto) 0.7 % Neut # (Auto) 2.91 (1.40-6.50) K/uL Lymph # (Auto) 1.97 (1.20-3.40) K/uL [place] # (Auto) 0.36 (0.11-0.59) K/uL Eos # (Auto) 0.20 (0.00-0.50) K/uL Baso # (Auto) 0.04 (0.00-0.20) K/uL Immature Gran # (Auto) 0.02 (0.01-0.20) K/uL D-Dimer 300 (0-500) ug/L FEU Sodium 135 L (136-145) mmol/L Potassium 4.2 (3.5-5.1) mmol/L Chloride 99 (98-107) mmol/L Carbon Dioxide 23 (21-32) mmol/L Anion Gap 13 H (3-11) BUN 18 (6-23) mg/dl Creatinine 0.89 (0.6-1.4) mg/dl Est Cr Clr Drug Dosing 116.8 ml/min eGFR 99.33 BUN/Creatinine Ratio 20.2 H (10-20) Glucose 377 H* (70-99(Fasting)) mg/dl Calcium 10.5 H (8.6-10.3) mg/dl Magnesium 1.9 (1.7-2.4) mg/dl Total Bilirubin 0.6 (0.2-1.0) mg/dl AST 28 (13-39) U/L ALT 45 (7-52) U/L Alkaline Phosphatase 90 (34-104) U/L Troponin I High Sens 38.6 H 308.9 H* D (0-20) pg/ml Total Protein 7.7 (6.0-8.3) gm/dl Albumin 4.2 (3.4-5.0) gm/dl Globulin 3.5 (2.5-4.0) gm/dl Albumin/Globulin Ratio 1.2 (0.9-2) Lipase 47 (11-82) U/L TSH 1.908 (0.300-4.500) uIu/ml Administered Medications Insulin Aspart (Insulin Aspart Per Unit Charge) 0 units SC ACHS [place] Stop: 03/11/25 16:29 Last Admin: 02/09/25 16:32 Dose: 11 units Documented By: dlf Co-signed By: ZACHERY Discontinued Medications Amlodipine Besylate (Amlodipine Besylate 5 Mg Tab) 10 mg PO NOW ONE Stop: 02/09/25 12:21 Last Admin: 02/09/25 12:58 Dose: 10 mg Documented By: ZACHERY Apixaban (Apixaban 5 Mg Tablet) 5 mg PO ONE ONE Stop: 02/09/25 12:46 Last Admin: 02/09/25 14:39 Dose: 5 mg Documented By: velma Fentanyl Citrate (Fentanyl Citrate Pf 100 Mcg/2 Ml Vial) 50 mcg IV NOW STA Stop: 02/09/25 10:45 Last Admin: 02/09/25 10:57 Dose: 50 mcg Documented By: alexis Heparin Sodium (Porcine) (Heparin Sod (Porcine) 1000 Unit/Ml) 1 units IV NOW ONE Stop: 02/09/25 12:32 Last Admin: 02/09/25 12:36 Dose: Not Given Documented By: ZACHERY Heparin Sodium/Dextrose (Heparin Iv Adult Wt-Based Low-Dose W/ Initial Bolus Protocol) 1 each IV NOW STA; Protocol Stop: 02/09/25 12:16 Last Admin: 02/09/25 12:36 Dose: Not Given Documented By: ZACHERY Sodium Chloride (Nss) 1,000 mls @ 999 mls/hr IV .Q1H1M STA Stop: 02/09/25 11:44 Last Infusion: 02/09/25 11:59 Dose: Infused Documented By: Admin: 02/09/25 10:50 Dose: 999 mls/hr Documented By: alexis Metoprolol Tartrate (Metoprolol Tartrate 1 Mg/Ml Vial) 5 mg IV NOW STA Stop: 02/09/25 10:45 Last Admin: 02/09/25 10:57 Dose: 5 mg Documented By: alexis Imaging Data My Impression: No acute cardiopulmonary abnormalities on chest x-ray Radiologist's Impression: Chest X-Ray 02/09/25 10:44 XR chest 1V portable CLINICAL HISTORY: Chest pain, nonspecific COMPARISON STUDY: 05/25/2024 FINDINGS: Heart size and pulmonary vasculature are normal. No consolidation or pleural effusion. No pneumothorax. IMPRESSION: No acute findings. ACT 112: Negative or not required by law. Electronically signed by: Azeem Burns M.D. 02/09/2025 11:01 AM ECG Data Indication: + chest pain and + palpitations Rate (beats per minute): 139 Rhythm: atrial fibrillation and atrial flutter Additional Comments: Patient's initial EKG shows rapid atrial fibrillation with some ST segment depressions laterally, likely rate related. After dose of metoprolol, he cardioverted to a normal sinus rhythm. He does have some T wave inversions laterally which are new, no ST segment elevations or ST depressions. Plan for hospitalization, heparinization and possible cardiology evaluation. Discharge Plan Visit Data Chief Complaint: Chest Pain Stated Complaint: CHEST PAIN ED Provider: Dustin Petty Discharge Problem: Acute non-ST elevation myocardial infarction (NSTEMI), Chest pain, Atrial fib/flutter, transient Patient Disposition: Admitted As Inpatient Condition: Serious Discharge Instructions Interventions: ED Discharge Assessment Last Done: 02/09/25 13:08
--- NOTE | 2025-02-09 12:35 | History & Physical Report ---
<Statement entered by Robel Coombs, DO - 02/09/25 20:08> I have seen and examined the patient and have discussed the case with the advance practice provider. I have reviewed the advanced practitioner's documentation, and I agree with, and take responsibility for that plan of care. Patient seen initially in the ED. Currently chest pain-free. Discussed plan of care with cardiology. Agreeable with initial plans for Eliquis. Suspect troponin elevation due to rapid rate. Third troponin is significantly elevated compared to second troponin, concern fo r non-STEMI will discontinue Eliquis start heparin, had discussed this plan earlier with cardiology should third troponin significantly elevated. Would consider possible cardiac cath. N.p.o. at midnight Continue metoprolol, Imdur I spent a total of 25 minutes coordinating, documenting, and providing care for this patient excluding time spent by another provider/QHP. Date of Service February 09, 2025 Assessment & Plan (1) Atrial fibrillation with RVR: (2) Chest pain: (3) Elevated troponin: (4) CAD, multiple vessel: Plan: #Atrial flutter RVR Patient is 59 year old male with PMH multivessel CAD, HTN, HLD, DM II, chronic skin ulcers presented to ER with complaint of chest pain today after wiping off car. Seen [place] urgent care found to be in in A-fib RVR and was given 324 mg was aspirin, total of 3 sublingual nitro given with reported improvement of chest pain. Upon ER presentation patient was noted to be in rapid afib/a-flutter. He was given fentanyl 50mcg IV, amlodipine 10mg po He denied any recurrent CP during ER course 05/26/24 Echo: EF: 55-60%, mild concentric LVH, mild mitral regurgitation, mild aortic root dilation, grade 1 diastolic dysfunction In ER afebrile, P: 124, R: 18, BP 154/112, 97% on room air EKG: rate 125 appears a-flutter, t wave inversion Converted to sinus rhythm EKG at 11:45 with sinus rhythm, t wave changes Vitals at 11:59, P: 73, BP 173/110 Initial troponin: 38 Denies recurrent CP Obtain TSH, magnesium labs Trend troponin Suspect demand ischemia secondary to rapid heart rate BP improved to 139/84 IV heparin ordered in ER, not started and will start Eliquis Will continue aspirin and hold home Plavix to avoid triple therapy. Further recommendations from cardiology pending Continue atorvastatin Echo Cardiology consult and recommended Increase metoprolol succinate to 25 mg twice per day, Increase isosorbide mononitrate to 60 mg p.o. daily CBC, BMP, lipid panel in am #HTN Initially hypertensive in ER Pt given amlodipine 10mg in ER BP improved to 139/84 Continue lisinopril. metoprolol succinate increased to BID as above Patient reports in past was on amlodipine 10mg daily, but hasn't been taking for several months. Per fill hx appears last filled in 06/2024 Patient reports he thinks is taking lisinopril 40mg daily, but is unsure. Last filled 11/2024 for 30 day supply #HLD Patient reports unsure if taking atorvastatin. Was last filled 12/2024 for 100 day supply (5) Diabetes mellitus type II, uncontrolled: Plan: A1c: 9.5 on 09/07/24 In past was prescribed Trulicity but pt reports hasn't been using. Was referred to [facility] for glycemic management but has not followed up and per outpatient note was discharged from [facility] services on 01/06/25 Hold home Jardiance Basal bolus insulin per protocol #Chronic leg ulcer Previously followed with wound clinic, but not following for some time Does not appear infected at this time Wound nurse consult DVT Prophylaxis Eliquis Admit telemetry Full Code as per discussion with pt Follows with Clau Shine PA-C for routine care Pt was seen and care coordinated with Dr Coombs. See addendum I spent a total of 70 minutes reviewing notes, outpatient records, labs, medication, coordinating, documenting and providing care for this patient excluding time spent in the performance of separately billed services and excluding time spent by another provider/QHP. History of Present Illness Chief Complaint: CP Primary Care Provider: Clau Shine PA-C Patient is 59 year old male with PMH multivessel CAD, HTN, HLD, DM II, chronic skin ulcers presented to ER with complaint of chest pain today. Per inpatient chart review most recent [facility] hospitalization on 05/25/24-05/27/24 for chest pain, hypertensive urgency history noncompliance with medication with titration of BP medication and started on isosorbide. Patient reports that for past 3-4 months having intermittent pain to upper back with radiation to left arm and sometimes up to left neck and will occasionally also get left sided chest pain without noted palpitations, diaphoresis, or N/V. Patient states today feeling fine this morning and he was wiping off his car when he started with squeezing type pain to upper back with radiation to left arm and left chest. Denies dizziness, syncope, SOB, palpitations, N/V. He presented to [facility] urgent care this morning for chest pain. Was found in A-fib RVR. 324 mg was aspirin administered. Total of 3 sublingual nitro given with reported improvement of chest pain. Denies fever/chills, diaphoresis, N/V/D/C, CASIANO, dizziness, syncope, vision changes, SOB, orthopnea, palpitations, cough, sore throat, rhinorrhea, abdominal pain, paresthesias, extremity weakness, extremity edema, rashes, urinary symptoms. Allergies Allergy/AdvReac Type Severity Reaction Status Date / Time NSAIDS (Non-Steroidal Allergy Rash Verified 02/09/25 09:49 Anti-Inflamma Home Medications Medication Instructions Recorded Confirmed Type ketoconazole 2 % shampoo 1 applic topical .2-3 TIMES PER 05/25/24 02/09/25 History WEEK aspirin 81 mg tablet,delayed 81 mg PO QAM #30 tabs 05/27/24 02/09/25 Rx release blood sugar diagnostic ([employer] #100 ea 05/27/24 02/09/25 Rx Ultra Test strips) blood-glucose meter ([facility] #1 ea 05/27/24 02/09/25 Rx Ultra2 Meter) clopidogrel 75 mg tablet 75 mg PO QAM #30 tabs 05/27/24 02/09/25 Rx empagliflozin 10 mg tablet 10 mg PO QAM #30 tabs 05/27/24 02/09/25 Rx (Jardiance) isosorbide mononitrate 30 mg 30 mg PO QAM #30 tabs 05/27/24 02/09/25 Rx tablet,extended release 24 hr lancets 33 gauge ([facility] #100 ea 05/27/24 02/09/25 Rx Plus Lancet) lisinopril 40 mg tablet (Zestril) 40 mg PO QAM #30 tabs 05/27/24 02/09/25 Rx metoprolol succinate 25 mg 25 mg PO QAM #30 tabs 05/27/24 02/09/25 Rx tablet,extended release 24 hr nitroglycerin 0.4 mg sublingual 0.4 mg sublingual UD PRN Chest 05/27/24 02/09/25 Rx tablet Pain #1 btl pen needle, diabetic 32 gauge x #100 ea 05/27/24 02/09/25 Rx 5/32" silver-hydrocolloid dressing 1.2 1 ea topical .every other day #10 05/27/24 02/09/25 Rx %-3.5" X 4" ([employer]-AG) ea atorvastatin 40 mg tablet 40 mg PO DAILY 02/09/25 02/09/25 History Past Med/Surg History Problem List Atrial fib/flutter, transient (Acute) Chest pain (Acute) Acute non-ST elevation myocardial infarction (NSTEMI) (Acute) Atrial flutter with rapid ventricular response Atrial fibrillation with RVR Demand ischemia Elevated troponin (Acute) Hypertensive urgency (Acute) Chest pain (Acute) Noncompliance w/medication treatment due to intermit use of medication Hypertensive crisis Ulcer of left lower leg CAD, multiple vessel Cellulitis of lower leg Open leg wound Abnormal ankle brachial index Unstable angina (Acute) Diabetes mellitus type II, uncontrolled (Acute) Hypertensive urgency (Acute) Neck pain Chest pain (Acute) Venous insufficiency of both lower extremities (Chronic) Non-occlusive coronary artery disease Dyslipidemia Diabetes type 2, uncontrolled Saphenous vein clot Obesity Venous stasis ulcer (Acute) Venous stasis (Chronic) 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) Hypertension (Acute) Medical History Elevated troponin Elevated LFTs Venous stasis ulcer Surgical History History of cholecystectomy Family History Father Diabetes Social History Smoking Status: Never smoker Tobacco Type: Cigarettes Second Hand Exposure: No; Do You Dip or Chew Tobacco: No; Hx Alcohol Use: Yes Alcohol type: beer, wine and hard liquor Alcohol Intake Frequency: 2-3 x/Week Hx Substance Use: No Preferred Language: [place] Communication Ability: Effective Communication Ability Comment: able to speak [place]- speak slowly Nailer Machine Required: No Beliefs That Will Affect Care: None Current Living Situation: Alone Current Living Situation Comment: lives alone current occupational status: other other: patient entering into SSI Feels Safe at Home: Yes Diet: diabetic Assistive Devices: Cane Review of Systems Review of Systems: All systems reviewed & are unremarkable except as noted in HPI & below Physical Exam Physical Exam: General: no distress, overweight Head: normocephalic, atraumatic Eyes: conjunctiva non-injected, anicteric ENT: normal inspection external ears, nose, mucous membranes moist Neck: supple, trachea midline, non-tender Lungs: clear, no respiratory distress, no wheezing/rhonchi/rales CV: RRR, no murmur, no pretibial edema Abd: normal BS, soft, non-tender Ext: no cyanosis, no calf tenderness Neuro: A&O x 3, no focal deficits noted, normal affect Skin: warm, dry; BLE with brown skin discoloration, left anterior lower garza with ulcer with slight surrounding erythema without warmth. tenderness or discharge Results & Data Results & Data Vital Signs (Past 12 Hours) Vital Signs Temp Pulse Pulse Resp BP BP Pulse Ox 02/09/25 11:59 73 173/110 H 02/09/25 11:39 73 02/09/25 11:02 119 H 16 145/119 H 98 02/09/25 11:02 98 02/09/25 10:57 126 H 154/112 H 02/09/25 10:44 18 99 02/09/25 10:36 36.9 C 124 H 18 154/112 H 97 O2 Del Method 02/09/25 11:59 02/09/25 11:39 02/09/25 11:02 Room Air 02/09/25 11:02 Room Air 02/09/25 10:57 02/09/25 10:44 Room Air 02/09/25 10:36 Room Air Laboratory Results Short CBC 02/09/25 Range/Units 10:40 WBC 5.50 (4.8-10.8) K/ul Hgb 16.0 (14.0-18.0) g/dl Hct 44.0 (42.0-52.0) % Plt Count 194 (130-400) K/uL BMP 02/09/25 10:40 Sodium 135 L Potassium 4.2 Chloride 99 Carbon Dioxide 23 BUN 18 Creatinine 0.89 Glucose 377 H* Calcium 10.5 H Liver Function 02/09/25 Range/Units 10:40 Total Bilirubin 0.6 (0.2-1.0) mg/dl AST 28 (13-39) U/L ALT 45 (7-52) U/L Alkaline Phosphatase 90 (34-104) U/L Albumin 4.2 (3.4-5.0) gm/dl Diagnostic Findings Chest X-Ray 02/09/25 10:44 XR chest 1V portable CLINICAL HISTORY: Chest pain, nonspecific COMPARISON STUDY: 05/25/2024 FINDINGS: Heart size and pulmonary vasculature are normal. No consolidation or pleural effusion. No pneumothorax. IMPRESSION: No acute findings. ACT 112: Negative or not required by law. Electronically signed by: Azeem Burns M.D. 02/09/2025 11:01 AM
[2025-02-09] MEDS: Heparin IV Adult Wt-Based Low-Dose w/ INITIAL Bolus Protocol IV STA (12:36)
[2025-02-09] MEDS: HEPARIN SOD (PORCINE) 1000 UNIT/ML IV ONE (12:36)
[2025-02-09] MEDS ORDERED: HEPARIN 25000 UNIT/500 ML D5W 25,000 UNITS/500 ML BAG IV SCH (12:45)
[2025-02-09 13:29] LABS: Magnesium 1.9 mg/dl (1.7-2.4)
--- NOTE | 2025-02-09 13:39 | Cardiology Consultation ---
Date of Consultation February 09, 2025 Assessment & Plan (1) Atrial flutter with rapid ventricular response: (2) Chest pain: (3) Demand ischemia: (4) Elevated troponin: (5) Hypertension: (6) Dyslipidemia: (7) Hypertensive urgency: Plan Patient is a 59-year-old male with complex cardiac history which includes known coronary disease with chronic right coronary artery occlusion and chronic angina pectoris. Underlying issues include difficult to control hypertension, dysli pidemia. Patient presents with sudden onset chest pain and tachyarrhythmias with findings of atrial flutter with rapid response. Rhythm returned to sinus rhythm with IV metoprolol. Cardiac enzymes are reflecting likely demand ischemia secondary to rapid ventricular response unknown chronic coronary artery disease. Recommendations: Discussed atrial fibrillation flutter with patient in detail Initiate anticoagulation with Eliquis pending results of echocardiogram Increase metoprolol succinate to 25 mg twice per day Increase isosorbide mononitrate to 60 mg p.o. daily Continue prehospital medications otherwise Maintain telemetry overnight History of Present Illness Reason for Consultation: Chest pain, atrial flutter with rapid ventricular response [facility] of Present Illness Patient is a 59-year-old male with cardiac and medical issues as listed below. 1. Multivessel CAD, history of abnormal stress testing undergoing cardiac catheterization receiving x2 GALLO to the mRCA ([place] 3.5mm x 26 mm and 3.5mm x15mm), 2020. Right radial approach taken. a. Abnormal DANAY 09/2021, medically managed due to financial concerns b. Repeat cath- Diffuse nonobstructive CAD of the LAD and LCx, however, in the very distal portion of the LAD there is an 80 to 90% concentric stenoses. The RCA is occluded at the stented site proximally and fills with a generous flow of left to right collaterals distally, 02/05/2022 at [facility] with Dr. Melissa 2. Cardiometabolic syndrome 3. Type 2 diabetes, hemoglobin A1c 10% 4. Hyperlipidemia Patient presents now noting approximately 9 AM this morning developing chest pain radiating to the shoulder and down left arm. Symptoms are associated with sense of heart pounding. Patient sought initial evaluation at urgent care where EKG demonstrated atrial flutter with rapid ventricular response. Transported to [facility] emergency room where symptoms were relieved and rhythm issues terminated with IV metoprolol. Marked hypertension present on arrival Now in sinus rhythm without chest pain or discomfort Patient still relatively active to a moderate degree about home occasional exertional anginal as in past. No syncope or near syncope. No prior history of atrial arrhythmias. No fevers chills unexplained infections. Weight is trending slowly downward. No worsening edema. No bleeding issues. Allergies Allergy/AdvReac Type Severity Reaction Status Date / Time NSAIDS (Non-Steroidal Allergy Rash Verified 02/09/25 09:49 Anti-Inflamma Home Medications Medication Instructions Recorded Confirmed Type ketoconazole 2 % shampoo 1 applic topical .2-3 TIMES PER 05/25/24 02/09/25 History WEEK aspirin 81 mg tablet,delayed 81 mg PO QAM #30 tabs 05/27/24 02/09/25 Rx release blood sugar diagnostic ([employer] #100 ea 05/27/24 02/09/25 Rx Ultra Test strips) blood-glucose meter ([employer] #1 ea 05/27/24 02/09/25 Rx Ultra2 Meter) clopidogrel 75 mg tablet 75 mg PO QAM #30 tabs 05/27/24 02/09/25 Rx empagliflozin 10 mg tablet 10 mg PO QAM #30 tabs 05/27/24 02/09/25 Rx (Jardiance) isosorbide mononitrate 30 mg 30 mg PO QAM #30 tabs 05/27/24 02/09/25 Rx tablet,extended release 24 hr lancets 33 gauge ([employer] #100 ea 05/27/24 02/09/25 Rx Plus Lancet) lisinopril 40 mg tablet (Zestril) 40 mg PO QAM #30 tabs 05/27/24 02/09/25 Rx metoprolol succinate 25 mg 25 mg PO QAM #30 tabs 05/27/24 02/09/25 Rx tablet,extended release 24 hr nitroglycerin 0.4 mg sublingual 0.4 mg sublingual UD PRN Chest 05/27/24 02/09/25 Rx tablet Pain #1 btl pen needle, diabetic 32 gauge x #100 ea 05/27/24 02/09/25 Rx 5/32" silver-hydrocolloid dressing 1.2 1 ea topical .every other day #10 05/27/24 02/09/25 Rx %-3.5" X 4" [facility] ea atorvastatin 40 mg tablet 40 mg PO DAILY 02/09/25 02/09/25 History Patient History Medical History Elevated troponin Elevated LFTs Venous stasis ulcer Surgical History History of cholecystectomy Family History Father Diabetes Social History Smoking Status: Never smoker Tobacco Type: Cigarettes Second Hand Exposure: No; Do You Dip or Chew Tobacco: No; Hx Alcohol Use: Yes Alcohol type: beer, wine and hard liquor Alcohol Intake Frequency: 2-3 x/Week Hx Substance Use: No Preferred Language: Argentine Communication Ability: Effective Communication Ability Comment: Speak slowly Bias Cutter Required: No Beliefs That Will Affect Care: None Current Living Situation: Alone Current Living Situation Comment: patient independent with dressing changes current occupational status: other other: patient entering into SSI Feels Safe at Home: Yes Diet: diabetic Assistive Devices: None Review of Systems Review of Systems: All systems reviewed & are unremarkable except as noted in HPI & below Physical Exam Constitutional: WD/WN, vitals as above no acute distress Eyes: PERRL, conjunctivae normal, anicteric sclerae ENMT: external ear and nose normal, oropharynx normal Neck: trachea midline, no thyromegaly Respiratory: normal respiratory effort, lungs clear to auscultation Cardiovascular: Rate/Rhythm: regular rate and regular rhythm Heart Sounds: normal S1 and normal S2 Vessels: normal carotid upstroke; no JVD Extremities: no edema Chronic stasis changes of the lower extremities with ulceration left leg Gastrointestinal (Abdomen): normal bowel sounds, soft, nontender, no hepatosplenomegaly Results & Data Vital Signs (Past 12 Hours) Vital Signs Temp Pulse Pulse Resp BP BP Pulse Ox 02/09/25 13:00 80 16 139/84 96 02/09/25 11:59 73 173/110 H 02/09/25 11:39 73 02/09/25 11:02 119 H 16 145/119 H 98 02/09/25 11:02 98 02/09/25 10:57 126 H 154/112 H 02/09/25 10:44 18 99 02/09/25 10:36 36.9 C 124 H 18 154/112 H 97 O2 Del Method 02/09/25 13:00 Room Air 02/09/25 11:59 02/09/25 11:39 02/09/25 11:02 Room Air 02/09/25 11:02 Room Air 02/09/25 10:57 02/09/25 10:44 Room Air 02/09/25 10:36 Room Air Laboratory Results Laboratory Results - last 24 hr 02/09/25 02/09/25 10:40 12:40 WBC 5.50 RBC 4.81 Hgb 16.0 Hct 44.0 MCV 91.5 MCH 33.3 MCHC 36.4 H RDW Std Deviation 39.4 RDW Coeff of Mirella 11.9 Plt Count 194 MPV 11.2 Immature Gran % (Auto) 0.4 Neut % (Auto) 53.0 Lymph % (Auto) 35.8 [place] % (Auto) 6.5 Eos % (Auto) 3.6 Baso % (Auto) 0.7 Neut # (Auto) 2.91 Lymph # (Auto) 1.97 [place] # (Auto) 0.36 Eos # (Auto) 0.20 Baso # (Auto) 0.04 Immature Gran # (Auto) 0.02 D-Dimer 300 Sodium 135 L Potassium 4.2 Chloride 99 Carbon Dioxide 23 Anion Gap 13 H BUN 18 Creatinine 0.89 Est Cr Clr Drug Dosing 116.8 eGFR 99.33 BUN/Creatinine Ratio 20.2 H Glucose 377 H* Calcium 10.5 H Magnesium 1.9 Total Bilirubin 0.6 AST 28 ALT 45 Alkaline Phosphatase 90 Troponin I High Sens 38.6 H 308.9 H* D Total Protein 7.7 Albumin 4.2 Globulin 3.5 Albumin/Globulin Ratio 1.2 Lipase 47 TSH 1.908 PG Care Time/CCT Total # of Minutes Spent Total Time Spent with Patient: Total time spent is greater than 50% in coordination of care (as documented) at patient's floor/unit and/or counseling patient: Coding Level of Care Code 81049 IN/OBS CONSULT LVL 5,80M Diagnoses Atrial flutter with rapid ventricular response I48.92 Chest pain R07.9 Demand ischemia I24.89 Elevated troponin R79.89 Essential hypertension I10 Dyslipidemia E78.5 Hypertensive urgency I16.0
[2025-02-09 13:42] LABS: Thyroid Stimulating Hormone 1.908 uIu/ml (0.300-4.500)
[2025-02-09] MEDS: APIXABAN 5 MG TABLET PO ONE (14:39)
[2025-02-09] MEDS ORDERED: GLUCOSE 10 TAB/TUBE PO PRN (14:42)
[2025-02-09] MEDS ORDERED: GLUCOSE 40% GEL 15 GM TUBE PO PRN (14:42)
[2025-02-09] MEDS ORDERED: ACETAMINOPHEN 325 MG TAB PO PRN (14:42)
[2025-02-09] MEDS ORDERED: DEXTROSE 50% 50 ML SYRINGE IV PRN (14:42)
[2025-02-09] MEDS ORDERED: GLUCAGON FOR INJ 1 MG VIAL SQ PRN (14:42)
[2025-02-09] MEDS ORDERED: POLYETHYLENE (MIRALAX) 17 GM PACK PO PRN (14:42)
[2025-02-09] MEDS ORDERED: ONDANSETRON INJ 2 MG/ML 2 ML VIAL IV PRN (14:42)
[2025-02-09] MEDS ORDERED: MAGNESIUM HYDROXIDE SUSP 30 ML UDC PO PRN (14:42)
[2025-02-09] MEDS ORDERED: CARBOHYDRATES FOR HYPOGLYCEMIA PO PRN (14:42)
[2025-02-09] MEDS: INSULIN ASPART PER UNIT CHARGE SC SCH (16:32)
[2025-02-09] MEDS ORDERED: APIXABAN 5 MG TABLET PO SCH (21:00)
[2025-02-09] MEDS: METOPROLOL SUCC 25MG EXT REL TAB PO SCH (21:04)
[2025-02-09] MEDS: LANTUS PER UNIT CHARGE SQ SCH (21:05)
[2025-02-09 21:23] LABS: INR 1.0 (0.9-1.1); Partial Thromboplastin Time 27 Seconds (21-31); Prothrombin Time 10.1 Seconds (9.0-12.0)
[2025-02-10] MEDS ORDERED: Heparin IV Adult Wt-Based Standard *NO* INITIAL Bolus Protocol IV ONE
[2025-02-10] MEDS ORDERED: HEPARIN 25000 UNIT/500 ML D5W 25,000 UNITS/500 ML BAG IV SCH
[2025-02-10] MEDS: INSULIN ASPART PER UNIT CHARGE SC SCH (06:41)
[2025-02-10] MEDS ORDERED: Nursing to Pharmacy Communication SCH (06:45)
[2025-02-10 07:00] LABS: Hematocrit (blood only) 42.3 % (42.0-52.0); Hemoglobin 15.7 g/dl (14.0-18.0); Mean Corpuscular Hemoglobin 34.5 pg (25.0-34.0); Mean Corpuscular Volume 93.0 fL (80.0-100.0); Platelet Count 173 K/uL (130-400); RDW Standard Deviation 40.2 fL (36.4-46.3); Red Blood Count 4.55 M/uL (4.70-6.10); White Blood Count 5.28 K/ul (4.8-10.8)
[2025-02-10 07:39] LABS: Anion Gap 10 (3-11); Blood Urea Nitrogen 14 mg/dl (6-23); Calcium 9.3 mg/dl (8.6-10.3); Carbon Dioxide 25 mmol/L (21-32); Chloride 102 mmol/L (98-107); Cholesterol 302 mg/dl (0-200); Creatinine Clr Calc Pharmacy 135.9 ml/min; Glucose 167 mg/dl (70-99(Fasting)); HDL Cholesterol 44 mg/dl; Potassium 3.6 mmol/L (3.5-5.1); Sodium 137 mmol/L (136-145); Triglycerides 420 mg/dl (0-150)
[2025-02-10 07:45] LABS: Hemoglobin A1C 11.7 % (4.5-5.6)
[2025-02-10] MEDS: ASPIRIN 81 MG ECTAB PO SCH (08:45)
[2025-02-10] MEDS: ATORVASTATIN 40 MG TAB PO SCH (08:45)
[2025-02-10] MEDS: ISOSORBIDE MONO EXTENDED REL 60 MG TABCR PO SCH (08:46)
[2025-02-10] MEDS ORDERED: METOPROLOL SUCC 25MG EXT REL TAB PO SCH (09:00)
[2025-02-10] MEDS ORDERED: ISOSORBIDE MONO EXTENDED REL 30 MG TABCR PO SCH (09:00)
[2025-02-10 10:22] VITALS: RESP 19; TEMP 98.2; O2SAT 93
--- NOTE | 2025-02-10 11:44 | Cardiology Progress Note ---
Date of Service February 10, 2025 Assessment & Plan (1) Atrial flutter with rapid ventricular response: (2) Chest pain: (3) Demand ischemia: (4) Elevated troponin: (5) Hypertension: (6) Dyslipidemia: (7) Hypertensive urgency: Plan Patient is a 59-year-old male with complex cardiac history which includes known coronary disease with chronic right coronary artery occlusion and chronic angina pectoris. Underlying issues include difficult to control hypertension, dyslipidemia. Patient presents with sudden onset chest pain and tachyarrhythmias with findings of atrial flutter with rapid response. Rhythm returned to sinus rhythm with IV metoprolol. Cardiac enzymes are re flecting likely demand ischemia secondary to rapid ventricular response unknown chronic coronary artery disease. Recommendations: Discussed atrial fibrillation flutter with patient in detail Initiate anticoagulation with Eliquis pending results of echocardiogram Increase metoprolol succinate to 25 mg twice per day Increase isosorbide mononitrate to 60 mg p.o. daily Continue prehospital medications otherwise Maintain telemetry overnight 02/10/2025 59-year-old male with known coronary artery disease with chronic right coronary artery occlusion and collateral fill presented with new onset atrial fibrillation with rapid response of at least 5 hours duration. Patient spontaneously converted with AV abraham blocking medication in ER. New 1. New onset atrial fibrillation with rapid ventricular response: Discussed in detail with patient. Initiate anticoagulation with Eliquis 5 mg twice per day Metoprolol succinate increased to 25 mg twice per day Emphasized need for compliance Please provide atrial fibrillation learning materials 2. Elevated troponin: Echocardiogram today with no acute changes and with preserved ejection fraction, subtle hypokinesis in inferior posterior base michael lar to prior study. Troponins likely reflect demand ischemia with known chronic right coronary occlusion. Will plan on cardiology follow-up and stress nuclear imaging post hospital discharge 3. Hypertension/hypertensive urgency: Blood pressure is well-controlled on usual medications currently Stable for discharge with follow-up with cardiology in 1 month Admission and Anticipated Discharge Date Admission Date: February 09, 2025 Subjective Patient seen and personally examined. No chest pains, shortness of breath, tachypalpitations, dizziness. No further arrhythmias on telemetry. Physical Exam Constitutional: WD/WN, vitals as above no acute distress Eyes: PERRL, conjunctivae normal, anicteric sclerae ENMT: external ear and nose normal, oropharynx normal Neck: trachea midline, no thyromegaly Respiratory: normal respiratory effort, lungs clear to auscultation Cardiovascular: Rate/Rhythm: regular rate and regular rhythm Heart Sounds: normal S1 and normal S2 Vessels: normal carotid upstroke; no JVD Extremities: no edema Gastrointestinal (Abdomen): normal bowel sounds, soft, nontender, no hepatosplenomegaly Results & Data Vital Signs (Past 12 Hours) Vital Signs Temp Pulse Pulse Resp BP Pulse Ox O2 Del Method 02/10/25 10:21 36.8 C 73 19 97/61 L 93 Room Air 02/10/25 07:54 36.7 C 65 18 126/78 97 Room Air 02/10/25 07:34 56 L 02/10/25 03:45 36.4 C L 61 14 111/67 96 Room Air 02/10/25 00:01 36.6 C 62 16 117/74 95 Room Air Laboratory Results Laboratory Results - last 24 hr 02/09/25 02/09/25 02/09/25 12:40 14:46 16:17 WBC RBC Hgb Hct MCV MCH MCHC RDW Std Deviation RDW Coeff of Mirella Plt Count MPV PT INR APTT PTT Ratio Sodium Potassium Chloride Carbon Dioxide Anion Gap BUN Creatinine Est Cr Clr Drug Dosing eGFR BUN/Creatinine Ratio Glucose POC Glucose 207 H 234 H Estimat Average Glucose Hemoglobin A1c Calcium Magnesium 1.9 Troponin I High Sens 308.9 H* D Triglycerides Cholesterol LDL Cholesterol, Calc VLDL Cholesterol, Calc HDL Cholesterol Cholesterol/HDL Ratio TSH 1.908 02/09/25 02/09/25 02/09/25 18:52 20:02 20:27 WBC RBC Hgb Hct MCV MCH MCHC RDW Std Deviation RDW Coeff of Mirella Plt Count MPV PT 10.1 INR 1.0 APTT 27 PTT Ratio 1.0 Sodium Potassium Chloride Carbon Dioxide Anion Gap BUN Creatinine Est Cr Clr Drug Dosing eGFR BUN/Creatinine Ratio Glucose POC Glucose 164 H Estimat Average Glucose Hemoglobin A1c Calcium Magnesium Troponin I High Sens 1737.8 H* D Triglycerides Cholesterol LDL Cholesterol, Calc VLDL Cholesterol, Calc HDL Cholesterol Cholesterol/HDL Ratio TSH 02/10/25 02/10/25 02/10/25 00:27 06:09 06:38 WBC 5.28 RBC 4.55 L Hgb 15.7 Hct 42.3 MCV 93.0 MCH 34.5 H MCHC 37.1 H RDW Std Deviation 40.2 RDW Coeff of Mirella 11.8 Plt Count 173 MPV 11.0 PT INR APTT PTT Ratio Sodium 137 Potassium 3.6 Chloride 102 Carbon Dioxide 25 Anion Gap 10 BUN 14 Creatinine 0.74 Est Cr Clr Drug Dosing 135.9 eGFR 105.03 BUN/Creatinine Ratio 18.9 Glucose 167 H POC Glucose 182 H Estimat Average Glucose 289 Hemoglobin A1c 11.7 H Calcium 9.3 Magnesium Troponin I High Sens 1199.1 H* D Triglycerides 420 H Cholesterol 302 H LDL Cholesterol, Calc TNP VLDL Cholesterol, Calc TNP HDL Cholesterol 44 Cholesterol/HDL Ratio 6.9 H TSH 02/10/25 11:18 WBC RBC Hgb Hct MCV MCH MCHC RDW Std Deviation RDW Coeff of Mirella Plt Count MPV PT INR APTT PTT Ratio Sodium Potassium Chloride Carbon Dioxide Anion Gap BUN Creatinine Est Cr Clr Drug Dosing eGFR BUN/Creatinine Ratio Glucose POC Glucose 161 H Estimat Average Glucose Hemoglobin A1c Calcium Magnesium Troponin I High Sens Triglycerides Cholesterol LDL Cholesterol, Calc VLDL Cholesterol, Calc HDL Cholesterol Cholesterol/HDL Ratio TSH PG Care Time/CCT Total # of Minutes Spent Total Time Spent with Patient: Total time spent is greater than 50% in coordination of care (as documented) at patient's floor/unit and/or counseling patient: Coding Level of Care Code 34949 SUB INP/OBS CARE 3/50MIN Diagnoses Atrial flutter with rapid ventricular response I48.92 Chest pain R07.9 Demand ischemia I24.89 Elevated troponin R79.89 Essential hypertension I10 Dyslipidemia E78.5 Hypertensive urgency I16.0
[2025-02-10] MEDS: APIXABAN 5 MG TABLET PO SCH (11:46)
[2025-02-10 13:58] VITALS: BP 139/84; PULSE 72
--- NOTE | 2025-02-10 17:41 | Discharge Summary ---
Discharge Summary Date of Service February 10, 2025 Principal Dx & Hospital Course #1 = Principal Diagnosis (1) Atrial fibrillation with RVR: (2) Chest pain: (3) Elevated troponin: (4) CAD, multiple vessel: #Atrial flutter RVR Patient is 59 year old male with PMH multivessel CAD, HTN, HLD, DM II, chronic skin ulcers presented to ER with complaint of chest pain today after wiping off car. Seen [place] urgent care found to be in in A-fib RVR and was given 324 mg was aspirin, total of 3 sublingual nitro given with reported improvement of chest pain. Upon ER presentation patient was noted to be in rapid afib/a-flutter. He was given fentanyl 50mcg IV, amlodipine 10mg po He denied any recurrent CP during ER course 05/26/24 Echo: EF: 55-60%, mild concentric LVH, mild mitral regurgitation, mild aortic root dilation, grade 1 diastolic dysfunction In ER afebrile, P: 124, R: 18, BP 154/112, 97% on room air EKG: rate 125 appears a-flutter, t wave inversion Converted to sinus rhythm EKG at 11:45 with sinus rhythm, t wave changes Vitals at 11:59, P: 73, BP 173/110 Initial troponin: 38 Denies recurrent CP Obtain TSH, magnesium labs Trend troponin Suspect demand ischemia secondary to rapid heart rate BP improved to 139/84 IV heparin ordered in ER, not started and will start Eliquis Will continue aspirin and hold home Plavix to avoid triple therapy. Further recommendations from cardiology pending Continue atorvastatin Echo Cardiology consult and recommended Increase metoprolol succinate to 25 mg twice per day, Increase isosorbide mononitrate to 60 mg p.o. daily CBC, BMP, lipid panel in am #HTN Initially hypertensive in ER Pt given amlodipine 10mg in ER BP improved to 139/84 Continue lisinopril. metoprolol succinate increased to BID as above Patient reports in past was on amlodipine 10mg daily, but hasn't been taking for several months. Per fill hx appears last filled in 06/2024 Patient reports he thinks is taking lisinopril 40mg daily, but is unsure. Last filled 11/2024 for 30 day supply #HLD Patient reports unsure if taking atorvastatin. Was last filled 12/2024 for 100 day supply (5) Diabetes mellitus type II, uncontrolled: A1c: 9.5 on 09/07/24 In past was prescribed Trulicity but pt reports hasn't been using. Was referred to [facility] for glycemic management but has not followed up and per outpatient note was discharged from [facility] services on 01/06/25 Hold home Jardiance Basal bolus insulin per protocol #Chronic leg ulcer Previously followed with wound clinic, but not following for some time Does not appear infected at this time Wound nurse consult DVT Prophylaxis Eliquis Admit telemetry Full Code as per discussion with pt Follows with Clau Shine PA-C for routine care Pt was seen and care coordinated with Dr Coombs. See addendum I spent a total of 70 minutes reviewing notes, outpatient records, labs, medication, coordinating, documenting and providing care for this patient excluding time spent in the performance of separately billed services and excluding time spent by another provider/QHP. Admission HPI Per Admitting Provider Patient is 59 year old male with PMH multivessel CAD, HTN, HLD, DM II, chronic skin ulcers presented to ER with complaint of chest pain today. Per inpatient chart review most recent [facility] hospitalization on 05/25/24-05/27/24 for chest pain, hypertensive urgency history noncompliance with medication with titration of BP medication and started on isosorbide. Patient reports that for past 3-4 months having intermittent pain to upper back with radiation to left arm and sometimes up to left neck and will occasionally also get left sided chest pain without noted palpitations, diaphoresis, or N/V. Patient states today feeling fine this morning and he was wiping off his car when he started with squeezing type pain to upper back with radiation to left arm and left chest. Denies dizziness, syncope, SOB, palpitations, N/V. He presented to [facility] urgent care this morning for chest pain. Was found in A-fib RVR. 324 mg was aspirin administered. Total of 3 sublingual nitro given with reported improvement of chest pain. Denies fever/chills, diaphoresis, N/V/D/C, CASIANO, dizziness, syncope, vision changes, SOB, orthopnea, palpitations, cough, sore throat, rhinorrhea, abdominal pain, paresthesias, extremity weakness, extremity edema, rashes, urinary symptoms. Updated Medication List Medication Instructions Recorded Confirmed Type ketoconazole 2 % shampoo 1 applic topical .2-3 TIMES PER 05/25/24 02/09/25 History WEEK blood sugar diagnostic (OneTouch #100 ea 05/27/24 02/09/25 Rx Ultra Test strips) blood-glucose meter (OneTouch #1 ea 05/27/24 02/09/25 Rx Ultra2 Meter) empagliflozin 10 mg tablet 10 mg PO QAM #30 tabs 05/27/24 02/09/25 Rx (Jardiance) isosorbide mononitrate 30 mg 30 mg PO QAM #30 tabs 05/27/24 02/09/25 Rx tablet,extended release 24 hr lancets 33 gauge (OneTouch Delica #100 ea 05/27/24 02/09/25 Rx Plus Lancet) lisinopril 40 mg tablet (Zestril) 40 mg PO QAM #30 tabs 05/27/24 02/09/25 Rx nitroglycerin 0.4 mg sublingual 0.4 mg sublingual UD PRN Chest 05/27/24 02/09/25 Rx tablet Pain #1 btl pen needle, diabetic 32 gauge x #100 ea 05/27/24 02/09/25 Rx 5/32" silver-hydrocolloid dressing 1.2 1 ea topical .every other day #10 05/27/24 02/09/25 Rx %-3.5" X 4" (Aquacel-AG) ea atorvastatin 40 mg tablet 40 mg PO DAILY 02/09/25 02/09/25 History apixaban 5 mg tablet (Eliquis) 5 mg PO BID 30 days #60 tabs 02/10/25 Rx clopidogrel 75 mg tablet 75 mg PO QAM 30 days #30 tabs 02/10/25 Rx metoprolol succinate 25 mg 25 mg PO BID 30 days #60 tabs 02/10/25 Rx tablet,extended release 24 hr Hospital Stay Data Consultations 02/09/25 12:35 ED Decision to Admit Stat 02/09/25 14:04 Consult Cardiology Routine Pending Results Patient Have Any Pending Studies at Discharge: No Discharge Instructions Given to Patient (Per Discharging Provider) PLEASE REFER TO YOUR NEW MEDICATION LIST AND FOLLOW INSTRUCTIONS CAREFULLY. YOUR NEW MEDICATIONS INCLUDE: Eliquis- blood thinner to prevent stroke - if you have any head trauma, even if you are feeling well, you need to go to the ER immediately for evaluation of brain bleed STOP Aspirin. CONTINUE Plavix. Increase Metoprolol to twice a day. PLEASE CALL YOUR PRIMARY CARE PHYSICIAN OR RETURN TO THE ER IF WITH WORSENING OF SYMPTOMS, INCLUDING chest pain, palpitations, shortness of breath, etcc FOLLOW UP WITH PRIMARY CARE PHYSICIAN OUTLINED ABOVE. FOLLOW UP WITH CIRCLE EDGER DR. JONES IN 2 WEEKS. PLEASE CALL HIS OFFICE FOR AN APPOINTMENT. CONTACT INFORMATION OUTLINED ABOVE.
== END 2025-02-10 14:10 | disposition home or self-care (01) ==
LOC: 2E 10:31 → ED 10:31 → SUATTDRO 12:49 → 2E 13:08

== ENCOUNTER 2025-04-01 12:46 | Inpatient (IN) ==
--- NOTE | 2025-04-01 13:02 | Emergency Department Note ---
Impression & Plan Acute non-ST elevation myocardial infarction (NSTEMI), Uncontrolled diabetes mellitus with hyperglycemia ED Provider Note NAME: GLADIS CARRANZA AGE: 59 SEX: M : 1965 ARRIVES VIA: Walk-In INFORMANT: Patient, ED PROVIDER(S): Pako Rodriguez MD CHIEF COMPLAINT: Chest pain MEDICAL DECISION MAKING: Patient presents due to concern for chest pain. IV was established and blood work was obtained along with an EKG. patient was ordered full dose aspirin. Patient's blood work shows a normal white count hemoglobin and platelet count. The patient's kidney function is unremarkable. BSG of 512. Troponin is 1700. Patient was initially ordered heparin bolus and drip. Upon further review though the patient did take his Eliquis this morning. The patient had received a heparin bolus but the drip was stopped after discussing with cardiology who recommended that if he had taken it to stop the drip currently and could resume this evening around the time that he would receive his second dose of Eliquis. I did speak the on-call hospitalist PINKY Orellana and the patient was admitted by Dr. Callejas. I did speak with Dr. Vazquez who would evaluate the patient and stated they will discuss this further with Dr. Henson the interventionalist. Critical Care: I have personally spent 35 minutes of critical care time in direct management of this patient. This includes bedside care, interpretation of diagnostic studies, and testing, discussion with consultants, patient, and family members, and other require inpatient management activities. This 35 minutes is in excess of all separately billable procedures. Discussion w/ other healthcare providers: Dr. Vazquez cardiology PINKY Orellana and Dr. Callejas Prior /Outside records reviewed: None Differential diagnosis: Cardiac ischemia, aortic dissection, pulmonary embolism, pneumothorax, pneumonia, pericarditis, myocarditis, GERD, cholecystitis, pancreatitis, musculoskeletal, as well as other pathologies were considered. Diagnostics, as interpreted by me: ECG: Sinus with first-degree AV block, rate of 72 prolonged DC, normal QRS duration, normal axis no ST elevations, T wave inversions anteriorly laterally and in the high lateral leads. EKG does not look significantly changed from prior completed February 10, 2025. Cardiac monitoring: An order was placed for continuous cardiac monitoring. The monitor shows a rate of 75 with sinus rhythm. Patient was placed on pulse oximetry Medical decision rules: None Imaging studies: I informally interpreted the patient's chest x-ray does not show obvious pneumonia with formal report to follow. HPI: Patient presents due to concern for chest pains. The patient does have a known history of exertional chest pain but it was worse yesterday. He reports that he was coming back home with some of his groceries and once getting into his apartment he had to drop his bags on the floor and take a nitro. The patient states that he did have improvement with his pain. The patient states that he had similar symptoms coming to the emergency department this morning where he was going out to his car and he felt he had exertional chest pain. Patient did take nitro at that time and did notice improvement. No active chest pain at the bedside. He does report that the pain is left-sided. No associated nausea vomiting or diaphoresis. Patient's pain does go to the arm neck and jaw area. Patient does not have any lower extremity swelling but has had a chronic ulcer to the left garza. PAST MEDICAL HISTORY: See Below PAST SURGICAL HISTORY: See Below SOCIAL HISTORY: See Below HOME MEDICATIONS: See Below ALLERGIES: See Below VITALS: See Below PHYSICAL EXAMINATION: GENERAL: NAD, non-toxic. EYE EXAM: Normal conjunctiva. PERRL, no anisocoria and EOM's grossly intact w/o pain. OROPHARYNX: Moist mucus membranes, grossly normal dentition. NECK: Trachea midline, no stridor. LUNGS: Clear to auscultation. Normal chest wall mechanics. HEART: NSR, no MRG. ABDOMEN: Abdomen soft, non-tender, no masses, no rebound or guarding. BACK: No CVA TTP. SKIN: No rashes and no bruising. UPPER EXTREMITIES: Upper extremities are grossly normal. LOWER EXTREMITIES: Grossly normal, chronic venous stasis changes noted bilaterally. Bandage noted over the left anterior garza. No surrounding erythema fluctuance or drainage. NEURO EXAM: Awake and alert, follows commands, no obvious facial asymmetry, normal speech, moves all 4 extremities. Past Med/Surg History Problem List Uncontrolled diabetes mellitus with hyperglycemia Paroxysmal atrial fibrillation RCA occlusion Non-ST elevation (NSTEMI) myocardial infarction Stable angina Atrial fib/flutter, transient (Acute) Chest pain (Acute) Acute non-ST elevation myocardial infarction (NSTEMI) (Acute) Atrial flutter with rapid ventricular response Atrial fibrillation with RVR Demand ischemia Elevated troponin (Acute) Hypertensive urgency (Acute) Chest pain (Acute) Noncompliance w/medication treatment due to intermit use of medication Hypertensive crisis Ulcer of left lower leg CAD, multiple vessel Cellulitis of lower leg Open leg wound Abnormal ankle brachial index Unstable angina (Acute) Diabetes mellitus type II, uncontrolled (Acute) Hypertensive urgency (Acute) Neck pain Chest pain (Acute) Venous insufficiency of both lower extremities (Chronic) Non-occlusive coronary artery disease Dyslipidemia Diabetes type 2, uncontrolled Saphenous vein clot Obesity Venous stasis ulcer (Acute) Venous stasis (Chronic) 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) Hypertension (Acute) Medical History Elevated troponin Elevated LFTs Venous stasis ulcer Surgical History History of cholecystectomy Family History Father Diabetes Social History Smoking Status: Never smoker Tobacco Type: Cigarettes Second Hand Exposure: No; Do You Dip or Chew Tobacco: No; Hx Alcohol Use: No Hx Substance Use: No Preferred Language: Cameroonian Communication Ability: Effective Communication Ability Comment: able to speak Cameroonian- speak slowly Space Studies Faculty Member Required: No Beliefs That Will Affect Care: None Current Living Situation: Family Current Living Situation Comment: lives alone current occupational status: other other: patient entering into SSI Feels Safe at Home: Yes Safety Concerns: Feels Safe At This Time Diet: diabetic Assistive Devices: Cane and Glasses Allergies Allergies Allergy/AdvReac Type Severity Reaction Status Date / Time NSAIDS (Non-Steroidal Allergy Rash Verified 02/09/25 09:49 Anti-Inflamma Home Meds Home Medications Medication Instructions Recorded Confirmed ketoconazole 2 % shampoo 1 applic topical .2-3 TIMES PER 05/25/24 04/01/25 WEEK atorvastatin 40 mg tablet 40 mg PO DAILY 02/09/25 04/01/25 apixaban 5 mg tablet (Eliquis) 5 mg PO BID 04/01/25 04/01/25 isosorbide mononitrate 30 mg 0 mg PO QAM 04/01/25 04/01/25 tablet,extended release 24 hr Previous Rx's Medication Instructions Recorded blood sugar diagnostic (OneTouch #100 ea 05/27/24 Ultra Test strips) blood-glucose meter (OneTouch #1 ea 05/27/24 Ultra2 Meter) empagliflozin 10 mg tablet 10 mg PO QAM #30 tabs 05/27/24 (Jardiance) lancets 33 gauge (OneTouch Delica #100 ea 05/27/24 Plus Lancet) lisinopril 40 mg tablet (Zestril) 40 mg PO QAM #30 tabs 05/27/24 nitroglycerin 0.4 mg sublingual 0.4 mg sublingual UD PRN Chest 05/27/24 tablet Pain #1 btl pen needle, diabetic 32 gauge x #100 ea 05/27/24 5/32" silver-hydrocolloid dressing 1.2 1 ea topical .every other day #10 05/27/24 %-3.5" X 4" (Aquacel-AG) ea clopidogrel 75 mg tablet 75 mg PO QAM 30 days #30 tabs 02/10/25 Results & Data (ED) Vital Signs Vital Signs - 24 hr 04/01/25 12:47 04/01/25 13:22 04/01/25 14:00 Temperature 36.5 C Temperature Source Temporal Artery Scan Pulse Rate 87 77 74 Pulse Rate from SpO2 Sensor 74 Respiratory Rate 18 20 Respiratory Effort / Characteristics Non-Labored Spontaneous Respiratory Depth Normal Respiratory Pattern Regular Blood Pressure 136/89 100/69 Blood Pressure Mean 104 79 Pulse Oximetry 98 93 Oxygen Delivery Method Room Air Sepsis Recent Fever Within 48 Hours No Sepsis New/Unexplained Change in Mental Status No Sepsis Action Taken by Nursing No Action Required Home Medications Current Medication List: was personally reviewed by me Laboratory Data Attestation: I reviewed the patient's lab results. 04/01/25 12:58 04/01/25 12:58 Lab Results 04/01/25 Range/Units 12:58 WBC 5.93 (4.8-10.8) K/ul RBC 5.01 (4.70-6.10) M/uL Hgb 16.4 (14.0-18.0) g/dL Hct 45.2 (42.0-52.0) % MCV 90.2 (80.0-100.0) fL MCH 32.7 (25.0-34.0) pg MCHC 36.3 H (32.0-36.0) g/dL RDW Std Deviation 37.3 (36.4-46.3) fL RDW Coeff of Mirella 11.3 L (11.5-14.5) % Plt Count 215 (130-400) K/uL MPV 11.0 (9.4-12.4) fL Immature Gran % (Auto) 0.2 % Neut % (Auto) 58.9 % Lymph % (Auto) 31.4 % Leslie % (Auto) 7.1 % Eos % (Auto) 1.9 % Baso % (Auto) 0.5 % Neut # (Auto) 3.50 (1.40-6.50) K/uL Lymph # (Auto) 1.86 (1.20-3.40) K/uL Leslie # (Auto) 0.42 (0.11-0.59) K/uL Eos # (Auto) 0.11 (0.00-0.50) K/uL Baso # (Auto) 0.03 (0.00-0.20) K/uL Immature Gran # (Auto) 0.01 (0.01-0.20) K/uL PT 10.1 (9.0-12.0) Seconds INR 1.0 (0.9-1.1) APTT 26 (21-31) Seconds PTT Ratio 1.0 Sodium 132 L (136-145) mmol/L Potassium 3.9 (3.5-5.1) mmol/L Chloride 96 L (98-107) mmol/L Carbon Dioxide 27 (21-32) mmol/L Anion Gap 9 (3-11) BUN 17 (6-23) mg/dl Creatinine 1.18 (0.6-1.4) mg/dl Est Cr Clr Drug Dosing 85.7 ml/min eGFR 71.53 BUN/Creatinine Ratio 14.4 (10-20) Glucose 512 H* (70-99(Fasting)) mg/dl Calcium 9.6 (8.6-10.3) mg/dl Total Bilirubin 0.7 (0.2-1.0) mg/dl AST 27 (13-39) U/L ALT 27 (7-52) U/L Alkaline Phosphatase 106 H (34-104) U/L Troponin I High Sens 1707.7 H* (0-20) pg/ml Total Protein 7.9 (6.0-8.3) gm/dl Albumin 4.3 (3.4-5.0) gm/dl Globulin 3.6 (2.5-4.0) gm/dl Albumin/Globulin Ratio 1.2 (0.9-2) Lipase 47 (11-82) U/L Administered Medications Discontinued Medications Aspirin (Aspirin Chew 324 Mg) 324 mg PO NOW STA Stop: 04/01/25 13:36 Last Admin: 04/01/25 13:45 Dose: 324 mg Documented By: TDRebecca Fentanyl Citrate (Fentanyl Citrate Pf 100 Mcg/2 Ml Vial) Confirm Administered Dose 100 mcg .ROUTE .STK-MED ONE Stop: 04/01/25 15:42 Last Increment: 04/01/25 16:31 Dose: 75 mcg Documented By: [id number] Heparin Sodium (Porcine) (Heparin Sod (Porcine) 1000 Unit/Ml) 1 units IV NOW ONE Stop: 04/01/25 14:02 Last Admin: 04/01/25 13:59 Dose: 4,000 units Documented By: ANDREAS Co-signed By: Heparin Sodium (Porcine) (Heparin (Porcine) 1000 Unit/Ml 10 Ml (Anatomy Teacher Use Only)) Confirm Administered Dose 10,000 units .ROUTE .STK-MED ONE Stop: 04/01/25 15:42 Last Admin: 04/01/25 16:31 Dose: Not Given Documented By: [id number] Heparin Sodium/Dextrose (Heparin Iv Adult Wt-Based Low-Dose W/ Initial Bolus Protocol) 1 each IV NOW STA; Protocol Stop: 04/01/25 13:47 Last Admin: 04/01/25 14:50 Dose: Not Given Documented By: ANDREAS Heparin Sodium/Sodium Chloride (Heparin In Nss Infusion 1000 Unit/500 Ml (2 U/Ml) Bag) Confirm Administered Dose 3,000 units IV .STK-MED ONE Stop: 04/01/25 15:42 Last Admin: 04/01/25 15:53 Dose: 3,000 units Documented By: [email or web address] Heparin Sodium/Dextrose (Heparin 08155 Unit/500 Ml D5w) 25,000 units in 500 mls @ 0.02 mls/hr IV .Q24H [place]; Protocol Stop: 05/01/25 14:14 Last Titration: 04/01/25 14:10 Dose: Infused Documented By: TDM Co-signed By: Admin: 04/01/25 13:58 Dose: 1,000 units/hr, 20 mls/hr Documented By: TDM Co-signed By: Iodixanol (Iodixanol (Visipaque) 320 Mg/Ml 100ml) Confirm Administered Dose 1 ml IV .STK-MED ONE Stop: 04/01/25 15:43 Last Admin: 04/01/25 15:53 Dose: Not Given Documented By: [id number] Ioversol (Optiray 350) Confirm Administered Dose 1 ml .ROUTE .STK-MED ONE Stop: 04/01/25 15:43 Last Admin: 04/01/25 16:31 Dose: 50 ml Documented By: [email or web address] Midazolam HCl (Midazolam Hcl 1 Mg/Ml 2ml Vial) Confirm Administered Dose 2 mg .ROUTE .STK-MED ONE Stop: 04/01/25 15:42 Last Admin: 04/01/25 16:31 Dose: 2 mg Documented By: [id number] Nicardipine HCl (Nicardipine 2,000 Mcg/20 Ml Syr) Confirm Administered Dose 2,000 mcg .ROUTE .STK-MED ONE Stop: 04/01/25 15:43 Last Admin: 04/01/25 15:53 Dose: 2,000 mcg Documented By: [id number] Nitroglycerin/Dextrose (Nitroglycerin/D5w 100mcg/Ml 20ml Syr) Confirm Administered Dose 2,000 mcg .ROUTE .STK-MED ONE Stop: 04/01/25 15:43 Last Admin: 04/01/25 15:53 Dose: 2,000 mcg Documented By: [id number] Imaging Data Radiologist's Impression: Chest X-Ray 04/01/25 12:58 XR chest 1V portable CLINICAL HISTORY: Chest pain, nonspecific COMPARISON STUDY: Chest CT October 20, 2020. Chest radiograph February 09, 2025. FINDINGS: Lung volumes are normal. Lungs are clear. There is no pneumothorax or pleural effusion. Mild cardiomegaly is unchanged. Mediastinal contours are normal. There is no evidence for pulmonary edema. IMPRESSION: No acute cardiopulmonary findings. ACT 112: Negative or not required by law. Electronically signed by: Sabas Choudhary M.D. 04/01/2025 1:11 PM Discharge Plan Visit Data Chief Complaint: Chest Pain Stated Complaint: CHEST PAIN ED Provider: Pako Rodriguez Discharge Problem: Acute non-ST elevation myocardial infarction (NSTEMI), Uncontrolled diabetes mellitus with hyperglycemia Patient Disposition: Admitted As Inpatient Condition: Good Discharge Instructions Interventions: ED Discharge Assessment Last Done: 04/01/25 15:20
--- NOTE | 2025-04-01 13:13 | XRay Report ---
XR chest 1V portable CLINICAL HISTORY: Chest pain, nonspecific COMPARISON STUDY: Chest CT October 20, 2020. Chest radiograph February 09, 2025. FINDINGS: Lung volumes are normal. Lungs are clear. There is no pneumothorax or pleural effusion. Mil d cardiomegaly is unchanged. Mediastinal contours are normal. There is no evidence for pulmonary naseem a. IMPRESSION: No acute cardiopulmonary findings. ACT 112: Negative or not required by law. Electronically signed by: Sabas Choudhary M.D. 04/01/2025 1:11 PM
[2025-04-01 13:14] LABS: Hematocrit (blood only) 45.2 % (42.0-52.0); Hemoglobin 16.4 g/dL (14.0-18.0); Immature Granulocytes # (auto) 0.01 K/uL (0.01-0.20); Immature Granulocytes % (auto) 0.2 %; Mean Corpuscular Hemoglobin 32.7 pg (25.0-34.0); Mean Corpuscular Volume 90.2 fL (80.0-100.0); Platelet Count 215 K/uL (130-400); RDW Standard Deviation 37.3 fL (36.4-46.3); Red Blood Count 5.01 M/uL (4.70-6.10); White Blood Count 5.93 K/ul (4.8-10.8)
[2025-04-01] MEDS: ASPIRIN CHEW 324 MG PO STA (13:45)
[2025-04-01 13:47] LABS: Alanine Aminotransferase 27.0 U/L (7-52); Albumin Globulin Ratio 1.2 (0.9-2); Albumin Level 4.3 gm/dl (3.4-5.0); Alkaline Phosphatase 106.0 U/L (34-104); Anion Gap 9.0 (3-11); Bilirubin,Total 0.7 mg/dl (0.2-1.0); Blood Urea Nitrogen 17.0 mg/dl (6-23); Calcium 9.6 mg/dl (8.6-10.3); Carbon Dioxide 27.0 mmol/L (21-32); Chloride 96.0 mmol/L (98-107); Creatinine Clr Calc Pharmacy 85.7 ml/min; Globulin 3.6 gm/dl (2.5-4.0); Glucose 512.0 mg/dl (70-99(Fasting)); Lipase 47.0 U/L (11-82); Potassium 3.9 mmol/L (3.5-5.1); Sodium 132.0 mmol/L (136-145); Total Protein 7.9 gm/dl (6.0-8.3)
[2025-04-01] MEDS ORDERED: NITROGLYCERIN SL 0.4 MG/TAB TAB SL PRN ×2 (13:47→16:48)
[2025-04-01] MEDS: HEPARIN 25000 UNIT/500 ML D5W 25,000 UNITS/500 ML BAG IV SCH ×2 (13:58→19:28)
[2025-04-01] MEDS: HEPARIN SOD (PORCINE) 1000 UNIT/ML IV ONE (13:59)
[2025-04-01 14:07] LABS: INR 1.0 (0.9-1.1); Partial Thromboplastin Time 26 Seconds (21-31); Prothrombin Time 10.1 Seconds (9.0-12.0)
--- NOTE | 2025-04-01 14:35 | History & Physical Report ---
Date of Service April 01, 2025 Assessment & Plan (1) Non-ST elevation (NSTEMI) myocardial infarction: (2) CAD, multiple vessel: (3) Elevated troponin: (4) Diabetes type 2, uncontrolled: (5) Paroxysmal atrial fibrillation: (6) Venous stasis ulcer: (7) Venous insufficiency of both lower extremities: (8) Hypertension: Plan 59 year old male with PMH significant for type 2 diabetes with peripheral angiopathy, dyslipidemia, atrial fibrillation, hypertension, CAD s/p stent, venous stasis of both lower extremities with chronic ulcer of LLE, and constipation who presents to the ED on 04/01/2025 with exertional chest pain. NSTEMI Multivessel CAD Patient presenting with daily exertional chest pain for one month relieved by nitro now increasing from 1-2x/day to 3x/day Initial troponin 1707 with repeat 1810 EKG revealed sinus rhythm with anterolateral T wave abnormality Received ASA 324mg in ED History of PCI with x2 GALLO to mRCA in 2020; cardiac cath with 80-90% stenoses at very distal portion of LAD, RCA occluded at stented site in 2021 Taken to senior cytogenetics laboratory director with Dr. Henson Plan pending results of senior cytogenetics laboratory director: -Consult Cardiology: appreciate recs -Echo ordered -Hold Eliquis and initiate Heparin drip tonight *Received Heparin bolus in ED and patient took am Eliquis dose* -EKG in am and with chest pain -Nitro PRN -Lipid panel and A1C in am -Continue Plavix, atorvastatin, Imdur, lisinopril, metoprolol Type 2 diabetes Glucose 503 on admission Check A1C in am On Jardiance at home - hold while inpatient BSG ACHS and SSI Glycemic pharmacy consulted patient educator consulted Atrial fibrillation Rate controlled Hold Eliquis while on Heparin drip Continue metoprolol Hypertension Continue lisinopril Chronic venous stasis ulcer of LLE No s/s of infection WOCN consult: wound care per their recs DVT Prophylaxis: Heparin drip Code Status: FULL CODE - As per discussion at bedside with the patient. PCP: Clau Shine PA-C Disposition: admit to PCU Patient seen in collaboration with Dr. Callejas. Please see addendum. I spent a total of 70 minutes coordinating, documenting and providing care for this patient excluding time spent in the performance of separately billed services or time spent by another provider/QHP. Admission and Anticipated Discharge Date Admission Date: April 01, 2025 History of Present Illness Chief Complaint: chest pain Primary Care Provider: Clau Shine PA-C 59 year old male with PMH significant for type 2 diabetes with peripheral angiopathy, dyslipidemia, atrial fibrillation, hypertension, CAD s/p stent, venous stasis of both lower extremities with chronic ulcer of LLE, and constipation who presents to the ED on 04/01/2025 with chest pain. Patient was admitted in January and discharged to home. He reports he had two weeks of no chest pain at home and then started with daily episodes of chest pain. He describes exertional chest pain that is heavy tightness in his left chest with radiation into his left arm and neck/jaw and associated SOB. He notes taking nitroglycerin 1-2 times daily which relieves his pain. Over the last few days, the chest pain has increased in frequency and he has required 3 doses of nitroglycerin daily, which is why he presents to the ED today. He denies fevers, chills, cough, abdominal pain, N/V/D. He notes occasional noncompliance with his meds where he sometimes forgets to take his medications. Allergies Allergy/AdvReac Type Severity Reaction Status Date / Time NSAIDS (Non-Steroidal Allergy Rash Verified 02/09/25 09:49 Anti-Inflamma Home Medications Medication Instructions Recorded Confirmed Type ketoconazole 2 % shampoo 1 applic topical .2-3 TIMES PER 05/25/24 04/01/25 History WEEK blood sugar diagnostic (OneTouch #100 ea 05/27/24 02/09/25 Rx Ultra Test strips) blood-glucose meter (OneTouch #1 ea 05/27/24 02/09/25 Rx Ultra2 Meter) empagliflozin 10 mg tablet 10 mg PO QAM #30 tabs 05/27/24 04/01/25 Rx (Jardiance) lancets 33 gauge (OneTouch Delica #100 ea 05/27/24 02/09/25 Rx Plus Lancet) lisinopril 40 mg tablet (Zestril) 40 mg PO QAM #30 tabs 05/27/24 04/01/25 Rx nitroglycerin 0.4 mg sublingual 0.4 mg sublingual UD PRN Chest 05/27/24 04/01/25 Rx tablet Pain #1 btl pen needle, diabetic 32 gauge x #100 ea 05/27/24 02/09/25 Rx 5/32" silver-hydrocolloid dressing 1.2 1 ea topical .every other day #10 05/27/24 04/01/25 Rx %-3.5" X 4" (Aquacel-AG) ea atorvastatin 40 mg tablet 40 mg PO DAILY 02/09/25 04/01/25 History clopidogrel 75 mg tablet 75 mg PO QAM 30 days #30 tabs 02/10/25 04/01/25 Rx apixaban 5 mg tablet (Eliquis) 5 mg PO BID 04/01/25 04/01/25 History isosorbide mononitrate 30 mg 0 mg PO QAM 04/01/25 04/01/25 History tablet,extended release 24 hr Past Med/Surg History Problem List Uncontrolled diabetes mellitus with hyperglycemia Paroxysmal atrial fibrillation RCA occlusion Non-ST elevation (NSTEMI) myocardial infarction Stable angina Atrial fib/flutter, transient (Acute) Chest pain (Acute) Acute non-ST elevation myocardial infarction (NSTEMI) (Acute) Atrial flutter with rapid ventricular response Atrial fibrillation with RVR Demand ischemia Elevated troponin (Acute) Hypertensive urgency (Acute) Chest pain (Acute) Noncompliance w/medication treatment due to intermit use of medication Hypertensive crisis Ulcer of left lower leg CAD, multiple vessel Cellulitis of lower leg Open leg wound Abnormal ankle brachial index Unstable angina (Acute) Diabetes mellitus type II, uncontrolled (Acute) Hypertensive urgency (Acute) Neck pain Chest pain (Acute) Venous insufficiency of both lower extremities (Chronic) Non-occlusive coronary artery disease Dyslipidemia Diabetes type 2, uncontrolled Saphenous vein clot Obesity Venous stasis ulcer (Acute) Venous stasis (Chronic) 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) Hypertension (Acute) Medical History Elevated troponin Elevated LFTs Venous stasis ulcer Surgical History History of cholecystectomy Family History Father Diabetes Social History Smoking Status: Never smoker Tobacco Type: Cigarettes Second Hand Exposure: No; Do You Dip or Chew Tobacco: No; Hx Alcohol Use: No Hx Substance Use: No Preferred Language: Tajik Communication Ability: Effective Communication Ability Comment: able to speak Tajik- speak slowly Manager Community Development Required: No Beliefs That Will Affect Care: None Current Living Situation: Family Current Living Situation Comment: lives alone current occupational status: other other: patient entering into SSI Feels Safe at Home: Yes Safety Concerns: Feels Safe At This Time Diet: diabetic Assistive Devices: Cane and Glasses Review of Systems Review of Systems: All systems reviewed & are unremarkable except as noted in HPI & below Physical Exam Physical Exam: Refer to exam by Dr. Callejas Results & Data Results & Data Vital Signs (Past 12 Hours) Vital Signs Temp Pulse Resp BP Pulse Ox O2 Del Method 04/01/25 13:22 77 04/01/25 12:47 36.5 C 87 18 136/89 98 Room Air Laboratory Results Short CBC 04/01/25 Range/Units 12:58 WBC 5.93 (4.8-10.8) K/ul Hgb 16.4 (14.0-18.0) g/dL Hct 45.2 (42.0-52.0) % Plt Count 215 (130-400) K/uL BMP 04/01/25 12:58 Sodium 132 L Potassium 3.9 Chloride 96 L Carbon Dioxide 27 BUN 17 Creatinine 1.18 Glucose 512 H* Calcium 9.6 Liver Function 04/01/25 Range/Units 12:58 Total Bilirubin 0.7 (0.2-1.0) mg/dl AST 27 (13-39) U/L ALT 27 (7-52) U/L Alkaline Phosphatase 106 H (34-104) U/L Albumin 4.3 (3.4-5.0) gm/dl I have independently reviewed and interpreted patient's admitting labs including CBC, CMP, PTT, PT/INR, lipase, troponin Diagnostic Findings Chest X-Ray 04/01/25 12:58 XR chest 1V portable CLINICAL HISTORY: Chest pain, nonspecific COMPARISON STUDY: Chest CT October 20, 2020. Chest radiograph February 09, 2025. FINDINGS: Lung volumes are normal. Lungs are clear. There is no pneumothorax or pleural effusion. Mild cardiomegaly is unchanged. Mediastinal contours are normal. There is no evidence for pulmonary edema. IMPRESSION: No acute cardiopulmonary findings. ACT 112: Negative or not required by law. Electronically signed by: Sabas Choudhary M.D. 04/01/2025 1:11 PM ECG Additional Comments: I have independently reviewed and interpreted patient's admitting EKG which revealed: NSR with 1st degree AV block at a rate of 72 bpm and T wave abnormalities in anterolateral leads Code Status & VTE Plan Code Status Full Code VTE Prophylaxis Plan VTE Prophylaxis will be ordered: Yes Supervising Physician Co-Signing Physician Notes Patient is a 59-year-old male with history of uncontrolled diabetes mellitus, atrial fibrillation on Eliquis, hypertension, hyperlipidemia, coronary artery disease and other medical problems presents with history of ongoing intermittent chest pain which she describes as heaviness radiating to left arm and jaw associated with shortness of breath which improved with nitroglycerin. Please review HPI for complete details of presentation. I personally reviewed blood work and imaging studies. Patient noted hyperglycemia 512. Troponin elevation 1707. EKG showed findings suggestive of NSTEMI. Patient underwent emergent cath showing severe multivessel coronary artery disease.. Physical Exam: Vitals signs as noted above General Appearance:Obese, no apparent distress Head: normocephalic, Atraumatic Eyes: normal inspection, EOMI Neck: supple, Trachea midline Respiratory/Chest: Normal breath sounds, CTA, No accessory muscle use Cardiovascular: S1, S2, No murmur Abdomen/GI:Soft, Non tender, Bowel sounds present Extremities/Musculoskeletal:normal inspection, no edema Neurologic/Psych:AAOX3, grossly no focal neurological deficits Skin: normal color, warm,+ left leg chronic unhealed wound NSTEMI S/P Cath Severe multivessel coronary artery disease Continue Plavix, IV heparin Appreciate cardiology input Needs transfer to tertiary care hospital for CT surgery evaluation and CABG Continue other cardiac medications Uncontrolled diabetes mellitus Last HbA1c 11.7 Will need Insulin on discharge I personally interviewed and examined the patient at bedside. I have reviewed the advanced practitioner's documentation on the date of service referred in note and agree with plan. Patient's care is coordinated with Sophie VANCE. Please refer to the documentation above for details of patient's presentation and for discussion of other issues. I spent a total [id number] coordinating, documenting, and providing care for this patient excluding time spent in the performance of separately billed services or time spent by another provider/QHP.
[2025-04-01] MEDS: Heparin IV Adult Wt-Based Low-Dose w/ INITIAL Bolus Protocol IV STA (14:50)
--- NOTE | 2025-04-01 15:13 | Cardiology Consultation ---
Date of Consultation April 01, 2025 Assessment & Plan (1) Non-ST elevation (NSTEMI) myocardial infarction: (2) RCA occlusion: (3) Paroxysmal atrial fibrillation: (4) Uncontrolled diabetes mellitus with hyperglycemia: Plan Cardiac catheterization films from 2020 and 2021 reviewed. Most recent angiography demonstrating a RCA occlusion and severe apical LAD stenosis with [id number] collaterals. With new anginal symptoms/NSTEMI, I suspect there is a new stenosis in the left sided coronary circulation. Coronary angiography will be performed via left radial approach this afternoon. Continue current medications including clopidogrel, atorvastatin, Toprol-XL, lisinopril, and isosorbide monohydrate. Further recommendations pending results of cardiac catheterization. Addendum: Cardiac catheterization demonstrated multivessel coronary disease with severe ostial left main, severe mid LAD with SHAAN I LAD flow, severe proximal left circumflex stenosis, and chronic RCA SEXUAL ABUSE COUNSELLOR with right to right and right to left collaterals. Patient remains hemodynamically stable and pain-free at rest. Resume IV heparin infusion. Recommend transfer to tertiary care facility for cardiothoracic surgery evaluation. Patient agreeable. Yrn Vazquez DO [facility] History of Present Illness Reason for Consultation: NSTEMI Requesting Physician: Dr. Pako Rodriguez, (ER Physician) Attending Physician: Dr. Vinnie Callejas History of Present Illness 59-year-old male presents to the emergency department with chest discomfort. Significantly elevated high-sensitivity troponin 1707. Admitted January 2025 with new onset atrial fibrillation with rapid ventricular response. Elevated troponin during that admission attributed to demand ischemia in the setting of atrial fibrillation with rapid ventricular response. He was prescribed Eliquis with discontinuation of aspirin. Clopidogrel continued. Chest discomfort occurring with minimal exertion and during cold weather. Has used nitroglycerin on approximately 6 occasions over the past 3 days. Currently pain-free at rest. ECG demonstrating sinus rhythm with anterolateral T wave abnormality. Echocardiogram pending at this time. Previous cardiac catheterization 2020 demonstrating chronic occlusion of the right coronary artery proximal to previously implanted stents, and severe distal LAD stenosis 80%. Allergies Allergy/AdvReac Type Severity Reaction Status Date / Time NSAIDS (Non-Steroidal Allergy Rash Verified 02/09/25 09:49 Anti-Inflamma Home Medications Medication Instructions Recorded Confirmed Type ketoconazole 2 % shampoo 1 applic topical .2-3 TIMES PER 05/25/24 04/01/25 History WEEK blood sugar diagnostic (OneTouch #100 ea 05/27/24 02/09/25 Rx Ultra Test strips) blood-glucose meter (OneTouch #1 ea 05/27/24 02/09/25 Rx Ultra2 Meter) empagliflozin 10 mg tablet 10 mg PO QAM #30 tabs 05/27/24 04/01/25 Rx (Jardiance) lancets 33 gauge (OneTouch Delica #100 ea 05/27/24 02/09/25 Rx Plus Lancet) lisinopril 40 mg tablet (Zestril) 40 mg PO QAM #30 tabs 05/27/24 04/01/25 Rx nitroglycerin 0.4 mg sublingual 0.4 mg sublingual UD PRN Chest 05/27/24 04/01/25 Rx tablet Pain #1 btl pen needle, diabetic 32 gauge x #100 ea 05/27/24 02/09/25 Rx 5/32" silver-hydrocolloid dressing 1.2 1 ea topical .every other day #10 05/27/24 04/01/25 Rx %-3.5" X 4" (Aquacel-AG) ea atorvastatin 40 mg tablet 40 mg PO DAILY 02/09/25 04/01/25 History clopidogrel 75 mg tablet 75 mg PO QAM 30 days #30 tabs 02/10/25 04/01/25 Rx apixaban 5 mg tablet (Eliquis) 5 mg PO BID 04/01/25 04/01/25 History isosorbide mononitrate 30 mg 0 mg PO QAM 04/01/25 04/01/25 History tablet,extended release 24 hr Patient History Medical History Elevated troponin Elevated LFTs Venous stasis ulcer Surgical History History of cholecystectomy Family History Father Diabetes Social History Smoking Status: Never smoker Tobacco Type: Cigarettes Second Hand Exposure: No; Do You Dip or Chew Tobacco: No; Hx Alcohol Use: No Hx Substance Use: No Preferred Language: Citizen Of [place] Communication Ability: Effective Communication Ability Comment: able to speak Citizen Of [place]- speak slowly Healthcare Translator Required: No Beliefs That Will Affect Care: None Current Living Situation: Family Current Living Situation Comment: lives alone current occupational status: other other: patient entering into SSI Feels Safe at Home: Yes Safety Concerns: Feels Safe At This Time Diet: diabetic Assistive Devices: Cane and Glasses Review of Systems Review of Systems: All systems reviewed & are unremarkable except as noted in Subjective Physical Exam Constitutional: well nourished and + obese; no acute distress Respiratory: no respiratory distress, no labored breathing and no retractions Auscultation: no crackles, no rales, no rhonchi and no wheezes Cardiovascular: Rate/Rhythm: regular rate and regular rhythm Heart Sounds: normal S1 and normal S2; no murmur Vessels: femoral pulses present and radial pulses present; no JVD and no carotid bruit Extremities: no edema Gastrointestinal (Abdomen): Inspection/Auscultation: abdomen normal to inspection and normal bowel sounds; abdomen not distended Percussion/Palpation: abdomen soft; abdomen nontender, no guarding and abdomen not rigid Neurologic: CN's II-XI intact bilaterally and moves all extremities; no focal motor deficits Results & Data Vital Signs (Past 12 Hours) Vital Signs Temp Pulse Resp BP Pulse Ox O2 Del Method 04/01/25 14:30 73 13 128/80 94 04/01/25 14:00 74 20 100/69 93 04/01/25 13:22 77 04/01/25 12:47 36.5 C 87 18 136/89 98 Room Air Laboratory Results Cardiac Enzymes 04/01/25 Range/Units 12:58 AST 27 (13-39) U/L Troponin I High Sens 1707.7 H* (0-20) pg/ml Coagulation 04/01/25 Range/Units 12:58 PT 10.1 (9.0-12.0) Seconds APTT 26 (21-31) Seconds CBC 04/01/25 Range/Units 12:58 WBC 5.93 (4.8-10.8) K/ul RBC 5.01 (4.70-6.10) M/uL Hgb 16.4 (14.0-18.0) g/dL Hct 45.2 (42.0-52.0) % Plt Count 215 (130-400) K/uL Neut # (Auto) 3.50 (1.40-6.50) K/uL Lymph # (Auto) 1.86 (1.20-3.40) K/uL [place] # (Auto) 0.42 (0.11-0.59) K/uL Eos # (Auto) 0.11 (0.00-0.50) K/uL Baso # (Auto) 0.03 (0.00-0.20) K/uL Comprehensive Metabolic Panel 04/01/25 Range/Units 12:58 Sodium 132 L (136-145) mmol/L Potassium 3.9 (3.5-5.1) mmol/L Chloride 96 L (98-107) mmol/L Carbon Dioxide 27 (21-32) mmol/L BUN 17 (6-23) mg/dl Creatinine 1.18 (0.6-1.4) mg/dl Glucose 512 H* (70-99(Fasting)) mg/dl Calcium 9.6 (8.6-10.3) mg/dl AST 27 (13-39) U/L ALT 27 (7-52) U/L Alkaline Phosphatase 106 H (34-104) U/L Total Protein 7.9 (6.0-8.3) gm/dl Albumin 4.3 (3.4-5.0) gm/dl Intake and Output 04/01/25 04/01/25 04/01/25 06:59 14:59 22:59 Intake Total Balance Intake: IV Heparin 07545 Unit/500 ml D5w 25,000 units In 500 ml @ 1 UNITS/HR 0.02 mls/hr IV .Q24H [facility] Rx#:[id number] Other: Weight 105.5 kg Patient Weight 04/02/25 06:59 Weight 105.5 kg PG Care Time/CCT Total # of Minutes Spent Total Time Spent with Patient: Total time spent is greater than 50% in coordination of care (as documented) at patient's floor/unit and/or counseling patient: Coding Level of Care Code 26333 IN/OBS CONSULT LVL 5,80M Diagnoses Non-ST elevation (NSTEMI) myocardial infarction I21.4 RCA occlusion I24.0 Paroxysmal atrial fibrillation I48.0 Uncontrolled type 2 diabetes mellitus with hyperglycemia E11.65 Diabetes mellitus type: type 2 (4) Uncontrolled diabetes mellitus with hyperglycemia Diabetes mellitus type: type 2 Qualified Code(s): E11.65 - Type 2 diabetes mellitus with hyperglycemia
--- NOTE | 2025-04-01 15:32 | Electrocardiogram Report ---
Test Reason : Blood Pressure : */* mmHG Vent. Rate : 72 BPM Atrial Rate : 72 BPM P-R Int : 220 ms QRS Dur : 100 ms QT Int : 416 ms P-R-T Axes : 42 -18 169 degrees QTcB Int : 455 ms Sinus rhythm with 1st degree A-V block Inferior infarct (cited on or before 09-Feb-2025) Cannot rule out Anterior infarct , age undetermined Abnormal ECG When compared with ECG of 10-Feb-2025 06:23, Minimal criteria for Anterior infarct are now Present QT has shortened Confirmed by Ramsey Avila ([id number]) on 04/01/2025 3:32:32 PM Referred By: REFERRED SELF Confirmed By: Ramsey Avila
--- NOTE | 2025-04-01 15:34 | Pre Anesthesia Assessment ---
Date of Service April 01, 2025 Pre Sedation Assessment Vital Signs Temp Pulse Pulse Resp BP BP Pulse Ox 04/01/25 15:24 69 18 109/79 94 04/01/25 14:30 73 13 128/80 94 04/01/25 14:00 74 20 100/69 93 04/01/25 13:22 77 04/01/25 12:47 97.7 F 87 18 136/89 98 O2 Del Method 04/01/25 15:24 Room Air 04/01/25 14:30 04/01/25 14:00 04/01/25 13:22 04/01/25 12:47 Room Air Cardiovascular + regular rate Respiratory + respiratory effort normal Pre-Sedation Airway Assessment Smoking Status: Never smoker Hx Sleep Apnea: No Hx Difficult Intubation: No Short, Thick Neck: No Thyromental Distance: > or= 3.5 Finger Breadths Oral Cavity: + WNL Mallampati Class: III ASA: ASA3 NPO Status Date of Last Intake of Fluids: 04/01/25 Last Oral Intake of Fluids Comment: with meds Procedure Planning Contraindications for Sedation: none Current Medications Reviewed: Yes Notes The planned sedation has been discussed with the patient. Informed Consent was obtained. I have identified the patient, determined the appropriateness of sedation and have assessed the patient immediately prior to the procedure. All medicine(s) and interventions are by my order.
[2025-04-01] MEDS: niCARdipine 2,000 MCG/20 ML SYR ONE (15:53)
[2025-04-01] MEDS: IODIXANOL (VISIPAQUE) 320 MG/ML 100ML IV ONE (15:53)
[2025-04-01] MEDS: NITROGLYCERIN/D5W 100MCG/ML 20ML SYR ONE (15:53)
[2025-04-01] MEDS: OPTIRAY 350 ONE (16:31)
[2025-04-01] MEDS: HEPARIN (PORCINE) 1000 UNIT/ML 10 ML (CATH LAB USE ONLY) ONE (16:31)
[2025-04-01] MEDS: MIDAZOLAM HCL 1 MG/ML 2ML VIAL ONE (16:31)
--- NOTE | 2025-04-01 16:37 | Post Anesthesia Assessment ---
Date of Service April 01, 2025 Post Sedation Assessment Vital Signs Temp Pulse Pulse Resp BP BP Pulse Ox 04/01/25 15:24 69 18 109/79 94 04/01/25 14:30 73 13 128/80 94 04/01/25 14:00 74 20 100/69 93 04/01/25 13:22 77 04/01/25 12:47 97.7 F 87 18 136/89 98 O2 Del Method 04/01/25 15:24 Room Air 04/01/25 14:30 04/01/25 14:00 04/01/25 13:22 04/01/25 12:47 Room Air Recovery Score Activity: Moves 4 extremities Respiration: Deep Breath/Cough Circulation: +/-20% PreAnes Value Consciousness: Fully Awake Oxygen Saturation: O2 needed for >90% Discharge Sedation Level of Care: Fast Track Phase II
--- NOTE | 2025-04-01 16:43 | Cardiac Catheterization ---
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 Cardiac Status Clinical evaluation leading to the procedure CAD Presenation: Non STEMI Diagnostic Physicians Name: Clark Henson MD Closure Device Recommendations: CABG Cardiac Cath Procedure Full Procedure Date April 01, 2025 Pre-Procedure Diagnosis Pre-Procedure Diagnosis: Non STEMI and CAD AUC Score AUC Score: 7 Post-Procedure Diagnosis Post-Procedure Diagnosis: Severe CAD and Normal Intracardiac Pressures Procedure(s) Performed Procedure(s) Performed: Coronary Angiography, Left Heart Cath and Ultrasound Guided Vascular Access Road Maker Clark Henson MD Excel Vba Developer(s) Harvey Estimated Blood Loss Estimated Blood Loss: 20 Medication(s) Medication(s): Fentanyl, Heparin, Lidocaine 1%, Nicardipine, Nitroglycerin and Versed Summary of Findings Indication: Accelerating angina, NSTEMI Access: 6 Fr slender left radial artery under ultrasound guidance Catheters: JL 3.5, JR4 Findings: LM -calcified, 80 to 90% proximal stenosis with some waveform dampening with catheter engagement. 20-30% distal stenosis at bifurcation LAD -calcified, medium caliber, 98% mid stenosis just after takeoff of takeoff of D2 small to medium D2 with 80% ostial stenosis. Remainder of LAD with SHAAN I flow and partially fills via right to left collaterals. Circumflex -heavily calcified, Small AV groove circumflex with 95% proximal stenosis. Ramuslarge caliber, tortuous with mild diffuse disease. RCA -dominant, large caliber, 100% chronic proximal occlusion at proximal aspect of prior stents mid and distal vessel partially fill via right to right collaterals. Competitive flow in PDA/PLB's in part due to [id number] collaterals. LVEDP -2 Arterial Closure: TR band Summary: 1. Severe multivessel coronary artery disease -80-90% proximal LMCA 98% mid LAD at takeoff with D2. SHAAN I flow in distal LAD with faint right to left collaterals. 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 Distal vessel fills via right to right and [id number] collaterals. 2. Normal intracardiac filling pressure Recommendations: Transfer to tertiary center for consideration of CABG Hemodynamics Rest Ao:: 81/45/77 Final Ao: 107/68/84 LV: 92/2 Recommendations Recommendations: CABG Radiation Exposure (mGy) 1205 Contrast (mls) 55 Anesthesia Moderate 9190-8408 Procedural Complication(s) None Disposition PCU I attest to the content of the Intraoperative Record and any orders documented therein. Any exceptions are noted below. [facility] Card Cath Procedure Codes Cardiac Catheterization Procedure 1: Cardiovascular Cath Procedures: 32815 Coronaries and LHC (+/-LV) Moderate Sedation Procedure 1: Sedation/Anesthesia: 20499 Mod Sedation by the same physician;Init15 Min Child Age 5 & Up Procedure 2: Sedation/Anesthesia: 95245 Mod Sedation by the same physician; Ea [id number] Minutes PG Care Time/CCT Total # of Minutes Spent Total Time Spent with Patient: Total time spent is greater than 50% in coordination of care (as documented) at patient's floor/unit and/or counseling patient:
[2025-04-01] MEDS ORDERED: GLUCOSE 40% GEL 15 GM TUBE PO PRN (16:48)
[2025-04-01] MEDS ORDERED: POLYETHYLENE (MIRALAX) 17 GM PACK PO PRN (16:48)
[2025-04-01] MEDS ORDERED: CARBOHYDRATES FOR HYPOGLYCEMIA PO PRN (16:48)
[2025-04-01] MEDS ORDERED: PHARMACY GLYCEMIC MGMT CONSULT PRN (16:48)
[2025-04-01] MEDS ORDERED: GLUCOSE 10 TAB/TUBE PO PRN (16:48)
[2025-04-01] MEDS ORDERED: ONDANSETRON INJ 2 MG/ML 2 ML VIAL IV PRN (16:48)
[2025-04-01] MEDS ORDERED: GLUCAGON FOR INJ 1 MG VIAL SQ PRN (16:48)
[2025-04-01] MEDS ORDERED: DEXTROSE 50% 50 ML SYRINGE IV PRN (16:48)
[2025-04-01] MEDS ORDERED: ACETAMINOPHEN 325 MG TAB PO PRN (16:48)
[2025-04-01 17:32] VITALS: RESP 18
--- NOTE | 2025-04-01 17:48 | Discharge Summary ---
Discharge Summary Date of Service April 01, 2025 Principal Dx & Hospital Course #1 = Principal Diagnosis (1) Non-ST elevation (NSTEMI) myocardial infarction: (2) CAD, multiple vessel: (3) Elevated troponin: (4) Diabetes type 2, uncontrolled: (5) Paroxysmal atrial fibrillation: (6) Venous stasis ulcer: (7) Hypertension: (8) Venous insufficiency of both lower extremities: Plan 59 year old male with PMH significant for type 2 diabetes with peripheral angiopathy, dyslipidemia, atrial fibrillation, hypertension, CAD s/p stent, venous stasis of both lower extremities with chronic ulcer of LLE, and constipation who presents to the ED on 04/01/2025 with daily exertional chest pain for one month relieved by nitro now increasing from 1-2x/day to 3x/day. NSTEMI Multivessel CAD History of PCI with x2 GALLO to mRCA in 2020; cardiac cath with 80-90% stenoses at very distal portion of LAD, RCA occluded at stented site in 2021 Initial troponin 1707 with repeat 181 EKG revealed sinus rhythm with anterolateral T wave abnormality Received ASA 324mg in ED Summary of cardiac catheterization per Dr. Henson: 1. Severe multivessel coronary artery disease -80-90% proximal LMCA 98% mid LAD at takeoff with D2. SHAAN I flow in distal LAD with faint right to left collaterals. 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 Distal vessel fills via right to right and [id number] collaterals. 2. Normal intracardiac filling pressure Recommending transfer to tertiary center for consideration of CABG Dr.. Azeem Bey at [facility] accepted the patient for further management. While awaiting transfer: -Echo pending -IV heparin to resume once TR band removed -Hold Eliquis -Continue Plavix, atorvastatin, Imdur, lisinopril, metoprolol -Nitro PRN Type 2 diabetes Glucose 503 on admission Check A1C in am On Jardiance at home - hold while inpatient BSG ACHS and SSI Glycemic pharmacy consulted conservation educator consulted Atrial fibrillation Rate controlled Hold Eliquis while on Heparin drip Continue metoprolol Hypertension Continue lisinopril Chronic venous stasis ulcer of LLE No s/s of infection Wound care DVT Prophylaxis: Heparin drip Code Status: FULL CODE - As per discussion at bedside with the patient. PCP: Clau Shine PA-C Disposition: transfer to tertiary care center for possible CABG Patient seen in collaboration with Dr. Callejas. Please see addendum. Notes For Next Care Provider 59 year old male with multi vessel CAD who presented with chest pain and was found to have NSTEMI. Underwent cardiac cath with recommended transfer to tertiary care center for possible CABG Medication Changes From Visit None Admission HPI Per Admitting Provider 59 year old male with PMH significant for type 2 diabetes with peripheral angiopathy, dyslipidemia, atrial fibrillation, hypertension, CAD s/p stent, venous stasis of both lower extremities with chronic ulcer of LLE, and constipation who presents to the ED on 04/01/2025 with chest pain. Patient was admitted in January and discharged to home. He reports he had two weeks of no chest pain at home and then started with daily episodes of chest pain. He describes exertional chest pain that is heavy tightness in his left chest with radiation into his left arm and neck/jaw and associated SOB. He notes taking nitroglycerin 1-2 times daily which relieves his pain. Over the last few days, the chest pain has increased in frequency and he has required 3 doses of nitroglycerin daily, which is why he presents to the ED today. He denies fevers, chills, cough, abdominal pain, N/V/D. He notes occasional noncompliance with his meds where he sometimes forgets to take his medications. Admission Exam Per Admitting Provider Physical Exam: Vitals signs as noted above General Appearance:Obese, no apparent distress Head: normocephalic, Atraumatic Eyes: normal inspection, EOMI Neck: supple, Trachea midline Respiratory/Chest: Normal breath sounds, CTA, No accessory muscle use Cardiovascular: S1, S2, No murmur Abdomen/GI:Soft, Non tender, Bowel sounds present Extremities/Musculoskeletal:normal inspection, no edema Neurologic/Psych:AAOX3, grossly no focal neurological deficits Skin: normal color, warm,+ left leg chronic unhealed wound Discharge Exam Refer to exam by Dr. Callejas Updated Medication List Medication Instructions Recorded Confirmed Type ketoconazole 2 % shampoo 1 applic topical .2-3 TIMES PER 05/25/24 04/01/25 History WEEK blood sugar diagnostic (Momperyuch #100 ea 05/27/24 02/09/25 Rx Ultra Test strips) blood-glucose meter (OneTouch #1 ea 05/27/24 02/09/25 Rx Ultra2 Meter) empagliflozin 10 mg tablet 10 mg PO QAM #30 tabs 05/27/24 04/01/25 Rx (Jardiance) lancets 33 gauge (OneTouch Delica #100 ea 05/27/24 02/09/25 Rx Plus Lancet) lisinopril 40 mg tablet (Zestril) 40 mg PO QAM #30 tabs 05/27/24 04/01/25 Rx nitroglycerin 0.4 mg sublingual 0.4 mg sublingual UD PRN Chest 05/27/24 04/01/25 Rx tablet Pain #1 btl pen needle, diabetic 32 gauge x #100 ea 05/27/24 02/09/25 Rx 5/32" silver-hydrocolloid dressing 1.2 1 ea topical .every other day #10 05/27/24 04/01/25 Rx %-3.5" X 4" (Aquacel-AG) ea atorvastatin 40 mg tablet 40 mg PO DAILY 02/09/25 04/01/25 History clopidogrel 75 mg tablet 75 mg PO QAM 30 days #30 tabs 02/10/25 04/01/25 Rx apixaban 5 mg tablet (Eliquis) 5 mg PO BID 04/01/25 04/01/25 History isosorbide mononitrate 30 mg 0 mg PO QAM 04/01/25 04/01/25 History tablet,extended release 24 hr Hospital Stay Data Consultations 04/01/25 13:47 Consult Cardiology Routine ED Decision to Admit Stat Procedures Performed Operation Date: 04/01/25 15:00 Actual Procedures p Cineradiography w/Routine Exam - Clark Henson MD p Cath, Left with Cors and Vent - Clark Henson MD Diagnostic Imagining Performed 04/01/25 14:59 CL Cath Imgs for PACS use only Stat Discharge Instructions Given to Patient (Per Discharging Provider) -- Follow-up with your radio news writer Dr. Azeem Bey at [facility] for further management ACTIVITY RECOMMENDATIONS: Excess manipulation of the wrist should be avoided for the next 24-48 hours. * No lifting over 2 pounds (approximately a 1/2 gallon of milk) with the utilized arm for 24 hours. * No strenuous activity such as bowling or tennis for 3 days. * Keep the site of the procedure covered with a bandage for 24 hours. *You may shower the day after the procedure. Do not take a tub bath or submerge the puncture site in water for the next 3 days. *Do not operate any motorized equipment for 3 days. SPECIAL CARE INSTRUCTIONS: The site may be slightly bruised and sore following your procedure. Should any of the following occur, contact the Dr. who performed your procedure. 1. Redness/inflammation, swelling, chills, or fever, or colored drainage at procedure site within 3-7 days after your procedure. 2. Coldness, discoloration, ongoing numbness, severe pain, or swelling. Expect mild tingling of hand and tenderness at the puncture site for up to three days. If this persists beyond three days, or other symptoms develop, notify the Dr. who performed your procedure. BLEEDING: If the procedure site on your wrist begins to bleed, do not panic 1. Place 1 or 2 fingers firmly just slightly above the insertion site to stop the bleeding. You may be able to feel your pulse as you hold pressure. 2. Lift your finger after 5 minutes to see if the bleeding has stopped. 3. Once the bleeding has stopped, gently wipe the wrist area clean with a bandage. * If the bleeding from your wrist does not stop after 10 minutes, or if there is a large amount of bleeding or spurting, call 911 (do not drive yourself to the hospital). SKIN IRRITATION: * You may experience some redness and/or swelling in the area where radiation was administered. If any skin irritation occurs, please contact your family physician. FOLLOW UP VISIT: Keep any scheduled doctor appointments. Home Care: * Take your medications exactly as directed. Don't skip doses. * Remember that recovery after a heart attack takes time. Plan to rest for at lease 4-8 weeks while you recover. Then return to normal activity when your doctor says it's okay. * Ask your doctor about joining a heart rehabilitation program. * Tell your doctor if you are feeling depressed. Feelings of sadness are common after a heart attack, but it is important that you speak to someone if you are feeling overwhelmed by these feelings. * If you are having chest pain, call 911 for an ambulance. Do NOT drive y ourself to the hospital. * Ask your family members to learn CPR. * Learn to take your own blood pressure and pulse. Keep a record of your results. Ask your doctor when you should seek emergency medical attention. He or she will tell you which blood pressure reading is dangerous. Lifestyle Changes: * Maintain a healthy weight. Get help to lose any extra pounds. * Cut back on salt. * Limit canned, dried, packaged, and fast foods. * Don't add salt to your food. * Season foods with herbs instead of salt when you cook. * Break the smoking habit. Enroll in a stop-smoking program to improve your chances of success. * Limit fatty foods. * Ask your doctor about having your lipid levels checked regularly. * Build up your activity according to your doctor's recommendation. * Ask your doctor when it's okay to resume sexual activity. * Tell your doctor about any erectile dysfunction (ED) medication you are taking. Some ED medications are not safe if you take certain heart medicat ions. * Try to manage stress. Follow Up: It is important for you to keep your follow up appointments with your medical provider. Total Time Total Time Spent Total Time Spent (In Minutes): I spent a total of 45 minutes coordinating, documenting and providing care for this patient excluding time spent in the performance of separately billed services or time spent by another provider/QHP. Supervising Physician Co-Signing Physician Notes Patient is a 59-year-old male with history of uncontrolled diabetes mellitus, atrial fibrillation on Eliquis, hypertension, hyperlipidemia, coronary artery d isease and other medical problems presents with history of ongoing intermittent chest pain which she describes as heaviness radiating to left arm and jaw associated with shortness of breath which improved with nitroglycerin. Please review HPI for complete details of presentation. I personally reviewed blood work and imaging studies. Patient noted hyperglycemia 512. Troponin elevation 1707. EKG showed findings suggestive of NSTEMI. Patient underwent emergent cath showing severe multivessel coronary artery disease.. Physical Exam: Vitals signs as noted above General Appearance:Obese, no apparent distress Head: normocephalic, Atraumatic Eyes: normal inspection, EOMI Neck: supple, Trachea midline Respiratory/Chest: Normal breath sounds, CTA, No accessory muscle use Cardiovascular: S1, S2, No murmur Abdomen/GI:Soft, Non tender, Bowel sounds present Extremities/Musculoskeletal:normal inspection, no edema Neurologic/Psych:AAOX3, grossly no focal neurological deficits Skin: normal color, warm,+ left leg chronic unhealed wound NSTEMI S/P Cath Severe multivessel coronary artery disease Continue Plavix, IV heparin Appreciate cardiology input Needs transfer to tertiary care hospital for CT surgery evaluation and CABG Continue other cardiac medications Uncontrolled diabetes mellitus Last HbA1c 11.7 Will need Insulin on discharge I personally interviewed and examined the patient at bedside. I have reviewed the advanced practitioner's documentation on the date of service referred in note and agree with plan. Patient's care is coordinated with Sophie VANCE. Please refer to the documentation above for details of patient's presentation and for discussion of other issues. I spent a total [id number] coordinating, documenting, and providing care for this patient excluding time spent in the performance of separately billed services or time spent by another provider/QHP.
[2025-04-01] MEDS: INSULIN ASPART PER UNIT CHARGE SC SCH (18:00)
[2025-04-01] MEDS: LANTUS PER UNIT CHARGE SC ONE (18:00)
[2025-04-01] MEDS ORDERED: Heparin IV Adult Wt-Based Standard *NO* INITIAL Bolus Protocol IV SCH (21:00)
[2025-04-01] MEDS ORDERED: LANTUS PER UNIT CHARGE SQ SCH (21:00)
[2025-04-01 23:11] VITALS: O2SAT 95
[2025-04-02 02:04] LABS: Hematocrit (blood only) 41.4 % (42.0-52.0); Hemoglobin 15.0 g/dL (14.0-18.0); Mean Corpuscular Hemoglobin 32.4 pg (25.0-34.0); Mean Corpuscular Volume 89.4 fL (80.0-100.0); Platelet Count 203 K/uL (130-400); RDW Standard Deviation 36.6 fL (36.4-46.3); Red Blood Count 4.63 M/uL (4.70-6.10); White Blood Count 6.36 K/ul (4.8-10.8)
[2025-04-02 02:41] LABS: Anion Gap 10.0 (3-11); Blood Urea Nitrogen 16.0 mg/dl (6-23); Calcium 9.0 mg/dl (8.6-10.3); Carbon Dioxide 23.0 mmol/L (21-32); Chloride 102.0 mmol/L (98-107); Cholesterol 250.0 mg/dl (0-200); Creatinine Clr Calc Pharmacy 122.4 ml/min; Glucose 144.0 mg/dl (70-99(Fasting)); HDL Cholesterol 39.0 mg/dl; Potassium 3.4 mmol/L (3.5-5.1); Sodium 135.0 mmol/L (136-145); Triglycerides 253.0 mg/dl (0-150)
[2025-04-02 02:48] LABS: ANTI-Xa, UFH(UnfractionatedHep 0.45 IU/ml (0.3-0.7)
[2025-04-02 03:25] VITALS: BP 106/67; TEMP 97.5
[2025-04-02] MEDS: INSULIN ASPART PER UNIT CHARGE SC SCH ×2 (04:00)
[2025-04-02 07:43] VITALS: PULSE 61
[2025-04-02] MEDS ORDERED: POTASSIUM CHLORIDE 20 MEQ/15 ML UDC PO STA (07:43)
[2025-04-02 08:06] LABS: Hemoglobin A1C 11.6 % (4.5-5.6)
[2025-04-02] MEDS ORDERED: CLOPIDOGREL BISULFATE 75 MG TAB PO SCH (09:00)
[2025-04-02] MEDS ORDERED: ISOSORBIDE MONO EXTENDED REL 30 MG TABCR PO SCH (09:00)
[2025-04-02] MEDS ORDERED: ATORVASTATIN 40 MG TAB PO SCH (09:00)
== END 2025-04-02 07:43 | disposition short-term general hospital (02) | DRG 282 ==
LOC: ED 12:46 → SUATTDRO 14:16 → 2S 14:16
DX: E11.65 Type 2 diabetes mellitus with hyperglycemia; Z79.02 Long term (current) use of antithrombotics/antiplatelets; E11.51 Type 2 diabetes mellitus with diabetic peripheral angiopathy without gangrene; Z95.5 Presence of coronary angioplasty implant and graft; I83.002 Varicose veins of unspecified lower extremity with ulcer of calf; Z79.01 Long term (current) use of anticoagulants; I21.4 Non-ST elevation (NSTEMI) myocardial infarction; Z79.899 Other long term (current) drug therapy; Z79.84 Long term (current) use of oral hypoglycemic drugs; I48.0 Paroxysmal atrial fibrillation; Z88.6 Allergy status to analgesic agent; I10 Essential (primary) hypertension; E78.5 Hyperlipidemia, unspecified; I87.2 Venous insufficiency (chronic) (peripheral)